=== PATIENT | female | born 1960 ===

== ENCOUNTER 2019-12-04 09:59 | Outpatient (REF) | payer OTHER, SELFPAY ==
--- NOTE | 2019-12-04 | PFT_ITS ---
Forced vital capacity and FEV1 are both moderately reduced. FEV1/FVC ratio is normal. [id number] and MVV also moderately reduced. Post bronchodilator therapy, there is no significant response. Total lung capacity is slightly increased and residual volume is markedly increased. Diffusion capacity moderately decreased. CONCLUSION: Obstructive airway disorder, moderately severe, no significant response to bronchodilator therapy. There is evidence of air trapping. Kimberly Anderson MD MSB/MODL / [id number]
== END 2019-12-04 10:00 | disposition home or self-care (01) ==
LOC: HO.RESP 09:59
PROVIDERS: PCP Physician Assistant; Visit Provider Physician Assistant
DX: J45.40 Moderate persistent asthma, uncomplicated (principal)
CPT/HCPCS: 94060; 94727; 94729

== ENCOUNTER 2019-12-15 09:14 | Day surgery (SDC) | payer OTHER, SELFPAY ==
[2019-12-12 11:14] VITALS: BMI 34.7
--- NOTE | 2019-12-14 11:48 | HO.ANESPROP2 ---
Documented by User: Emma Benton 12/14/19 11:52 HPI - Anesthesia Eval Consult details Narrative: 59yo F for Colonoscopy [facility] Past Medical History Medical History Arthritis Asthma Depression Diabetes Elevated cholesterol History of colon polyps HTN (hypertension) Migraine Obesity Rectal pain Sleep apnea Surgical History Surgical History History of incisional hernia repair History of tooth extraction History of tubal ligation Hx of appendectomy Hx of cataract extraction Hx of cholecystectomy Social History Social History Smoking Status: Never smoker Use of substances other than those prescribed or required for medical reasons: No Advance Directives: No Meds Allergies Allergy/AdvReac Type Severity Reaction Status Date / Time No Known Allergies Allergy Verified 12/15/19 09:28 [No Known Allergies*] Home Medications Medication Instructions Recorded Confirmed Type albuterol sulfate 0.63 mg INHALATION Q4-6H PRN 12/12/19 12/12/19 History albuterol sulfate 1 inh INHALATION QID PRN 12/12/19 12/12/19 History aspirin [Aspir-81] 81 mg PO DAILY 12/12/19 12/15/19 History smzplednmd-mzlrqvgsvedij-yoqu 1 cap PO Q6H PRN 12/12/19 12/12/19 History citalopram [Celexa] 20 mg PO DAILY 12/12/19 12/12/19 History cyanocobalamin (vitamin B-12) 1,000 mcg PO DAILY 12/12/19 12/12/19 History [Vitamin B-12] fluticasone propion-salmeterol 1 inh INHALATION BID 12/12/19 12/12/19 History [AirDuo RespiClick] hydroxyzine HCl 25 mg PO TID PRN 12/12/19 12/12/19 History ibuprofen 800 mg PO Q8H PRN 12/12/19 12/12/19 History lisinopril 10 mg PO DAILY 12/12/19 12/12/19 History melatonin 5 mg PO BEDTIME PRN 12/12/19 12/12/19 History metformin 500 mg PO BID 12/12/19 12/12/19 History rosuvastatin [Crestor] 40 mg PO DAILY 12/12/19 12/12/19 History Exam Exam Date and Time: December 14, 2019 1148 Height,Weight and Vital Signs: Height 5 ft 7 in Weight 100.698 kg Assessment and Plan Assessment Anesthesia Assessment: Chart Reviewed Documented by User: Samanta Vizcaino 12/15/19 09:53 [facility] Past Medical History Medical History Arthritis Asthma Depression Diabetes Elevated cholesterol History of colon polyps HTN (hypertension) Migraine Obesity Rectal pain Sleep apnea Surgical History Surgical History History of incisional hernia repair History of tooth extraction History of tubal ligation Hx of appendectomy Hx of cataract extraction Hx of cholecystectomy Social History Social History Smoking Status: Never smoker Use of substances other than those prescribed or required for medical reasons: No Advance Directives: No Meds Allergies Allergy/AdvReac Type Severity Reaction Status Date / Time No Known Allergies Allergy Verified 12/15/19 09:28 [No Known Allergies*] Home Medications Medication Instructions Recorded Confirmed Type albuterol sulfate 0.63 mg INHALATION Q4-6H PRN 12/12/19 12/12/19 History albuterol sulfate 1 inh INHALATION QID PRN 12/12/19 12/12/19 History aspirin [Aspir-81] 81 mg PO DAILY 12/12/19 12/15/19 History icdcifhyck-pgwmkjyxnsrgi-cwni 1 cap PO Q6H PRN 12/12/19 12/12/19 History citalopram [Celexa] 20 mg PO DAILY 12/12/19 12/12/19 History cyanocobalamin (vitamin B-12) 1,000 mcg PO DAILY 12/12/19 12/12/19 History [Vitamin B-12] fluticasone propion-salmeterol 1 inh INHALATION BID 12/12/19 12/12/19 History [AirDuo RespiClick] hydroxyzine HCl 25 mg PO TID PRN 12/12/19 12/12/19 History ibuprofen 800 mg PO Q8H PRN 12/12/19 12/12/19 History lisinopril 10 mg PO DAILY 12/12/19 12/12/19 History melatonin 5 mg PO BEDTIME PRN 12/12/19 12/12/19 History metformin 500 mg PO BID 12/12/19 12/12/19 History rosuvastatin [Crestor] 40 mg PO DAILY 12/12/19 12/12/19 History Exam Airway Mallampati Class: III TM Dist: >3cm Neck ROM: Full Loose/Missing/Broken Teeth: Upper Assessment and Plan Assessment Anesthesia Assessment: Anesthesia Plan Discussed and Chart Reviewed Final Anesthetic Review NPO: Yes ASA Class: III Final Preanesthetic Review: No Changes in Pt Med Stat, Meds/Allgs Chart Reviewed, Consent Obtained/Reviewed and Anes Risks/Benef Reviewed Patient Risk: Intermediate Procedure Risk: Low Assessment/Block/Sedation in SS: Assess/Block/Sedation-SS Anesthetic Plan Anesthetic Plan: MAC: Disposition: Standard PACU
[2019-12-15 09:39] VITALS: BP 167/81; PULSE 90; RESP 16; TEMP 36.6; O2SAT 98
[2019-12-15 09:41] VITALS: BMI 34.4
--- NOTE | 2019-12-15 09:45 | MHC.SHP ---
Pre-Procedural Eval Section A The patient is an INPATIENT: No Changes since office visit: No Cold of Flu in the past 2 weeks The History & Physical has been completed within 30 days and I have reviewed it.: No Section B Chief Complaint: Colon Polyps Details of Present Illness: Colon cancer screening, hx of multiple colon polyps, FH of colon cancer (Mom in her 80's) Relevant Family History (Specify if Yes): Yes Present Medications: see Short Stay Collaborative assessment Medical History: Significant History (OBESITY. ASTHMA . DEPRESSION. HX OF COLON POLYPS (2018) . LEONARDO. Pre diabetic.. ) History of Previous Operations: Relevant previous surgery/procedure and date(s) (GALLBLADDER REMOVED REMOVAL OF COLON POLYPS LEFT EYE CATARACT SURGERY TUBAL LIGATION APPENDIX REMOVAL lap incisional hernia repair- FM tooth extraction 05/2018 ) Allergies: Allergies Allergy/AdvReac Type Severity Reaction Status Date / Time No Known Allergies Allergy Verified 12/15/19 09:28 [No Known Allergies*] Review of Systems Sugical H&P ROS: Negative: Constitution, Cardiovascular, Respiratory and Psychiatric Exam Surgical H&P Exam: Normal: HEENT, Normal: Heart, Normal: Lungs and Normal: Extremities and Significant Findings: Abdomen (RUQ pain.) Plan Diagnosis/Plan: Unchanged Patient has been examined and remains a candidate for the planned procedure
--- NOTE | 2019-12-15 09:48 | PM.OP ---
Brief Operative Note Date of procedure: 12/15/19 Pre-op diagnosis: Colon cancer screening, history of colon polyps, FH of colon cancer Post-op diagnosis: other ( Colon polyps, diverticulosis, hemorrhoids) Procedure: COLONOSCOPY TILL TRANSVERSE COLON ANASTOMOSIS WITH BIOPSIES AND SNARE POLYPECTOMY Consent: Indications for the procedure and potential complications of bleeding, perforation, reaction to medications and missed diagnosis were discussed with the patient and informed consent was obtained. Instrument: Olympus PCF H 190 L variable stiffness pediatric colonoscope Monitoring: Vital signs and clinical assessment, intermittent blood pressure monitoring, continuous EKG monitoring, Pulse oximetry and Carbon Dioxide monitoring were done throughout the procedure. Colon withdrawl time was 18 minutes. Procedure: The patient was placed in the left lateral decubitis position and pre-procedure medications were administered. After a digital rectal examination of the ano-rectum, the video colonoscope was inserted into the rectum and advanced through the colon to end to side anastomosis ? in the TC at 80 cms. The colonoscope was slowly withdrawn in a retrograde panoramic fashion and the colon mucosa was carefully examined including a retroflexed view of the rectum. Findings and interventions are described below. Procedure Difficulty: Without difficulty Findings: Terminal Ileum: Distal 5 cms of fernando-terminal ileum was examined and appeared normal. Cecum: Surgically removed Ascending Colon: Surgically removed Transverse Colon: A 4-5 mm sessile polyp removed with the cold biopsy. A 7-8 mm sessile polyp removed with a cold snare- Residual polypoidal tissue removed with a cold bx. Descending Colon: Normal Sigmoid Colon: A 7-8 mm sessile polyp removed with a cold snare and moderate diverticulosis Rectum: Normal Ano-rectum: Small internal hemorrhoids. Colon preparation: Good after some irrigation. Impression and Post Procedure Diagnosis: Colonoscopy Findings: Three polyps removed. Pt is status post right krissy-colectomy. Moderate diverticulosis seen in the sigmoid colon Small hemorrhoids on retroflexed exam. Plan: Await pathology results Patient has an appointment on 01/15/20 in the GI Clinic with KRUPA Garcia. Repeat Colonoscopy interval based on path results - in 3-5 years if polyps are adenomatous and due to personal history of colon polyps.. Above findings were reviewed with the patient and colon polyps and diverticulosis handouts were given in the discharge area Surgeon: Jenny Sawyer MD Anesthesia: MAC (Malick Powers CRNA, ) Dehydrogenation Converter Operator: Nik Zhang Pathology: other (A. TC polyps x 2, B. SC polyp x 1) Condition: stable Disposition: PACU
[2019-12-15] MEDS: Lactated Ringers 1,000 ML 100 ML IVCONT (09:52)
[2019-12-15 09:54] LABS: Glucose, Whole Blood 105 mg/dL (60-115)
[2019-12-15 10:40] VITALS: BP 97/61; PULSE 97; RESP 20; TEMP 36.4; O2SAT 94
[2019-12-15 10:54] VITALS: BP 124/68; PULSE 90; RESP 18; TEMP 36.4; O2SAT 95
--- NOTE | 2019-12-15 11:28 | HO.POSTANES ---
Post Anesthesia Evaluation Post Anesthesia Evaluation Vital Signs: Vital Signs Temp Pulse Resp BP Pulse Ox 12/15/19 10:54 97.6 F 90 18 124/68 95 12/15/19 10:40 97.5 F 97 20 97/61 94 12/15/19 09:39 97.9 F 90 16 167/81 H 98 Anesthesia: Monitored Mental Status: Awake Pain Control: Satisfactory Nausea/Vomiting: None Hydration: Adequate Anesthesia-Related Issues: No Anes. Related Issues
== END 2019-12-15 11:53 | disposition home or self-care (01) ==
PROVIDERS: PCP Internal Medicine; Visit Provider Internal Medicine Gastroenterology
PROC: 0DJD8ZZ Inspection of Lower Intestinal Tract, Via Natural or Artificial Opening Endoscopic (ICD-10-PCS; CPT 45378; principal; 2019-12-15 10:00)
DX: Z12.11 Encounter for screening for malignant neoplasm of colon (principal); Z86.010 Personal history of colon polyps; Z80.0 Family history of malignant neoplasm of digestive organs; Z90.49 Acquired absence of other specified parts of digestive tract; Z98.0 Intestinal bypass and anastomosis status; D12.3 Benign neoplasm of transverse colon; D12.5 Benign neoplasm of sigmoid colon; K57.30 Diverticulosis of large intestine without perforation or abscess without bleeding; K64.8 Other hemorrhoids; J45.909 Unspecified asthma, uncomplicated; G47.33 Obstructive sleep apnea (adult) (pediatric); I10 Essential (primary) hypertension; E78.00 Pure hypercholesterolemia, unspecified; E11.9 Type 2 diabetes mellitus without complications; Z79.82 Long term (current) use of aspirin; Z79.84 Long term (current) use of oral hypoglycemic drugs; Z99.89 Dependence on other enabling machines and devices; Z79.899 Other long term (current) drug therapy
CPT/HCPCS: 45385; 45380; 82947; 88305

== ENCOUNTER 2019-12-25 11:26 | Outpatient (REF) | payer OTHER, SELFPAY | END 2019-12-25 11:27 | disposition home or self-care (01) | LOC: HO.LAB 11:26 | PROVIDERS: Visit Provider Internal Medicine | DX: Z20.828 Contact with and (suspected) exposure to other viral communicable diseases (principal) | CPT/HCPCS: 87635 ==

== ENCOUNTER → 2020-01-15 13:38 | Outpatient (BNVA) | payer OTHER, SELFPAY | PROVIDERS: Visit Provider Physician Assistant | DX: Z76.89 Persons encountering health services in other specified circumstances (principal) ==

== ENCOUNTER 2020-03-18 10:39 | Outpatient (REF) | payer OTHER, SELFPAY | END 2020-03-18 10:40 | disposition home or self-care (01) | LOC: HO.LAB 10:39 | PROVIDERS: PCP Physician Assistant; Visit Provider Obstetrics & Gynecology | DX: R87.616 Satisfactory cervical smear but lacking transformation zone (principal) | CPT/HCPCS: 36415; 87624; 88141; 88142; 99212 ==

== ENCOUNTER 2020-03-25 08:32 | Outpatient (REF) | payer OTHER, SELFPAY ==
--- NOTE | 2020-03-25 11:05 | XR_ITS ---
EXAMINATION: XR KNEE, BILATERAL AP STANDING XR KNEE, BILATERAL CLINICAL INFORMATION: Pain. COMPARISON: Bilateral knee 10/18/2019. TECHNIQUE: AP bilateral knee standing. 2 views each knee. FINDINGS: AP BILATERAL KNEE: There is mild reduction in bilateral knee joint space with minimal periarticular spurring. The lateral knee joint space is maintained normal. LEFT KNEE: There is mild reduction in the patellofemoral compartment joint space with periarticular spurring. There is mild suprapatellar joint effusion. No loose body seen. RIGHT KNEE: There is mild reduction of patellofemoral compartment joint space with superior patellar spurring and anterior superior patellar enthesophyte along the insertion of quadriceps tendon. Minimal suprapatellar joint effusion seen. There are no loose bodies. XR/XR knee standing BI IMPRESSION: Degenerative arthritic changes medial and patellofemoral compartment joint space of both knees. Bilateral suprapatellar joint effusion seen.
--- NOTE | 2020-03-25 11:05 | XR_ITS ---
EXAMINATION: XR KNEE, BILATERAL AP STANDING XR KNEE, BILATERAL CLINICAL INFORMATION: Pain. COMPARISON: Bilateral knee 10/18/2019. TECHNIQUE: AP bilateral knee standing. 2 views each knee. FINDINGS: AP BILATERAL KNEE: There is mild reduction in bilateral knee joint space with minimal periarticular spurring. The lateral knee joint space is maintained normal. LEFT KNEE: There is mild reduction in the patellofemoral compartment joint space with periarticular spurring. There is mild suprapatellar joint effusion. No loose body seen. RIGHT KNEE: There is mild reduction of patellofemoral compartment joint space with superior patellar spurring and anterior superior patellar enthesophyte along the insertion of quadriceps tendon. Minimal suprapatellar joint effusion seen. There are no loose bodies. XR/XR knee LT 2V IMPRESSION: Degenerative arthritic changes medial and patellofemoral compartment joint space of both knees. Bilateral suprapatellar joint effusion seen.
--- NOTE | 2020-03-25 11:05 | XR_ITS ---
EXAMINATION: XR KNEE, BILATERAL AP STANDING XR KNEE, BILATERAL CLINICAL INFORMATION: Pain. COMPARISON: Bilateral knee 10/18/2019. TECHNIQUE: AP bilateral knee standing. 2 views each knee. FINDINGS: AP BILATERAL KNEE: There is mild reduction in bilateral knee joint space with minimal periarticular spurring. The lateral knee joint space is maintained normal. LEFT KNEE: There is mild reduction in the patellofemoral compartment joint space with periarticular spurring. There is mild suprapatellar joint effusion. No loose body seen. RIGHT KNEE: There is mild reduction of patellofemoral compartment joint space with superior patellar spurring and anterior superior patellar enthesophyte along the insertion of quadriceps tendon. Minimal suprapatellar joint effusion seen. There are no loose bodies. XR/XR knee RT 2V IMPRESSION: Degenerative arthritic changes medial and patellofemoral compartment joint space of both knees. Bilateral suprapatellar joint effusion seen.
== END 2020-03-25 08:33 | disposition home or self-care (01) ==
LOC: HO.HOSX 08:32
PROVIDERS: Visit Provider Orthopaedic Surgery
DX: M25.562 Pain in left knee (principal); M25.561 Pain in right knee
CPT/HCPCS: 20610; 73560; 73565; 99212; J1100

== ENCOUNTER → 2020-05-27 10:06 | Outpatient (BNVA) | payer OTHER, SELFPAY | PROVIDERS: PCP Physician Assistant; Visit Provider Orthopaedic Surgery | DX: Z01.812 Encounter for preprocedural laboratory examination (principal); Z01.810 Encounter for preprocedural cardiovascular examination ==

== ENCOUNTER 2020-05-30 09:53 | Outpatient (REF) | payer OTHER, SELFPAY ==
--- NOTE | ~2020-05-30 | MM_ITS ---
EXAMINATION: MM SCREENING DIGITAL BREAST TOMOSYNTHESIS, BILATERAL CLINICAL INFORMATION: Screening. Asymptomatic. The lifetime risk of breast cancer based on the Tyrer-Cuzick Model is 5.1%. COMPARISON: Mammography: None TECHNIQUE: Digital breast tomosynthesis is performed in both the craniocaudal and mediolateral oblique views along with computer-aided detection (CAD). Synthesized 2D images are generated from the tomosynthesis. FINDINGS: The breasts are almost entirely fatty (ACR BI-RADS breast composition Category a). There are no significant masses, abnormal calcifications, or other abnormalities. MM/MM tomosynthesis screening BI IMPRESSION: There are no significant changes from prior study. ASSESSMENT: BI-RADS 1: Negative RECOMMENDATION: Routine annual mammography screening. This patient's information was entered into a reminder system with a target due date for their next mammogram.
== END 2020-05-30 09:54 | disposition home or self-care (01) ==
LOC: HO.MAMMO 09:53
PROVIDERS: PCP Physician Assistant; Visit Provider Obstetrics & Gynecology
DX: Z12.31 Encounter for screening mammogram for malignant neoplasm of breast (principal)
CPT/HCPCS: 77063; 77067

== ENCOUNTER 2020-06-11 11:47 | Outpatient (REF) | payer OTHER, SELFPAY ==
[2020-06-11 12:57] LABS: MANUAL DIFF FLAG NO
[2020-06-11 13:05] LABS: Basophils Percent Auto 0.5 % (0-2); Eosinophils Absolute Auto 0.2 X10*3/uL (0.0-0.4); Eosinophils Percent Auto 2.9 % (0-4); Glucose Urine UA NEG (NEG); Hematocrit 40.5 % (37-47); Imm Gran Abs Auto 0.03 X10*3/uL (0.00-0.03); Imm Gran Pct Auto 0.4 % (0.0-0.4); Leukocyte Esterase Urine NEG (NEG); Lymphocytes Absolute Auto 2.5 X10*3/uL (1.2-4.9); Lymphocytes Percent Auto 29.3 % (20-40); Mean Corpuscular HGB Conc 32.1 g/dl (31.0-35.0); Mean Corpuscular Hemoglobin 27.7 pg (27.0-33.0); Mean Corpuscular Volume 86.4 fL (80-98); Mean Platelet Volume 9.8 fL (9.4-12.3); Monocytes Absolute Auto 0.4 X10*3/uL (0.1-1.2); Monocytes Percent Auto 5.2 % (2-11); Neutrophils Absolute Auto 5.2 X10*3/uL (2.0-8.3); Neutrophils Percent Auto 61.7 % (45-73); Nitrite Urine NEG (NEG); Platelet Count 309 X10*3/uL (160-400); Red Blood Count 4.69 X10*6/uL (4.20-5.50); Red Cell Distribution Width 12.4 % (11.0-16.0); Specific Gravity - Urine 1.025 (1.005-1.025); Urine Blood NEG (NEG); Urine Ketones NEG (NEG); Urine Protein NEG (NEG-TRACE); White Blood Count 8.4 X10*3/uL (4.8-10.8)
[2020-06-11 13:06] LABS: Appearance Urine CLOUDY; Color Urine YELLOW
[2020-06-11 13:12] LABS: Estimated Average Glucose 148 mg/dL; Hemoglobin A1c % 6.8 %
[2020-06-11 13:16] LABS: Anion Gap 12 (12-20); Blood Urea Nitrogen 12 mg/dL (9-16); Calcium 9.6 mg/dL (8.4-10.2); Carbon Dioxide 29 mmol/L (22-29); Chloride 103 mmol/L (96-108); Estimated Glomerular Filt Rate > 60; Glucose Random 109 mg/dL (60-115); Potassium 4.2 mmol/L (3.3-5.1); Sodium 140 mmol/L (135-145)
[2020-06-11 13:21] LABS: Alanine Aminotransferase 18 U/L (0-31); Albumin Level 4.4 g/dL (3.5-5.0); Alkaline Phosphatase 76 U/L (39-117); Aspartate Amino Transferase 16 U/L (5-31); Bilirubin Direct 0.2 mg/dL (0.0-0.5); Bilirubin Total 0.4 mg/dL (0.0-1.0); Cholesterol 246 mg/dL; HDL Cholesterol 57 mg/dL; LDL Cholesterol Calculated 148 mg/dl; Total Protein 7.4 g/dL (6.5-8.0); Triglycerides 206 mg/dL
[2020-06-11 13:43] LABS: Thyroid Stimulating Hormone 0.95 uIU/mL (0.32-4.0)
== END 2020-06-11 11:48 | disposition home or self-care (01) ==
LOC: HO.LAB 11:47
PROVIDERS: Orthopaedic Surgery; PCP Physician Assistant; Visit Provider Internal Medicine
DX: Z01.812 Encounter for preprocedural laboratory examination (principal); M17.11 Unilateral primary osteoarthritis, right knee
CPT/HCPCS: 36415; 80048; 80061; 80076; 81003; 83036; 84443; 85025

== ENCOUNTER 2020-06-19 | Outpatient (REF) | payer OTHER, SELFPAY ==
[2020-06-18 12:19] VITALS: BMI 37.3
[2020-06-19 09:55] VITALS: BP 144/65; PULSE 88; RESP 20; O2SAT 96; BMI 37.3
--- NOTE | 2020-06-19 10:37 | P.CONAN_ITS ---
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 (Acute) Osteoarthritis of right knee (Acute) Preoperative clearance (Acute) Arthritis (Acute) Asthma (Acute) Obesity (BMI 30-39.9) (Acute) HTN (hypertension) (Acute) Hypercholesterolemia (Acute) Type 2 diabetes mellitus with hyperglycemia (Acute) Diverticulosis (Acute) Family history of colon cancer (Acute) Past Medical History Medical History Alcohol abuse Arthritis Asthma COVID-19 vaccine administered Depression Diverticulosis Family history of colon cancer HTN (hypertension) Hypercholesterolemia Migraine Obesity (BMI 30-39.9) Pulmonary nodule Rectal pain Sleep apnea Tubular adenoma Type 2 diabetes mellitus with hyperglycemia Family History Family History Father History of ETOH abuse Mother Benign tumor Brother Acute CVA (cerebrovascular accident) Brother CAD (coronary artery disease) Surgical History Surgical History H/O rectal polypectomy History of colonoscopy History of incisional hernia repair History of tooth extraction History of tubal ligation Hx of appendectomy Hx of cataract extraction Hx of cholecystectomy Social History Social History Alcohol intake: current Alcohol intake frequency: a few times a week Smoking Status: Never smoker Use of substances other than those prescribed or required for medical reasons: No Have you been hit, kicked, punched, or otherwise hurt by someone within the past year? If so, by whom?: No Recently lost weight without trying: No Meds Allergies Allergy/AdvReac Type Severity Reaction Status Date / Time No Known Allergies Allergy Verified 06/11/20 12:24 [No Known Allergies*] Home Medications Medication Instructions Recorded Confirmed Last Taken Type onacprrjas-vjydlysguocks-dkai 1 cap PO Q6H PRN 12/12/19 06/18/20 Unknown History cyanocobalamin (vitamin B-12) 1,000 mcg PO DAILY 12/12/19 06/18/20 Unknown History [Vitamin B-12] hydroxyzine HCl 25 mg PO TID PRN 12/12/19 06/18/20 Unknown History ibuprofen 800 mg PO Q8H PRN 12/12/19 06/18/20 Unknown History Exam Exam Date and Time: June 19, 2020 1037 Height,Weight and Vital Signs: Height 5 ft 7 in Weight 108.012 kg Last Vital Signs Pulse 88 06/19/20 09:55 Resp 20 06/19/20 09:55 BP 144/65 H 06/19/20 09:55 Pulse Ox 96 06/19/20 09:55 Airway Mallampati Class: II TM Dist: >3cm Neck ROM: Full Partial: Upper
--- NOTE | 2020-06-19 10:37 | P.CONAN_ITS ---
[facility] Active Problems Active Problems: All Active Problems (Updated 06/19/20 @ 10:14 by Latosha trujillo) Anxiety and depression (Acute) Annual physical exam (Acute) Transformation zone absent on cervical Pap smear (Acute) Osteoarthritis of right knee (Acute) Preoperative clearance (Acute) Arthritis (Acute) Asthma (Acute) Obesity (BMI 30-39.9) (Acute) HTN (hypertension) (Acute) Hypercholesterolemia (Acute) Type 2 diabetes mellitus with hyperglycemia (Acute) Diverticulosis (Acute) Family history of colon cancer (Acute) Past Medical History Medical History Alcohol abuse Arthritis Asthma COVID-19 vaccine administered Depression Diverticulosis Family history of colon cancer HTN (hypertension) Hypercholesterolemia Migraine Obesity (BMI 30-39.9) Pulmonary nodule Rectal pain Sleep apnea Tubular adenoma Type 2 diabetes mellitus with hyperglycemia Family History Family History Father History of ETOH abuse Mother Benign tumor Brother Acute CVA (cerebrovascular accident) Brother CAD (coronary artery disease) Surgical History Surgical History H/O rectal polypectomy History of colonoscopy History of incisional hernia repair History of tooth extraction History of tubal ligation Hx of appendectomy Hx of cataract extraction Hx of cholecystectomy Social History Social History Alcohol intake: current Alcohol intake frequency: a few times a week Smoking Status: Never smoker Use of substances other than those prescribed or required for medical reasons: No Have you been hit, kicked, punched, or otherwise hurt by someone within the past year? If so, by whom?: No Recently lost weight without trying: No Meds Allergies Allergy/AdvReac Type Severity Reaction Status Date / Time No Known Allergies Allergy Verified 06/11/20 12:24 [No Known Allergies*] Home Medications Medication Instructions Recorded Confirmed Last Taken Type lwclewejci-zwpafqmlbnqxu-dbny 1 cap PO Q6H PRN 12/12/19 06/18/20 Unknown History cyanocobalamin (vitamin B-12) 1,000 mcg PO DAILY 12/12/19 06/18/20 Unknown History [Vitamin B-12] hydroxyzine HCl 25 mg PO TID PRN 12/12/19 06/18/20 Unknown History ibuprofen 800 mg PO Q8H PRN 12/12/19 06/18/20 Unknown History Exam Exam Date and Time: June 19, 2020 1037 Height,Weight and Vital Signs: Height 5 ft 7 in Weight 108.012 kg Last Vital Signs Pulse 88 06/19/20 09:55 Resp 20 06/19/20 09:55 BP 144/65 H 06/19/20 09:55 Pulse Ox 96 06/19/20 09:55 Assessment and Plan Assessment Anesthesia Assessment: Anesthesia Plan Discussed and Chart Reviewed Final Anesthetic Review NPO: Yes ASA Class: III Final Preanesthetic Review: No Changes in Pt Med Stat, Meds/Allgs Chart Reviewed, Consent Obtained/Reviewed and Anes Risks/Benef Reviewed Patient Risk: Intermediate Procedure Risk: Intermediate Assessment/Block/Sedation in SS: Assess/Block/Sedation-SS Anesthetic Plan Anesthetic Plan: Spinal and Regional Block Disposition: Standard PACU
[2020-06-19 12:17] LABS: MRSA Nasal PCR NEGATIVE (Negative); SA Nasal PCR NEGATIVE (Negative)
== END 2020-06-19 00:01 | disposition home or self-care (01) ==
LOC: HO.PAT
PROVIDERS: Physician Assistant; PCP Physician Assistant; Visit Provider Orthopaedic Surgery
DX: Z01.818 Encounter for other preprocedural examination (principal); M17.11 Unilateral primary osteoarthritis, right knee
CPT/HCPCS: 86850; 86900; 86901; 87640; 87641

== ENCOUNTER 2020-08-27 13:00 | Outpatient (RCR) | payer OTHER, SELFPAY ==
--- NOTE | 2020-06-14 14:51 | MHC.PT.EP ---
[facility] [place] Office [place] Office [place] Office [address] Lis Patten [address] [phone] F: [phone] F: [phone] F: [phone] F: [phone] Physical Therapy Plan of Care Date of Evaluation: 06/14/20 Date of Surgery: 06/25/20 Diagnosis: OA R KNEE, R TKR SCHEDULED FOR 06/25/[address] MANLEY. TO HAVE PREHAB Assessment: Pt IS 59 YO F REFERRED TO PT FROM DR MANLEY FOR PREHAB FOR R TKR ON 06/25/20. PRESENTS WITH DECREASED KNEE FLEXION AND DECREASED LE STRENGTH (LIMITED BY PAIN). Pt WAS EDUCATED ON PT INTERVENTION WHILE IN HOSPITAL, GT/TRNF WITH WW, STAIR NEGOTIATION AND LE THEREX. WOULD BENEFIT FROM ONE MORE SESSION TO REVIEW THESE THINGS PRIOR TO SURGERY, THEN SHOULD BENEFIT FROM OUTPt PT FOR TKR POST -OP Frequency and Duration: The patient will be seen 1 MORE SESSION Short Term Goals: 1. INCREASED AWARENESS KNEE CARE POST TKR 2. GT/TRNSF WITH PROPER TECHNIQUE WITH WW 3. I LE THEREX PROG FOR PO TKR 4. STAIR NEGOTIATION (HAS 3 STAIRS AT HOME) WITH HANDRAIL WITH PROPER SEQUENCINS Dietary Aide Teacher Goals: Treatment Plan: Modalities to reduce pain, spasms and effusion. Manual therapy to restore motion and function. Therapeutic exercise to improve strength and flexibility. Neuromuscular re-education for posture and balance. Therapeutic activities to return to functional activities of daily living. Electronically signed by: PHOEBE HOYOS PT Please sign and return to therapist. Thank you for your referral.
--- NOTE | 2020-10-25 15:49 | MHC.PT.DC ---
[facility] [place] Office [place] Office [place] Office [address] Lis Patten [address] [phone] F: [phone] F: [phone] F: [phone] F: [phone] Physical Therapy Discharge Report Diagnosis: OA R KNEE, R TKR SCHEDULED FOR 06/25/[address] MANLEY. TO HAVE PREHAB Date of Surgery: 06/25/20 Date of Evaluation: 06/14/20 Date of Discharge: 08/27/20 Treatments to Date: 8 Cancellations to Date: 5 No Shows to Date: 1 Discharge Status: Independent with HEP Discharge Summary: PER LAST NOTE PER FABIAN GOLDMAN CIRCULAR SAW OPERATOR (08/27/20) D/C to HEP today. pt is Awaiting surgery to be scheduled. Electronically signed by: PHOEBE HOYOS PT Please sign and return to therapist. Thank you for your referral.
== END 2020-10-25 15:50 | disposition home or self-care (01) ==
LOC: HO.PT 13:00
PROVIDERS: PCP Physician Assistant; Visit Provider Orthopaedic Surgery
DX: M17.11 Unilateral primary osteoarthritis, right knee (principal)
CPT/HCPCS: 97110; 97112; 97116; 97161

== ENCOUNTER → 2020-09-13 08:54 | Outpatient (BNVA) | payer OTHER, SELFPAY | PROVIDERS: PCP Physician Assistant; Visit Provider Orthopaedic Surgery | DX: M17.11 Unilateral primary osteoarthritis, right knee (principal) | CPT/HCPCS: 99212 ==

== ENCOUNTER 2020-11-27 09:02 | Outpatient (REF) | payer OTHER, SELFPAY ==
--- NOTE | ~2020-11-27 | XR_ITS ---
EXAMINATION: XR CHEST CLINICAL INFORMATION: Asthma. Preop evaluation. COMPARISON: Chest 07/12/2018 TECHNIQUE: 2 views of the chest were obtained. FINDINGS: The lungs are somewhat expanded and clear of acute pneumonic process. Mild increased bilateral parahilar markings likely related to airway disease or asthma. There is no pleural effusion. The heart size and pulmonary vascularity is normal. No gross bony abnormality seen. XR/XR chest 2V IMPRESSION: No acute cardiopulmonary process. No major change from 07/12/2018
== END 2020-11-27 09:03 | disposition home or self-care (01) ==
LOC: HO.XRAY 09:02
PROVIDERS: PCP Physician Assistant; Visit Provider Physician Assistant
DX: J45.21 Mild intermittent asthma with (acute) exacerbation (principal)
CPT/HCPCS: 71046

== ENCOUNTER → 2020-11-28 12:46 | Outpatient (BNVA) | payer OTHER, SELFPAY | PROVIDERS: PCP Physician Assistant; Visit Provider Physician Assistant | DX: M17.11 Unilateral primary osteoarthritis, right knee (principal) | CPT/HCPCS: 99212 ==

== ENCOUNTER 2020-12-03 | Outpatient (REF) | payer OTHER, SELFPAY ==
--- NOTE | 2020-11-22 | ECG_ITS ---
Test Reason : preop Blood Pressure : / mmHG Vent. Rate : 088 BPM Atrial Rate : 088 BPM P-R Int : 166 ms QRS Dur : 078 ms QT Int : 352 ms P-R-T Axes : 054 013 065 degrees QTc Int : 425 ms Normal sinus rhythm Normal ECG When compared with ECG of 11-FEB-2018 09:13, No significant change was found Referred By: Jeovany Figueroa Electronically Signed By:ROGERIO CARY
[2020-11-22 09:16] VITALS: BP 141/80; PULSE 90; RESP 20; TEMP 36.9; O2SAT 96; BMI 39.9
--- NOTE | 2020-11-22 09:38 | HO.ANESPROP2 ---
HPI - Anesthesia Eval Consult details Narrative: 60yo F for Right Knee Replacement Total 12/03/20 PCP cleared Previously scheduled 05/2020, but cx'd d/t insurance [facility] Active Problems Active Problems: All Active Problems (Updated 11/22/20 @ 09:14 by Latosha Tompkins RN) Anxiety and depression (Acute) Annual physical exam (Acute) Transformation zone absent on cervical Pap smear (Acute) Osteoarthritis of right knee (Acute) Preoperative clearance (Acute) Localized osteoarthritis of right knee (Acute) Arthritis (Acute) Asthma (Acute) Obesity (BMI 30-39.9) (Acute) HTN (hypertension) (Acute) Hypercholesterolemia (Acute) Type 2 diabetes mellitus with hyperglycemia (Acute) Diverticulosis (Acute) Family history of colon cancer (Acute) Past Medical History Medical History Alcohol abuse Arthritis Asthma COVID-19 vaccine administered Depression Diverticulosis Family history of colon cancer HTN (hypertension) Hypercholesterolemia Migraine Obesity (BMI 30-39.9) Pulmonary nodule Rectal pain Sleep apnea Tubular adenoma Type 2 diabetes mellitus with hyperglycemia Family History Family History Father History of ETOH abuse Mother Benign tumor Brother Acute CVA (cerebrovascular accident) Brother CAD (coronary artery disease) Family history of problems with anesthesia: No Surgical History Surgical History H/O rectal polypectomy History of colonoscopy History of incisional hernia repair History of tooth extraction History of tubal ligation Hx of appendectomy Hx of cataract extraction Hx of cholecystectomy History of Problems with Anesthesia: No Social History Social History Household Members: Family Housing: Apartment Are you a primary residential child care counselor to a significant other at home: No Do you presently have visiting nurse or other home services: Yes (daughter is BULK CLERK) Alcohol intake: current Alcohol intake frequency: a few times a month Patient Tobacco Use Status: Never used Tobacco e-Cigarette/Vaping Use: Never Used Second Hand Smoke Exposure: No service: No Current occupational status: unemployed Current occupation: rt handed Narrative Narrative: Asthma exac at [facility], last 4 days. No fevers. Improving symptoms with Q4H nebulizer at home. No chest pain Meds Allergies Allergy/AdvReac Type Severity Reaction Status Date / Time No Known Allergies Allergy Verified 11/28/20 14:02 [No Known Allergies*] Home Medications Medication Instructions Recorded Confirmed Last Taken Type rosuvastatin 40 mg tablet (Crestor) 40 mg PO BEDTIME 11/22/20 12/04/20 12/03/20 History fluticasone 232 mcg-salmeterol 14 1 inh INHALATION BID PRN 12/04/20 12/04/20 Unknown History mcg/actuation breath activated powdr (AirDuo RespiClick) ibuprofen 800 mg tablet 800 mg PO Q8H PRN 12/04/20 12/04/20 Unknown History melatonin 5 mg tablet 5 mg PO BEDTIME 12/04/20 12/04/20 12/03/20 History Exam Exam Date and Time: November 22, 2020 0938 Height,Weight and Vital Signs: Height 5 ft 5 in Weight 108.862 kg Last Vital Signs Temp 98.4 F 11/22/20 09:16 Pulse 90 11/22/20 09:16 Resp 20 11/22/20 09:16 BP 141/80 H 11/22/20 09:16 Pulse Ox 96 11/22/20 09:16 Pertinent Lab Results Pertinent Lab Results: Lab Results 11/22/20 11/22/20 11/22/20 Range/Units 09:30 10:15 10:15 WBC 7.8 (4.8-10.8) X10*3/uL RBC 4.75 (4.20-5.50) X10*6/uL Hgb 13.6 (12.0-16.0) g/dl Hct 41.2 (37-47) % MCV 86.7 (80-98) fL MCH 28.6 (27.0-33.0) pg MCHC 33.0 (31.0-35.0) g/dl RDW 12.4 (11.0-16.0) % Plt Count 300 (160-400) X10*3/uL MPV 9.5 (9.4-12.3) fL Immature Gran % (Auto) 0.4 (0.0-0.4) % Neut % (Auto) 66.3 (45-73) % Lymph % (Auto) 24.8 (20-40) % [place] % (Auto) 4.7 (2-11) % Eos % (Auto) 3.3 (0-4) % Baso % (Auto) 0.5 (0-2) % Lymph # (Auto) 1.9 (1.2-4.9) X10*3/uL [place] # (Auto) 0.4 (0.1-1.2) X10*3/uL Eos # (Auto) 0.3 (0.0-0.4) X10*3/uL Baso # (Auto) 0.0 (0.0-0.2) X10*3/uL Abs Immat Gran (auto) 0.03 (0.00-0.03) X10*3/uL Absolute Neuts (auto) 5.2 (2.0-8.3) X10*3/uL Absolute Nucleated RBC 0.000 (0.0-0.012) X10*3/uL Nucleated RBC % (auto) 0.0 (0.0-0.2) /100WBC Sodium 140 (135-145) mmol/L Potassium 4.7 (3.3-5.1) mmol/L Chloride 101 (96-108) mmol/L Carbon Dioxide 32 H (22-29) mmol/L Anion Gap 12 (12-20) BUN 11 (9-16) mg/dL Creatinine 0.66 (0.5-1.4) mg/dL Estim Creat Clear Calc 112.6 Estimated GFR > 60 Nasal Screen MRSA (PCR) NEGATIVE (Negative) Nasal S. aureus Screen NEGATIVE (Negative) Nasal MRSA/S.aureus Interp SEE NOTE Blood Type Antibody Screen 11/22/20 Range/Units 10:15 WBC (4.8-10.8) X10*3/uL RBC (4.20-5.50) X10*6/uL Hgb (12.0-16.0) g/dl Hct (37-47) % MCV (80-98) fL MCH (27.0-33.0) pg MCHC (31.0-35.0) g/dl RDW (11.0-16.0) % Plt Count (160-400) X10*3/uL MPV (9.4-12.3) fL Immature Gran % (Auto) (0.0-0.4) % Neut % (Auto) (45-73) % Lymph % (Auto) (20-40) % Refug[place] % (Auto) (2-11) % Eos % (Auto) (0-4) % Baso % (Auto) (0-2) % Lymph # (Auto) (1.2-4.9) X10*3/uL [place] # (Auto) (0.1-1.2) X10*3/uL Eos # (Auto) (0.0-0.4) X10*3/uL Baso # (Auto) (0.0-0.2) X10*3/uL Abs Immat Gran (auto) (0.00-0.03) X10*3/uL Absolute Neuts (auto) (2.0-8.3) X10*3/uL Absolute Nucleated RBC (0.0-0.012) X10*3/uL Nucleated RBC % (auto) (0.0-0.2) /100WBC Sodium (135-145) mmol/L Potassium (3.3-5.1) mmol/L Chloride (96-108) mmol/L Carbon Dioxide (22-29) mmol/L Anion Gap (12-20) BUN (9-16) mg/dL Creatinine (0.5-1.4) mg/dL Estim Creat Clear Calc Estimated GFR Nasal Screen MRSA (PCR) (Negative) Nasal S. aureus Screen (Negative) Nasal MRSA/S.aureus Interp Blood Type O Positive Antibody Screen NEGATIVE Narrative Narrative: EKG 05/2020 NSR @ 87 XR chest 2V 10/2020 IMPRESSION: No acute cardiopulmonary process. No major change from 07/12/2018 Airway Mallampati Class: III TM Dist: <=3cm Neck ROM: Full Partial: Upper Heart: RRR Lungs: Faint exp wheeze upper lobes, clear lower lobes Assessment and Plan Assessment Anesthesia Assessment: Anesthesia Plan Discussed and PAT Visit Final Anesthetic Review Family History of Problems with Anesthesia: No History of Problems with Anesthesia: No
[2020-11-22 10:27] LABS: MANUAL DIFF FLAG NO
[2020-11-22 10:29] LABS: Basophils Percent Auto 0.5 % (0-2); Eosinophils Absolute Auto 0.3 X10*3/uL (0.0-0.4); Eosinophils Percent Auto 3.3 % (0-4); Hematocrit 41.2 % (37-47); Hemoglobin 13.6 g/dl (12.0-16.0); Imm Gran Abs Auto 0.03 X10*3/uL (0.00-0.03); Imm Gran Pct Auto 0.4 % (0.0-0.4); Lymphocytes Absolute Auto 1.9 X10*3/uL (1.2-4.9); Lymphocytes Percent Auto 24.8 % (20-40); Mean Corpuscular Hemoglobin 28.6 pg (27.0-33.0); Mean Corpuscular Volume 86.7 fL (80-98); Mean Platelet Volume 9.5 fL (9.4-12.3); Monocytes Absolute Auto 0.4 X10*3/uL (0.1-1.2); Monocytes Percent Auto 4.7 % (2-11); Neutrophils Absolute Auto 5.2 X10*3/uL (2.0-8.3); Neutrophils Percent Auto 66.3 % (45-73); Platelet Count 300 X10*3/uL (160-400); Red Blood Count 4.75 X10*6/uL (4.20-5.50); Red Cell Distribution Width 12.4 % (11.0-16.0); White Blood Count 7.8 X10*3/uL (4.8-10.8)
[2020-11-22 11:00] LABS: Anion Gap 12 (12-20); Blood Urea Nitrogen 11 mg/dL (9-16); Carbon Dioxide 32 mmol/L (22-29); Chloride 101 mmol/L (96-108); Creatinine Clr Calc Pharmacy 112.6; Estimated Glomerular Filt Rate > 60; Potassium 4.7 mmol/L (3.3-5.1); Sodium 140 mmol/L (135-145)
[2020-11-22 12:07] LABS: MRSA Nasal PCR NEGATIVE (Negative); SA Nasal PCR NEGATIVE (Negative)
== END 2020-12-03 08:11 | disposition home or self-care (01) ==
LOC: HO.LAB
PROVIDERS: Physician Assistant; PCP Physician Assistant; Visit Provider Orthopaedic Surgery
DX: Z01.810 Encounter for preprocedural cardiovascular examination (principal); M17.11 Unilateral primary osteoarthritis, right knee
CPT/HCPCS: 36415; 80051; 82565; 84520; 85025; 86850; 86900; 86901; 87640; 87641; 93005

== ENCOUNTER 2020-12-04 09:25 | Inpatient (IN) | payer OTHER, SELFPAY ==
[2020-12-04] VITALS (16 sets, daily range): BP systolic 87–174; BP diastolic 52–85; PULSE 69–93; RESP 16–18; TEMP 36–36.8; O2SAT 91–100; BMI 38.7
--- NOTE | ~2020-12-04 | XR_ITS ---
EXAMINATION: XR KNEE, RIGHT CLINICAL INFORMATION: Right total knee arthroplasty. COMPARISON: Most recent right knee radiographs dated 03/25/2020 TECHNIQUE: AP and lateral views of the right knee. FINDINGS: Prosthetic components of the right total knee arthroplasty are appropriately aligned. No periprosthetic fracture. Gas from recent surgery is present in the joint and surrounding soft tissues. A joint effusion is present. XR/XR knee RT 2V IMPRESSION: Appropriate alignment of the right total knee arthroplasty.
[2020-12-04] MEDS: Lactated Ringers 1,000 ML 100 ML IVCONT (08:28)
[2020-12-04 08:36] LABS: COVID-19 Test Negative (Negative)
[2020-12-04 09:20] LABS: Glucose, Whole Blood 144 mg/dL (60-115)
--- NOTE | 2020-12-04 09:29 | HO.ANESPROP2 ---
HPI - Anesthesia Eval Consult details Narrative: 60 yo female patient for Right TKR PMFSH Active Problems Active Problems: All Active Problems (Updated 11/28/20 @ 14:11 by Florence Medina PA-C) Osteoarthritis of right knee (Acute) Asthma exacerbation (Acute) Pre-op evaluation (Acute) Anxiety and depression (Acute) Annual physical exam (Acute) Transformation zone absent on cervical Pap smear (Acute) Osteoarthritis of right knee (Acute) Preoperative clearance (Acute) Localized osteoarthritis of right knee (Acute) Arthritis (Acute) Asthma (Acute) Obesity (BMI 30-39.9) (Acute) HTN (hypertension) (Acute) Hypercholesterolemia (Acute) Type 2 diabetes mellitus with hyperglycemia (Acute) Diverticulosis (Acute) Family history of colon cancer (Acute) Past Medical History Medical History Alcohol abuse Arthritis Asthma COVID-19 vaccine administered Depression Diverticulosis Family history of colon cancer HTN (hypertension) Hypercholesterolemia Migraine Obesity (BMI 30-39.9) Pulmonary nodule Rectal pain Sleep apnea Tubular adenoma Type 2 diabetes mellitus with hyperglycemia Family History Family History Father History of ETOH abuse Mother Benign tumor Brother Acute CVA (cerebrovascular accident) Brother CAD (coronary artery disease) Family history of problems with anesthesia: No Surgical History Surgical History H/O rectal polypectomy History of colonoscopy History of incisional hernia repair History of tooth extraction History of tubal ligation Hx of appendectomy Hx of cataract extraction Hx of cholecystectomy History of Problems with Anesthesia: No Social History Social History Household Members: Family Housing: Apartment Are you a primary home care consultant to a significant other at home: No Do you presently have visiting nurse or other home services: Yes (daughter is PLATE MILL MILL HAND) Alcohol intake: current Alcohol intake frequency: a few times a month Patient Tobacco Use Status: Never used Tobacco e-Cigarette/Vaping Use: Never Used Second Hand Smoke Exposure: No service: No Current occupational status: unemployed Current occupation: rt handed Meds Allergies Allergy/AdvReac Type Severity Reaction Status Date / Time No Known Allergies Allergy Verified 11/28/20 14:02 [No Known Allergies*] Active Medications: Current Medications Cefazolin Sodium/Dextrose (Ancef) 2 gm in 50 mls @ 100 mls/hr IV PREOP ONE Stop: 12/04/20 09:54 Home Medications Medication Instructions Recorded Confirmed Last Taken Type rosuvastatin 40 mg tablet (Crestor) 40 mg PO BEDTIME 11/22/20 12/04/20 12/03/20 History fluticasone 232 mcg-salmeterol 14 1 inh INHALATION BID PRN 12/04/20 12/04/20 Unknown History mcg/actuation breath activated powdr (AirDuo RespiClick) ibuprofen 800 mg tablet 800 mg PO Q8H PRN 12/04/20 12/04/20 Unknown History melatonin 5 mg tablet 5 mg PO BEDTIME 12/04/20 12/04/20 12/03/20 History Exam Exam Date and Time: December 04, 2020 0929 Height,Weight and Vital Signs: Height 5 ft 6 in Weight 108.862 kg Last Vital Signs Temp 97.3 F 12/04/20 08:01 Pulse 85 12/04/20 08:01 Resp 16 12/04/20 08:01 BP 160/85 H 12/04/20 08:01 Pulse Ox 95 12/04/20 08:01 Pertinent Lab Results Pertinent Lab Results: Laboratory Tests 11/22/20 12/04/20 12/04/20 10:15 08:00 08:29 POC Glucose 144 H COVID-19 ([facility]) Negative COVID-19 Clin Com See Note Blood Type O Positive Antibody Screen NEGATIVE Airway Mallampati Class: II TM Dist: >3cm Neck ROM: Full Heart: RRR Lungs: CTAB Assessment and Plan Assessment Anesthesia Assessment: Anesthesia Plan Discussed Final Anesthetic Review Family History of Problems with Anesthesia: No History of Problems with Anesthesia: No NPO: Yes ASA Class: III Final Preanesthetic Review: No Changes in Pt Med Stat, Meds/Allgs Chart Reviewed, Consent Obtained/Reviewed and Anes Risks/Benef Reviewed Patient Risk: Intermediate Procedure Risk: Intermediate Assessment/Block/Sedation in SS: Assess/Block/Sedation-SS Anesthetic Plan Anesthetic Plan: Spinal Disposition: Standard PACU and Inp. Admit - Standard Bed
--- NOTE | 2020-12-04 09:35 | MHC.SHP ---
Pre-Procedural Eval Section A Date of Service: 12/04/20 The patient is an INPATIENT: No Changes since office visit: Yes Patient answered all questions; No Cold of Flu in the past 2 weeks, No New Medical Problems and No Changes in Medication The History & Physical has been completed within 30 days and I have reviewed it.: Yes Section B Chief Complaint: rt tka Allergies: Allergies Allergy/AdvReac Type Severity Reaction Status Date / Time No Known Allergies Allergy Verified 11/28/20 14:02 [No Known Allergies*] Plan I have reviewed the history and physical and performed a pertinent physical examination on my patient. No changes have occurred unless specified.
--- NOTE | 2020-12-04 12:16 | P.BOP_ITS ---
Brief Operative Note Date of Service: 12/04/20 Pre-op diagnosis: right knee OA Post-op diagnosis: same Procedure: Right TKA Implants: [employer]ita tripuneetalocarl TS 05/02/16TS/32a Surgeon: Jeovany Figueroa MD Anesthesia: regional and spinal Was an Electric Mule Operator used for this Procedure?: No Estimated blood loss (mL): 200 IV fluids (mL): 1,100 Pathology: other Condition: stable Disposition: PACU
--- NOTE | 2020-12-04 13:49 | W.PM.OPN ---
Operative Note Operative Note Date of Service: 12/04/20 Narrative: Pre-op diagnosis: right knee OA Post-op diagnosis: same Procedure: Right TKA Implants: [place] triathalon TS //16TS/32a Surgeon: Jeovany Figueroa MD Anesthesia: regional and spinal Was an Commercial Energy Auditor used for this Procedure?: No Estimated blood loss (mL): 200 IV fluids (mL): 1,100 Pathology: other Condition: stable Disposition: PACU Patient was brought to the operating room and prepped and draped in standard sterile fashion. A time-out was called to identify proper site proper procedure proper surgeon IV antibiotics were administered. 1 g of IV tranexamic acid was also administered. I began by making a midline incision to the retinaculum and performed a medial parapatellar arthrotomy. The patella was translated laterally and the knee was flexed up. I performed a small medial peel and resected the infrapatellar fat pad. Clay's line was then used to drill my intramedullary femoral guide and my distal femur cut was made in 5 degrees of valgus. I then measured a # 3 femur and placed my cutting guide and made my anterior posterior and chamfer cuts protecting the soft tissues at all times. I then made a box cut and removed tyhe PCL. Once I was satisfied with my cut I turned my attention to the tibia. I removed the meniscus and , using an external cutting guide, in line with the tibial crest and the third ray, I made my distal tibial cut while protecting the posterior soft tissues at all times. An extension block was used to confirm appropriate amount of bony resection. I then sized a #__4_ tibia and once I was satisfied that there was good tibial coverage I placed my trial and with the trial femur in place took the knee through range of motion. I was satisfied with the extension and flexion. There was a tight lateral and loose medially with a 13 insert. The MCL was intact but a 16 insert was required for a balanced knee after pie crusting the LCL. I then turned my attention to the patella where I removed 1 cm from the undersurface of the patella and then trialed a 32 a patellar button. Again the knee was taken through range of motion I was satisfied with the tracking. I prepared the tibial metaphysis and then removed all instrumentation. I then prepared 2 bags of palacos bone cement on the back table and cemented in the femur and tibia ins standard fashion while applying axial compression. The patella was also cemented ion place in standard fashion. I then again trialed different inserts until I selected a #__16__ insert. The final insert was placed and a 3 minutes iodine soak with local TXA was performed. The knee was then closed with a running Quill suture, a 3 0 Vicryl and colton on the skin. Patient was then placed in sterile dressing and brought to recovery room in stable condition there were no known complications.
[2020-12-04 13:58] LABS: Glucose, Whole Blood 133 mg/dL (60-115)
[2020-12-04] MEDS: Acetaminophen 325 MG TABLET 650 MG PO (13:58)
[2020-12-04] MEDS: oxyCODONE HCl Immed Release 5 MG TABLET 10 MG PO (13:58)
--- NOTE | 2020-12-04 14:48 | PHA.MEDREC ---
Pharmacy Consult ? Medication Reconciliation Pharmacy has completed the medication reconciliation. Patient and daughter report she is taking prednisone and augmentin however based on fill history she should be compelete with the course. Reports taking AirDuo as need instead of scheduled as prescribed Fartun Soto, PharmD
--- NOTE | 2020-12-04 14:55 | PM.IMCN ---
History of Present Illness Data of Consult Service Date: 12/04/20 Primary Care Provider: Ross Marin PA-C HPI Reason for consult: Medical Mgmt This is a 60 yo F with a PMH of multiple medical issues as listed below who is admitted post from R TKA. Medical services consulted for management of her chronic medical issues. Patient is seen and examined in her room on Med/surg. Field Support Engineer services are used. Her family is bedside. Pt reports only knee pain. Denies cp or sob. Denies abd. pain, n/v/d. Her daughter tells me she uses a CPAP at nightime, unknown settings. Review of Systems Review of Systems: General - no fevers or chills Cardiovascular - no chest pain Respiratory - no shortness of breath or cough Abdominal- no abdominal pain, nausea, vomiting, diarrhea ext - + knee pain Yes all other systems are reviewed and are negative [facility] Medical History Alcohol abuse Arthritis Asthma COVID-19 vaccine administered Depression Diverticulosis Family history of colon cancer HTN (hypertension) Hypercholesterolemia Migraine Obesity (BMI 30-39.9) Pulmonary nodule Rectal pain Sleep apnea Tubular adenoma Type 2 diabetes mellitus with hyperglycemia Family History Father History of ETOH abuse Mother Benign tumor Brother Acute CVA (cerebrovascular accident) Brother CAD (coronary artery disease) Pertinent family history: . Surgical History H/O rectal polypectomy History of colonoscopy History of incisional hernia repair History of tooth extraction History of tubal ligation Hx of appendectomy Hx of cataract extraction Hx of cholecystectomy Social History Household Members: Family Housing: Apartment Are you a primary adult day care worker to a significant other at home: No Do you presently have visiting nurse or other home services: Yes (daughter is NEUROSURGICAL NURSE) Alcohol intake: current Alcohol intake frequency: a few times a month Patient Tobacco Use Status: Never used Tobacco e-Cigarette/Vaping Use: Never Used Second Hand Smoke Exposure: No Use of substances other than those prescribed or required for medical reasons: No Currently Displaying Signs/Symptoms of Drug Intoxication Withdrawal: No Are you DNR?: No Advance Directives: No Advance Directives Information Provided: No Do you have thoughts of harming others: None Do you have a plan to hurt others: No Plan Recently lost weight without trying: No Nutrition Risks: No Nutritional Risk Patient : No service: No Current occupational status: unemployed Current occupation: rt handed Meds Allergies Allergy/AdvReac Type Severity Reaction Status Date / Time No Known Allergies Allergy Verified 11/28/20 14:02 [No Known Allergies*] Active Medications: Current Medications Acetaminophen (Acetaminophen 325 Mg Tablet) 650 mg PO Q6H PRN PRN Reason: Pain, Mild (Pain Scale 1-3) Last Admin: 12/04/20 13:58 Dose: 650 mg Documented by: Celecoxib (Celecoxib 200 Mg Capsule) 200 mg PO BID [facility] Docusate Sodium (Docusate Sodium 100 Mg Capsule) 100 mg PO BID [facility] Hydromorphone HCl (Hydromorphone Hcl 0.5 Mg/0.5 Ml Syringe) 0.25 mg IVPUSH Q4H PRN; Protocol PRN Reason: Pain, Severe (Pain Scale 7-10) Cefazolin Sodium/Dextrose (Ancef) 2 gm in 50 mls @ 100 mls/hr IV POSTOP ONE Stop: 12/04/20 16:29 Ondansetron HCl (Ondansetron Hcl 4 Mg/2 Ml Vial) 4 mg IVPUSH Q8H PRN PRN Reason: Nausea and Vomiting Oxycodone HCl (Oxycodone Hcl Er 10 Mg Tab.Er.12h) 10 mg PO BID [facility] Oxycodone HCl (Oxycodone Hcl Immed Release 5 Mg Tablet) 10 mg PO Q4H PRN PRN Reason: Pain, Moderate (Pain Scale 4-6 Last Admin: 12/04/20 13:58 Dose: 10 mg Documented by: Pharmacy Consult (Consult Rx Perform Med Rec) 1 each MISCELLANE ONCE PRN PRN Reason: Consult order Sodium Chloride (0.9 % Sodium Chloride Flush 3 Ml Syringe) 3 ml IVFLUSH QSHIFT [facility] Home Medications Medication Instructions Recorded Confirmed Last Taken Type rosuvastatin 40 mg tablet (Crestor) 40 mg PO BEDTIME 11/22/20 12/04/20 12/03/20 History fluticasone 232 mcg-salmeterol 14 1 inh INHALATION BID PRN 12/04/20 12/04/20 Unknown History mcg/actuation breath activated powdr (AirDuo RespiClick) ibuprofen 800 mg tablet 800 mg PO Q8H PRN 12/04/20 12/04/20 Unknown History melatonin 5 mg tablet 5 mg PO BEDTIME 12/04/20 12/04/20 12/03/20 History Physical Exam Vital Signs and Narrative: Vital Signs: Last Vital Signs Temp 96.8 F 12/04/20 13:57 Pulse 69 12/04/20 14:39 Resp 18 12/04/20 13:57 BP 118/59 L 12/04/20 14:39 Pulse Ox 100 12/04/20 14:39 Body Mass Index 38.7 Constitutional - Awake and Alert, No apparent distress Eyes - PERRLA, EOMI Cardiovascular - S1S2, RRR, No edema Respiratory - Normal lung expansion, Normal respiratory effort, No respiratory distress, CTA bilaterally Gastrointestinal - NT / ND; +BS; No rebound or guarding - No CVA tenderness Extremities - no calf tenderness bilaterally, no swelling Musculoskeletal - Normal inspection, normal ROM Skin - Warm/Dry Neurological - Alert & oriented x3, No focal deficit Psychological - Appropriate affect Const: Other: General - appears to be in mild pain Cardiovascular - regular rate and rhythm, S1-S2 Lungs - normal respiratory effort, clear to auscultation bilaterally, no wheezing Abdomen - soft, nontender, no rebound or guarding Extremities - no edema bilaterally Neuro - awake and alert, no focal deficits Results Labs Labs: Laboratory Results - last 24 hr 11/22/20 12/04/20 12/04/20 10:15 08:00 08:29 POC Glucose 144 H COVID-19 ([facility]) Negative COVID-19 Clin Com See Note Blood Type O Positive Antibody Screen NEGATIVE 12/04/20 13:55 POC Glucose 133 H COVID-19 ([facility]) COVID-19 Clin Com Blood Type Antibody Screen Imaging Radiologist's Impressions: Impressions Knee X-Ray 12/04/20 12:40 IMPRESSION: Appropriate alignment of the right total knee arthroplasty. Assessment and Plan (1) Osteoarthritis of right knee: Status: Acute 60 yo F with multiple medical issues admitted post-op from a R TKA. Medical services consulted for mgmt of her chronic medical issues. 1. DM hold orals use sliding scale + diabetic diet + POC QIDAC 2. Asthma/COPD, not in exacerbation DuoNebs scheduled (Home inhalers are NF) 3. Mood continue baseline meds 4. HLD statin 5. HTN lisinorpil 6. LEONARDO cpap at night, pt does not know her settings encouraged to bring in from home On asa 82 at home, unclear why -- resume when okay from surgical perspective. Will follow
[2020-12-04] MEDS: HYDROmorphone HCl 0.5 MG/0.5 ML SYRINGE 0.25 MG IVPUSH (16:07)
[2020-12-04] MEDS: ceFAZolin Sodium/Dextrose,Iso 2 GM/50 ML PIGGYBACK IV (16:08)
[2020-12-04] MEDS: 0.9 % Sodium Chloride Flush 3 ML SYRINGE IVFLUSH (16:08)
[2020-12-04] MEDS: Albuterol/Iprat 2.5/0.5MG 3 ML AMPUL.NEB INHALE (20:00)
[2020-12-04] MEDS: Atorvastatin Calcium 80 MG TABLET PO (20:18)
[2020-12-04] MEDS: Melatonin 3 MG TABLET 4.5 MG PO (20:18)
[2020-12-04] MEDS: Docusate Sodium 100 MG CAPSULE PO (20:18)
[2020-12-04] MEDS: Insulin Lispro 100 UNIT/ML 3 ML VIAL SUBCUT (20:19)
[2020-12-04] MEDS: Celecoxib 200 MG CAPSULE PO (20:19)
[2020-12-04] MEDS: oxyCODONE HCl ER 10 MG TAB.ER.12H PO (20:19)
[2020-12-04 20:20] LABS: Glucose, Whole Blood 175 mg/dL (60-115)
[2020-12-05] VITALS (17 sets, daily range): BP systolic 112–164; BP diastolic 57–73; PULSE 61–84; RESP 16–20; TEMP 36–37.1; O2SAT 90–100
[2020-12-05] MEDS: HYDROmorphone HCl 0.5 MG/0.5 ML SYRINGE 0.25 MG IVPUSH ×3 (00:43→16:23)
[2020-12-05] MEDS: 0.9 % Sodium Chloride Flush 3 ML SYRINGE IVFLUSH ×4 (00:43→20:40)
[2020-12-05 05:16] LABS: MANUAL DIFF FLAG NO
[2020-12-05 05:22] LABS: Basophils Percent Auto 0.1 % (0-2); Hematocrit 38.5 % (37-47); Hemoglobin 12.3 g/dl (12.0-16.0); Imm Gran Abs Auto 0.06 X10*3/uL (0.00-0.03); Imm Gran Pct Auto 0.4 % (0.0-0.4); Lymphocytes Absolute Auto 1.5 X10*3/uL (1.2-4.9); Lymphocytes Percent Auto 9.9 % (20-40); Mean Corpuscular HGB Conc 31.9 g/dl (31.0-35.0); Mean Corpuscular Hemoglobin 27.9 pg (27.0-33.0); Mean Corpuscular Volume 87.3 fL (80-98); Mean Platelet Volume 9.9 fL (9.4-12.3); Monocytes Percent Auto 6.7 % (2-11); Neutrophils Absolute Auto 12.2 X10*3/uL (2.0-8.3); Neutrophils Percent Auto 82.9 % (45-73); Platelet Count 302 X10*3/uL (160-400); Red Blood Count 4.41 X10*6/uL (4.20-5.50); Red Cell Distribution Width 12.5 % (11.0-16.0); White Blood Count 14.7 X10*3/uL (4.8-10.8)
[2020-12-05 05:33] LABS: Anion Gap 10 (12-20); Blood Urea Nitrogen 15 mg/dL (9-16); Calcium 9.3 mg/dL (8.4-10.2); Carbon Dioxide 31 mmol/L (22-29); Chloride 102 mmol/L (96-108); Creatinine Clr Calc Pharmacy 111.3; Estimated Glomerular Filt Rate > 60; Glucose Fasting 173 mg/dL (60-99); Potassium 4.5 mmol/L (3.3-5.1); Sodium 138 mmol/L (135-145)
--- NOTE | 2020-12-05 07:29 | HO.POSTANES ---
Post Anesthesia Evaluation Post Anesthesia Evaluation Vital Signs: Vital Signs Temp Pulse Resp BP Pulse Ox 12/05/20 07:27 97.2 F 82 18 124/68 93 12/05/20 04:14 18 12/05/20 04:00 97.6 F 84 17 164/73 H 94 12/05/20 00:40 76 20 154/68 H 12/05/20 00:15 18 12/04/20 23:00 97.3 F 80 17 156/71 H 93 12/04/20 20:00 93 Anesthesia: Spinal Mental Status: Awake Pain Control: Satisfactory Nausea/Vomiting: None Hydration: Adequate Anesthesia-Related Issues: No Anes. Related Issues
[2020-12-05 07:45] LABS: Glucose, Whole Blood 155 mg/dL (60-115)
[2020-12-05] MEDS: lisinopriL 10 MG TABLET PO (08:01)
[2020-12-05] MEDS: oxyCODONE HCl ER 10 MG TAB.ER.12H PO ×2 (08:01→20:39)
[2020-12-05] MEDS: Cyanocobalamin (Vitamin B-12) 1,000 MCG TABLET 1000 MCG PO (08:01)
[2020-12-05] MEDS: Celecoxib 200 MG CAPSULE PO ×2 (08:01→20:40)
[2020-12-05] MEDS: Escitalopram Oxalate 10 MG TABLET PO (08:01)
[2020-12-05] MEDS: Docusate Sodium 100 MG CAPSULE PO ×2 (08:01→20:39)
[2020-12-05] MEDS: Insulin Lispro 100 UNIT/ML 3 ML VIAL SUBCUT ×2 (08:02→16:34)
--- NOTE | 2020-12-05 08:24 | PM.PNORT ---
Subjective Subjective Date of Service: 12/05/20 Interval history: POD1 s/p RTKA. Patient resting comfortably in bed. Pain is managed. No overnight events. No additional complaints. Physical Exam Vital Signs: Vital Signs: Last Vital Signs Temp 97.2 F 12/05/20 07:27 Pulse 82 12/05/20 08:01 Resp 18 12/05/20 07:27 BP 124/68 12/05/20 08:01 Pulse Ox 93 12/05/20 07:27 Body Mass Index 38.7 Const: General: cooperative, healthy appearing and no acute distress Resp: Effort & Inspection: normal respiratory effort and able to speak in complete sentences Cardio: Rate: regular rate Peripheral pulses: Peripheral pulses 2+ throughout GI: Palpation (GI): Soft to palpation Skin: Lesions: no lesions Rashes: no rashes Extrem: Other: Right knee aquacel is clean, dry, and intact. No ecchymosis, redness or drainage. NVI Procedures Date of Service Date of Service: 12/05/20 Progress Note: A&P Assessment and plan (1) Status post total right knee replacement: Status: Acute Assessment and Plan: Continue pain mgmnt Begin ASA for dvt ppx begin PT for RTKA Dispo planning-Pending PT eval, pain mgmnt Fall Risk Details Current Medications: Current Medications Acetaminophen (Acetaminophen 325 Mg Tablet) 650 mg PO Q6H PRN PRN Reason: Pain, Mild (Pain Scale 1-3) Last Admin: 12/04/20 13:58 Dose: 650 mg Documented by: Albuterol/Ipratropium (Albuterol/Iprat 2.5/0.5mg 3 Ml Ampul.Neb) 3 ml INHALE RQ4H WHILE AWAKE [facility] Last Admin: 12/04/20 20:00 Dose: 3 ml Documented by: Aspirin (Aspirin 325 Mg Tablet) 325 mg PO BID [facility] Atorvastatin Calcium (Atorvastatin Calcium 80 Mg Tablet) 80 mg PO BEDTIME [facility] Last Admin: 12/04/20 20:18 Dose: 80 mg Documented by: Celecoxib (Celecoxib 200 Mg Capsule) 200 mg PO BID [facility] Last Admin: 12/05/20 08:01 Dose: 200 mg Documented by: Cyanocobalamin (Cyanocobalamin (Vitamin B-12) 1,000 Mcg Tablet) 1,000 mcg PO DAILY [facility] Last Admin: 12/05/20 08:01 Dose: 1,000 mcg Documented by: Docusate Sodium (Docusate Sodium 100 Mg Capsule) 100 mg PO BID [facility] Last Admin: 12/05/20 08:01 Dose: 100 mg Documented by: Escitalopram Oxalate (Escitalopram Oxalate 10 Mg Tablet) 10 mg PO DAILY [facility] Last Admin: 12/05/20 08:01 Dose: 10 mg Documented by: Hydromorphone HCl (Hydromorphone Hcl 0.5 Mg/0.5 Ml Syringe) 0.25 mg IVPUSH Q4H PRN; Protocol PRN Reason: Pain, Severe (Pain Scale 7-10) Last Admin: 12/05/20 00:43 Dose: 0.25 mg Documented by: Insulin Human Lispro (Insulin Lispro 100 Unit/Ml 3 Ml Vial) 0 unit SUBCUT QIDACHS [facility]; Protocol Last Admin: 12/05/20 08:02 Dose: 2 unit Documented by: Lisinopril (Lisinopril 10 Mg Tablet) 10 mg PO DAILY [facility]; Protocol Last Admin: 12/05/20 08:01 Dose: 10 mg Documented by: Melatonin (Melatonin 3 Mg Tablet) 4.5 mg PO BEDTIME [facility] Last Admin: 12/04/20 20:18 Dose: 4.5 mg Documented by: Ondansetron HCl (Ondansetron Hcl 4 Mg/2 Ml Vial) 4 mg IVPUSH Q8H PRN PRN Reason: Nausea and Vomiting Oxycodone HCl (Oxycodone Hcl Er 10 Mg Tab.Er.12h) 10 mg PO BID [facility] Last Admin: 12/05/20 08:01 Dose: 10 mg Documented by: Oxycodone HCl (Oxycodone Hcl Immed Release 5 Mg Tablet) 10 mg PO Q4H PRN PRN Reason: Pain, Moderate (Pain Scale 4-6 Last Admin: 12/04/20 13:58 Dose: 10 mg Documented by: Pharmacy Consult (Consult Rx Perform Med Rec) 1 each MISCELLANE ONCE PRN PRN Reason: Consult order Sodium Chloride (0.9 % Sodium Chloride Flush 3 Ml Syringe) 3 ml IVFLUSH QSHIFT [facility] Last Admin: 12/05/20 08:05 Dose: 3 ml Documented by: Time Spent With Patient Time: Total time spent is greater than 50% in coordination of care (as documented) at patient's floor/unit and/or counseling patient: Time with patient: less than 15 minutes Quality Stroke Does the patient have a stroke diagnosis?: No VTE Prior VTE?: No VTE Risk Level:: Surgical - very high VTE Device Contraindication: N/A - Device Ordered VTE Drug Contraindication: N/A - Med Ordered
[2020-12-05] MEDS: Albuterol/Iprat 2.5/0.5MG 3 ML AMPUL.NEB INHALE ×4 (08:41→19:30)
--- NOTE | 2020-12-05 09:02 | MHC.CM.PN ---
CM briefly met with Patient and also spoke with Daughter/HCP/ELA TEACHER/Yennifer at [phone]. 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 PT is recommending home PT and CM is attempting to confirm the [facility] can indeed provide that. Home with services is the goal for dc and CM has initiated and will follow for dc planning. PCP is Dr. Ross Marin and Patient's correct address is [address] [place] [address] 2 [address] floor, in [place].
--- NOTE | 2020-12-05 09:21 | MHC.CM.PN ---
CM spoke with Ender Marshall from [facility]([phone]); [facility] is not able to provide home PT. A referral has been made to [facility] and CM will follow for dc planning.
--- NOTE | 2020-12-05 09:59 | MHC.CM.PN ---
[facility] is unable to accommodate Patient; multiple referrals to VNAs have been made. CM will follow.
[2020-12-05] MEDS: Aspirin 325 MG TABLET PO ×2 (10:41→20:39)
[2020-12-05 11:44] LABS: Glucose, Whole Blood 146 mg/dL (60-115)
[2020-12-05 16:36] LABS: Glucose, Whole Blood 151 mg/dL (60-115)
--- NOTE | 2020-12-05 17:14 | P.PNIM_ITS ---
Subjective Subjective Date of Service: 12/05/20 Interval History: Seen and examined this morning Follow-up for medical consult Patient reports pain in her right knee and thigh No overnight events. No other complaints at this time Review of Systems Review of Systems: Yes all other systems are reviewed and are negative Constitutional Constitutional: Denies chills and Denies fever(s) Cardiovascular Cardiovascular: Denies chest pain Respiratory Respiratory: Denies cough Gastrointestinal Gastrointestinal: Denies abdominal pain Physical Exam Vital Signs: Vital Signs: Last Vital Signs Temp 97.1 F 12/05/20 15:10 Pulse 66 12/05/20 15:36 Resp 16 12/05/20 15:10 BP 112/57 L 12/05/20 15:10 Pulse Ox 100 12/05/20 15:10 Body Mass Index 38.7 Const: Nutritional Appearance: well nourished Orientation/consciousness: patient oriented x3 HENMT: Head: Yes normocephalic and Yes atraumatic Eyes: Sclerae: sclerae normal Resp: Effort & Inspection: normal respiratory effort and no respiratory distress Cardio: Rate: regular rate Rhythm: regular rhythm GI: Palpation (GI): Soft to palpation and nontender Neuro: General: patient oriented x3 Cranial nerves: Yes CN's II-XII intact bilaterally and Yes Bilaterally intact EOM present Extrem: Other: right knee wrapped in faye bandage Objective Data Active Medications Acetaminophen (Acetaminophen 325 Mg Tablet) 650 mg PO Q6H PRN PRN Reason: Pain, Mild (Pain Scale 1-3) Last Admin: 12/04/20 13:58 Dose: 650 mg Documented by: DERIC Albuterol/Ipratropium (Albuterol/Iprat 2.5/0.5mg 3 Ml Ampul.Neb) 3 ml INHALE RQ4H WHILE AWAKE [facility] Last Admin: 12/05/20 15:36 Dose: 3 ml Documented by: CALE Aspirin (Aspirin 325 Mg Tablet) 325 mg PO BID [facility] Last Admin: 12/05/20 10:41 Dose: 325 mg Documented by: ANGELA Atorvastatin Calcium (Atorvastatin Calcium 80 Mg Tablet) 80 mg PO BEDTIME [facility] Last Admin: 12/04/20 20:18 Dose: 80 mg Documented by: JIGNESH Celecoxib (Celecoxib 200 Mg Capsule) 200 mg PO BID [facility] Last Admin: 12/05/20 08:01 Dose: 200 mg Documented by: ANGELA Cyanocobalamin (Cyanocobalamin (Vitamin B-12) 1,000 Mcg Tablet) 1,000 mcg PO DAILY [facility] Last Admin: 12/05/20 08:01 Dose: 1,000 mcg Documented by: ANGELA Docusate Sodium (Docusate Sodium 100 Mg Capsule) 100 mg PO BID [facility] Last Admin: 12/05/20 08:01 Dose: 100 mg Documented by: ANGELA Escitalopram Oxalate (Escitalopram Oxalate 10 Mg Tablet) 10 mg PO DAILY [facility] Last Admin: 12/05/20 08:01 Dose: 10 mg Documented by: ANGELA Hydromorphone HCl (Hydromorphone Hcl 0.5 Mg/0.5 Ml Syringe) 0.25 mg IVPUSH Q4H PRN; Protocol PRN Reason: Pain, Severe (Pain Scale 7-10) Last Admin: 12/05/20 16:23 Dose: 0.25 mg Documented by: ANGELA Insulin Human Lispro (Insulin Lispro 100 Unit/Ml 3 Ml Vial) 0 unit SUBCUT QIDACHS [facility]; Protocol Last Admin: 12/05/20 16:34 Dose: 2 unit Documented by: ANGELA Lisinopril (Lisinopril 10 Mg Tablet) 10 mg PO DAILY [facility]; Protocol Last Admin: 12/05/20 08:01 Dose: 10 mg Documented by: ANGELA Melatonin (Melatonin 3 Mg Tablet) 4.5 mg PO BEDTIME [facility] Last Admin: 12/04/20 20:18 Dose: 4.5 mg Documented by: JIGNESH Ondansetron HCl (Ondansetron Hcl 4 Mg/2 Ml Vial) 4 mg IVPUSH Q8H PRN PRN Reason: Nausea and Vomiting Oxycodone HCl (Oxycodone Hcl Er 10 Mg Tab.Er.12h) 10 mg PO BID [facility] Last Admin: 12/05/20 08:01 Dose: 10 mg Documented by: ANGELA Oxycodone HCl (Oxycodone Hcl Immed Release 5 Mg Tablet) 10 mg PO Q4H PRN PRN Reason: Pain, Moderate (Pain Scale 4-6 Last Admin: 12/04/20 13:58 Dose: 10 mg Documented by: DERIC Pharmacy Consult (Consult Rx Perform Med Rec) 1 each MISCELLANE ONCE PRN PRN Reason: Consult order Sodium Chloride (0.9 % Sodium Chloride Flush 3 Ml Syringe) 3 ml IVFLUSH QSHIFT [facility] Last Admin: 12/05/20 16:35 Dose: 3 ml Documented by: ANGELA Labs CBC & Chem 7: 12/05/20 04:40 12/05/20 04:40 Labs: Laboratory Results - last 24 hr 12/04/20 12/05/20 12/05/20 20:06 04:40 04:40 MCV 87.3 MCH 27.9 MCHC 31.9 RDW 12.5 Plt Count 302 MPV 9.9 Immature Gran % (Auto) 0.4 Neut % (Auto) 82.9 H Lymph % (Auto) 9.9 L [place] % (Auto) 6.7 Eos % (Auto) 0.0 Baso % (Auto) 0.1 Lymph # (Auto) 1.5 [place] # (Auto) 1.0 Eos # (Auto) 0.0 Baso # (Auto) 0.0 Abs Immat Gran (auto) 0.06 H Absolute Neuts (auto) 12.2 H Absolute Nucleated RBC 0.000 Nucleated RBC % (auto) 0.0 Anion Gap 10 L Estim Creat Clear Calc 111.3 Estimated GFR > 60 POC Glucose 175 H Fasting Glucose 173 H Calcium 9.3 12/05/20 12/05/20 12/05/20 07:25 11:19 16:21 MCV MCH MCHC RDW Plt Count MPV Immature Gran % (Auto) Neut % (Auto) Lymph % (Auto) [place] % (Auto) Eos % (Auto) Baso % (Auto) Lymph # (Auto) [place] # (Auto) Eos # (Auto) Baso # (Auto) Abs Immat Gran (auto) Absolute Neuts (auto) Absolute Nucleated RBC Nucleated RBC % (auto) Anion Gap Estim Creat Clear Calc Estimated GFR POC Glucose 155 H 146 H 151 H Fasting Glucose Calcium Assessment and Plan (1) Osteoarthritis of right knee: Status: Acute Assessment and Plan: 60 yo F with multiple medical issues admitted post-op from a R TKA. Medical services consulted for mgmt of her chronic medical issues. 1. DM hold orals use sliding scale + diabetic diet + POC QIDAC 2. Asthma/COPD, not in exacerbation DuoNebs scheduled (Home inhalers are NF) 3. Mood continue baseline meds 4. HLD statin 5. HTN lisinorpil 6. LEONARDO cpap at night, pt does not know her settings encouraged to bring in from home s/p right TKA management per primary team dvt ppx - per orthopedic service We will sign off at this time. Please feel free to call us if any medical issues arise. attending: dr Jessica bond Quality Stroke Does the patient have a stroke diagnosis?: No VTE Prior VTE?: No VTE Risk Level:: Surgical - very high VTE Device Contraindication: N/A - Device Ordered VTE Drug Contraindication: N/A - Med Ordered
[2020-12-05] MEDS: oxyCODONE HCl Immed Release 5 MG TABLET 10 MG PO (19:36)
[2020-12-05] MEDS: Melatonin 3 MG TABLET 4.5 MG PO (20:40)
[2020-12-05] MEDS: Atorvastatin Calcium 80 MG TABLET PO (20:40)
[2020-12-05 21:29] LABS: Glucose, Whole Blood 149 mg/dL (60-115)
[2020-12-06] VITALS (8 sets, daily range): BP systolic 107–134; BP diastolic 58–81; PULSE 71–88; RESP 18; TEMP 36.1–36.3; O2SAT 80–97
[2020-12-06] MEDS: HYDROmorphone HCl 0.5 MG/0.5 ML SYRINGE 0.25 MG IVPUSH (01:09)
[2020-12-06 05:26] LABS: MANUAL DIFF FLAG NO
[2020-12-06 05:30] LABS: Basophils Percent Auto 0.2 % (0-2); Eosinophils Absolute Auto 0.2 X10*3/uL (0.0-0.4); Eosinophils Percent Auto 1.5 % (0-4); Hematocrit 39.2 % (37-47); Imm Gran Abs Auto 0.07 X10*3/uL (0.00-0.03); Imm Gran Pct Auto 0.5 % (0.0-0.4); Lymphocytes Absolute Auto 2.3 X10*3/uL (1.2-4.9); Lymphocytes Percent Auto 16.1 % (20-40); Mean Corpuscular HGB Conc 30.6 g/dl (31.0-35.0); Mean Corpuscular Hemoglobin 27.8 pg (27.0-33.0); Mean Corpuscular Volume 90.7 fL (80-98); Mean Platelet Volume 10.2 fL (9.4-12.3); Monocytes Absolute Auto 1.2 X10*3/uL (0.1-1.2); Monocytes Percent Auto 8.1 % (2-11); Neutrophils Absolute Auto 10.5 X10*3/uL (2.0-8.3); Neutrophils Percent Auto 73.6 % (45-73); Platelet Count 268 X10*3/uL (160-400); Red Blood Count 4.32 X10*6/uL (4.20-5.50); Red Cell Distribution Width 13.1 % (11.0-16.0); White Blood Count 14.3 X10*3/uL (4.8-10.8)
[2020-12-06 05:46] LABS: Anion Gap 13 (12-20); Blood Urea Nitrogen 34 mg/dL (9-16); Calcium 9.6 mg/dL (8.4-10.2); Carbon Dioxide 30 mmol/L (22-29); Chloride 102 mmol/L (96-108); Creatinine Clr Calc Pharmacy 83.1; Estimated Glomerular Filt Rate > 60; Glucose Fasting 147 mg/dL (60-99); Potassium 5.3 mmol/L (3.3-5.1); Sodium 140 mmol/L (135-145)
--- NOTE | 2020-12-06 07:01 | P.DS_ITS ---
DS: Providers Provider Date of Service: 12/06/20 Date of admission: 12/04/20 09:25 Primary care physician: Ross Marin PA-C Consults: 12/04/20 13:37 Consult to Hospitalist Routine Consulting Provider: Hospitalist Reason For Exam: routine medical management DS: Diagnosis Discharge Diagnosis (1) Osteoarthritis of right knee: Status: Acute DS: Summary Hospital Course Hospital Course: The patient underwent a successful right total knee arthroplasty, they were transferred to PACU and then to the floor to recover. During their stay, their vitals were stable, afebrile at 96.9. Labs were unremarkable, H/H 12.0/39.2. POD 1 they were started on Aspirin 325mg po bid for DVT ppx, they also received Physical Therapy services twice a day. Prior to discharge, their dressing was changed, incision clean dry and intact, new Aquacel dressing applied and the plan was to be discharged home with VNA services. Time Spent with Patient Time attestation: Total time spent providing and/or coordinating discharge services: Discharge coordination time: Less than 30 minutes Quality: Stroke Does the patient have a stroke diagnosis?: No Physical Exam Vital Signs: Vital Signs: Last Vital Signs Temp 96.9 F 12/06/20 04:00 Pulse 79 12/06/20 04:00 Resp 18 12/06/20 06:04 BP 129/81 12/06/20 04:00 Pulse Ox 97 12/06/20 04:00 Body Mass Index 38.7 Const: General: cooperative, healthy appearing and no acute distress Resp: Effort & Inspection: normal respiratory effort and able to speak in complete sentences Cardio: Rate: regular rate Peripheral pulses: Peripheral pulses 2+ throughout GI: Palpation (GI): Soft to palpation Skin: Lesions: no lesions Rashes: no rashes Extrem: Other: The no ecchymosis, erythema or drainage. Lisa intact. New Aquacel dressing applied. NVI. DS: Data Data Completed and Pending Pending studies at discharge: Pending at discharge 12/04/20 11:36 Surgical [PTH] Routine Labs on day of discharge: Laboratory Results - last 24 hr 12/05/20 12/05/20 12/05/20 07:25 11:19 16:21 WBC RBC Hgb Hct MCV MCH MCHC RDW Plt Count MPV Immature Gran % (Auto) Neut % (Auto) Lymph % (Auto) Edmonson % (Auto) Eos % (Auto) Baso % (Auto) Lymph # (Auto) Edmonson # (Auto) Eos # (Auto) Baso # (Auto) Abs Immat Gran (auto) Absolute Neuts (auto) Absolute Nucleated RBC Nucleated RBC % (auto) Sodium Potassium Chloride Carbon Dioxide Anion Gap BUN Creatinine Estim Creat Clear Calc Estimated GFR POC Glucose 155 H 146 H 151 H Fasting Glucose Calcium 12/05/20 12/06/20 12/06/20 20:35 05:10 05:10 WBC 14.3 H RBC 4.32 Hgb 12.0 Hct 39.2 MCV 90.7 MCH 27.8 MCHC 30.6 L RDW 13.1 Plt Count 268 MPV 10.2 Immature Gran % (Auto) 0.5 H Neut % (Auto) 73.6 H Lymph % (Auto) 16.1 L Edmonson % (Auto) 8.1 Eos % (Auto) 1.5 Baso % (Auto) 0.2 Lymph # (Auto) 2.3 Edmonson # (Auto) 1.2 Eos # (Auto) 0.2 Baso # (Auto) 0.0 Abs Immat Gran (auto) 0.07 H Absolute Neuts (auto) 10.5 H Absolute Nucleated RBC 0.000 Nucleated RBC % (auto) 0.0 Sodium 140 Potassium 5.3 H Chloride 102 Carbon Dioxide 30 H Anion Gap 13 BUN 34 H D Creatinine 0.91 Estim Creat Clear Calc 83.1 Estimated GFR > 60 POC Glucose 149 H Fasting Glucose 147 H Calcium 9.6 Discharge Plan Discharge Patient Disposition: Home Health Service Discharge Diagnosis: RT TKA Referrals: Ross Marin PA-C [Primary Care Provider] - 1 Week Discharge Medications: New celecoxib 200 mg Capsule 200 mg PO BID 30 Days Qty: 60 RF: 0 acetaminophen 325 mg Tablet 650 mg PO Q6H PRN (Reason: Pain, Mild (Pain Scale 1-3)) 30 Days Qty: 240 RF: 0 aspirin 325 mg Tablet 325 mg PO BID 42 Days Qty: 84 RF: 0 docusate sodium 100 mg Capsule 100 mg PO BID 30 Days Qty: 60 RF: 0 oxycodone 5 mg Tablet 10 mg PO Q4H PRN (Reason: Pain, Moderate (Pain Scale 4-6) 7 Days Qty: 42 RF: 0 Continued citalopram [Celexa] 20 mg tablet 20 mg PO DAILY 90 Days Qty: 90 RF: 1 cyanocobalamin (vitamin B-12) [Vitamin B-12] 1,000 mcg tablet 1,000 mcg PO DAILY 90 Days Qty: 90 RF: 1 lisinopril 10 mg tablet 10 mg PO DAILY 90 Days Qty: 90 RF: 1 metformin 500 mg tablet 1,000 mg PO BID 90 Days Qty: 360 RF: 1 rosuvastatin [Crestor] 40 mg tablet 40 mg PO BEDTIME RF: 0 ibuprofen 800 mg tablet 800 mg PO Q8H PRN (Reason: Pain) RF: 0 melatonin 5 mg tablet 5 mg PO BEDTIME RF: 0 fluticasone propion-salmeterol [AirDuo RespiClick] 232-14 mcg/actuation aerosol powdr breath activated 1 inh INHALATION BID PRN (Reason: Wheezing) RF: 0 prednisone 10 mg tablet 10 mg PO DAILY 6 Days Qty: 12 RF: 0 albuterol sulfate 0.63 mg/3 mL solution for nebulization 0.63 mg INHALATION Q4-6H PRN (Reason: Wheezing) 30 Days Qty: 90 RF: 1 aspirin 81 mg tablet,delayed release (DR/EC) 81 mg PO DAILY 90 Days Qty: 90 RF: 1 amoxicillin-pot clavulanate [Augmentin] 875-125 mg tablet 1 tab PO BID 5 Days Qty: 10 RF: 0 Discharge Orders: Discharge Order (Routine); Ordered 12/06/20 Ordered By: Sadia Aguilar Diet: regular diet Activity on Discharge: Use cane or walker Stand Alone Forms: Patient Portal Discharge page Care Plan Goals: Restore function of joint Health Concerns: none Plan of Treatment: Physical Therapy Pain management DVT prophylaxis Assessment: * Physical Therapy for Total knee arthroplasty: gait training, ROM 0-12, quad strength * Limit stair climbing * No showering, no tub bath-keep dressing clean, dry and intact * No driving x6 weeks * Continue Aspirin twice a day x 6 weeks * Follow up with [facility] in 2 weeks
[2020-12-06 07:51] LABS: Glucose, Whole Blood 147 mg/dL (60-115)
[2020-12-06] MEDS: Celecoxib 200 MG CAPSULE PO (08:02)
[2020-12-06] MEDS: oxyCODONE HCl ER 10 MG TAB.ER.12H PO (08:02)
[2020-12-06] MEDS: Docusate Sodium 100 MG CAPSULE PO (08:02)
[2020-12-06] MEDS: Aspirin 325 MG TABLET PO (08:03)
[2020-12-06] MEDS: Escitalopram Oxalate 10 MG TABLET PO (08:04)
--- NOTE | 2020-12-06 08:04 | MHC.CM.PN ---
Patient has been medically cleared for dc to home today, with services. A referral was made to Mary Anne LERNER, who has been notified of today's dc and provided with the dc summary.
[2020-12-06] MEDS: lisinopriL 10 MG TABLET PO (08:05)
[2020-12-06] MEDS: Cyanocobalamin (Vitamin B-12) 1,000 MCG TABLET 1000 MCG PO (08:06)
[2020-12-06] MEDS: 0.9 % Sodium Chloride Flush 3 ML SYRINGE IVFLUSH (08:06)
[2020-12-06] MEDS: oxyCODONE HCl Immed Release 5 MG TABLET 10 MG PO (08:32)
[2020-12-06] MEDS: Acetaminophen 325 MG TABLET 650 MG PO (08:33)
[2020-12-06] MEDS: Albuterol/Iprat 2.5/0.5MG 3 ML AMPUL.NEB INHALE (09:03)
[2020-12-06] MEDS: ondansetron HCL 4 MG/2 ML VIAL IVPUSH (09:11)
[2020-12-06 11:22] LABS: Glucose, Whole Blood 174 mg/dL (60-115)
== END 2020-12-06 12:16 | disposition home health service (06) | DRG 302 ==
LOC: HO.SSSA 09:34 → HO.S3 12:18
PROVIDERS: Physician Assistant; Admitting Provider Orthopaedic Surgery; PCP Physician Assistant; Visit Provider Orthopaedic Surgery
PROC: 0SRC0J9 Replacement of Right Knee Joint with Synthetic Substitute, Cemented, Open Approach (ICD-10-PCS; CPT 27447; principal; 2020-12-04 09:40)
DX: M17.11 Unilateral primary osteoarthritis, right knee (principal); F39 Unspecified mood [affective] disorder; G47.33 Obstructive sleep apnea (adult) (pediatric); Z20.822 Contact with and (suspected) exposure to COVID-19; J44.9 Chronic obstructive pulmonary disease, unspecified; Z79.1 Long term (current) use of non-steroidal anti-inflammatories (NSAID); Z79.82 Long term (current) use of aspirin; Z79.51 Long term (current) use of inhaled steroids; Z79.899 Other long term (current) drug therapy
CPT/HCPCS: 36415; 73560; 80048; 82947; 85025; 86850; 86900; 86901; 87635; 88305; 88311; 94640; 94660; 97110; 97116; 97161; C1713; C1776; J0690; J1100; J1170; J2250; J2370; J2405

== ENCOUNTER 2020-12-13 08:13 | Outpatient (REF) | payer OTHER, SELFPAY ==
--- NOTE | ~2020-12-13 | US_ITS ---
EXAMINATION: US VENOUS ULTRASOUND WITH DOPPLER LOWER EXTREMITY, RIGHT CLINICAL INFORMATION: Right lower leg pain. Evaluate for a deep vein thrombosis. COMPARISON: None TECHNIQUE: Ultrasound of the deep veins was performed from the hip to the calf with compression sonography and color and pulse Doppler assessment. Spectral analysis with color-flow imaging was performed. FINDINGS: There is normal venous compression and respiratory variation and augmented flow. The visualized common femoral vein, superficial femoral vein, profunda femoral vein, popliteal vein, and the trifurcation region shows no evidence of deep venous thrombosis. There is no significant popliteal fossa cyst. The distal femoral vein and peroneal vein are only partially visualized. If the patient's symptoms persist, follow up ultrasound in 5 days 7 days might be of value to exclude proximal propagation from a non-visualized calf vein. US/US venous duplex LE RT IMPRESSION: No DVT demonstrated in the right lower extremity. Limited visualization of the distal femoral and peroneal veins.
== END 2020-12-13 08:14 | disposition home or self-care (01) ==
LOC: HO.US 08:13
PROVIDERS: PCP Physician Assistant; Visit Provider Nurse Practitioner Family
DX: M79.661 Pain in right lower leg (principal); M79.89 Other specified soft tissue disorders
CPT/HCPCS: 93971

== ENCOUNTER → 2020-12-19 12:29 | Outpatient (BNVA) | payer OTHER, SELFPAY | PROVIDERS: Visit Provider Physician Assistant | DX: M17.11 Unilateral primary osteoarthritis, right knee (principal); E66.9 Obesity, unspecified; E11.65 Type 2 diabetes mellitus with hyperglycemia; I10 Essential (primary) hypertension; E78.00 Pure hypercholesterolemia, unspecified; Z68.39 Body mass index [BMI] 39.0-39.9, adult; Z96.651 Presence of right artificial knee joint | CPT/HCPCS: 99212 ==

== ENCOUNTER 2021-01-16 08:50 | Outpatient (REF) | payer OTHER, SELFPAY ==
--- NOTE | ~2021-01-16 | XR_ITS ---
EXAMINATION: XR KNEE, RIGHT 2 VIEWS XR KNEE STANDING, BILATERAL CLINICAL INFORMATION: Right knee pain. COMPARISON: Right knee x-rays of 12/04/2020, bilateral knee x-rays of 03/25/2020. TECHNIQUE: Standing AP view of the bilateral knees as well as AP, lateral and patellar views of the right knee are acquired. FINDINGS: Right total knee arthroplasty hardware is in place. The hardware is unchanged in position and appearance. No periprosthetic lucency to suggest loosening. No evidence of acute osseous abnormality in the right knee. No evidence of right suprapatellar joint effusion. Vascular calcifications are noted. On standing AP view of the left knee note is made of moderate to severe narrowing of the medial knee joint space with subarticular sclerosis and mild medial subluxation of the femur over the tibia. Mild narrowing of the lateral knee joint space. The appearance of the left knee is similar to that seen on the previous x-rays. XR/XR knee standing BI IMPRESSION: Stable appearance of the right total knee arthroplasty hardware without evidence of hardware fracture or loosening. No evidence of acute osseous abnormality in the right knee. Stable osteoarthritic changes in the left knee.
--- NOTE | ~2021-01-16 | XR_ITS ---
EXAMINATION: XR KNEE, RIGHT 2 VIEWS XR KNEE STANDING, BILATERAL CLINICAL INFORMATION: Right knee pain. COMPARISON: Right knee x-rays of 12/04/2020, bilateral knee x-rays of 03/25/2020. TECHNIQUE: Standing AP view of the bilateral knees as well as AP, lateral and patellar views of the right knee are acquired. FINDINGS: Right total knee arthroplasty hardware is in place. The hardware is unchanged in position and appearance. No periprosthetic lucency to suggest loosening. No evidence of acute osseous abnormality in the right knee. No evidence of right suprapatellar joint effusion. Vascular calcifications are noted. On standing AP view of the left knee note is made of moderate to severe narrowing of the medial knee joint space with subarticular sclerosis and mild medial subluxation of the femur over the tibia. Mild narrowing of the lateral knee joint space. The appearance of the left knee is similar to that seen on the previous x-rays. XR/XR knee RT 2V IMPRESSION: Stable appearance of the right total knee arthroplasty hardware without evidence of hardware fracture or loosening. No evidence of acute osseous abnormality in the right knee. Stable osteoarthritic changes in the left knee.
== END 2021-01-16 08:51 | disposition home or self-care (01) ==
LOC: HO.HOSX 08:50
PROVIDERS: Visit Provider Orthopaedic Surgery
DX: Z47.1 Aftercare following joint replacement surgery (principal); Z96.651 Presence of right artificial knee joint
CPT/HCPCS: 73560; 73565; 99212

== ENCOUNTER → 2021-02-27 09:29 | Outpatient (BNVA) | payer OTHER, SELFPAY | PROVIDERS: PCP Physician Assistant; Visit Provider Orthopaedic Surgery | DX: Z47.1 Aftercare following joint replacement surgery (principal); Z96.651 Presence of right artificial knee joint | CPT/HCPCS: 99212 ==

== ENCOUNTER 2021-04-18 15:48 | Outpatient (REF) | payer OTHER, SELFPAY ==
--- NOTE | ~2021-04-18 | XR_ITS ---
EXAMINATION: XR KNEES, STANDING AP XR KNEE, RIGHT CLINICAL INFORMATION: Pain COMPARISON: Standing AP knees and right knee 01/16/2021. TECHNIQUE: Standing AP view of both knees is performed. Additional lateral and axial patella views of the right knee are also performed. FINDINGS: Right: There is prior knee arthroplasty with hinged prosthesis. Hardware is intact. There is no fracture, dislocation, destructive process. No osteolysis. Small suprapatellar effusion and edema are in region of Hoffa's fat pad are stable. There are some periarticular soft tissue mineralization similar to prior exam. Left: There is narrowing medial knee joint compartment with mild secondary genu varus and marginal osteophytes femoral condyles and tibial plateau. There are no erosive changes or subchondral sclerosis. Similar findings noted on prior exam. XR/XR knee standing BI IMPRESSION: Right: -Postsurgical changes. Hardware intact. No destructive process. -Small effusion and edema are in region of Hoffa's fat pad stable. Left: -Degenerative changes with medial compartment narrowing and mild secondary genu varus similar to prior study.
--- NOTE | ~2021-04-18 | XR_ITS ---
EXAMINATION: XR KNEES, STANDING AP XR KNEE, RIGHT CLINICAL INFORMATION: Pain COMPARISON: Standing AP knees and right knee 01/16/2021. TECHNIQUE: Standing AP view of both knees is performed. Additional lateral and axial patella views of the right knee are also performed. FINDINGS: Right: There is prior knee arthroplasty with hinged prosthesis. Hardware is intact. There is no fracture, dislocation, destructive process. No osteolysis. Small suprapatellar effusion and edema are in region of Hoffa's fat pad are stable. There are some periarticular soft tissue mineralization similar to prior exam. Left: There is narrowing medial knee joint compartment with mild secondary genu varus and marginal osteophytes femoral condyles and tibial plateau. There are no erosive changes or subchondral sclerosis. Similar findings noted on prior exam. XR/XR knee RT 2V IMPRESSION: Right: -Postsurgical changes. Hardware intact. No destructive process. -Small effusion and edema are in region of Hoffa's fat pad stable. Left: -Degenerative changes with medial compartment narrowing and mild secondary genu varus similar to prior study.
== END 2021-04-18 15:49 | disposition home or self-care (01) ==
LOC: HO.HOSX 15:48
PROVIDERS: PCP Physician Assistant; Visit Provider Physician Assistant
DX: M25.561 Pain in right knee (principal); Z96.651 Presence of right artificial knee joint
CPT/HCPCS: 73560; 73565; 99212

== ENCOUNTER → 2021-06-04 15:20 | Outpatient (BNVA) | payer OTHER, SELFPAY | PROVIDERS: PCP Physician Assistant; Visit Provider Obstetrics & Gynecology | DX: Z13.89 Encounter for screening for other disorder (principal) ==

== ENCOUNTER 2021-06-05 09:00 | Outpatient (RCR) | payer OTHER, SELFPAY ==
--- NOTE | 2021-05-06 11:16 | MHC.PT.EP ---
[facility] [place] Office [place] Office [place] Office [address] Lis Patten [address] [phone] F: [phone] F: [phone] F: [phone] F: [phone] Physical Therapy Plan of Care Date of Evaluation: Date of Surgery: 12/03/2020 Diagnosis: S/P Rt TKR Assessment: 60 YO FEMALE REF TO PT W H/O Rt TKR 12/03/20, HOME PT , AND THEN SHE SUSTAINED A FALL IN 03/2021 AND HAS HAD EXACERBATION OF HER Rt KNEE/ PATELLAR SXS- SHE HAD ORTHO F/U IN 04/22 AND XRAY R/O Rt KNEE PROSTHETIC DISRUPTION- Pt CURRENTLY NOT USING ANY AD, SHE DEMON INCR UEs COMPENSATION W TRANSITIONAL MVMTS, DECR PONCHO TO STANSING, STAIR MGMT, AND WALKING . OBJECTIVELY, Pt HAS RT KNEE TERMINAL EXTEN DEFICIT, WEAK LUMBOPELVIC/ PROX HIP REGION, (+) PELVIC ASYM, TIGHT PSOAS Rt > Lt, DECR ANKLE DF, AND PAIN IN Rt LATERAL PATELLAR AREA AND MEDIAL / PES ANSERINE REGION. . Pt WOULD BENEFIT FROM PT TO ADDRESS THE ABOVE FINDINGS, PAIN MGMT, DEV SELF SX MGMT STRATEGIES, AND ASSIST Pt W INCR FUNCT MOB INDEPENDENCE. Frequency and Duration: The patient will be seen 2 x WK x 5 WKS Short Term Goals: Pt'S Rt KNEE PAIN DECREASED TO 2-3/10 IN 2 WKS Pt DEMON WFL AROM HIP EXT AND ANKLE DF/PF AND Rt AROM KNEE 0* TO 120* IN 3 WKS Pt DEMO IMPROVED GAIT MECH W LEAST RESTRICTIVE AD ON LEVEL GROUND AND STAIRS IN 2 WKS Meteorologist In Charge Goals: Pt INDEP W HEP PROGRESSION AND SELF-SX MGMT STRATEGIES IN 5 WKS Pt RESUME REG ADLs EVIDENT W IMPROVED LEFI SCORE BY 8-10 POINTS (AT EVAL 13/80 ) IN 5 WKS Pt INCR Rt LE/ LUMBOPELVIC STRENGTH BY 1 GRADE IN 5 WKS Treatment Plan: Modalities to reduce pain, spasms and effusion. Manual therapy to restore motion and function. Therapeutic exercise to improve strength and flexibility. Neuromuscular re-education for posture and balance. Therapeutic activities to return to functional activities of daily living. Electronically signed by: Lupe Ballesteros PT Please sign and return to therapist. Thank you for your referral.
--- NOTE | 2021-08-12 07:34 | MHC.PT.DC ---
[facility] [place] Office [place] Office [place] Office [address] Lis Patten [address] [phone] F: [phone] F: [phone] F: [phone] F: [phone] Physical Therapy Discharge Report Diagnosis: S/P Rt TKR Date of Surgery: 12/03/2020 Date of Evaluation: 05/06/21 Date of Discharge: 08/12/21 Treatments to Date: 5 Cancellations to Date: No Shows to Date: Discharge Status: Achieved Goals Improved Function Independent with HEP Discharge Summary: Pt PROGRESSED NICELY IN PT POST Rt TKR. AT LAST APPT ON 06/05/21 SHE DEMON 0*-125* AROM IN Rt KNEE. Pt MET HER PT GOALS-> EFFICIENT GAIT ON LEVEL AND STAIRS, INDEP W HEP, AND RESOLVED PAIN. Electronically signed by: Lupe Ballesteros,PT Please sign and return to therapist. Thank you for your referral.
== END 2021-08-12 07:34 | disposition home or self-care (01) ==
LOC: HO.PT 09:00
PROVIDERS: PCP Physician Assistant; Visit Provider Physician Assistant
DX: T84.84XA Pain due to internal orthopedic prosthetic devices, implants and grafts, initial encounter (principal); Z96.651 Presence of right artificial knee joint
CPT/HCPCS: 97110; 97162

== ENCOUNTER 2021-06-17 09:55 | Outpatient (REF) | payer OTHER, SELFPAY ==
--- NOTE | ~2021-06-17 | MM_ITS ---
EXAMINATION: MM SCREENING DIGITAL BREAST TOMOSYNTHESIS, BILATERAL CLINICAL INFORMATION: Screening. Asymptomatic. The lifetime risk of breast cancer based on the Tyrer-Cuzick Model is 4%. COMPARISON: Mammography: 05/30/2020; outside mammography 01/26/2017 ([place], [place]). TECHNIQUE: Digital breast tomosynthesis is performed in both the craniocaudal and mediolateral oblique views along with computer-aided detection (CAD). Synthesized 2D images are generated from the tomosynthesis. Additional left CC view is provided. FINDINGS: The breasts are almost entirely fatty (ACR BI-RADS breast composition Category a). There are no significant masses, abnormal calcifications, or other abnormalities. Background stromal markings are stable. There is no developing density. Circumscribed nodule upper left breast on MLO view, likely intramammary node, is similar to prior exams. The axilla and skin contours are unremarkable. MM/MM tomosynthesis screening BI IMPRESSION: No mammographic evidence of malignancy. ASSESSMENT: BI-RADS 2: Benign RECOMMENDATION: Routine annual mammography screening. This patient's information was entered into a reminder system with a target due date for their next mammogram.
== END 2021-06-17 09:56 | disposition home or self-care (01) ==
LOC: HO.MAMMO 09:55
PROVIDERS: Visit Provider Obstetrics & Gynecology
DX: Z12.31 Encounter for screening mammogram for malignant neoplasm of breast (principal)
CPT/HCPCS: 77063; 77067

== ENCOUNTER 2021-06-18 09:06 | Outpatient (REF) | payer OTHER, SELFPAY | END 2021-06-18 09:07 | disposition home or self-care (01) | LOC: HO.LAB 09:06 | PROVIDERS: PCP Physician Assistant; Visit Provider Obstetrics & Gynecology | DX: N90.89 Other specified noninflammatory disorders of vulva and perineum (principal) | CPT/HCPCS: 56605; 56606; 88305; 88312 ==

== ENCOUNTER → 2021-09-03 10:06 | Outpatient (BNVA) | payer OTHER, SELFPAY | PROVIDERS: Visit Provider Obstetrics & Gynecology | DX: L90.0 Lichen sclerosus et atrophicus (principal); Z98.890 Other specified postprocedural states | CPT/HCPCS: 99212 ==

== ENCOUNTER 2021-10-06 11:10 | Outpatient (REF) | payer OTHER, SELFPAY ==
[2021-10-06 12:09] LABS: Hematocrit 41.7 % (37.0-47.0); Hemoglobin 13.8 g/dl (12.0-16.0); Mean Corpuscular HGB Conc 33.1 g/dl (31.0-35.0); Mean Corpuscular Hemoglobin 27.9 pg (27.0-33.0); Mean Corpuscular Volume 84.2 fL (80.0-98.0); Mean Platelet Volume 9.5 fL (9.4-12.3); Platelet Count 308 X10*3/uL (160-400); Red Blood Count 4.95 X10*6/uL (4.20-5.50); Red Cell Distribution Width 12.6 % (11.0-16.0); White Blood Count 7.5 X10*3/uL (4.8-10.8)
[2021-10-06 12:33] LABS: Alanine Aminotransferase 15 U/L (0-31); Albumin Level 4.3 g/dL (3.5-5.0); Alkaline Phosphatase 65 U/L (39-117); Anion Gap 15 (12-20); Aspartate Amino Transferase 14 U/L (5-31); Bilirubin Total 0.5 mg/dL (0.0-1.0); Blood Urea Nitrogen 16 mg/dL (9-16); Calcium 9.3 mg/dL (8.4-10.2); Carbon Dioxide 28 mmol/L (22-29); Chloride 104 mmol/L (96-108); Cholesterol 237 mg/dL; Estimated Glomerular Filt Rate > 60; Glucose Fasting 141 mg/dL (60-99); HDL Cholesterol 52 mg/dL; LDL Cholesterol Calculated 164 mg/dl; Potassium 4.5 mmol/L (3.3-5.1); Sodium 142 mmol/L (135-145); Total Protein 7.2 g/dL (6.5-8.0); Triglycerides 108 mg/dL
[2021-10-06 12:55] LABS: TSH reflex Free T4 1.15 uIU/mL (0.32-4.0)
[2021-10-06 14:59] LABS: Microalbum/Creatinine Ratio Ur 18.8 ug/mg cr
== END 2021-10-06 11:11 | disposition home or self-care (01) ==
LOC: HO.LAB 11:10
PROVIDERS: PCP Physician Assistant; Visit Provider Physician Assistant
DX: I10 Essential (primary) hypertension (principal); E11.65 Type 2 diabetes mellitus with hyperglycemia
CPT/HCPCS: 36415; 80053; 80061; 82043; 84443; 85027

== ENCOUNTER → 2021-10-22 12:46 | Outpatient (BNVA) | payer OTHER, SELFPAY | PROVIDERS: PCP Physician Assistant; Visit Provider Physician Assistant | DX: Z47.1 Aftercare following joint replacement surgery (principal); Z96.651 Presence of right artificial knee joint | CPT/HCPCS: 99212 ==

== ENCOUNTER 2022-01-14 | Outpatient (REF) | payer OTHER, SELFPAY ==
--- NOTE | ~2022-01-14 | XR_ITS ---
EXAMINATION: AP BILATERAL KNEE. LEFT KNEE. CLINICAL INFORMATION: Pain in left knee. COMPARISON: None TECHNIQUE: AP bilateral knee standing 1 view. Left knee 2 views. FINDINGS: AP bilateral knee: There is a total right knee prosthesis with prosthetic components in alignment. There is moderate medial and mild lateral compartment loss of joint space with periarticular spurring of both compartments. Left knee: There is loss of patellofemoral compartment joint space with superior patellar spurring and mild superior joint effusion. No loose bodies or bony erosive changes seen. XR/XR knee LT 2V IMPRESSION: 1. Degenerative arthritic changes tricompartment left knee with mild superior joint effusion. 2. Total right knee prosthesis in alignment. No visible acute fracture, dislocation or subluxation seen.
--- NOTE | ~2022-01-14 | XR_ITS ---
EXAMINATION: AP BILATERAL KNEE. LEFT KNEE. CLINICAL INFORMATION: Pain in left knee. COMPARISON: None TECHNIQUE: AP bilateral knee standing 1 view. Left knee 2 views. FINDINGS: AP bilateral knee: There is a total right knee prosthesis with prosthetic components in alignment. There is moderate medial and mild lateral compartment loss of joint space with periarticular spurring of both compartments. Left knee: There is loss of patellofemoral compartment joint space with superior patellar spurring and mild superior joint effusion. No loose bodies or bony erosive changes seen. XR/XR knee standing BI IMPRESSION: 1. Degenerative arthritic changes tricompartment left knee with mild superior joint effusion. 2. Total right knee prosthesis in alignment. No visible acute fracture, dislocation or subluxation seen.
== END 2022-01-14 00:01 | disposition home or self-care (01) ==
LOC: HO.HOSX
PROVIDERS: Visit Provider Physician Assistant
DX: M17.12 Unilateral primary osteoarthritis, left knee (principal); M25.561 Pain in right knee
CPT/HCPCS: 73560; 73565; 99212

== ENCOUNTER → 2022-03-09 10:33 | Outpatient (BNVA) | payer OTHER, SELFPAY | PROVIDERS: PCP Physician Assistant; Visit Provider Orthopaedic Surgery | DX: M17.12 Unilateral primary osteoarthritis, left knee (principal); M54.16 Radiculopathy, lumbar region; E11.65 Type 2 diabetes mellitus with hyperglycemia | CPT/HCPCS: 20610; 99212; J1100 ==

== ENCOUNTER → 2022-06-25 09:30 | Outpatient (BNVA) | payer OTHER, SELFPAY | PROVIDERS: PCP Physician Assistant; Visit Provider Orthopaedic Surgery | DX: M17.12 Unilateral primary osteoarthritis, left knee (principal); E11.65 Type 2 diabetes mellitus with hyperglycemia; E66.9 Obesity, unspecified; Z68.37 Body mass index [BMI] 37.0-37.9, adult | CPT/HCPCS: 99212 ==

== ENCOUNTER 2022-06-25 11:14 | Outpatient (REF) | payer OTHER, SELFPAY ==
[2022-06-25 14:15] LABS: Estimated Average Glucose 131 mg/dL; Hemoglobin A1c % 6.2 %
== END 2022-06-25 11:15 | disposition home or self-care (01) ==
LOC: HO.10HDL 11:14
PROVIDERS: Visit Provider Orthopaedic Surgery
DX: Z01.812 Encounter for preprocedural laboratory examination (principal); M17.12 Unilateral primary osteoarthritis, left knee; M54.16 Radiculopathy, lumbar region; E11.65 Type 2 diabetes mellitus with hyperglycemia; E66.9 Obesity, unspecified; Z68.37 Body mass index [BMI] 37.0-37.9, adult
CPT/HCPCS: 36415; 83036

== ENCOUNTER → 2022-07-01 10:49 | Outpatient (BNVA) | payer OTHER, SELFPAY | PROVIDERS: PCP Physician Assistant; Visit Provider Obstetrics & Gynecology ==

== ENCOUNTER → 2022-08-03 08:42 | Outpatient (REF) | payer OTHER, SELFPAY ==
--- NOTE | 2022-08-03 08:46 | ECG_ITS ---
Test Reason : PREOP Blood Pressure : / mmHG Vent. Rate : 081 BPM Atrial Rate : 081 BPM P-R Int : 168 ms QRS Dur : 078 ms QT Int : 378 ms P-R-T Axes : 045 023 061 degrees QTc Int : 439 ms Normal sinus rhythm Normal ECG When compared with ECG of 22-NOV-2020 10:24, No significant change was found Referred By: Ruby Richmond Electronically Signed By:Domingo Cowan
[2022-08-03 09:07] LABS: MANUAL DIFF FLAG NO
[2022-08-03 09:35] LABS: Basophils Percent Auto 0.5 % (0-2); Eosinophils Absolute Auto 0.2 X10*3/uL (0.0-0.4); Eosinophils Percent Auto 2.3 % (0-4); Hematocrit 39.4 % (37.0-47.0); Hemoglobin 13.1 g/dl (12.0-16.0); Imm Gran Abs Auto 0.03 X10*3/uL (0.00-0.03); Imm Gran Pct Auto 0.4 % (0.0-0.4); Lymphocytes Absolute Auto 1.7 X10*3/uL (1.2-4.9); Mean Corpuscular HGB Conc 33.2 g/dl (31.0-35.0); Mean Corpuscular Hemoglobin 28.3 pg (27.0-33.0); Mean Corpuscular Volume 85.1 fL (80.0-98.0); Mean Platelet Volume 9.7 fL (9.4-12.3); Monocytes Absolute Auto 0.4 X10*3/uL (0.1-1.2); Monocytes Percent Auto 4.7 % (2-11); Neutrophils Absolute Auto 5.9 x10*3/uL (2.0-8.3); Neutrophils Percent Auto 71.1 % (45-73); Platelet Count 285 X10*3/uL (160-400); Red Blood Count 4.63 X10*6/uL (4.20-5.50); Red Cell Distribution Width 12.9 % (11.0-16.0); White Blood Count 8.3 X10*3/uL (4.8-10.8)
[2022-08-03 09:59] LABS: INTERNATIONAL NORM RATIO 0.9 (0.9-1.1); Prothrombin Time 10.7 SEC (10.0-13.1)
[2022-08-03 10:30] LABS: Alanine Aminotransferase 16 U/L (0-31); Albumin Level 4.2 g/dL (3.5-5.0); Alkaline Phosphatase 77 U/L (39-117); Anion Gap 14 (12-20); Aspartate Amino Transferase 15 U/L (5-31); Bilirubin Total 0.8 mg/dL (0.0-1.0); Blood Urea Nitrogen 12 mg/dL (9-16); Calcium 9.5 mg/dL (8.4-10.2); Carbon Dioxide 26 mmol/L (22-29); Chloride 104 mmol/L (96-108); Estimated Glomerular Filt Rate > 60; Glucose Random 135 mg/dL (60-115); Potassium 4.1 mmol/L (3.3-5.1); Sodium 140 mmol/L (135-145)
[2022-08-03 10:36] LABS: TSH reflex Free T4 1.03 uIU/mL (0.32-4.0)
== END ==
LOC: HO.CARD 08:42
PROVIDERS: Absent Provider Nurse Practitioner Family; PCP Physician Assistant; Visit Provider Nurse Practitioner Family
DX: Z01.818 Encounter for other preprocedural examination (principal)
CPT/HCPCS: 36415; 80053; 84443; 85025; 85610; 93005

== ENCOUNTER → 2022-08-05 10:14 | Outpatient (BNVA) | payer OTHER, SELFPAY | PROVIDERS: PCP Physician Assistant; Visit Provider Physician Assistant | DX: Z01.818 Encounter for other preprocedural examination (principal); Z86.010 Personal history of colon polyps; Z80.0 Family history of malignant neoplasm of digestive organs | CPT/HCPCS: 99212 ==

== ENCOUNTER 2022-08-11 09:58 | Outpatient (REF) | payer OTHER, SELFPAY ==
--- NOTE | ~2022-08-11 | MM_ITS ---
EXAMINATION: MM SCREENING DIGITAL BREAST TOMOSYNTHESIS, BILATERAL CLINICAL INFORMATION: Screening. Asymptomatic. The lifetime risk of breast cancer based on the Tyrer-Cuzick Model is 4%. COMPARISON: Mammography: 06/17/2021, 05/30/2020; outside mammography 01/26/2017 ([place], [place]). TECHNIQUE: Digital breast tomosynthesis is performed in both the craniocaudal and mediolateral oblique views along with computer-aided detection (CAD). Synthesized 2D images are generated from the tomosynthesis. FINDINGS: The breasts are almost entirely fatty (ACR BI-RADS breast composition Category a). Background stromal markings are normal. No architectural abnormality or developing density. There are no significant masses, abnormal calcifications, or other abnormalities. The skin contours are smooth. MM/MM tomosynthesis screening BI IMPRESSION: No mammographic evidence of malignancy. ASSESSMENT: BI-RADS 1: Negative RECOMMENDATION: Routine annual mammography screening. This patient's information was entered into a reminder system with a target due date for their next mammogram.
== END 2022-08-11 09:59 | disposition home or self-care (01) ==
LOC: HO.MAMMO 09:58
PROVIDERS: PCP Physician Assistant; Visit Provider Obstetrics & Gynecology
DX: Z12.31 Encounter for screening mammogram for malignant neoplasm of breast (principal)
CPT/HCPCS: 77063; 77067

== ENCOUNTER → 2022-08-13 09:28 | Outpatient (BNVA) | payer OTHER, SELFPAY | PROVIDERS: PCP Physician Assistant; Visit Provider Physician Assistant | DX: M17.12 Unilateral primary osteoarthritis, left knee (principal) | CPT/HCPCS: 99212 ==

== ENCOUNTER 2022-08-18 06:58 | Inpatient (IN) | payer OTHER, SELFPAY ==
[2022-08-04 12:20] VITALS: BP 165/90; PULSE 74; RESP 16; O2SAT 99; BMI 36.6
--- NOTE | 2022-08-04 12:59 | HO.ANESPROP2 ---
Documented by User: Emma Benton NP 08/17/22 08:38 HPI - Anesthesia Eval Consult details Narrative: 61yo F for Left Knee Replacement Total PCP cleared s/p Right TKA 2020 with PMFSH Active Problems Active Problems: All Active Problems (Updated 08/04/22 @ 12:30 by Jenn Ballesteros, TASHA) Anxiety and depression (Acute) Annual physical exam (Acute) Transformation zone absent on cervical Pap smear (Acute) Preoperative clearance (Acute) Localized osteoarthritis of right knee (Acute) Pre-op evaluation (Acute) Asthma exacerbation (Acute) Status post total right knee replacement (Acute) Pain and swelling of right lower leg (Acute) History of total knee arthroplasty (Acute) Acute frontal sinusitis (Acute) Sinus headache (Acute) Cough with congestion of paranasal sinus (Acute) Well woman exam (Acute) Vulvar lesion (Acute) Obese (Acute) Lichen sclerosus (Acute) Annual physical exam (Acute) Lumbar spine pain (Acute) LEONARDO (obstructive sleep apnea) (Acute) Osteoarthritis of left knee (Acute) Lumbar radiculopathy (Acute) Otitis media (Acute) KARTHIKEYAN (generalized anxiety disorder) (Acute) MDD (major depressive disorder), recurrent episode, moderate (Acute) Tubular adenoma (Acute) Arthritis (Acute) Asthma (Acute) Obesity (BMI 30-39.9) (Acute) HTN (hypertension) (Acute) Hypercholesterolemia (Acute) Type 2 diabetes mellitus with hyperglycemia (Acute) Diverticulosis (Acute) Family history of colon cancer (Acute) Past Medical History Medical History (Updated 08/18/22 @ 13:[address] NP) Alcohol abuse Arthritis Asthma COVID-19 vaccine administered Depression Diverticulosis Glaucoma HTN (hypertension) Hypercholesterolemia Migraine Obesity (BMI 30-39.9) Osteoarthritis of right knee Pulmonary nodule Rectal pain Seasonal allergies Sleep apnea Tubular adenoma Type 2 diabetes mellitus with hyperglycemia Family History Family History Father History of ETOH abuse Substance use disorder Mother Benign tumor Brother Acute CVA (cerebrovascular accident) Brother CAD (coronary artery disease) Prostate cancer Family history of problems with anesthesia: No Surgical History Surgical History H/O rectal polypectomy History of colonoscopy History of incisional hernia repair History of tooth extraction History of total right knee replacement History of tubal ligation Hx of appendectomy Hx of cataract extraction Hx of cholecystectomy History of Problems with Anesthesia: No Social History Social History Household Members: Children Housing: Apartment Are you a primary child care education coordinator to a significant other at home: No Do you presently have visiting nurse or other home services: No Alcohol intake: current Alcohol intake frequency: holidays/special occasions only Patient Tobacco Use Status: Never used Tobacco Smoked in Last 30 Days: No e-Cigarette/Vaping Use: Never Used Patient Interested in Nicotine Replacement: No Patient Given Instructions on How to Stop Smoking: No Second Hand Smoke Exposure: No Use of substances other than those prescribed or required for medical reasons: No Currently Displaying Signs/Symptoms of Drug Intoxication Withdrawal: No Any prior treatment program specific to substance use: No Have you been hit, kicked, punched, or otherwise hurt by someone within the past year? If so, by whom?: No Do you feel safe in your current relationship?: Yes Is there a partner from a previous relationship who is making you feel unsafe now?: No Are you made to feel afraid or neglected: No Spiritual Healthcare Practices: no Zoroastrianism Healthcare Practices: no Cultural Healthcare Practices: no Are you DNR?: No Advance Directives: No Advance Directives Information Provided: Yes Advance Directives on File: No Do you have thoughts of harming others: None Do you have a plan to hurt others: No Plan Recently lost weight without trying: No Eating poorly because of decreased appetite: No Nutrition Risks: No Nutritional Risk Patient : No : No Poor oral hygiene: No service: No Current occupational status: unemployed Current occupation: rt handed Cognitive needs: No Hearing needs: No Vision needs: No Narrative Narrative: No recent illness. Describes allergic type symptoms, treating with albuterol with relief. No wheezing noted. Suggested trial of OTC allergy medicine preop. No CP/SOB within limits of knee pain Meds Allergies Allergy/AdvReac Type Severity Reaction Status Date / Time No Known Allergies Allergy Verified 08/13/22 09:31 [No Known Allergies*] Home Medications Medication Instructions Recorded Confirmed Last Taken Type brimonidine 0.2 % eye drops 1 drp ophthalmic (eye) TID 08/04/22 08/16/22 08/17/22 History ibuprofen 800 mg tablet 800 mg PO Q8H PRN Pain 08/18/22 08/18/22 08/15/22 History Exam Exam Date and Time: August 04, 2022 1259 Height,Weight and Vital Signs: Height 5 ft 5 in Weight 99.9 kg Last Vital Signs Pulse 74 08/04/22 12:20 Resp 16 08/04/22 12:20 BP 165/90 H 08/04/22 12:20 Pulse Ox 99 08/04/22 12:20 O2 Del Method Room Air 08/04/22 12:20 Pertinent Lab Results Pertinent Lab Results: Laboratory Tests 08/03/22 08/03/22 09:07 09:07 WBC 8.3 Hgb 13.1 Hct 39.4 Plt Count 285 Sodium 140 Potassium 4.1 Chloride 104 Carbon Dioxide 26 BUN 12 Creatinine 0.65 Narrative Narrative: EKG 07/2022 Vent. Rate : 081 BPM ? ? Atrial Rate : 081 BPM ?? P-R Int : 168 ms? QRS Dur : 078 ms ? ? QT Int : 378 ms ? ? ? P-R-T Axes : 045 023 061 degrees ?? QTc Int : 439 ms ? Normal sinus rhythm Normal ECG When compared with ECG of 22-NOV-2020 10:24, No significant change was found Airway Mallampati Class: III TM Dist: <=3cm Neck ROM: Full Partial: Upper Heart: RRR Lungs: Clear but dim Assessment and Plan Assessment Anesthesia Assessment: Anesthesia Plan Discussed and PAT Visit Final Anesthetic Review Family History of Problems with Anesthesia: No History of Problems with Anesthesia: No Documented by User: Dirk Robles MD 08/18/22 17:11 [facility] Past Medical History Medical History (Updated 08/18/22 @ 13:[address] NP) Alcohol abuse Arthritis Asthma COVID-19 vaccine administered Depression Diverticulosis Glaucoma HTN (hypertension) Hypercholesterolemia Migraine Obesity (BMI 30-39.9) Osteoarthritis of right knee Pulmonary nodule Rectal pain Seasonal allergies Sleep apnea Tubular adenoma Type 2 diabetes mellitus with hyperglycemia Family History Family History Father History of ETOH abuse Substance use disorder Mother Benign tumor Brother Acute CVA (cerebrovascular accident) Brother CAD (coronary artery disease) Prostate cancer Surgical History Surgical History H/O rectal polypectomy History of colonoscopy History of incisional hernia repair History of tooth extraction History of total right knee replacement History of tubal ligation Hx of appendectomy Hx of cataract extraction Hx of cholecystectomy Social History Social History Household Members: Children Housing: Apartment Are you a primary child care education coordinator to a significant other at home: No Do you presently have visiting nurse or other home services: No Alcohol intake: current Alcohol intake frequency: holidays/special occasions only Patient Tobacco Use Status: Never used Tobacco Smoked in Last 30 Days: No e-Cigarette/Vaping Use: Never Used Patient Interested in Nicotine Replacement: No Patient Given Instructions on How to Stop Smoking: No Second Hand Smoke Exposure: No Use of substances other than those prescribed or required for medical reasons: No Currently Displaying Signs/Symptoms of Drug Intoxication Withdrawal: No Any prior treatment program specific to substance use: No Have you been hit, kicked, punched, or otherwise hurt by someone within the past year? If so, by whom?: No Do you feel safe in your current relationship?: Yes Is there a partner from a previous relationship who is making you feel unsafe now?: No Are you made to feel afraid or neglected: No Spiritual Healthcare Practices: no Zoroastrianism Healthcare Practices: no Cultural Healthcare Practices: no Are you DNR?: No Advance Directives: No Advance Directives Information Provided: Yes Advance Directives on File: No Do you have thoughts of harming others: None Do you have a plan to hurt others: No Plan Recently lost weight without trying: No Eating poorly because of decreased appetite: No Nutrition Risks: No Nutritional Risk Patient : No : No Poor oral hygiene: No service: No Current occupational status: unemployed Current occupation: rt handed Cognitive needs: No Hearing needs: No Vision needs: No Meds Allergies Allergy/AdvReac Type Severity Reaction Status Date / Time No Known Allergies Allergy Verified 08/13/22 09:31 [No Known Allergies*] Home Medications Medication Instructions Recorded Confirmed Last Taken Type brimonidine 0.2 % eye drops 1 drp ophthalmic (eye) TID 08/04/22 08/16/22 08/17/22 History ibuprofen 800 mg tablet 800 mg PO Q8H PRN Pain 08/18/22 08/18/22 08/15/22 History Assessment and Plan Final Anesthetic Review NPO: Yes ASA Class: III Final Preanesthetic Review: No Changes in Pt Med Stat, Meds/Allgs Chart Reviewed, Consent Obtained/Reviewed and Anes Risks/Benef Reviewed Patient Risk: Intermediate Procedure Risk: Low Anesthetic Plan Anesthetic Plan: MAC:, Spinal and Regional Block Disposition: Standard PACU
[2022-08-04 15:23] LABS: MRSA Nasal PCR NEGATIVE (Negative); SA Nasal PCR NEGATIVE (Negative)
[2022-08-18] VITALS (14 sets, daily range): BP systolic 99–164; BP diastolic 47–78; PULSE 62–80; RESP 16–21; TEMP 35.9–36.6; O2SAT 94–97; BMI 39.7
--- NOTE | ~2022-08-18 | XR_ITS ---
EXAMINATION: XR KNEE, LEFT CLINICAL INFORMATION: Left total knee arthroplasty COMPARISON: Left knee 01/14/2022 TECHNIQUE: Portable AP and lateral views of the left knee. FINDINGS: The patient is status post left total knee arthroplasty with patellar button. There is no fracture or evidence of hardware complication. There is a small joint effusion. Gas in the suprapatellar space is consistent with postoperative status. Skin colton are seen anterior to the knee joint. Quadriceps enthesophyte is noted. XR/XR knee LT 2V IMPRESSION: Satisfactory appearance of left total hip arthroplasty.
[2022-08-18 07:05] LABS: Glucose, Whole Blood 137 mg/dL (60-115)
[2022-08-18 07:25] LABS: Hematocrit 40.9 % (37.0-47.0); Hemoglobin 13.4 g/dl (12.0-16.0)
[2022-08-18] MEDS: Lactated Ringers 1,000 ML 100 ML IVCONT ×3 (07:58→23:30)
[2022-08-18] MEDS: ceFAZolin Sodium/Dextrose,Iso 2 GM/50 ML PIGGYBACK IV ×2 (10:20→16:03)
--- NOTE | 2022-08-18 11:33 | PM.OP ---
Brief Operative Note Date of Service: 08/18/22 Pre-op diagnosis: Left knee OA Post-op diagnosis: same Procedure: Left TKA Implants: [employer] Triathlon posterior stabilized cemented 04/02/28 Surgeon: Jeovany Figueroa MD Anesthesia: regional and spinal Was an Brand Ambassador Promotional Model used for this Procedure?: Yes Brand Ambassador Promotional Model: Florence Medina Estimated blood loss (mL): 5 Tourniquet time (min): 55 IV fluids (mL): 1,000 Pathology: other Condition: stable Disposition: PACU
--- NOTE | 2022-08-18 11:44 | W.PM.OPN ---
Operative Note Operative Note Date of Service: 08/18/22 Narrative: Date of Service: 08/18/22 Pre-op diagnosis: Left knee OA Post-op diagnosis: same Procedure: Left TKA Implants: [place] Triathlon posterior stabilized cemented 04/02/28 Surgeon: Jeovany Figueroa MD Anesthesia: regional and spinal Was an Oracle Hrms Developer used for this Procedure?: Yes Oracle Hrms Developer: Florence Medina Estimated blood loss (mL): 5 Tourniquet time (min): 55 IV fluids (mL): 1,000 Pathology: other Condition: stable Disposition: PACU Procedure in detail: The patient was brought to the operating room and prepped and draped in standard sterile fashion. A time-out was called to identify proper site proper procedure proper surgeon and IV antibiotics were administered. 1 g of IV tranexamic acid was administered. The tourniquet was insufflated to 300mg hg. I began by making a midline incision to the retinaculum and performed a medial parapatellar arthrotomy. The patella was translated laterally and the knee was flexed up.The medial compartment was eburnated. I performed a small medial peel and resected the infrapatellar fat pad. [place]'s line was then used to drill my intramedullary femoral guide and my distal femur cut of 10 mm was made in 5 degrees of valgus while protecting the soft tissues. I then measured a #2 femur and placed my cutting guide and made my anterior posterior and chamfer cuts in 3deg of ER while protecting the soft tissues at all times. I then made my box removing the PCL. Once I was satisfied with my cuts I turned my attention to the tibia. I removed the meniscus medially and laterally and , using an external cutting guide, in line with the tibial crest and the third ray, I made my distal tibial cut in 0 deg slope of while protecting the posterior soft tissues at all times. An extension block was used to confirm appropriate amount of bony resection. I then sized a #2 tibia and once I was satisfied that there was complete tibial coverage I placed my trial and with the trial femur in place took the knee through range of motion. I was satisfied with the extension and flexion as well as the stability at 0, 30 and 90 degrees. I then turned my attention to the patella where I removed 1 cm from the undersurface of the patella and then trialed a 29a patellar button. Again the knee was taken through range of motion I was satisfied with the tracking. I then prepared the tibia. A femoral bone plug was placed and the knee was irrigated copiously. A Werewolf cautery wand was used over the capsule and meniscal beds, the gutters and peripatellar soft tissues. I mixed 2 bags of bone cement on the back table and I then cemented the patella, tibia and femur in standard fashion while applying axial compression. I trialed different inserts until I selected a #11 insert. The final insert was placed and a 3 minutes iodine soak with local TXA was performed. The knee was then closed with a running Quill suture and the tourniquet was let down. A 3 0 Vicryl and colton on the skin. Patient was then placed in sterile dressing and brought to recovery room in stable condition there were no known complications.
[2022-08-18] MEDS: Acetaminophen 1,000 MG/100 ML PIGGYBACK 400 MG IV (12:32)
[2022-08-18 13:23] LABS: Glucose, Whole Blood 96 mg/dL (60-115)
[2022-08-18] MEDS: Ketorolac Tromethamine 30 MG/ML VIAL IVPUSH (13:29)
--- NOTE | 2022-08-18 13:54 | HO.PM.IMCN ---
History of Present Illness Data of Consult Service Date: 08/18/22 Primary Care Provider: Ross Marin PA-C HPI 61 year old women admitted by orthopedic surgery and is s/p Left total knee arthroplasty. Surgery was unremarkable, vital signs are stable, she has been able to eat and drink without any nausea or vomiting. She has very minimal mild pain at this time. We resting in bed comfortably. Review of Systems Review of Systems: Denies any recent fever chills or decrease in appetite respiratory denies any shortness of breath coverage production cardiovascular denies chest pain gastrointestinal denies any dysphagia abdominal pain nausea vomiting or diarrhea genitourinary denies any dysuria frequency or hematuria musculoskeletal left knee pain neuropsych denies any weakness or seizures all other systems reviewed are negative [facility] Medical History (Updated 08/18/22 @ 13:[address] NP) Alcohol abuse Arthritis Asthma COVID-19 vaccine administered Depression Diverticulosis Glaucoma HTN (hypertension) Hypercholesterolemia Migraine Obesity (BMI 30-39.9) Osteoarthritis of right knee Pulmonary nodule Rectal pain Seasonal allergies Sleep apnea Tubular adenoma Type 2 diabetes mellitus with hyperglycemia Family History Father History of ETOH abuse Substance use disorder Mother Benign tumor Brother Acute CVA (cerebrovascular accident) Brother CAD (coronary artery disease) Prostate cancer Surgical History H/O rectal polypectomy History of colonoscopy History of incisional hernia repair History of tooth extraction History of total right knee replacement History of tubal ligation Hx of appendectomy Hx of cataract extraction Hx of cholecystectomy Social History Household Members: Children Housing: Apartment Are you a primary wound care specialist to a significant other at home: No Do you presently have visiting nurse or other home services: No Alcohol intake: current Alcohol intake frequency: holidays/special occasions only Patient Tobacco Use Status: Never used Tobacco Smoked in Last 30 Days: No e-Cigarette/Vaping Use: Never Used Patient Interested in Nicotine Replacement: No Patient Given Instructions on How to Stop Smoking: No Second Hand Smoke Exposure: No Use of substances other than those prescribed or required for medical reasons: No Currently Displaying Signs/Symptoms of Drug Intoxication Withdrawal: No Any prior treatment program specific to substance use: No Have you been hit, kicked, punched, or otherwise hurt by someone within the past year? If so, by whom?: No Do you feel safe in your current relationship?: Yes Is there a partner from a previous relationship who is making you feel unsafe now?: No Are you made to feel afraid or neglected: No Spiritual Healthcare Practices: no Latter-Day Healthcare Practices: no Cultural Healthcare Practices: no Are you DNR?: No Advance Directives: No Advance Directives Information Provided: Yes Advance Directives on File: No Do you have thoughts of harming others: None Do you have a plan to hurt others: No Plan Recently lost weight without trying: No Eating poorly because of decreased appetite: No Nutrition Risks: No Nutritional Risk Patient : No : No Poor oral hygiene: No service: No Current occupational status: unemployed Current occupation: rt handed Cognitive needs: No Hearing needs: No Vision needs: No Meds Allergies Allergy/AdvReac Type Severity Reaction Status Date / Time No Known Allergies Allergy Verified 08/13/22 09:31 [No Known Allergies*] Active Medications: Current Medications Acetaminophen (Acetaminophen 325 Mg Tablet) 650 mg PO Q6H PRN PRN Reason: Pain, Mild (Pain Scale 1-3) Aspirin (Aspirin 325 Mg Tablet) 325 mg PO BID [facility] Celecoxib (Celecoxib 200 Mg Capsule) 200 mg PO BID [facility] Docusate Sodium (Docusate Sodium 100 Mg Capsule) 100 mg PO BID [facility] Escitalopram Oxalate (Escitalopram Oxalate 10 Mg Tablet) 10 mg PO DAILY [facility] Hydromorphone HCl (Hydromorphone Hcl 0.5 Mg/0.5 Ml Syringe) 0.25 mg IVPUSH Q5M PRN; Protocol PRN Reason: Pain, Severe (Pain Scale 7-10) Hydromorphone HCl (Hydromorphone Hcl 0.5 Mg/0.5 Ml Syringe) 0.25 mg IVPUSH Q4H PRN; Protocol PRN Reason: Pain, Severe (Pain Scale 7-10) Lactated Ringer's (Lr) 1,000 mls @ 100 mls/hr IVCONT .Q10H JENS Stop: 08/19/22 11:46 Last Admin: 08/18/22 13:18 Dose: 100 mls/hr Cefazolin Sodium/Dextrose (Ancef) 2 gm in 50 mls @ 100 mls/hr IV POSTOP ONE Stop: 08/18/22 16:29 Ondansetron HCl (Ondansetron Hcl 4 Mg/2 Ml Vial) 4 mg IVPUSH ONCE PRN PRN Reason: Nausea and Vomiting Ondansetron HCl (Ondansetron Hcl 4 Mg/2 Ml Vial) 4 mg IVPUSH Q8H PRN PRN Reason: Nausea and Vomiting Oxycodone HCl (Oxycodone Hcl Immed Release 5 Mg Tablet) 5 mg PO Q4H PRN PRN Reason: Pain, Moderate(Pain Scale 4-6) Oxycodone HCl (Oxycodone Hcl Er 10 Mg Tab.Er.12h) 10 mg PO BID [facility] Sodium Chloride (0.9 % Sodium Chloride Flush 3 Ml Syringe) [address] [facility] Home Medications Medication Instructions Recorded Confirmed Last Taken Type brimonidine 0.2 % eye drops 1 drp ophthalmic (eye) TID 08/04/22 08/16/22 08/17/22 History ibuprofen 800 mg tablet 800 mg PO Q8H PRN Pain 08/18/22 08/18/22 08/15/22 History Physical Exam Vital Signs and Narrative: Vital Signs: Last Vital Signs Temp 97.0 F 08/18/22 13:15 Pulse 66 08/18/22 13:15 Resp 16 08/18/22 13:15 BP 135/66 08/18/22 13:15 Pulse Ox 97 08/18/22 13:15 O2 Del Method Room Air 08/18/22 13:15 BMI result Body Mass Index 39.7 Appearing in no acute distress head is normocephalic atraumatic eyes pupils are PERRLA sclera is anicteric mouth throat mucous membranes are intact and moist neck is supple no lymphadenopathy, no JVD noted lung sounds are clear to auscultation heart regular rate rhythm, clear S1, S2 positive bowel sounds, abdomen is soft, nontender neuro patient is alert x3, no focal deficits Left knee surgical dressing intact, surgical incision not visualized Results Labs 08/18/22 07:17 Labs: Laboratory Results - last 24 hr 08/18/22 08/18/22 07:02 13:20 POC Glucose 137 H 96 Imaging Radiologist's Impressions: Impressions Knee X-Ray 08/18/22 12:17 IMPRESSION: Satisfactory appearance of left total hip arthroplasty. Assessment and Plan (1) History of adenomatous polyp of colon: Status: Acute Plan 61 year old women admitted by orthopedic surgery and is s/p LTKA LTKA management as per surgical team pain management Hypertension continue lisinopril DM2 ss, ada diet mental health continue home medications asthma albuterol as needed DVT prophylaxis as per admitting team attending Dr. Guzman Time Spent With Patient Time: Total time managing care of this patient today ____ minutes.
[2022-08-18] MEDS: HYDROmorphone HCl 0.5 MG/0.5 ML SYRINGE 0.25 MG IVPUSH ×2 (15:42→20:17)
[2022-08-18] MEDS: oxyCODONE HCl Immed Release 5 MG TABLET PO (15:43)
[2022-08-18 16:07] LABS: Glucose, Whole Blood 149 mg/dL (60-115)
[2022-08-18 20:16] LABS: Glucose, Whole Blood 123 mg/dL (60-115)
[2022-08-18] MEDS: oxyCODONE HCl ER 10 MG TAB.ER.12H PO (20:16)
[2022-08-18] MEDS: Docusate Sodium 100 MG CAPSULE PO (20:17)
[2022-08-18] MEDS: Celecoxib 200 MG CAPSULE PO (20:17)
[2022-08-19] VITALS (9 sets, daily range): BP systolic 98–132; BP diastolic 52–77; PULSE 77–88; RESP 16–18; TEMP 35.9–36.4; O2SAT 93–96
[2022-08-19] MEDS: HYDROmorphone HCl 0.5 MG/0.5 ML SYRINGE 0.25 MG IVPUSH ×4 (01:03→13:15)
[2022-08-19] MEDS: oxyCODONE HCl Immed Release 5 MG TABLET PO ×4 (05:38→21:01)
[2022-08-19 05:46] LABS: MANUAL DIFF FLAG NO
[2022-08-19 05:50] LABS: Basophils Percent Auto 0.2 % (0-2); Eosinophils Absolute Auto 0.2 X10*3/uL (0.0-0.4); Eosinophils Percent Auto 2.5 % (0-4); Hematocrit 37.1 % (37.0-47.0); Hemoglobin 11.9 g/dl (12.0-16.0); Imm Gran Abs Auto 0.01 X10*3/uL (0.00-0.03); Imm Gran Pct Auto 0.1 % (0.0-0.4); Lymphocytes Absolute Auto 1.5 X10*3/uL (1.2-4.9); Lymphocytes Percent Auto 17.8 % (20-40); Mean Corpuscular HGB Conc 32.1 g/dl (31.0-35.0); Mean Corpuscular Hemoglobin 28.1 pg (27.0-33.0); Mean Corpuscular Volume 87.5 fL (80.0-98.0); Mean Platelet Volume 9.5 fL (9.4-12.3); Monocytes Absolute Auto 0.5 X10*3/uL (0.1-1.2); Monocytes Percent Auto 6.1 % (2-11); Neutrophils Absolute Auto 6.1 x10*3/uL (2.0-8.3); Neutrophils Percent Auto 73.3 % (45-73); Platelet Count 218 X10*3/uL (160-400); Red Blood Count 4.24 X10*6/uL (4.20-5.50); White Blood Count 8.4 X10*3/uL (4.8-10.8)
[2022-08-19 06:06] LABS: Anion Gap 13 (12-20); Blood Urea Nitrogen 17 mg/dL (9-16); Calcium 9.9 mg/dL (8.4-10.2); Carbon Dioxide 27 mmol/L (22-29); Chloride 103 mmol/L (96-108); Creatinine Clr Calc Pharmacy 112.5; Estimated Glomerular Filt Rate > 60; Glucose Fasting 126 mg/dL (60-99); Potassium 4.4 mmol/L (3.3-5.1); Sodium 139 mmol/L (135-145)
--- NOTE | 2022-08-19 07:23 | PHA.MEDREC ---
Pharmacy Consult ? Medication Reconciliation Pharmacy has reviewed the medication reconciliation done by RN.
--- NOTE | 2022-08-19 07:44 | PM.PNORT ---
Subjective Subjective Date of Service: 08/19/22 Interval history: POD1 s/p LTKA. No overnight events. Pain is well managed. Resting in bed. complains of a headache. No additional compalints. Physical Exam Vital Signs: Vital Signs: Last Vital Signs Temp 97.5 F 08/19/22 07:34 Pulse 79 08/19/22 07:34 Resp 18 08/19/22 07:34 BP 132/77 08/19/22 07:34 Pulse Ox 93 08/19/22 07:34 O2 Del Method Room Air 08/19/22 07:34 BMI result Body Mass Index 39.7 Const: General: cooperative, healthy appearing and no acute distress Resp: Effort & Inspection: normal respiratory effort and able to speak in complete sentences Cardio: Rate: regular rate Peripheral pulses: Peripheral pulses 2+ throughout GI: Palpation (GI): Soft to palpation Skin: Lesions: no lesions Rashes: no rashes Extrem: Other: Left knee Aquacel is c/d/i. Able to Dorsi/plantar flex. NVI Procedures Date of Service Date of Service: 08/19/22 Progress Note: A&P Assessment and plan (1) Status post total knee replacement, left: Status: Acute Plan Continue pain mgmnt Begin ASA for dvt ppx begin PT for LTKA Dispo planning-Pending PT eval, pain mgmnt Time Spent With Patient Time: Total time managing care of this patient today ____ minutes. Quality Stroke Does the patient have a stroke diagnosis?: No VTE Prior VTE?: No VTE Risk Level:: Medical - moderate - high VTE Device Contraindication: N/A - Device Ordered VTE Drug Contraindication: N/A - Med Ordered
[2022-08-19 07:52] LABS: Glucose, Whole Blood 132 mg/dL (60-115)
--- NOTE | 2022-08-19 08:46 | MHC.CLN ---
NUTRITION INCREASED CALORIES TO DIABETIC 1800 KCALS FOR ESTIMATED NEEDS.
[2022-08-19] MEDS: 0.9 % Sodium Chloride Flush 3 ML SYRINGE IVFLUSH ×2 (08:49→16:25)
[2022-08-19] MEDS: lisinopriL 20 MG TABLET PO (08:50)
[2022-08-19] MEDS: Escitalopram Oxalate 10 MG TABLET PO (08:50)
[2022-08-19] MEDS: oxyCODONE HCl ER 10 MG TAB.ER.12H PO ×2 (08:50→21:01)
[2022-08-19] MEDS: Docusate Sodium 100 MG CAPSULE PO ×2 (08:50→21:02)
[2022-08-19] MEDS: Celecoxib 200 MG CAPSULE PO ×2 (08:50→21:01)
[2022-08-19] MEDS: ondansetron HCL 4 MG/2 ML VIAL IVPUSH (09:31)
[2022-08-19] MEDS: Cyanocobalamin (Vitamin B-12) 1,000 MCG TABLET 1000 MCG PO (09:32)
[2022-08-19] MEDS: Sertraline HCL 100 MG TABLET PO (09:32)
[2022-08-19] MEDS: Lactated Ringers 1,000 ML 100 ML IVCONT (09:35)
--- NOTE | 2022-08-19 09:51 | MHC.CM.PN ---
PATIENT LIVES WIT DAUGHTER AND GRAND CHILDREN. SHE HAS A CANE AND WALKER IN THE HOME FROM PREVIOUS SURGERY. REFERRAL PLACED TO [facility] WHO IS WILLING TO OFFER HOME P.T. PATIENT REPORTS THAT PLAN IS HOME TOMORROW (08/20/22) FAMILY WILL TRANSPORT. PCP: DARRYL JAY
[2022-08-19] MEDS: Aspirin 325 MG TABLET PO ×2 (10:54→21:02)
[2022-08-19] MEDS: Brimonidine Tartrate 0.2% Oph 5 ML BOTTLE 1 DROP EYE-BOTH ×3 (10:54→21:03)
[2022-08-19 11:19] LABS: Glucose, Whole Blood 125 mg/dL (60-115)
[2022-08-19] MEDS: Acetaminophen 325 MG TABLET 650 MG PO ×2 (11:53→21:02)
--- NOTE | 2022-08-19 13:28 | P.PNIM_ITS ---
Subjective Subjective Date of Service: 08/19/22 Interval History: No acute issues overnight Review of Systems Denies chest pain Denies shortness of breath Denies nausea vomiting diarrhea Denies fever chills Physical Exam Vital Signs: Vital Signs: Last Vital Signs Temp 97.5 F 08/19/22 12:00 Pulse 88 08/19/22 13:10 Resp 18 08/19/22 12:00 BP 125/62 08/19/22 13:10 Pulse Ox 96 08/19/22 13:10 O2 Del Method Room Air 08/19/22 12:00 BMI result Body Mass Index 39.7 Const: Other: Awake alert no acute distress Resp: Other: Clear to auscultation bilaterally no rales rhonchi or wheezes Cardio: Other: No S4; positive S1-S2; no S3 murmurs rubs or gallops GI: Other: Soft nontender nondistended normoactive bowel sounds Extrem: Other: No edema bilaterally Objective Data Active Medications Acetaminophen (Acetaminophen 325 Mg Tablet) 650 mg PO Q6H PRN PRN Reason: Pain, Mild (Pain Scale 1-3) Last Admin: 08/19/22 11:53 Dose: 650 mg Documented By: GENI Albuterol Sulfate (Albuterol Sulfate (0.042%) 1.25 Mg/3 Ml Vial.Neb) 0.63 mg INHALE Q4H PRN PRN Reason: Wheezing Albuterol Sulfate (Albuterol Sulfate 90 Mcg 8 Gm Inhaler) 1 puff INHALE QID PRN PRN Reason: shortness of breath or wheezing Aspirin (Aspirin 325 Mg Tablet) 325 mg PO BID [facility] Last Admin: 08/19/22 10:54 Dose: 325 mg Documented By: GENI Brimonidine Tartrate (Brimonidine Tartrate 0.2% Oph 5 Ml Bottle) 1 drop EYE- BOTH TID [facility] Last Admin: 08/19/22 10:54 Dose: 1 drop Documented By: GENI Celecoxib (Celecoxib 200 Mg Capsule) 200 mg PO BID [facility] Last Admin: 08/19/22 08:50 Dose: 200 mg Documented By: KARIN Cyanocobalamin (Cyanocobalamin (Vitamin B-12) 1,000 Mcg Tablet) 1,000 mcg PO DAILY [facility] Last Admin: 08/19/22 09:32 Dose: 1,000 mcg Documented By: KARIN Dextrose (Dextrose 50 % 25 Gm/50 Ml Syringe) 25 gm IVPUSH Q15M PRN; Protocol PRN Reason: per Hypoglycemia Standing Ord. Docusate Sodium (Docusate Sodium 100 Mg Capsule) 100 mg PO BID [facility] Last Admin: 08/19/22 08:50 Dose: 100 mg Documented By: KARIN Escitalopram Oxalate (Escitalopram Oxalate 10 Mg Tablet) 10 mg PO DAILY [facility] Last Admin: 08/19/22 08:50 Dose: 10 mg Documented By: KARIN Glucose (Glucose Gel 15 Gm Gel..Gram.) 15 gm PO Q15M PRN; Protocol PRN Reason: per Hypoglycemia Standing Ord. Hydromorphone HCl (Hydromorphone Hcl 0.5 Mg/0.5 Ml Syringe) 0.25 mg IVPUSH Q5M PRN; Protocol PRN Reason: Pain, Severe (Pain Scale 7-10) Last Admin: 08/18/22 15:42 Dose: 0.25 mg Hydromorphone HCl (Hydromorphone Hcl 0.5 Mg/0.5 Ml Syringe) 0.25 mg IVPUSH Q4H PRN; Protocol PRN Reason: Pain, Severe (Pain Scale 7-10) Last Admin: 08/19/22 13:15 Dose: 0.25 mg Documented By: GENI Insulin Human Lispro (Insulin Lispro 100 Unit/Ml 3 Ml Vial) 0 unit SUBCUT QIDACHS [facility]; Protocol Last Admin: 08/19/22 11:24 Dose: Not Given Documented By: GENI Non-Admin Reason: No Insulin Coverage Lisinopril (Lisinopril 20 Mg Tablet) 20 mg PO DAILY [facility]; Protocol Last Admin: 08/19/22 08:50 Dose: 20 mg Documented By: KARIN Montelukast Sodium (Montelukast Sodium 10 Mg Tablet) 10 mg PO BEDTIME [facility] Ondansetron HCl (Ondansetron Hcl 4 Mg/2 Ml Vial) 4 mg IVPUSH ONCE PRN PRN Reason: Nausea and Vomiting Ondansetron HCl (Ondansetron Hcl 4 Mg/2 Ml Vial) 4 mg IVPUSH Q8H PRN PRN Reason: Nausea and Vomiting Last Admin: 08/19/22 09:31 Dose: 4 mg Documented By: KARIN Oxycodone HCl (Oxycodone Hcl Immed Release 5 Mg Tablet) 5 mg PO Q4H PRN PRN Reason: Pain, Moderate(Pain Scale 4-6) Last Admin: 08/19/22 10:54 Dose: 5 mg Documented By: GENI Oxycodone HCl (Oxycodone Hcl Er 10 Mg Tab.Er.12h) 10 mg PO BID [facility] Last Admin: 08/19/22 08:50 Dose: 10 mg Documented By: KARIN Sertraline HCl (Sertraline Hcl 100 Mg Tablet) 100 mg PO DAILY [facility] Last Admin: 08/19/22 09:32 Dose: 100 mg Documented By: KARIN Sodium Chloride (0.9 % Sodium Chloride Flush 3 Ml Syringe) 3 ml IVFLUSH QSHIFT [facility] Last Admin: 08/19/22 08:49 Dose: 3 ml Documented By: KARIN Labs 08/19/22 05:30 08/19/22 05:30 Labs: Laboratory Results - last 24 hr 08/18/22 08/18/22 08/19/22 15:51 20:12 05:30 MCV 87.5 MCH 28.1 MCHC 32.1 RDW 13.0 Plt Count 218 MPV 9.5 Immature Gran % (Auto) 0.1 Neut % (Auto) 73.3 H Lymph % (Auto) 17.8 L [place] % (Auto) 6.1 Eos % (Auto) 2.5 Baso % (Auto) 0.2 Lymph # (Auto) 1.5 [place] # (Auto) 0.5 Eos # (Auto) 0.2 Baso # (Auto) 0.0 Abs Immat Gran (auto) 0.01 Absolute Neuts (auto) 6.1 Absolute Nucleated RBC 0.000 Nucleated RBC % (auto) 0.0 Anion Gap Estim Creat Clear Calc Estimated GFR POC Glucose 149 H 123 H Fasting Glucose Calcium 08/19/22 08/19/22 08/19/22 05:30 07:32 11:07 MCV MCH MCHC RDW Plt Count MPV Immature Gran % (Auto) Neut % (Auto) Lymph % (Auto) [place] % (Auto) Eos % (Auto) Baso % (Auto) Lymph # (Auto) [place] # (Auto) Eos # (Auto) Baso # (Auto) Abs Immat Gran (auto) Absolute Neuts (auto) Absolute Nucleated RBC Nucleated RBC % (auto) Anion Gap 13 Estim Creat Clear Calc 112.5 Estimated GFR > 60 POC Glucose 132 H 125 H Fasting Glucose 126 H Calcium 9.9 Assessment and Plan (1) Status post total knee replacement, left: Status: Acute (2) HTN (hypertension): Status: Acute (3) Type 2 diabetes mellitus with hyperglycemia: Status: Acute Plan 61 year old women admitted by orthopedic surgery; s/p LTKA .Medical Management 1.LTKA (POD1) -as per Orthopedics 2.Hypertension -acceptable control on current therapies -adjust as indicated 3.DMII -acceptable control on current therapies -lispro correctional scale 4.Asthma -well controlled. -no issue at this time Time Spent With Patient Time: Total time managing care of this patient today ____ minutes. Quality Stroke Does the patient have a stroke diagnosis?: No VTE Prior VTE?: No VTE Risk Level:: Medical - moderate - high VTE Device Contraindication: N/A - Device Ordered VTE Drug Contraindication: N/A - Med Ordered
--- NOTE | 2022-08-19 15:20 | HO.POSTANES ---
Post Anesthesia Evaluation Post Anesthesia Evaluation Date of Service: 08/19/22 Vital Signs: Vital Signs Temp Pulse Resp BP Pulse Ox O2 Del Method 08/19/22 13:10 88 125/62 96 08/19/22 12:00 97.5 F 88 18 125/62 96 Room Air 08/19/22 11:23 93 Room Air 08/19/22 09:15 79 132/77 93 08/19/22 07:34 97.5 F 79 18 132/77 93 Room Air 08/19/22 03:42 96.9 F 79 18 126/58 L 93 Room Air Anesthesia: Spinal and Nerve Block Mental Status: Awake Pain Control: Satisfactory Nausea/Vomiting: None Hydration: Adequate Anesthesia-Related Issues: No Anes. Related Issues
[2022-08-19 16:23] LABS: Glucose, Whole Blood 131 mg/dL (60-115)
[2022-08-19 20:44] LABS: Glucose, Whole Blood 123 mg/dL (60-115)
[2022-08-19] MEDS: Montelukast Sodium 10 MG TABLET PO (21:01)
[2022-08-20] MEDS: 0.9 % Sodium Chloride Flush 3 ML SYRINGE IVFLUSH ×2 (00:41→08:27)
[2022-08-20] MEDS: oxyCODONE HCl Immed Release 5 MG TABLET PO ×3 (02:26→12:46)
[2022-08-20 04:00] VITALS: BP 102/51; PULSE 77; RESP 14; TEMP 36.1; O2SAT 92
[2022-08-20 06:11] LABS: MANUAL DIFF FLAG NO
[2022-08-20 06:18] LABS: Basophils Percent Auto 0.2 % (0-2); Eosinophils Absolute Auto 0.4 X10*3/uL (0.0-0.4); Eosinophils Percent Auto 3.8 % (0-4); Hematocrit 35.9 % (37.0-47.0); Hemoglobin 11.6 g/dl (12.0-16.0); Imm Gran Abs Auto 0.04 X10*3/uL (0.00-0.03); Imm Gran Pct Auto 0.4 % (0.0-0.4); Lymphocytes Absolute Auto 1.2 X10*3/uL (1.2-4.9); Lymphocytes Percent Auto 11.6 % (20-40); Mean Corpuscular HGB Conc 32.3 g/dl (31.0-35.0); Mean Corpuscular Hemoglobin 28.5 pg (27.0-33.0); Mean Corpuscular Volume 88.2 fL (80.0-98.0); Monocytes Absolute Auto 0.5 X10*3/uL (0.1-1.2); Monocytes Percent Auto 5.1 % (2-11); Neutrophils Percent Auto 78.9 % (45-73); Platelet Count 253 X10*3/uL (160-400); Red Blood Count 4.07 X10*6/uL (4.20-5.50); Red Cell Distribution Width 12.8 % (11.0-16.0); White Blood Count 10.2 X10*3/uL (4.8-10.8)
[2022-08-20 06:35] LABS: Anion Gap 14 (12-20); Blood Urea Nitrogen 17 mg/dL (9-16); Calcium 9.9 mg/dL (8.4-10.2); Carbon Dioxide 25 mmol/L (22-29); Chloride 102 mmol/L (96-108); Creatinine Clr Calc Pharmacy 93.8; Estimated Glomerular Filt Rate > 60; Glucose Fasting 125 mg/dL (60-99); Potassium 4.3 mmol/L (3.3-5.1); Sodium 137 mmol/L (135-145)
[2022-08-20 07:17] LABS: Glucose, Whole Blood 112 mg/dL (60-115)
[2022-08-20 08:00] VITALS: BP 127/60; PULSE 84; RESP 20; TEMP 36.3; O2SAT 93
[2022-08-20] MEDS: Acetaminophen 325 MG TABLET 650 MG PO (08:26)
[2022-08-20] MEDS: Sertraline HCL 100 MG TABLET PO (08:26)
[2022-08-20] MEDS: Cyanocobalamin (Vitamin B-12) 1,000 MCG TABLET 1000 MCG PO (08:26)
[2022-08-20] MEDS: lisinopriL 20 MG TABLET PO (08:26)
[2022-08-20] MEDS: Aspirin 325 MG TABLET PO (08:26)
[2022-08-20] MEDS: Docusate Sodium 100 MG CAPSULE PO (08:27)
[2022-08-20] MEDS: Celecoxib 200 MG CAPSULE PO (08:27)
[2022-08-20] MEDS: oxyCODONE HCl ER 10 MG TAB.ER.12H PO (08:27)
[2022-08-20] MEDS: Escitalopram Oxalate 10 MG TABLET PO (08:28)
[2022-08-20] MEDS: Brimonidine Tartrate 0.2% Oph 5 ML BOTTLE 1 DROP EYE-BOTH (08:29)
--- NOTE | 2022-08-20 08:45 | P.DS_ITS ---
DS: Providers Provider Date of Service: 08/20/22 Date of admission: 08/18/22 06:58 Primary care physician: Ross Marin PA-C Consults: 08/18/22 13:04 Consult to Hospitalist Routine Comment: Consulting Provider: Hospitalist Reason For Exam: diabetes DS: Diagnosis Discharge Diagnosis (1) Status post total knee replacement, left: Status: Acute DS: Summary Hospital Course Hospital Course: The patient underwent a successful left total knee arthroplasty on 08/18/22, was transferred to PACU and then to the floor to recover. During their stay, their vitals were stable, afebrile at 97.4 . Labs were unremarkable, H/H 11.6/35.9. POD 1 she was started on ASA 325mg tabs po bid for DVT ppx, they also received Physical Therapy services twice a day. Physical therapy should include gait training, ROM to tolerance and quad strength. He is WBAT. Prior to discharge, his dressing was changed, incision clean dry and intact, new Aquacel dressing applied. The Aquacel dressing should remain intact and dry at all times. Any concerns with the dressing, please contact orthopedic office. No showering. The plan is to be discharged home with VNA services Time Spent with Patient Time attestation: Total time managing care of this patient today ____ minutes. Discharge coordination time: Less than 30 minutes Quality: Safe Use of Opioids Does Pt have an Active Cancer Diagnosis on the Problem List?: No Quality: Stroke Does the patient have a stroke diagnosis?: No Physical Exam Vital Signs: Vital Signs: Last Vital Signs Temp 97.4 F 08/20/22 08:00 Pulse 84 08/20/22 08:00 Resp 20 08/20/22 08:00 BP 127/60 08/20/22 08:00 Pulse Ox 93 08/20/22 08:00 O2 Del Method Room Air 08/20/22 08:00 BMI result Body Mass Index 39.7 Const: General: cooperative, healthy appearing and no acute distress Resp: Effort & Inspection: normal respiratory effort and able to speak in complete sentences Cardio: Rate: regular rate Peripheral pulses: Peripheral pulses 2+ throughout GI: Palpation (GI): Soft to palpation Skin: Lesions: no lesions Rashes: no rashes Extrem: Other: Left knee Aquacel is c/d/i. Able to Dorsi/plantar flex. NVI DS: Data Data Completed and Pending Completed studies during hospitalization [Text1]: Procedures Replacement of Right Knee Joint with Synthetic Substitute, Cemented, Open Approach (12/04/20) Pending studies at discharge: Pending at discharge 08/18/22 11:18 Surgical [PTH] Routine Labs on day of discharge: Laboratory Results - last 24 hr 08/19/22 08/19/22 08/19/22 11:07 16:09 20:25 WBC RBC Hgb Hct MCV MCH MCHC RDW Plt Count MPV Immature Gran % (Auto) Neut % (Auto) Lymph % (Auto) [place] % (Auto) Eos % (Auto) Baso % (Auto) Lymph # (Auto) [place] # (Auto) Eos # (Auto) Baso # (Auto) Abs Immat Gran (auto) Absolute Neuts (auto) Absolute Nucleated RBC Nucleated RBC % (auto) Sodium Potassium Chloride Carbon Dioxide Anion Gap BUN Creatinine Estim Creat Clear Calc Estimated GFR POC Glucose 125 H 131 H 123 H Fasting Glucose Calcium 08/20/22 08/20/22 08/20/22 05:53 05:53 07:13 WBC 10.2 RBC 4.07 L Hgb 11.6 L Hct 35.9 L MCV 88.2 MCH 28.5 MCHC 32.3 RDW 12.8 Plt Count 253 MPV 10.0 Immature Gran % (Auto) 0.4 Neut % (Auto) 78.9 H Lymph % (Auto) 11.6 L [place] % (Auto) 5.1 Eos % (Auto) 3.8 Baso % (Auto) 0.2 Lymph # (Auto) 1.2 [place] # (Auto) 0.5 Eos # (Auto) 0.4 Baso # (Auto) 0.0 Abs Immat Gran (auto) 0.04 H Absolute Neuts (auto) 8.0 Absolute Nucleated RBC 0.000 Nucleated RBC % (auto) 0.0 Sodium 137 Potassium 4.3 Chloride 102 Carbon Dioxide 25 Anion Gap 14 BUN 17 H Creatinine 0.78 Estim Creat Clear Calc 93.8 Estimated GFR > 60 POC Glucose 112 Fasting Glucose 125 H Calcium 9.9 Discharge Plan Discharge Anticipated Discharge Date/Time: 08/20/22 10:00 Patient Disposition: Home Health Service Discharge Diagnosis: LT TKA Referrals: Florence Medina PA-C [Physician Sewing Room Supervisor] - 2 Weeks (09/03/22 1:00 LONA Henriquez) Discharge Medications: New celecoxib 200 mg Capsule 200 mg PO BID 30 Days Qty: 60 0RF acetaminophen 325 mg Tablet 650 mg PO Q6H PRN (Reason: Pain, Mild (Pain Scale 1-3)) 30 Days Qty: 240 0RF aspirin 325 mg Tablet 325 mg PO BID 42 Days Qty: 84 0RF docusate sodium 100 mg Capsule 100 mg PO BID 14 Days Qty: 28 0RF oxycodone 5 mg Tablet 5 mg PO Q4H PRN (Reason: Pain, Moderate(Pain Scale 4-6)) 7 Days Qty: 42 0RF Rx Instructions: Partial Fill upon patient request. Continued (DME) CPAP Machine/Device Device See Rx Instructions .Route Qty: 1 0RF Rx Instructions: As directed brimonidine 0.2 % drops 1 drp ophthalmic (eye) TID sertraline 100 mg tablet 100 mg PO DAILY docusate sodium 100 mg capsule 100 mg PO BID 30 Days Qty: 60 3RF albuterol sulfate 0.63 mg/3 mL solution for nebulization 0.63 mg INHALATION Q4-6H PRN (Reason: Wheezing) 30 Days Qty: 90 3RF albuterol sulfate 90 mcg/actuation HFA aerosol inhaler 1 inh inhalation QID PRN (Reason: shortness of breath or wheezing) 30 Days Qty: 8.5 3RF atorvastatin 80 mg tablet 80 mg PO DAILY 90 Days Qty: 90 1RF (DME) FreeStyle Lite Strips Strip See Rx Instructions .Route Qty: 100 0RF Rx Instructions: Test Daily (DME) blood-glucose meter [FreeStyle Lite Meter] Kit See Rx Instructions .Route Qty: 1 0RF Rx Instructions: test daily clobetasol 0.05 % cream 1 appl topical BID 180 Days Qty: 45 1RF Rx Instructions: Then maintenance therapy for 2-3 times per week cyanocobalamin (vitamin B-12) [Vitamin B-12] 1,000 mcg tablet 1,000 mcg PO DAILY 90 Days Qty: 90 1RF fluticasone propion-salmeterol [AirDuo RespiClick] 232-14 mcg/actuation aerosol powdr breath activated 1 inh INHALATION BID 30 Days Qty: 1 3RF diclofenac sodium 1 % gel 4 g topical QID 30 Days Qty: 240 6RF Rx Instructions: apply 4grams to affected area four times a day as needed lisinopril 20 mg tablet 20 mg PO DAILY 90 Days Qty: 90 1RF melatonin 5 mg tablet 5 mg PO BEDTIME 90 Days Qty: 90 2RF metformin 500 mg tablet 1,000 mg PO BID 90 Days Qty: 360 2RF montelukast [Singulair] 10 mg tablet 10 mg PO BEDTIME Qty: 90 1RF tizanidine 2 mg tablet 2 mg PO Q8H PRN (Reason: muscle spasticity) 7 Days Qty: 21 0RF Discontinued ibuprofen 800 mg tablet 800 mg PO Q8H PRN (Reason: Pain) aspirin 81 mg tablet,delayed release (DR/EC) 81 mg PO DAILY 90 Days Qty: 90 1RF Hold Instructions: Doctor's Order Discharge Orders: Discharge Order (Routine); Ordered 08/20/22 Ordered By: Florence Medina Diet: Regular diet Activity on Discharge: Use cane or walker Stand Alone Forms: Patient Portal Discharge page Care Plan Goals: Restore function of joint Health Concerns: none Plan of Treatment: Physical Therapy Pain management DVT prophylaxis Assessment: Physical Therapy for Total knee arthroplasty: WBAT, gait training, ROM 0-12, quad strength * Limit stair climbing * No showering, no tub bath-keep dressing clean, dry and intact * No driving x6 weeks * Continue Aspirin twice a day x 6 weeks * [facility] up [facility] [place] [facility] [place]: * --you will also have your first out patient PT rcih on the day of your post op appt-so please plan on being in the office that day for an extended period of time.
--- NOTE | 2022-08-20 08:47 | W.MHC.F2F ---
Service Date Service Date: 08/20/22 Encounter Date of encounter: 08/20/22 Reasons for Services Signs and symptoms assessed: left knee pain, weakness, poor balance, unsteady gait Homebound: Leaving the home is medically contraindicated at this time without the asist of a device and/or another person due th the listed conditions above and below. Reason homebound: unsteady gait / fall risk, pain with ambulation, pain with transfers, poor balance / fall risk and unable to drive Certification: Based on the above findings, I certify that this patient is confined to the home and needs intermittent residential care, physical therapy and/or speech therapy, or continues to need occupational therapy. The patient is under my care, and I have initiated the establishment of the plan of care. The patient will be followed by a physician who will periodically review the plan of care. Time Spent With Patient Time: Total time managing care of this patient today ____ minutes.
[2022-08-20 09:22] VITALS: BP 127/60; PULSE 84; O2SAT 93
--- NOTE | 2022-08-20 09:31 | MHC.CM.PN ---
PATIENT IS DC HOME - NEW [facility] RN AWARE FAMILY TO TRANSPORT.
[2022-08-20 11:00] VITALS: O2SAT 97
[2022-08-20 11:06] VITALS: BP 92/58; PULSE 81; RESP 20; TEMP 36.1; O2SAT 97
[2022-08-20 11:19] LABS: Glucose, Whole Blood 124 mg/dL (60-115)
== END 2022-08-20 13:20 | disposition home health service (06) | DRG 326 ==
LOC: HO.SSSA 07:00 → HO.S3 12:11
PROVIDERS: Orthopaedic Surgery; Admitting Provider Physician Assistant; PCP Physician Assistant; Responsible Provider Hospitalist; Visit Provider Physician Assistant
PROC: 0SRD0J9 Replacement of Left Knee Joint with Synthetic Substitute, Cemented, Open Approach (ICD-10-PCS; CPT 27447; principal; 2022-08-18 09:40)
DX: M17.12 Unilateral primary osteoarthritis, left knee (principal); E11.65 Type 2 diabetes mellitus with hyperglycemia; E78.00 Pure hypercholesterolemia, unspecified; G89.18 Other acute postprocedural pain; J45.909 Unspecified asthma, uncomplicated; I10 Essential (primary) hypertension; Z86.010 Personal history of colon polyps; Z79.84 Long term (current) use of oral hypoglycemic drugs; Z79.899 Other long term (current) drug therapy
CPT/HCPCS: 36415; 73560; 80048; 82947; 85014; 85018; 85025; 86850; 86900; 86901; 87640; 87641; 88305; 88311; 97110; 97116; 97162; C1713; C1776; J0131; J0690; J1170; J1885; J2250; J2370; J2405; J2795

== ENCOUNTER → 2022-09-03 12:55 | Outpatient (BNVA) | payer OTHER, SELFPAY | PROVIDERS: Visit Provider Physician Assistant ==

== ENCOUNTER 2022-09-17 12:19 | Outpatient (AMB) | payer OTHER, SELFPAY ==
--- NOTE | 2022-09-17 12:21 | A.OFFVIS_ITS ---
Intake Intake Visit Reasons: S/P PO-LT TKA 08/18/22 NE, Intake Note: Laquita 61 yr old female presents today for her P/O visit for her left TKA from 08/18/22. States she is having a lot of pain and had to cancel P.T due to pain. Allergies No Known Allergies [No Known Allergies*] Allergy (Verified 09/17/22 12:24) HPI S/P PO-LT TKA 08/18/22 NE, HPI Details 61-year-old female who returns to the office today for post-op left TKA, 08/18/[address] Figueroa. She states she is having pain and she had to cancel her physical therapy session due to the pain. She states the pain is along the quad which radiates down the leg. She finds no relief with oxycodone. She has no other concerns. [facility] Medical History Alcohol abuse Arthritis Asthma COVID-19 vaccine administered Depression Diverticulosis Glaucoma History of adenomatous polyp of colon HTN (hypertension) Hypercholesterolemia Migraine Obesity (BMI 30-39.9) Osteoarthritis of right knee Pulmonary nodule Rectal pain Seasonal allergies Sleep apnea Tubular adenoma Type 2 diabetes mellitus with hyperglycemia Surgical History H/O rectal polypectomy History of colonoscopy History of incisional hernia repair History of tooth extraction History of total right knee replacement History of tubal ligation Hx of appendectomy Hx of cataract extraction Hx of cholecystectomy Family History Father History of ETOH abuse Substance use disorder Mother Benign tumor Brother Acute CVA (cerebrovascular accident) Brother CAD (coronary artery disease) Prostate cancer Social History Household Members: Children Housing: Apartment Are you a primary cardiac care nurse to a significant other at home: No Do you presently have visiting nurse or other home services: No Alcohol intake: current Alcohol intake frequency: holidays/special occasions only Patient Tobacco Use Status: Never used Tobacco e-Cigarette/Vaping Use: Never Used Second Hand Smoke Exposure: No service: No Current occupational status: unemployed Current occupation: rt handed Cognitive needs: No Hearing needs: No Vision needs: No Female Reproductive History Menstrual Age of Menarche: 12 Review of Systems Const All systems reviewed & are unremarkable except as noted in HPI and below Physical Exam Extrem Other: Left knee: Incision clean, dry and intact. She does have an area along the most proximal part of her incision that appears to have a retained suture. No surrounding erythema, no joint effusion. Her ROM is 0-95 degrees. Calf supple, n ontender. NVI. Assessment & Plan Assessment & Plan (1) Status post total knee replacement, left: Code(s): Z96.652 - Presence of left artificial knee joint Plan I did recommend that she apply warm compresses to the suture area 20 minutes, 4 times a day. I strongly encouraged her to continue working with physical therapy to maintain her motion and improve her strength. I reassured her that this is normal process of healing and as she progresses with therapy, she should continue to improve. She will take the Celebrex that was prescribed to her yesterday and I also put in a request for performix topical cream as well. She will return for her routine follow-up appointment in [address] Figueroa, sooner if needed. Medications: Discontinued ibuprofen 800 mg PO Q8H 30 days 90 tabs 2RF pain R51.9 - Headache, unspecified Patient Instructions: Scribed for Florence Medina PA-C, by [facility] medical practitioners, on 09/17/2022 at 12:30 PM EST. IFlorence PA-C, have personally reviewed and agree with the information entered by the scribe. Coding Level of Care Code Global (87419) Diagnoses Status post total knee replacement, left Z96.652
== END 2022-09-17 13:05 | disposition home or self-care (01) ==
PROVIDERS: PCP Physician Assistant; Visit Provider Physician Assistant
DX: Z96.652 Presence of left artificial knee joint (principal)
CPT/HCPCS: 99024

== ENCOUNTER → 2022-09-17 12:19 | Outpatient (BNVA) | payer OTHER, SELFPAY | PROVIDERS: PCP Physician Assistant; Visit Provider Physician Assistant ==

== ENCOUNTER 2022-09-23 09:45 | Outpatient (AMB) | payer OTHER, SELFPAY ==
--- NOTE | 2022-09-23 09:47 | MHC.PC.OV ---
Vital Signs 09/23/22 09:49 Height 5 ft 5 in Weight 97.182 kg BMI 35.6 BP 124/70 Blood Pressure Location Lt brachial Position Sitting Pulse 78 Pulse Source Pulse Oximeter Pulse Oximetry (%) 97 Oxygen Delivery Method Room Air Intake Visit Reasons: [facility] 08/18 s/p left TKA Intake Note: pt is here for ed f/u s/p left TKA Thermal Spray Operator Required: Yes Accompanied by: Self / Same As Patient Allergies No Known Allergies [No Known Allergies*] Allergy (Verified 09/23/22 09:47) Medication List - Last Reconciled 09/23/22 by KRUPA Lopez albuterol sulfate 0.63 mg (3 mL) inhalation Q4-6H PRN 30 days albuterol sulfate 90 mcg/actuation 1 inh inhalation QID PRN 30 days aspirin 325 mg PO BID 42 days atorvastatin 80 mg PO DAILY 90 days blood sugar diagnostic (FreeStyle Lite Strips) Test Daily blood-glucose meter (FreeStyle Lite Meter kit) test daily brimonidine 0.2% 1 drp ophthalmic (eye) TID celecoxib 200 mg PO BID clobetasol 0.05% 1 appl topical BID 6 months CPAP (CPAP Machine/Device) As directed cyanocobalamin (vitamin B-12) (Vitamin B-12) 1,000 mcg PO DAILY 90 days diclofenac sodium 1% 4 grams topical QID 30 days docusate sodium 100 mg PO BID 14 days fluticasone propion-salmeterol 232-14 mcg/actuation (AirDuo RespiClick) 1 inh inhalation BID 30 days lisinopril 20 mg PO DAILY 90 days melatonin 5 mg PO BEDTIME 90 days metformin 1,000 mg (2 x 500 mg) PO BID 90 days montelukast (Singulair) 10 mg PO BEDTIME omeprazole 20 mg PO DAILY oxycodone 5 mg PO Q6H PRN 7 days sertraline 100 mg PO DAILY tizanidine 2 mg PO Q8H PRN 7 days Tobacco use date assessed: 04/14/22 Dental Screening Dental Screen Date: 09/23/22 Did you have a dental visit in the last 12 months?: Yes Did you have a dental problem in the last 6 months where you did not have access to dental care?: No Was dental information given to patient?: Patient has dentist HPI HPI Comments History of Present Illness Details 61-year-old female with history of type 2 diabetes, hypertension, and severe obesity with BMI greater than 35 presents to the office today for post hospital evaluation. Discharge medications have been reviewed and reconciled by me. The patient was admitted to [facility] from 08/18- to the orthopedic surgery team and underwent left TKA on 08/18. Hospital stay was unremarkable. She remained afebrile with stable H/H and received physical therapy twice daily. She was started on aspirin 325 mg b.i.d. for DVT prophylaxis and was advised to continue this for 42 days. Hospitalist team was consulted for management of diabetes and hypertension and glucose levels are managed effectively with Humalog on sliding scale. She was discharged home with physical therapy through [facility]. Unforuntely has now been seen twice by ortho team since discharge due to uncontrolled pain levels and reports she has been canceling PT 2/2 to pain. Per ortho team, her pain is expected and she has been advised to continue with PT to maintain ROM of improve strength. She was started on celebrex and performix topical cream. She is reporting ongoing 6/10 pain medically and laterally in left knee but has been participating in PT at [facility] and at home. She is ambulating with a cane and reports difficulty getting to her apt on the 4th floor as there is no elevator. She is also reporting some epigastric pain but no n/v, melena, hematochezia. [facility] Medical History Alcohol abuse Arthritis Asthma COVID-19 vaccine administered Depression Diverticulosis Glaucoma History of adenomatous polyp of colon HTN (hypertension) Hypercholesterolemia Migraine Obesity (BMI 30-39.9) Osteoarthritis of right knee Pulmonary nodule Rectal pain Seasonal allergies Sleep apnea Tubular adenoma Type 2 diabetes mellitus with hyperglycemia Surgical History H/O rectal polypectomy History of colonoscopy History of incisional hernia repair History of tooth extraction History of total right knee replacement History of tubal ligation Hx of appendectomy Hx of cataract extraction Hx of cholecystectomy Family History Father History of ETOH abuse Substance use disorder Mother Benign tumor Brother Acute CVA (cerebrovascular accident) Brother CAD (coronary artery disease) Prostate cancer Social History Household Members: Children Housing: Apartment Are you a primary director of patient care to a significant other at home: No Do you presently have visiting nurse or other home services: No Alcohol intake: current Alcohol intake frequency: holidays/special occasions only Patient Tobacco Use Status: Never used Tobacco e-Cigarette/Vaping Use: Never Used Second Hand Smoke Exposure: No service: No Current occupational status: unemployed Current occupation: rt handed Cognitive needs: No Hearing needs: No Vision needs: No Female Reproductive History Menstrual Age of Menarche: 12 Questionnaire Thrive Questionnaire Date Thrive assessed: 08/19/22 KARTHIKEYAN-7 AMB Questionnaire KARTHIKEYAN-7 Date KARTHIKEYAN - 7 assessed: 04/14/22 Source: Developed by Drs. Denny Kiran, Sujatha Bernardo, Johny Hill and colleagues, with an educational yonathan from [employer]. Review of Systems Const All systems reviewed & are unremarkable except as noted in HPI and below Physical exam (Primary Care) Tobacco/Smoking Status: Tobacco use Status Tobacco use date assessed 04/14/22 09/23/22 09:48 Patient Tobacco Use Status Never used Tobacco 09/23/22 09:48 e-Cigarette/Vaping Use Never Used 09/23/22 09:48 Thrive Assessment: Date of Thrive Assessment Date Thrive assessed 08/19/22 09/23/22 09:48 Const Other: Constitutional - Awake and Alert, No apparent distress Eyes - PERRLA, EOMI Cardiovascular - S1S2, RRR, No edema Respiratory - Normal lung expansion, Normal respiratory effort, No respiratory distress, CTA bilaterally Gastrointestinal - NT / ND; +BS; No rebound or guarding Extremities - left sided calf tenderness with palpable cords and tortuous without significant swelling or erythema Musculoskeletal - Left knee- well healing, in tact, vertical post-operative scar without any significant surrounding erythema or warmth Skin - Warm/Dry Neurological - Alert & oriented x3, 5/5 strength BLE , antalgic gait Results Reviewed Results Reviewed: XR knee, bmp, cbc Assessment and Plan Assessment & Plan (1) Status post total knee replacement, left: Code(s): Z96.652 - Presence of left artificial knee joint Plan: Without complication. Routine wound healing, no evidence of infection at time of exam. Continue with physical therapy as scheduled. Follow up with orthopedics as scheduled. Pain management per orthopedic team. Continue asa 325mg BID for DVT prophylaxis (2) Tenderness of left calf: Code(s): M79.662 - Pain in left lower leg Plan: Venous duplex of the left lower extremity ordered to rule out DVT given recent left TKA. This may just be component of routine healing. She should continue ASA 325 mg b.i.d. for DVT prophylaxis. (3) Gastritis due to nonsteroidal anti-inflammatory drug (NSAID): Code(s): K29.60 - Other gastritis without bleeding; T39.395A - Adverse effect of other nonsteroidal anti-inflammatory drugs [NSAID], initial encounter Plan: No bleeding reported. paIn uncontrolled and pt unable to participate in PT with celebrex and requires asa for DVT prophylaxis. Recommend taking omeprazole daily until course of treatment completed. Advised to call the office or go to the ED for any worsening pain or evidence of bleeding. Orders: Orders US venous duplex LE LT Today M79.662 - Pain in left lower leg, Z96.652 - Presence of left artificial knee joint Medications: New omeprazole 20 mg PO DAILY 21 caps 0RF Discontinued ibuprofen 800 mg PO Q8H 30 days 90 tabs 2RF pain R51.9 - Headache, unspecified Coding Level of Care Code Est Pt Level 5 (76003) Diagnoses Status post total knee replacement, left Z96.652 Tenderness of left calf M79.662 Gastritis due to nonsteroidal anti-inflammatory drug (NSAID) K29.60; T39.395A Time Spent (min) 45 Comment results review. Time also spent w/ pt, pt doc, and reviewing op note, d/s, ortho office nt
[2022-09-23 09:49] VITALS: BP 124/70; PULSE 78; O2SAT 97; BMI 35.6
== END 2022-09-23 10:21 | disposition home or self-care (01) ==
PROVIDERS: PCP Physician Assistant; Visit Provider Physician Assistant
DX: Z96.652 Presence of left artificial knee joint (principal); M79.662 Pain in left lower leg; K29.60 Other gastritis without bleeding; T39.395A Adverse effect of other nonsteroidal anti-inflammatory drugs [NSAID], initial encounter
CPT/HCPCS: 99215

== ENCOUNTER 2022-09-24 09:54 | Outpatient (REF) | payer OTHER, SELFPAY ==
--- NOTE | ~2022-09-24 | US_ITS ---
EXAMINATION: US VENOUS ULTRASOUND WITH DOPPLER LOWER EXTREMITY, LEFT CLINICAL INFORMATION: Left knee replacement, rule out deep venous thrombosis. COMPARISON: None available. TECHNIQUE: Ultrasound of the deep veins is performed from the hip to the calf with compression sonography and color and pulse Doppler assessment. Spectral analysis with color-flow imaging is performed. FINDINGS: There is normal venous compression and respiratory variation and augmented flow. The visualized common femoral vein, superficial femoral vein, profunda femoral vein, popliteal vein, and the trifurcation region shows no evidence of deep venous thrombosis. No left popliteal cyst. The subcutaneous soft tissues are unremarkable. US/US venous duplex LE LT IMPRESSION: No evidence for deep venous thrombosis in the visualized veins of the left lower extremity.
== END 2022-09-24 09:55 | disposition home or self-care (01) ==
LOC: HO.US 09:54
PROVIDERS: PCP Physician Assistant; Visit Provider Physician Assistant
DX: M79.662 Pain in left lower leg (principal); Z96.652 Presence of left artificial knee joint
CPT/HCPCS: 93971

== ENCOUNTER 2022-10-01 13:26 | Outpatient (AMB) | payer OTHER, SELFPAY ==
--- NOTE | 2022-10-01 13:27 | A.OFFVIS_ITS ---
Intake Vital Signs 10/01/22 13:33 Height 5 ft 5 in Weight 214 lb BMI 35.6 Intake Visit Reasons: PO-LT TKA 08/18/22 NE Intake Note: Laquita is a 61 year old female who presents today for a post operative appointment s/p Left TKA 08/18/22. Patient reports that she is having continued pain, at all times worse with ambulation. She had discontinued physical therapy due to her pain. Allergies No Known Allergies [No Known Allergies*] Allergy (Verified 10/01/22 13:35) HPI PO-LT TKA 08/18/22 NE HPI Details Laquita is a 61 year old Diabetic woman who presents ~6 weeks S/P left TKA. She says she continues to have alot of pain with activity. She has been taking Celebrex & Oxycodone, as well as using a topical cream, all without relief. She says her pain was severe enough that she had to cancel her PT as she was unable to tolerate it. She says she lives on the 4th floor of her building and this is very difficult for her to manage. She would like a note to bring to her landlord to move apartments if possible. [facility] Medical History Alcohol abuse Arthritis Asthma COVID-19 vaccine administered Depression Diverticulosis Glaucoma History of adenomatous polyp of colon HTN (hypertension) Hypercholesterolemia Migraine Obesity (BMI 30-39.9) Osteoarthritis of right knee Pulmonary nodule Rectal pain Seasonal allergies Sleep apnea Tubular adenoma Type 2 diabetes mellitus with hyperglycemia Surgical History H/O rectal polypectomy History of colonoscopy History of incisional hernia repair History of tooth extraction History of total right knee replacement History of tubal ligation Hx of appendectomy Hx of cataract extraction Hx of cholecystectomy Family History Father History of ETOH abuse Substance use disorder Mother Benign tumor Brother Acute CVA (cerebrovascular accident) Brother CAD (coronary artery disease) Prostate cancer Social History Household Members: Children Housing: Apartment Are you a primary rn acute care to a significant other at home: No Do you presently have visiting nurse or other home services: No Alcohol intake: current Alcohol intake frequency: holidays/special occasions only Patient Tobacco Use Status: Never used Tobacco e-Cigarette/Vaping Use: Never Used Second Hand Smoke Exposure: No service: No Current occupational status: unemployed Current occupation: rt handed Cognitive needs: No Hearing needs: No Vision needs: No Female Reproductive History Menstrual Age of Menarche: 12 Review of Systems Const All systems reviewed & are unremarkable except as noted in HPI and below Physical Exam Vital Signs: BMI result Body Mass Index 35.6 Const General: no acute distress and alert Orientation/consciousness: patient oriented x3 Neuro General: patient oriented x3 Extrem Other: Left Knee: Incision C/D/I 0-120 degrees ROM Psych Appearance: grossly normal Affect: normal affect Attitude: cooperative Results Reviewed Results Reviewed: I personally reviewed relevant radiographs. Left total knee arthroplasty in expected post operative position with no hardware complications or evidence of loosening Assessment & Plan Assessment & Plan (1) Status post total knee replacement, left: Code(s): Z96.652 - Presence of left artificial knee joint Plan: This is a 61 year old woman S/P left TKA, DOS: 08/18/22. She complains of pain with activity. She has not been attending PT due to her complaints of pain.. I recommend activity as tolerated and continue ROM and strengthening exercises. She will follow up in 6 weeks. Plan Scribed for Jeovany Figueroa MD by Nabeel Singh, clinical medical assistant, on 10/01/22 at 1:50 PM, EST. Medications: Discontinued ibuprofen 800 mg PO Q8H 30 days 90 tabs 2RF pain R51.9 - Headache, unspecified Coding Level of Care Code Global (64908) Diagnoses Status post total knee replacement, left Z96.652
[2022-10-01 13:33] VITALS: BMI 35.6
== END 2022-10-01 13:51 | disposition home or self-care (01) ==
PROVIDERS: PCP Physician Assistant; Visit Provider Orthopaedic Surgery
DX: Z96.652 Presence of left artificial knee joint (principal)
CPT/HCPCS: 99024

== ENCOUNTER → 2022-10-01 13:26 | Outpatient (BNVA) | payer OTHER, SELFPAY | PROVIDERS: PCP Physician Assistant; Visit Provider Orthopaedic Surgery ==

== ENCOUNTER 2022-10-12 11:03 | Outpatient (AMB) | payer OTHER, SELFPAY ==
[2022-10-12 11:24] VITALS: BP 132/80; PULSE 85; O2SAT 96; BMI 36.7
--- NOTE | 2022-10-12 11:24 | A.OFFPC_ITS ---
Vital Signs 10/12/22 11:24 Height 5 ft 5 in Weight 220 lb 6 oz BMI 36.7 BP 132/80 Blood Pressure Location Lt brachial Position Sitting Pulse 85 Pulse Source Pulse Oximeter Pulse Oximetry (%) 96 Oxygen Delivery Method Room Air Intake Visit Reasons: PE Allergies No Known Allergies [No Known Allergies*] Allergy (Verified 10/12/22 12:03) Medication List - Last Reconciled 10/12/22 by Ross Marin PA-C albuterol sulfate 0.63 mg (3 mL) inhalation Q4-6H PRN 30 days albuterol sulfate 90 mcg/actuation 1 inh inhalation QID PRN 30 days aspirin 325 mg PO BID 42 days atorvastatin 80 mg PO DAILY 90 days blood sugar diagnostic (FreeStyle Lite Strips) Test Daily blood-glucose meter (FreeStyle Lite Meter kit) test daily brimonidine 0.2% 1 drp ophthalmic (eye) TID celecoxib 200 mg PO BID clobetasol 0.05% 1 appl topical BID 6 months CPAP (CPAP Machine/Device) As directed cyanocobalamin (vitamin B-12) (Vitamin B-12) 1,000 mcg PO DAILY 90 days diclofenac sodium 1% 4 grams topical QID 30 days docusate sodium 100 mg PO BID 14 days fluticasone propion-salmeterol 232-14 mcg/actuation (AirDuo RespiClick) 1 inh inhalation BID 30 days lisinopril 20 mg PO DAILY 90 days melatonin 5 mg PO BEDTIME 90 days metformin 1,000 mg (2 x 500 mg) PO BID 90 days montelukast (Singulair) 10 mg PO BEDTIME omeprazole 20 mg PO DAILY oxycodone 5 mg PO Q6H PRN 7 days sertraline 100 mg PO DAILY tizanidine 2 mg PO Q8H PRN 7 days Tobacco use date assessed: 10/12/22 HPI PE HPI Details Patient is a 61-year-old female here today for routine annual physical..? 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 . Knee osteoarthritis:? Recently had left knee total arthroplasty. Continues to have postoperative pain and swelling. Will be following up with her orthopedic in near future. Has been using anti-inflammatories and Tylenol though reports not being effective reducing her pain. .. Moderate persistent asthma:? Patient reports her asthma has been well controlled on current rescue inhaler and maintenance inhaler dose.? Denies any nighttime awakenings with asthma symptoms or recent exacerbating shins. .. Hypertension:? Patient reports blood pressures at home have been stable 120-130 systolic.? Denies any headaches, chest discomforts or vision issues.? .? She does not have home blood pressure machine.? Continues on current lisinopril 10 mg. .. Diabetes:? Continues on metformin 1000 b.i.d. Most recent A1c is 6.2 .. HLD: Cholesterol elevated , have not repeat Yefri all done. Continues on high- dose statin therapy. . Obesity; noted weight loss since last office visit.? Family reports she has been watching her portions Colon cancer screening: done in 2019- Had polyp( tubular adenoma ) - needs repeat Vaccine: UTD with Tdap. UTD With COVID vaccine. Up-to-date with pneumonia vaccine. Laboratory Tests 10/06/21 08/20/22 08/20/22 12:45 05:53 11:14 RBC 4.07 L POC Glucose 124 H Urine Microalbumin 29.0 PFSH Medical History (Updated 10/14/22 @ 07:55 by Ross Marin PA-C) Alcohol abuse Arthritis Asthma COVID-19 vaccine administered Depression Diverticulosis Glaucoma History of adenomatous polyp of colon HTN (hypertension) Hypercholesterolemia Lichen sclerosus Migraine Obesity (BMI 30-39.9) Osteoarthritis of right knee Pulmonary nodule Rectal pain Seasonal allergies Sleep apnea Tubular adenoma Type 2 diabetes mellitus with hyperglycemia Surgical History H/O rectal polypectomy History of colonoscopy History of incisional hernia repair History of tooth extraction History of total right knee replacement History of tubal ligation Hx of appendectomy Hx of cataract extraction Hx of cholecystectomy Family History Father History of ETOH abuse Substance use disorder Mother Benign tumor Brother Acute CVA (cerebrovascular accident) Brother CAD (coronary artery disease) Prostate cancer Social History (Updated 10/12/22 @ 12:09 by Ross Marin PA-C) Household Members: Children Housing: Apartment Are you a primary vision care associate to a significant other at home: No Do you presently have visiting nurse or other home services: No Alcohol intake: current Alcohol intake frequency: holidays/special occasions only Patient Tobacco Use Status: Never used Tobacco e-Cigarette/Vaping Use: Never Used Second Hand Smoke Exposure: No service: No Current occupational status: unemployed Current occupation: rt handed Cognitive needs: No Hearing needs: No Vision needs: No Female Reproductive History Menstrual Age of Menarche: 12 Questionnaire PHQ-9 Over the last 2 weeks, how often have you been bothered by any of the following problems? 1. Little interest or pleasure in doing things: not at all 2. Feeling down, depressed, or hopeless: more than half the days 3. Trouble falling or staying asleep, or sleeping too much: several days 4. Feeling tired or having little energy: several days 5. Poor appetite or overeating: not at all 6. Feeling bad about yourself - or that you are a failure or have let yourself or your family down: not at all 7. Trouble concentrating on things, such as reading the newspaper or watching television: not at all 8. Moving or speaking so slowly that other people could have noticed. Or the opposite - being so fidgety or restless that you have been moving around a lot more than usual: several days 9. Thoughts that you would be better off or of hurting yourself in some way: not at all Total score: 5 Depression Screening Interpretation: Positive 70884 - PHQ-9 Billing: Yes Source: Developed by Drs. Denny Kiran, Sujatha Bernardo, Johny Hill and colleagues, with an educational yonathan from [employer]. Thrive Questionnaire Date Thrive assessed: 08/19/22 I am a: Patient What is your living situation today?: I have a steady place to live Within the past 12 months, did the food you bought not last and you didn't have the money to get more?: Never true Within the past 12 months, did you worry whether your food would run out before you got money to buy more?: Never true Currently or been in a relationship where the following occur: no concerns reported AUDIT C Alcohol Use Questionnaire (AUDIT-C) 1. How often do you have a drink containing alcohol?: 2-4 times a month 2. How many drinks containing alcohol do you have on a typical day when you are drinking?: 5 or 6 3. How often do you have six or more drinks on one occasion?: Never Total Score: 4 KARTHIKEYAN-7 AMB Questionnaire KARTHIKEYAN-7 Date KARTHIKEYAN - 7 assessed: 04/14/22 Feeling nervous, anxious, or on edge: 1 = Several days Not being able to stop or control worryin = Several days Worrying too much about different things: 1 = Several days Trouble relaxin = Several days Being so restless that it is hard to sit still: 1 = Several days Becoming easily annoyed or irritable: 0 = Not at all Feeling afraid as if something awful might happen: 1 = Several days Total KARTHIKEYAN-7 score (0-4 normal; 5-9 mild; 10-14 moderate; 15-21 severe): 6 Source: Developed by Drs. Denny Kiran, Sujatha Bernardo, Johny Hill and colleagues, with an educational yonathan from [employer]. KARTHIKEYAN-7 Assessment Billing KARTHIKEYAN-7 Assessment Tool: KARTHIKEYAN-7 Assessment 06178 Review of Systems Const Denies body aches, Denies chills, Denies excessive sweating, Denies fatigue, Denies fever(s) and Denies headache(s) Eyes Denies blurry vision ENT Denies dysphagia, Denies vertigo, Denies dizziness, Denies headache(s), Denies hearing loss and Denies tinnitus Card Denies chest pain, Denies chest pain with activity, Denies syncope, Denies irregular heart rhythm and Denies dyspnea Resp Denies chest congestion, Denies cough, Denies hemoptysis, Denies dyspnea and Denies wheezing GI Denies abdominal pain, Denies melena, Denies hematochezia, Denies coffee ground emesis, Denies dysphagia, Denies diarrhea, Denies nausea and Denies vomiting Denies urinary frequency, Denies dysuria, Denies urinary hesitancy and Denies urinary urgency Musc Denies arthralgias, Denies limited range of motion, Denies muscle cramps and Denies muscle weakness Skin/Breast Denies rash and Denies skin ulcer Neuro Denies Abnormal speech present, Denies confusion, Denies vertigo, Denies dizziness, Denies syncope, Denies headache(s), Denies memory loss and Denies seizure-like activity Psych Denies anxiety, Denies confusion, Denies depression, Denies memory loss, Denies panic attacks and Denies paranoia Endo Denies excessive sweating, Denies fatigue, Denies flushing, Denies polydipsia and Denies polyuria Aller/Immun Denies wheezing Physical exam (Primary Care) Vital Signs: Last Vital Signs Pulse 85 10/12/22 11:24 BP 132/80 10/12/22 11:24 Pulse Ox 96 10/12/22 11:24 Oxygen Delivery Method Room Air 10/12/22 11:24 BMI result Body Mass Index 36.7 BMI Assessment/Plan discussion: High Tobacco/Smoking Status: Tobacco use Status Tobacco use date assessed 10/12/22 10/12/22 11:30 Patient Tobacco Use Status Never used Tobacco 10/12/22 12:09 e-Cigarette/Vaping Use Never Used 10/12/22 12:09 PHQ-9: PHQ-9 Score PHQ-9: Total score 5 10/13/22 08:44 Depression Screening Interpretation: Positive Thrive Assessment: Date of Thrive Assessment Date Thrive assessed 08/19/22 10/12/22 11:24 Currently or been in a relationship where the following occur: no concerns reported Const Other: Obese General: cooperative, comfortable, no acute distress, alert and awake; No confusion Orientation/consciousness: oriented to person, oriented to place, patient oriented x3 and No confusion HENMT Head: Yes normocephalic Ears: external ears normal and TM's normal bilaterally Face and sinus: No sinus tenderness Mouth: Normal oral and palatal mucosa present and tongue normal Teeth and gingiva: dentition normal and gingiva normal Throat: Yes posterior oropharynx normal, Yes tonsils normal and Yes uvula midline Eyes Conjunctivae: conjunctivae normal Sclerae: sclerae normal Pupils: Equal, round and reactive pupils present EOM: EOMs intact bilaterally Direct Ophthalmoscopy: No no photophobia Neck Neck: Yes no lymphadenopathy, No tender and Yes no JVD Thyroid: Thyroid normal Carotids: no bruits Chest Chest palpation & inspection: no tenderness Resp Effort & Inspection: normal respiratory effort, no audible wheezes, not labored and no stridor Auscultation: no crackles, no rales, no rhonchi and no wheezes Cardio Jugular venous distension: no JVD Rate: regular rate, not bradycardic and not tachycardic Rhythm: regular rhythm Bruits: no carotid bruits Peripheral pulses: Peripheral pulses 2+ throughout GI Inspection: Yes normal to inspection, No abdominal wall ecchymosis and No visible herniation Palpation (GI): Soft to palpation, nontender, no guarding, not rigid and No hepatosplenomegaly present Auscultation: normoactive bowel sounds General: Yes no CVA tenderness Back/Spine/Pelvis Back: no CVA tenderness and No back tenderness Cervical Spine: cervical ROM normal Thoracic/Lumbar Spine: thoracic and lumbar spine normal to inspection, straight leg raise negative bilaterally, No thoraco-lumbar ROM limited and No lumbar spinal tenderness Skin Lesions: no lesions Rashes: no rashes Wounds: no wounds Neuro General: oriented to person, oriented to place, patient oriented x3, CN's II-XI intact bilaterally and No confusion Cranial nerves: Yes Equal, round and reactive pupils present and Yes Normal accommodation reflex present Cognition (Neuro): normal cognition Speech: No Abnormal speech present Gait exam (Neuro): Normal gait present Motor exam (neuro): 5/5 motor strength present throughout Extrem Other: LEFT THE SLIGHTLY MORE SWOLLEN THAN RIGHT. HAS GOOD RANGE OF MOTION OF THE LEFT KNEE. NO SURROUNDING ERYTHEMA Right upper extremity: full ROM; no cyanosis Left upper extremity: full ROM; no cyanosis Right lower extremity: no edema Left lower extremity: no edema Psych Appearance: grossly normal Mental Status: mental status grossly normal Affect: normal affect Attitude: cooperative Thought process: Normal thought process present Assessment and Plan Assessment & Plan (1) Annual physical exam: Code(s): Z00.00 - Encounter for general adult medical examination without abnormal findings (2) DMII (diabetes mellitus, type 2): Code(s): E11.9 - Type 2 diabetes mellitus without complications Qualifiers: Diabetes mellitus complication status: with hyperglycemia Diabetes mellitus [facility] insulin use: without [facility] use Qualified Code(s): E11.65 - Type 2 diabetes mellitus with hyperglycemia Plan: Patient's type 2 diabetes with shoulder with current dose of metformin. Goal A1c is to remain below 7.0 (3) Hypercholesterolemia: Code(s): E78.00 - Pure hypercholesterolemia, unspecified Plan: Patient continues on high-dose statin therapy, advised to repeat fasting lipid panel to assure total cholesterol and LDL are within normal range. (4) Asthma: Comment: controlled w/daily inhaler Code(s): J45.909 - Unspecified asthma, uncomplicated Qualifiers: Asthma complication type: uncomplicated Asthma persistence: persistent Asthma severity: moderate Qualified Code(s): J45.40 - Moderate persistent asthma, uncomplicated Plan: Patient reports her asthma has been well controlled with maintenance inhaler and p.r.n. use of her albuterol nebulizer and rescue inhaler. Denies any recent exacerbations of her asthma. (5) Tubular adenoma: Comment: 59-year-old female personal history of colon polyps family history of colon cancer followed up after recent colonoscopy. Colonoscopy and pathology reviewed- small internal hemorrhoids pathology reveals 1 sigmoid adenoma as well 2, transverse colon adenomas and 1 hyperplastic Code(s): D36.9 - Benign neoplasm, unspecified site Plan: Needs repeat colonoscopy due to tubular adenoma polyp found on colonoscopy 3 years ago. (6) Status post total knee replacement, left: Code(s): Z96.652 - Presence of left artificial knee joint Plan: Patient is status post left knee arthroplasty, still has moderate to severe pain at times. Does use NSAID and Tylenol without much relief. She does have some mild swelling and warmth noted over the joint. No erythema. Concern infection though will supply patient with tramadol to use on a very limited p.r.n. basis for pain scales of 8-10. (7) Obese: Code(s): E66.9 - Obesity, unspecified Qualifiers: Obesity type: due to excess calories Obesity classification: adult class 2 (BMI 35 - 39.9) Serious obesity comorbidity presence: with serious comorbidity Body mass index: BMI 39.0-39.9 Qualified Code(s): E66.01 - Morbid (severe) obesity due to excess calories; Z68.39 - Body mass index [BMI] 39.0- 39.9, adult Plan: Patient does understand her BMI is over 30 will work on trying to be more physically active and adapting to better eating habits to reduce her weight (8) KARTHIKEYAN (generalized anxiety disorder): Code(s): F41.1 - Generalized anxiety disorder Plan: Patient's KARTHIKEYAN-7 positive for mild anxiety which has been existing condition for her. She is currently on sertraline 100 mg which has been effective for her. Not speaking with a mental health therapist at this time. (9) MDD (major depressive disorder), recurrent episode, moderate: Code(s): F33.1 - Major depressive disorder, recurrent, moderate Plan: Patient's PHQ-9 score positive for mild to moderate depression which has been existing condition for her. Will continue on SSRI therapy. Orders: Orders Comprehensive [place]. Panel Fast 10/12/22 E11.65 - Type 2 diabetes mellitus with hyperglycemia Lipid Panel 10/12/22 E78.00 - Pure hypercholesterolemia, unspecified Complete Blood Count no Diff 10/12/22 E11.65 - Type 2 diabetes mellitus with hyperglycemia Referrals Gastroenterology Referral D36.9 - Benign neoplasm, unspecified site Medications: New tramadol 50 mg PO BID 7 days PRN 14 tabs 0RF pain M17.12 - Unilateral primary osteoarthritis, left knee acetaminophen 500 mg PO Q6H 15 days PRN 60 tabs 2RF fever M17.12 - Unilateral primary osteoarthritis, left knee Refilled albuterol sulfate 0.63 mg (3 mL) inhalation Q4-6H 30 days PRN 90 mL 3RF Wheezing J45.40 - Moderate persistent asthma, uncomplicated Discontinued ibuprofen 800 mg PO Q8H 30 days 90 tabs 2RF pain R51.9 - Headache, unspecified oxycodone Partial Fill upon patient request. Discontinued Reason: Doctor's Order 5 mg PO Q6H 7 days PRN 28 tabs 0RF Pain, Moderate(Pain Scale 4-6) aspirin Discontinued Reason: Doctor's Order 325 mg PO BID 42 days 84 tabs 0RF Coding Level of Care Code Est Pt Prev Care 40-64y(98744) Diagnoses Annual physical exam Z00.00 DMII (diabetes mellitus, type 2) E11.65 Diabetes mellitus complication status: with hyperglycemia Diabetes mellitus [facility] insulin use: without [facility] use Hypercholesterolemia E78.00 Asthma J45.40 Asthma complication type: uncomplicated Asthma persistence: persistent Asthma severity: moderate Tubular adenoma D36.9 Status post total knee replacement, left Z96.652 Obese E66.01; Z68.39 Obesity type: due to excess calories Obesity classification: adult class 2 (BMI 35 - 39.9) Serious obesity comorbidity presence: with serious comorbidity Body mass index: BMI 39.0-39.9 KARTHIKEYAN (generalized anxiety disorder) F41.1 MDD (major depressive disorder), recurrent episode, moderate F33.1 Additional Codes KARTHIKEYAN-7 Assessment Billing - KARTHIKEYAN-7 Assessment Tool: KARTHIKEYAN-7 Assessment [id number] ([id number])
== END 2022-10-12 12:24 | disposition home or self-care (01) ==
PROVIDERS: PCP Physician Assistant; Visit Provider Physician Assistant
DX: Z00.00 Encounter for general adult medical examination without abnormal findings (principal); J45.40 Moderate persistent asthma, uncomplicated; E66.01 Morbid (severe) obesity due to excess calories; Z68.39 Body mass index [BMI] 39.0-39.9, adult; E11.65 Type 2 diabetes mellitus with hyperglycemia; F33.1 Major depressive disorder, recurrent, moderate; E78.00 Pure hypercholesterolemia, unspecified; D36.9 Benign neoplasm, unspecified site; Z96.652 Presence of left artificial knee joint; F41.1 Generalized anxiety disorder
CPT/HCPCS: 99396

== ENCOUNTER 2022-10-22 10:00 | Outpatient (RCR) | payer OTHER, SELFPAY ==
--- NOTE | 2022-09-03 13:34 | MHC.PT.EP ---
[facility] [place] Office [place] Office [place] Office [address] Lis Patten [address] [phone] F: [phone] F: [phone] F: [phone] F: [phone] Physical Therapy Plan of Care Date of Evaluation: Date of Surgery: 08/18/22 Diagnosis: S/P LEFT TKA Assessment: 61 YO FEMALE REF TO PT S/P Lt TKA 08/18/22. SHE HAS A H/O Rt TKA IN 2020 AND RESIDES W HER DTR IN A 4TH FLOOR APARTMENT AND IS CURRENTLY AMB W A CANE. OBJECTIVE FINDINGS: LIMITED AROM Lt KNEE, TIGHT PSOAS MM KETURAH AND DECR ANKLE DF KET[place]; DECR STRENGTH IN PROX / LUMBOPELVIC AND Lt LE, POST-OP PAIN IN LEFT KNEE ,AND HEALING ANT Lt KNEE INCISION. FUNCTIONALLY, Pt IS AMB W A CANE- SHE HAS COMPENSATORY GAIT, MODIFIED STAIR MGMT, DECR STANDING, SLEEPING, AND DECR PONCHO TO ADLs REQ Lt KNEE FLEX. Pt IS A VERY GOOD PT CANDIDATE TO GUIDE HER IN HER POST-OP TKR COURSE, ADDRESSING THE ABOVE FINDINGS, PAIN MGMT, AND MAXIMIZING FUNCTIONAL INDEPENDENCE. Frequency and Duration: The patient will be seen 2 x WK x 8 WKS Short Term Goals: *Pt'S LEFT KNEE PAIN DECR TO 2-3/10 *Pt INCREASE Lt KNEE ROM -> 0* EXTEN AND PROGRESSIVELY TO 120* FLEX *INCR FLEXIB IN PSOAS/ CALF MM TO IMPROVE EFFICIENCY OF GAIT ON LEVEL AND STAIRS *REDUCE Rt LE EDEMA AND MONITOR/ ADDRESS SCAR MOB NEEDED Rn Anesthesiology Goals: Pt INDEP W HEP PROGRESSION AND SELF-SX MGMT STRATEGIES Pt RESUME REG ADLs EVIDENT W IMPROVED LEFI SCORE BY 8-10 POINTS (AT EVAL ) Pt INCR LE STRENGTH BY 1 GRADE Treatment Plan: Modalities to reduce pain, spasms and effusion. Manual therapy to restore motion and function. Therapeutic exercise to improve strength and flexibility. Neuromuscular re-education for posture and balance. Therapeutic activities to return to functional activities of daily living. Electronically signed by: STU MACDONALD,PT Please sign and return to therapist. Thank you for your referral.
--- NOTE | 2022-12-30 07:45 | MHC.PT.DC ---
[facility] [place] Office [place] Office [place] Office [address] Lis Patten [address] [facility] [phone] F: [phone] F: [phone] F: [phone] F: [phone] Physical Therapy Discharge Report Diagnosis: S/P LEFT TKA Date of Surgery: 08/18/22 Date of Evaluation: 09/03/22 Date of Discharge: 12/30/22 Treatments to Date: 6 Cancellations to Date: 6 No Shows to Date: 1 Discharge Status: Improved Function Independent with HEP Visit Non-compliance Discharge Summary: THE Pt MADE GAINS IN PT EVISDENT WITH FULL LEFT KNEE AROM- AT LAST ATTENDED PT APPT, THE Pt HAD RESIDUAL ECCENTRIC WEAKNESS, MOST EVIDENT W DESCENDING STAIRS- SHE HAS A THOROUGH HEP- SHE IS D/C AT THIS TIME DUE TO POOR ATTENDANCE, NOTED ABOVE. Electronically signed by: STU MACDONALD,PT Please sign and return to therapist. Thank you for your referral.
== END 2022-12-30 07:45 | disposition home or self-care (01) ==
LOC: HO.PT 10:00
PROVIDERS: PCP Physician Assistant; Visit Provider Physician Assistant
DX: Z96.652 Presence of left artificial knee joint (principal)
CPT/HCPCS: 97110; 97140; 97162; 97530

== ENCOUNTER 2022-12-10 10:51 | Outpatient (AMB) | payer OTHER, SELFPAY ==
--- NOTE | 2022-12-10 11:11 | A.OFFVIS_ITS ---
Intake Intake Visit Reasons: PO-LT TKA 08/18/22, pain Intake Note: Laquita is a 62 year old female who presents today for a follow up of her left knee. Hx of Left Total Knee Arthroplasty 08/18/22. Patient reports that she is having continued pain of the knee, she explains that she feels a bump on the lateral aspect of the knee. Also reports that the knee is feeling very weak. Allergies No Known Allergies [No Known Allergies*] Allergy (Verified 10/12/22 12:03) HPI PO-LT TKA 08/18/22, pain HPI Details Laquita is a 62 year old woman who presents ~4 months S/P left TKA. [place] patient. She continues to complain of pain and weakness in her knee, worse with activity. She D/C PT at her last appointment due to complaints of pain, and has been working on strengthening and ROM exercises at home. [facility] Medical History (Updated 12/10/22 @ 15:48 by Jeovany Figueroa MD) Effusion, left knee History of adenomatous polyp of colon Seasonal allergies Glaucoma Lichen sclerosus Osteoarthritis of right knee COVID-19 vaccine administered Obesity (BMI 30-39.9) Alcohol abuse Pulmonary nodule Hypercholesterolemia Type 2 diabetes mellitus with hyperglycemia Tubular adenoma Diverticulosis Rectal pain Migraine Arthritis Depression Sleep apnea Asthma HTN (hypertension) Surgical History History of total right knee replacement History of colonoscopy H/O rectal polypectomy History of tubal ligation History of tooth extraction History of incisional hernia repair Hx of appendectomy Hx of cataract extraction Hx of cholecystectomy Family History Father History of ETOH abuse Substance use disorder Mother Benign tumor Brother Acute CVA (cerebrovascular accident) Brother CAD (coronary artery disease) Prostate cancer Social History (Updated 10/12/22 @ 12:09 by Ross Marin PA-C) Household Members: Children Housing: Apartment Are you a primary medicare sales executive to a significant other at home: No Do you presently have visiting nurse or other home services: No Alcohol intake: current Alcohol intake frequency: holidays/special occasions only Patient Tobacco Use Status: Never used Tobacco e-Cigarette/Vaping Use: Never Used Second Hand Smoke Exposure: No service: No Current occupational status: unemployed Current occupation: rt handed Cognitive needs: No Hearing needs: No Vision needs: No Female Reproductive History Menstrual Age of Menarche: 12 Review of Systems Const All systems reviewed & are unremarkable except as noted in HPI and below Physical Exam Const General: no acute distress, alert and awake Orientation/consciousness: patient oriented x3 HEENT Head: Yes normocephalic and Yes atraumatic Eyes EOM: EOMs intact bilaterally Resp Effort & Inspection: normal respiratory effort and able to speak in complete sentences Cardio Jugular venous distension: no JVD Skin General skin exam: turgor normal Rashes: no rashes Neuro General: patient oriented x3 Extrem Other: Left Knee: Incision C/D/I 0-120 degrees ROM Psych Appearance: grossly normal Affect: normal affect Attitude: cooperative Assessment & Plan Assessment & Plan (1) Status post total knee replacement, left: Code(s): Z96.652 - Presence of left artificial knee joint Plan: This is a 61 year old woman S/P left TKA, DOS: 08/18/22. She continues to complain of pain with activity, along with weakness. She has not been attending PT since her last appointment due to her complaints of pain. I discussed the importance of PT for recovery and ordered a new course of PT for strengthening. I recommend NSAIDs, and she remain active as tolerated. She will follow up in 8 weeks. (2) Effusion, left knee: Code(s): M25.462 - Effusion, left knee Plan Scribed for Jeovany Figueroa MD by Nabeel Singh, medical office representative, on 12/10/22 at 11:30 AM, EST. Orders: Orders PT Evaluation and Treatment 12/10/22 M25.462 - Effusion, left knee, Z96.652 - Presence of left artificial knee joint Coding Level of Care Code Est Pt Level 3 (00279) Diagnoses Status post total knee replacement, left Z96.652 Effusion, left knee M25.462
== END 2022-12-10 11:56 | disposition home or self-care (01) ==
PROVIDERS: PCP Physician Assistant; Visit Provider Orthopaedic Surgery
DX: Z47.1 Aftercare following joint replacement surgery (principal); Z96.652 Presence of left artificial knee joint; M25.462 Effusion, left knee
CPT/HCPCS: 99213

== ENCOUNTER → 2022-12-10 10:51 | Outpatient (BNVA) | payer OTHER, SELFPAY | PROVIDERS: PCP Physician Assistant; Visit Provider Orthopaedic Surgery | DX: Z47.1 Aftercare following joint replacement surgery (principal); M25.462 Effusion, left knee; Z96.652 Presence of left artificial knee joint | CPT/HCPCS: 99212 ==

== ENCOUNTER 2023-03-04 10:28 | Outpatient (REF) | payer OTHER, SELFPAY ==
--- NOTE | ~2023-03-04 | XR_ITS ---
EXAMINATION: XR KNEE, LEFT. STANDING BILATERAL KNEES CLINICAL INFORMATION: Left total knee arthroplasty. Pain in unspecified knee. COMPARISON: 08/18/2022, 01/14/2022. TECHNIQUE: AP standing view of bilateral knees. 3 views of the left knee. FINDINGS: Status post left knee total arthroplasty. Hardware appears intact. Left joint effusion. Single AP view of the right knee redemonstrates a right total knee arthroplasty. XR/XR knee standing BI IMPRESSION: Status post left knee total arthroplasty. Hardware appears intact. Left joint effusion.
--- NOTE | ~2023-03-04 | XR_ITS ---
EXAMINATION: XR KNEE, LEFT. STANDING BILATERAL KNEES CLINICAL INFORMATION: Left total knee arthroplasty. Pain in unspecified knee. COMPARISON: 08/18/2022, 01/14/2022. TECHNIQUE: AP standing view of bilateral knees. 3 views of the left knee. FINDINGS: Status post left knee total arthroplasty. Hardware appears intact. Left joint effusion. Single AP view of the right knee redemonstrates a right total knee arthroplasty. XR/XR knee LT 2V IMPRESSION: Status post left knee total arthroplasty. Hardware appears intact. Left joint effusion.
== END 2023-03-04 10:29 | disposition home or self-care (01) ==
LOC: HO.HOSX 10:28
PROVIDERS: PCP Physician Assistant; Visit Provider Orthopaedic Surgery
DX: M25.569 Pain in unspecified knee (principal); Z96.652 Presence of left artificial knee joint
CPT/HCPCS: 73560; 73565

== ENCOUNTER 2023-04-06 15:42 | Outpatient (AMB) | payer OTHER, SELFPAY ==
--- NOTE | 2023-04-06 15:45 | A.OFFPC_ITS ---
Vital Signs 04/06/23 15:46 Height 5 ft 5 in Weight 240 lb BMI 39.9 BP 152/74 H Blood Pressure Location Lt brachial Position Sitting Pulse 97 Pulse Source Pulse Oximeter Pulse Oximetry (%) 96 Oxygen Delivery Method Room Air Intake Visit Reasons: 4 month f/u ( meds ) Chief Construction Inspector Required: Yes Chief Construction Inspector Language: Estonian Accompanied by: Self / Same As Patient Allergies No Known Allergies [No Known Allergies*] Allergy (Verified 04/06/23 15:59) Medication List - Last Reconciled 04/06/23 by Ross Marin PA-C acetaminophen 500 mg PO Q6H PRN 15 days albuterol sulfate 90 mcg/actuation 1 inh inhalation QID PRN 30 days albuterol sulfate 0.63 mg (3 mL) inhalation Q4-6H PRN 30 days atorvastatin 80 mg PO DAILY 90 days bisacodyl (Dulcolax (bisacodyl)) 20 mg (4 x 5 mg) PO ONCE 1 day blood sugar diagnostic (FreeStyle Lite Strips) Test Daily blood-glucose meter (FreeStyle Lite Meter kit) test daily brimonidine 0.2% 1 drp ophthalmic (eye) TID celecoxib 200 mg PO BID clobetasol 0.05% 1 appl topical BID 6 months CPAP (CPAP Machine/Device) As directed cyanocobalamin (vitamin B-12) (Vitamin B-12) 1,000 mcg PO DAILY 90 days diclofenac sodium 1% 4 grams topical QID 30 days docusate sodium 100 mg PO BID 14 days fluticasone propion-salmeterol 232-14 mcg/actuation (AirDuo RespiClick) 1 inh inhalation BID 30 days lisinopril 20 mg PO DAILY 90 days melatonin 5 mg PO BEDTIME 90 days metformin 1,000 mg (2 x 500 mg) PO BID 90 days montelukast (Singulair) 10 mg PO BEDTIME omeprazole 20 mg PO DAILY polyethylene glycol 3350 (Miralax) 238 grams PO ONCE 1 day sertraline 100 mg PO DAILY tizanidine 2 mg PO Q8H PRN 7 days tramadol 50 mg PO BID PRN 7 days Tobacco use date assessed: 04/06/23 Dental Screening Dental Screen Date: 04/06/23 Did you have a dental visit in the last 12 months?: Yes Did you have a dental problem in the last 6 months where you did not have access to dental care?: No Was dental information given to patient?: Patient has dentist HPI 4 month f/u ( meds ) HPI Details Patient is a 62year-old female here today for follow up visit..? Patient is Estonian-speaking only thus used a remote paraprofessional interpreter ?Patient has a past medical history significant for moderate persistent asthma migraines, hyperlipidemia, LEONARDO, hypertension, type 2 diabetes. . Knee osteoarthritis:? Arthroplasty done 2022 . Continues to left knee pain. Continues to have postoperative pain and swelling. Will be following up with her orthopedic in near future. Has been using anti-inflammatories and Tylenol though reports not being effective reducing her pain. .. Moderate persistent asthma:? Patient reports her asthma has been well controlled on current rescue inhaler and maintenance inhaler dose.? Denies any nighttime awakenings with asthma symptoms or recent exacerbating shins. .. Hypertension:? Patient reports blood pressures at home have been stable 120-130 systolic.? Denies any headaches, chest discomforts or vision issues.? .? She does not have home blood pressure machine.? Continues on current lisinopril 10 mg. .. Diabetes:? Continues on metformin 1000 b.i.d. today's A1c is 6.8 from 6.2. Has gained weight since last office visit does report having dietary indiscretion. She is interested in speaking with a dietitian .. HLD: Cholesterol elevated , have not repeat Yefri all done. Continues on high- dose statin therapy. . Obesity; have noticed significant weight gain since last office visit. She does report her anxiety causes her to eat more. [facility] Medical History Effusion, left knee History of adenomatous polyp of colon Seasonal allergies Glaucoma Lichen sclerosus Osteoarthritis of right knee COVID-19 vaccine administered Obesity (BMI 30-39.9) Alcohol abuse Pulmonary nodule Hypercholesterolemia Type 2 diabetes mellitus with hyperglycemia Tubular adenoma Diverticulosis Rectal pain Migraine Arthritis Depression Sleep apnea Asthma HTN (hypertension) Surgical History History of total right knee replacement History of colonoscopy H/O rectal polypectomy History of tubal ligation History of tooth extraction History of incisional hernia repair Hx of appendectomy Hx of cataract extraction Hx of cholecystectomy Family History Father History of ETOH abuse Substance use disorder Mother Benign tumor Brother Acute CVA (cerebrovascular accident) Brother CAD (coronary artery disease) Prostate cancer Social History Household Members: Children Housing: Apartment Are you a primary college and career counselor to a significant other at home: No Do you presently have visiting nurse or other home services: No Alcohol intake: current Alcohol intake frequency: holidays/special occasions only Patient Tobacco Use Status: Never used Tobacco e-Cigarette/Vaping Use: Never Used Second Hand Smoke Exposure: No service: No Current occupational status: unemployed Current occupation: rt handed Cognitive needs: No Hearing needs: No Vision needs: No Female Reproductive History Menstrual Age of Menarche: 12 Questionnaire PHQ-9 Over the last 2 weeks, how often have you been bothered by any of the following problems? 1. Little interest or pleasure in doing things: not at all 2. Feeling down, depressed, or hopeless: more than half the days 3. Trouble falling or staying asleep, or sleeping too much: several days 4. Feeling tired or having little energy: several days 5. Poor appetite or overeating: not at all 6. Feeling bad about yourself - or that you are a failure or have let yourself or your family down: not at all 7. Trouble concentrating on things, such as reading the newspaper or watching television: not at all 8. Moving or speaking so slowly that other people could have noticed. Or the opposite - being so fidgety or restless that you have been moving around a lot more than usual: several days 9. Thoughts that you would be better off or of hurting yourself in some way: not at all Total score: 5 Depression Screening Interpretation: Negative Depression Screening Done: Yes 04953 - PHQ-9 Billing: Yes Source: Developed by Drs. Denny Kiran, Sujatha Bernardo, Johny Hill and colleagues, with an educational yonathan from [employer] Thrive Questionnaire Date Thrive assessed: 04/06/23 I am a: Patient What is your living situation today?: I have a steady place to live Within the past 12 months, did the food you bought not last and you didn't have the money to get more?: Never true Within the past 12 months, did you worry whether your food would run out before you got money to buy more?: Never true Do you have trouble paying for medicines?: No Do you have trouble getting transportation to medical appointments?: No Do you have trouble paying your heating and electricity bill?: No Do you have trouble taking care of your child, family member or friend?: No Do you have trouble with day-to-day activities such as bathing, preparing meals, shopping, managing finances, etc.?: No Are you currently unemployed and looking for a job?: No Are you interested in more education?: No Please select the resources that you would like help with: None Currently or been in a relationship where the following occur: no concerns reported THRIVE Score: 0 AUDIT C Alcohol Use Questionnaire (AUDIT-C) 1. How often do you have a drink containing alcohol?: 2-4 times a month 2. How many drinks containing alcohol do you have on a typical day when you are drinking?: 5 or 6 3. How often do you have six or more drinks on one occasion?: Never Total Score: 4 KARTHIKEYAN-7 AMB Questionnaire KARTHIKEYAN-7 Date KARTHIKEYAN - 7 assessed: 04/06/23 Feeling nervous, anxious, or on edge: 1 = Several days Not being able to stop or control worryin = Several days Worrying too much about different things: 1 = Several days Trouble relaxin = Several days Being so restless that it is hard to sit still: 1 = Several days Becoming easily annoyed or irritable: 0 = Not at all Feeling afraid as if something awful might happen: 1 = Several days Total KARTHIKEYAN-7 score (0-4 normal; 5-9 mild; 10-14 moderate; 15-21 severe): 6 Source: Developed by Drs. Denny Kiran, Sujatha Bernardo, Johny Hill and colleagues, with an educational yonathan from [employer] KARTHIKEYAN-7 Assessment Billing KARTHIKEYAN-7 Assessment Tool: KARTHIKEYAN-7 Assessment 24413 Review of Systems Const Denies headache(s) Eyes Denies loss of vision ENT Denies vertigo, Denies dizziness, Denies headache(s) and Denies sore throat Card Denies chest pain, Denies leg edema and Denies lightheadedness Resp Denies cough, Denies hemoptysis and Denies wheezing GI Denies abdominal pain, Denies melena, Denies constipation, Denies diarrhea and Denies vomiting Denies urinary frequency, Denies dysuria and Denies urinary urgency Musc Denies arthralgias, Denies joint swelling, Denies numbness and Denies tingling Neuro Denies Abnormal speech present, Denies behavioral changes, Denies vertigo, Denies dizziness, Denies headache(s), Denies loss of vision, Denies memory loss, Denies numbness and Denies tingling Psych Denies anxiety, Denies behavioral changes, Denies depression, Denies memory loss and Denies panic attacks Rodrigo/Lymph Denies easy bleeding and Denies easy bruising Aller/Immun Denies wheezing Physical exam (Primary Care) Vital Signs: Last Vital Signs Pulse 97 04/06/23 15:46 BP 152/74 H 04/06/23 15:46 Pulse Ox 96 04/06/23 15:46 Oxygen Delivery Method Room Air 04/06/23 15:46 BMI result Body Mass Index 39.9 BMI Assessment/Plan discussion: High Tobacco/Smoking Status: Tobacco use Status Tobacco use date assessed 04/06/23 04/06/23 15:52 Patient Tobacco Use Status Never used Tobacco 04/06/23 15:45 e-Cigarette/Vaping Use Never Used 04/06/23 15:45 PHQ-9: PHQ-9 Score PHQ-9: Total score 5 04/06/23 15:52 Depression Screening Interpretation: Negative Thrive Assessment: Date of Thrive Assessment Date Thrive assessed 04/06/23 04/06/23 15:52 Currently or been in a relationship where the following occur: no concerns reported Const Other: Morbidly obese General: healthy appearing, no acute distress, alert and awake Nutritional Appearance: well nourished Orientation/consciousness: oriented to person, oriented to place and oriented to time HENMT Ears: TM's normal bilaterally General nose exam: Normal nasal mucous membranes and turbinates present Eyes Conjunctivae: conjunctivae normal Sclerae: sclerae normal Pupils: Equal, round and reactive pupils present Neck Neck: Yes no lymphadenopathy and Yes no JVD Thyroid: Thyroid normal Carotids: no bruits Resp Effort & Inspection: normal respiratory effort and not tachypneic Auscultation: no crackles, no rales, no rhonchi and no wheezes Cardio Rate: regular rate Rhythm: regular rhythm Heart sounds: no murmurs and normal S1 and S2 GI Palpation (GI): Soft to palpation, nontender, no hepatomegaly and no splenomegaly Auscultation: normal bowel sounds Skin General skin exam: no rashes or lesions noted and dry skin Neuro General: oriented to person, oriented to place and oriented to time Cranial nerves: Yes Equal, round and reactive pupils present Speech: No Abnormal speech present Gait exam (Neuro): Normal gait present Motor exam (neuro): no tremor noted Extrem Right upper extremity: full ROM Left upper extremity: full ROM Right lower extremity: full ROM; no edema Left lower extremity: full ROM; no edema Psych Mental Status: mental status grossly normal Speech and movement: Normal speech and movement present Affect: normal affect Attitude: cooperative Thought process: Normal thought process present Assessment and Plan Assessment & Plan (1) DMII (diabetes mellitus, type 2): Code(s): E11.9 - Type 2 diabetes mellitus without complications Qualifiers: Diabetes mellitus termite control service representative insulin use: without detention use Diabetes mellitus complication status: with hyperglycemia Qualified Code(s): E11.65 - Type 2 diabetes mellitus with hyperglycemia Plan: Patient's type 2 diabetes is controlled on current anti-hyperglycemic medication. Goal A1c is to remain below 7.0 (2) Hypercholesterolemia: Code(s): E78.00 - Pure hypercholesterolemia, unspecified Plan: Patient continues on high-dose statin therapy, advised to repeat fasting lipid panel to assure total cholesterol and LDL are within normal range. (3) Asthma: Comment: controlled w/daily inhaler Code(s): J45.909 - Unspecified asthma, uncomplicated Qualifiers: Asthma severity: moderate Asthma persistence: persistent Asthma complication type: uncomplicated Qualified Code(s): J45.40 - Moderate persistent asthma, uncomplicated Plan: Patient reports her asthma has been well controlled with maintenance inhaler and p.r.n. use of her albuterol nebulizer and rescue inhaler. Denies any recent exacerbations of her asthma. (4) Status post total knee replacement, left: Code(s): Z96.652 - Presence of left artificial knee joint Plan: Patient is status post left knee arthroplasty, still has moderate to severe pain at times. Does use NSAID and Tylenol without much relief. She does have some mild swelling and warmth noted over the joint. No erythema. Concern infection though will supply patient with tramadol to use on a very limited p.r.n. basis for pain scales of 8-10. (5) Obese: Code(s): E66.9 - Obesity, unspecified Qualifiers: Obesity type: due to excess calories Obesity classification: adult class 2 (BMI 35 - 39.9) Serious obesity comorbidity presence: with serious comorbidity Body mass index: BMI 39.0-39.9 Qualified Code(s): E66.01 - Morbid (severe) obesity due to excess calories; Z68.39 - Body mass index [BMI] 39.0- 39.9, adult Plan: Patient does understand her BMI is over 30 will work on trying to be more physically active and adapting to better eating habits to reduce her weight (6) KARTHIKEYAN (generalized anxiety disorder): Code(s): F41.1 - Generalized anxiety disorder Plan: Patient's KARTHIKEYAN-7 positive for mild anxiety which has been existing condition for her. It seems she has not been on sertraline 100 mg for quite some time now. Will restart sertraline at 50 mg and try to set patient up with mental health therapy. (7) MDD (major depressive disorder), recurrent episode, moderate: Code(s): F33.1 - Major depressive disorder, recurrent, moderate Plan: Patient's PHQ-9 score positive for mild to moderate depression which has been existing condition for her. Will continue on SSRI therapy. Orders: Orders AMB Hemoglobin A1c Today E11.9 - Type 2 diabetes mellitus without complications Comprehensive [place]. Panel Fast Today E78.00 - Pure hypercholesterolemia, unspecified Lipid Panel Today E78.00 - Pure hypercholesterolemia, unspecified Microalbumin, Random (w Creat) Today E11.65 - Type 2 diabetes mellitus with hyperglycemia Complete Blood Count no Diff Today E11.65 - Type 2 diabetes mellitus with hyperglycemia Referrals Counseling Referral F32.9 - Major depressive disorder, single episode, unspecified, F41.9 - Anxiety disorder, unspecified Nutrition/Dietitian Referral E11.9 - Type 2 diabetes mellitus without complications, E66.9 - Obesity, unspecified Medications: New sertraline 50 mg PO DAILY 90 days 90 tabs 1RF F41.1 - Generalized anxiety disorder Refilled atorvastatin 80 mg PO DAILY 90 days 90 tabs 1RF E78.00 - Pure hypercholesterolemia, unspecified cyanocobalamin (vitamin B-12) (Vitamin B-12) 1,000 mcg PO DAILY 90 days 90 tabs 1RF melatonin 5 mg PO BEDTIME 90 days 90 tabs 2RF metformin 1,000 mg (2 x 500 mg) PO BID 90 days 360 tabs 2RF E11.65 - Type 2 diabetes mellitus with hyperglycemia montelukast (Singulair) 10 mg PO BEDTIME 90 tabs 2RF J45.40 - Moderate persistent asthma, uncomplicated lisinopril 20 mg PO DAILY 90 days 90 tabs 1RF I10 - Essential (primary) hypertension Discontinued docusate sodium Discontinued Reason: Doctor's Order 100 mg PO BID 14 days 28 caps 0RF Coding Level of Care Code Est Pt Level 4 (77525) Diagnoses Type 2 diabetes mellitus with hyperglycemia, without long-term current use of insulin E11.65 Diabetes mellitus termite control service representative insulin use: without detention use Diabetes mellitus complication status: with hyperglycemia Hypercholesterolemia E78.00 Moderate persistent asthma without complication J45.40 Asthma severity: moderate Asthma persistence: persistent Asthma complication type: uncomplicated Status post total knee replacement, left Z96.652 Class 2 severe obesity due to excess calories with serious comorbidity and body mass index (BMI) of 39.0 to 39.9 in adult E66.01; Z68.39 Obesity type: due to excess calories Obesity classification: adult class 2 (BMI 35 - 39.9) Serious obesity comorbidity presence: with serious comorbidity Body mass index: BMI 39.0-39.9 KARTHIKEYAN (generalized anxiety disorder) F41.1 MDD (major depressive disorder), recurrent episode, moderate F33.1 Additional Codes KARTHIKEYAN-7 Assessment Billing - KARTHIKEYAN-7 Assessment Tool: KARTHIKEYAN-7 Assessment 71017 ([id number])
[2023-04-06 15:46] VITALS: BP 152/74; PULSE 97; O2SAT 96; BMI 39.9
== END 2023-04-06 16:17 | disposition home or self-care (01) ==
PROVIDERS: PCP Physician Assistant; Visit Provider Physician Assistant
DX: E11.65 Type 2 diabetes mellitus with hyperglycemia (principal); E66.01 Morbid (severe) obesity due to excess calories; F33.1 Major depressive disorder, recurrent, moderate; Z68.39 Body mass index [BMI] 39.0-39.9, adult; I10 Essential (primary) hypertension; E78.00 Pure hypercholesterolemia, unspecified; J45.40 Moderate persistent asthma, uncomplicated; Z96.652 Presence of left artificial knee joint; F41.1 Generalized anxiety disorder
CPT/HCPCS: 83036; 99214

== ENCOUNTER 2023-04-08 09:54 | Outpatient (REF) | payer OTHER, SELFPAY ==
[2023-04-08 10:47] LABS: Hematocrit 41.4 % (37.0-47.0); Hemoglobin 13.7 g/dl (12.0-16.0); Mean Corpuscular HGB Conc 33.1 g/dl (31.0-35.0); Mean Corpuscular Hemoglobin 27.5 pg (27.0-33.0); Mean Corpuscular Volume 83.1 fL (80.0-98.0); Mean Platelet Volume 9.4 fL (9.4-12.3); Platelet Count 266 X10*3/uL (160-400); Red Blood Count 4.98 X10*6/uL (4.20-5.50); White Blood Count 5.9 X10*3/uL (4.8-10.8)
[2023-04-08 11:20] LABS: Alanine Aminotransferase 15 U/L (0-31); Albumin Level 4.2 g/dL (3.5-5.0); Alkaline Phosphatase 88 U/L (39-117); Anion Gap 12 (12-20); Aspartate Amino Transferase 14 U/L (5-31); Bilirubin Total 0.4 mg/dL (0.0-1.0); Blood Urea Nitrogen 13 mg/dL (9-16); Calcium 9.5 mg/dL (8.4-10.2); Carbon Dioxide 28 mmol/L (22-29); Chloride 102 mmol/L (96-108); Cholesterol 219 mg/dL (<200); Estimated Glomerular Filt Rate > 60; Glucose Fasting 170 mg/dL (60-99); HDL Cholesterol 53 mg/dL (>40); LDL Cholesterol Calculated 136 mg/dL (<100); Potassium 4.2 mmol/L (3.3-5.1); Sodium 138 mmol/L (135-145); Total Protein 7.3 g/dL (6.5-8.0); Triglycerides 153 mg/dL (<150)
[2023-04-08 12:10] LABS: Creatinine Urine 140.34 mg/dL; Microalbum/Creatinine Ratio Ur 21.3 ug/mg cr (<30)
== END 2023-04-08 09:55 | disposition home or self-care (01) ==
LOC: HO.LAB 09:54
PROVIDERS: PCP Physician Assistant; Visit Provider Physician Assistant
DX: E11.65 Type 2 diabetes mellitus with hyperglycemia (principal); E78.00 Pure hypercholesterolemia, unspecified
CPT/HCPCS: 36415; 80053; 80061; 82043; 82570; 85027

== ENCOUNTER 2023-06-03 10:48 | Outpatient (AMB) | payer MEDICARE, OTHER, MEDICAID, SELFPAY ==
--- NOTE | 2023-06-03 10:49 | MHC.OFFVIS ---
Intake Vital Signs 06/03/23 10:50 Height 5 ft 5 in Weight 240 lb BMI 39.9 Intake Visit Reasons: ov-LT TKA 08/18/22, pain Intake Note: Laquita is a 62 year old female who presents today for a follow up of her left knee. Hx of Left Total Knee Arthroplasty 08/18/22. At her last visit in November she was not attending PT due to pain, the importance of PT was discussed and she was instructed to continue PT. Allergies No Known Allergies [No Known Allergies*] Allergy (Verified 04/06/23 15:59) HPI ov-LT TKA 08/18/22, pain HPI Details Laquita is a 62 year old female who presents today for a follow up of her left knee. Hx of Left Total Knee Arthroplasty 08/18/22. At her last visit in November she was not attending PT due to pain, the importance of PT was discussed and she was instructed to continue PT. she states her her left knee is better than it was last visit. She mostly has pain when she stands from a seated position or when she goes upstairs. She goes up 4 flights of stairs every day. She states it is tolerable. [facility] Medical History Effusion, left knee History of adenomatous polyp of colon Seasonal allergies Glaucoma Lichen sclerosus Osteoarthritis of right knee COVID-19 vaccine administered Obesity (BMI 30-39.9) Alcohol abuse Pulmonary nodule Hypercholesterolemia Type 2 diabetes mellitus with hyperglycemia Tubular adenoma Diverticulosis Rectal pain Migraine Arthritis Depression Sleep apnea Asthma HTN (hypertension) Surgical History History of total right knee replacement History of colonoscopy H/O rectal polypectomy History of tubal ligation History of tooth extraction History of incisional hernia repair Hx of appendectomy Hx of cataract extraction Hx of cholecystectomy Family History Father History of ETOH abuse Substance use disorder Mother Benign tumor Brother Acute CVA (cerebrovascular accident) Brother CAD (coronary artery disease) Prostate cancer Social History Household Members: Children Housing: Apartment Are you a primary critical care registered nurse to a significant other at home: No Do you presently have visiting nurse or other home services: No Alcohol intake: current Alcohol intake frequency: holidays/special occasions only Patient Tobacco Use Status: Never used Tobacco e-Cigarette/Vaping Use: Never Used Second Hand Smoke Exposure: No service: No Current occupational status: unemployed Current occupation: rt handed Cognitive needs: No Hearing needs: No Vision needs: No Female Reproductive History Menstrual Age of Menarche: 12 Physical Exam Vital Signs: BMI result Body Mass Index 39.9 Extrem Other: Normal gait Trace left knee effusion Excellent range of motion Assessment & Plan Assessment & Plan (1) Status post bilateral knee replacements: Code(s): Z96.653 - Presence of artificial knee joint, bilateral Plan: Overall Laquita is doing very well status post knee replacement. There were no complications and her pain complaints mostly related to stairs and they are tolerable. I recommend weight loss and continued strengthening of her legs. Coding Level of Care Code Est Pt Level 3 (87563) Diagnoses Status post bilateral knee replacements Z96.653
[2023-06-03 10:50] VITALS: BMI 39.9
== END 2023-06-03 11:29 | disposition home or self-care (01) ==
PROVIDERS: PCP Physician Assistant; Visit Provider Orthopaedic Surgery
DX: Z47.89 Encounter for other orthopedic aftercare (principal); Z96.653 Presence of artificial knee joint, bilateral
CPT/HCPCS: 99213

== ENCOUNTER → 2023-06-03 10:48 | Outpatient (BNVA) | payer OTHER, SELFPAY | PROVIDERS: PCP Physician Assistant; Visit Provider Orthopaedic Surgery | DX: Z96.653 Presence of artificial knee joint, bilateral (principal) | CPT/HCPCS: 99212 ==

== ENCOUNTER 2023-07-14 10:03 | Outpatient (AMB) | payer MEDICARE, MEDICAID, SELFPAY ==
--- NOTE | 2023-07-14 10:03 | A.OFFVIS_ITS ---
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 No complaints. Requesting refill for clobetasol for her lichen sclerosus Last Pap/HPV was negative in 03/21 Last Mammogram was BI-RADS 1 in 08/21 Last Colonoscopy was done in 12/18, the recommendation was to repeat in 3-5 years, the patient is scheduled for colonoscopy on 08/27/2023 [facility] Medical History (Updated 07/14/23 @ 10:21 by Avni Biswas MD) Lichen sclerosus Effusion, left knee History of adenomatous polyp of colon Seasonal allergies Glaucoma Osteoarthritis of right knee COVID-19 vaccine administered Obesity (BMI 30-39.9) Alcohol abuse Pulmonary nodule Hypercholesterolemia Type 2 diabetes mellitus with hyperglycemia Tubular adenoma Diverticulosis Rectal pain Migraine Arthritis Depression Sleep apnea Asthma HTN (hypertension) Surgical History History of total right knee replacement History of colonoscopy H/O rectal polypectomy History of tubal ligation History of tooth extraction History of incisional hernia repair Hx of appendectomy Hx of cataract extraction Hx of cholecystectomy Family History Father History of ETOH abuse Substance use disorder Mother Benign tumor Brother Acute CVA (cerebrovascular accident) Brother CAD (coronary artery disease) Prostate cancer Social History Household Members: Children Housing: Apartment Are you a primary home care liaison to a significant other at home: No Do you presently have visiting nurse or other home services: No Alcohol intake: current Alcohol intake frequency: holidays/special occasions only Patient Tobacco Use Status: Never used Tobacco e-Cigarette/Vaping Use: Never Used Second Hand Smoke Exposure: No service: No Current occupational status: unemployed Current occupation: rt handed Cognitive needs: No Hearing needs: No Vision needs: No Female Reproductive History Menstrual Age of Menarche: 12 Menopause type: natural Total pregnancies: 4 Full term: 3 Number of Living Children: 3 Date of last pap smear: 03/19/20 Date of Mammogram: 08/11/22 Review of Systems Const All systems reviewed & are unremarkable except as noted in HPI and below Card Reports as per HPI Resp Reports as per HPI GI Reports as per HPI and Reports no additional complaints Reports as per HPI Physical Exam Vital Signs: Last Vital Signs BP 132/86 07/14/23 10:04 BMI result Body Mass Index 39.6 Const General: cooperative, healthy appearing and comfortable Chest Chest palpation & inspection: normal inspection of the chest and normal palpation of entire chest wall Breast/axilla inspection: normal inspection of the breasts and normal inspection of the axillae Breast/axilla palpation: normal palpation of the breasts, normal palpation of the axillae and no axillary lymphadenopathy Resp Effort & Inspection: normal respiratory effort Auscultation: clear to auscultation bilaterally Percussion: percussion normal Cardio Palpation: normal PMI Rate: regular rate Rhythm: regular rhythm Heart sounds: no murmurs and no rubs Peripheral pulses: Peripheral pulses 2+ throughout GI Inspection: Yes normal to inspection Palpation (GI): Soft to palpation, nontender, no guarding, not rigid and No hepatosplenomegaly present Percussion: Yes normal to percussion Auscultation: normal bowel sounds Rectal Exam - Female: deferred General: Yes bladder normal to palpation External Female Exam: lesion (Bilateral leukoplakias) Speculum Exam - Vagina: normal appearance of the vagina, normal palpation, normal vaginal discharge and not erythematous Speculum Exam - Cervix: normal appearance of the cervix and normal palpation Bimanual exam- vagina & uterus: normal bimanual exam, normal palpation, uterine size normal, bladder normal to palpation, consistency normal and normal palpation Bimanual Exam- Adnexa, other: normal adnexae, no masses and no tenderness Assessment & Plan Assessment & Plan (1) Well woman exam: Code(s): Z01.419 - Encounter for gynecological examination (general) (routine) without abnormal findings Category: Medical Plan: Co testing not indicated this year. Counseled the patient about the recommended dietary allowance of 1200 mg of Calcium & 600 IU of vitamin D. Mammogram ordered. The patient was referred by her PCP to GI for screening colonoscopy, is scheduled for colonoscopy on 08/27/2023 . The patient was instructed to perform monthly self-breast exams and schedule annual exam in a year. All questions answered and the patient verbalized understanding. (2) Lichen sclerosus: Code(s): L90.0 - Lichen sclerosus et atrophicus Category: Medical Plan: Explained to the patient that Lichen sclerosus refers to a benign, chronic, progressive dermatologic condition characterized by marked inflammation, epithelial thinning accompanied by pruritus and pain. In addition, discussed with the patient that there is a small increased risk of squamous cell cancer of the vulva in patients with lichen sclerosus. Adequate treatment of the disease seems to be associated with a reduced risk of development of neoplasia. Instructed the patient to schedule an appointment in a year to examine the affected area, with possible biopsy of suspicious lesions, in addition explained to the patient that she should look at the skin of the affected area and touch with fingertips monthly to search for thickened lumps or sores that do not heal & to report such findings for inspection & possible biopsy to rule out vulvar cancer Refill for Clobetasol propionate 0.05% ointment to be applied maintenance therapy two to three times per week . Orders: Orders MM tomosynthesis screening BI Today Z12.31 - Encounter for screening mammogram for malignant neoplasm of breast Referrals Gastroenterology Referral Z12.11 - Encounter for screening for malignant neoplasm of colon Medications: Changed From clobetasol 0.05% Then maintenance therapy for 2-3 times per week 1 appl topical BID 6 months 45 grams 1RF To clobetasol 0.05% maintenance therapy for 2-3 times per week 1 appl topical .x2/week 6 months 45 grams 1RF Coding Level of Care Code Est Pt Prev Care 40-64y(85247) Diagnoses Well woman exam Z01.419 Lichen sclerosus L90.0
[2023-07-14 10:04] VITALS: BP 132/86; BMI 39.6
== END 2023-07-14 10:23 | disposition home or self-care (01) ==
PROVIDERS: Visit Provider Obstetrics & Gynecology
DX: L90.0 Lichen sclerosus et atrophicus (principal); Z01.419 Encounter for gynecological examination (general) (routine) without abnormal findings
CPT/HCPCS: 99214; G0101

== ENCOUNTER → 2023-07-14 10:03 | Outpatient (BNVA) | payer MEDICARE, MEDICAID, SELFPAY | PROVIDERS: Visit Provider Obstetrics & Gynecology | DX: Z01.419 Encounter for gynecological examination (general) (routine) without abnormal findings (principal); L90.0 Lichen sclerosus et atrophicus | CPT/HCPCS: 99212; G0101 ==

== ENCOUNTER 2023-08-17 09:40 | Outpatient (REF) | payer MEDICARE, MEDICAID, SELFPAY ==
--- NOTE | ~2023-08-17 | MM_ITS ---
EXAMINATION: MM SCREENING DIGITAL BREAST TOMOSYNTHESIS, BILATERAL CLINICAL INFORMATION: Screening. Asymptomatic. COMPARISON: Mammography: This study is compared with prior exams dating back to 2020. TECHNIQUE: Digital breast tomosynthesis is performed in both the craniocaudal and mediolateral oblique views along with computer-aided detection (CAD). Synthesized 2D images are generated from the tomosynthesis. FINDINGS: The breasts are almost entirely fatty (ACR BI-RADS breast composition Category a). There are no significant masses, abnormal calcifications, or other abnormalities. MM/MM tomosynthesis screening BI IMPRESSION: No mammographic evidence of malignancy. ASSESSMENT: BI-RADS BI-RADS 1 - Negative RECOMMENDATION: Routine annual mammography screening. 1 year F/U This examination should not preclude the clinical evaluation of a suspicious palpable abnormality. This patient's information was entered into a reminder system with a target due date for their next mammogram.
== END 2023-08-17 09:41 | disposition home or self-care (01) ==
LOC: HO.MAMMO 09:40
PROVIDERS: PCP Physician Assistant; Visit Provider Physician Assistant
DX: Z12.31 Encounter for screening mammogram for malignant neoplasm of breast (principal)
CPT/HCPCS: 77063; 77067

== ENCOUNTER → 2023-08-17 10:15 | Outpatient (BNV) | payer MEDICARE, MEDICAID, SELFPAY | PROVIDERS: PCP Physician Assistant; Visit Provider Radiology Diagnostic Radiology | DX: Z12.31 Encounter for screening mammogram for malignant neoplasm of breast (principal) | CPT/HCPCS: 77063; 77067 ==

== ENCOUNTER 2023-08-27 06:59 | Day surgery (SDC) | payer MEDICARE, MEDICAID, SELFPAY ==
[2023-08-16 10:46] VITALS: BMI 39.9
--- NOTE | 2023-08-26 10:49 | HO.ANESPROP2 ---
Documented by User: Emma Benton NP 08/26/23 10:50 HPI - Anesthesia Eval Consult details Narrative: 62yo F for Colonoscopy PMFSH Active Problems Active Problems: All Active Problems Status post bilateral knee replacements (Acute) DMII (diabetes mellitus, type 2) (Acute) Gastritis due to nonsteroidal anti-inflammatory drug (NSAID) (Acute) Tenderness of left calf (Acute) Status post total knee replacement, left (Acute) MDD (major depressive disorder), recurrent episode, moderate (Acute) KARTHIKEYAN (generalized anxiety disorder) (Acute) Otitis media (Acute) Lumbar radiculopathy (Acute) LEONARDO (obstructive sleep apnea) (Acute) Lumbar spine pain (Acute) Annual physical exam (Acute) Obese (Acute) Vulvar lesion (Acute) Well woman exam (Acute) Cough with congestion of paranasal sinus (Acute) Sinus headache (Acute) Acute frontal sinusitis (Acute) History of total knee arthroplasty (Acute) Pain and swelling of right lower leg (Acute) Status post total right knee replacement (Acute) Asthma exacerbation (Acute) Pre-op evaluation (Acute) Localized osteoarthritis of right knee (Acute) Preoperative clearance (Acute) Transformation zone absent on cervical Pap smear (Acute) Annual physical exam (Acute) Anxiety and depression (Acute) Family history of colon cancer (Acute) Lichen sclerosus (Acute) Effusion, left knee (Acute) Tubular adenoma (Acute) Arthritis (Acute) Asthma (Acute) Obesity (BMI 30-39.9) (Acute) Hypercholesterolemia (Acute) Diverticulosis (Acute) Past Medical History Medical History Effusion, left knee History of adenomatous polyp of colon Seasonal allergies Glaucoma Lichen sclerosus Osteoarthritis of right knee COVID-19 vaccine administered Obesity (BMI 30-39.9) Alcohol abuse Pulmonary nodule Hypercholesterolemia Type 2 diabetes mellitus with hyperglycemia Tubular adenoma Diverticulosis Rectal pain Migraine Arthritis Depression Sleep apnea Asthma HTN (hypertension) Family History Family History Father History of ETOH abuse Substance use disorder Mother Benign tumor Brother Acute CVA (cerebrovascular accident) Brother CAD (coronary artery disease) Prostate cancer Family history of problems with anesthesia: No Surgical History Surgical History History of total left knee replacement (TKR) (~07/2022) History of total right knee replacement History of colonoscopy H/O rectal polypectomy History of tubal ligation History of tooth extraction History of incisional hernia repair Hx of appendectomy Hx of cataract extraction Hx of cholecystectomy History of Problems with Anesthesia: No Social History Social History Household Members: Children Housing: Apartment Are you a primary child day care center worker to a significant other at home: No Do you presently have visiting nurse or other home services: Yes ([employer] daughter Fidel) Alcohol intake: current Alcohol intake frequency: holidays/special occasions only Patient Tobacco Use Status: Never used Tobacco e-Cigarette/Vaping Use: Never Used Second Hand Smoke Exposure: No Use of substances other than those prescribed or required for medical reasons: No Are you DNR?: No Advance Directives: No Advance Directives Information Provided: Yes Advance Directives on File: No Recently lost weight without trying: No service: No Current occupational status: unemployed Current occupation: rt handed Cognitive needs: No Hearing needs: No Vision needs: No Meds Allergies Allergy/AdvReac Type Severity Reaction Status Date / Time No Known Allergies Allergy Verified 08/16/23 10:37 [No Known Allergies*] Home Medications ?Medication ?Instructions ?Recorded ?Confirmed ?Last Taken ?Type brimonidine 0.2 % eye drops 1 drp ophthalmic (eye) TID 08/04/22 08/16/23 08/17/22 History celecoxib 200 mg capsule 200 mg PO BID PRN Pain 08/16/23 08/16/23 Unknown History tizanidine 2 mg tablet 2 mg PO Q8H PRN Muscle Pain 08/16/23 08/16/23 Unknown History Exam Height,Weight and Vital Signs: Height 5 ft 5 in Weight 108.862 kg Pertinent Lab Results Pertinent Lab Results: Laboratory Tests 04/08/23 10:19 WBC 5.9 Hgb 13.7 Hct 41.4 Plt Count 266 Sodium 138 Potassium 4.2 Chloride 102 Carbon Dioxide 28 BUN 13 Creatinine 0.61 Narrative Narrative: EKG 2022 Vent. Rate : 081 BPM Atrial Rate : 081 BPM P-R Int : 168 ms QRS Dur : 078 ms QT Int : 378 ms P-R-T Axes : 045 023 061 degrees QTc Int : 439 ms Normal sinus rhythm Normal ECG When compared with ECG of 22-NOV-2020 10:24, No significant change was found Assessment and Plan Assessment Anesthesia Assessment: Chart Reviewed Final Anesthetic Review Family History of Problems with Anesthesia: No History of Problems with Anesthesia: No Documented by User: Marian Ospina MD 08/27/23 07:59 PMFSH Past Medical History Medical History Effusion, left knee History of adenomatous polyp of colon Seasonal allergies Glaucoma Lichen sclerosus Osteoarthritis of right knee COVID-19 vaccine administered Obesity (BMI 30-39.9) Alcohol abuse Pulmonary nodule Hypercholesterolemia Type 2 diabetes mellitus with hyperglycemia Tubular adenoma Diverticulosis Rectal pain Migraine Arthritis Depression Sleep apnea Asthma HTN (hypertension) Family History Family History Father History of ETOH abuse Substance use disorder Mother Benign tumor Brother Acute CVA (cerebrovascular accident) Brother CAD (coronary artery disease) Prostate cancer Surgical History Surgical History History of total left knee replacement (TKR) (~07/2022) History of total right knee replacement History of colonoscopy H/O rectal polypectomy History of tubal ligation History of tooth extraction History of incisional hernia repair Hx of appendectomy Hx of cataract extraction Hx of cholecystectomy Social History Social History Household Members: Children Housing: Apartment Are you a primary child day care center worker to a significant other at home: No Do you presently have visiting nurse or other home services: Yes ([employer] daughter Fidel) Alcohol intake: current Alcohol intake frequency: holidays/special occasions only Patient Tobacco Use Status: Never used Tobacco e-Cigarette/Vaping Use: Never Used Second Hand Smoke Exposure: No Use of substances other than those prescribed or required for medical reasons: No Are you DNR?: No Advance Directives: No Advance Directives Information Provided: Yes Advance Directives on File: No Recently lost weight without trying: No service: No Current occupational status: unemployed Current occupation: rt handed Cognitive needs: No Hearing needs: No Vision needs: No Meds Allergies Allergy/AdvReac Type Severity Reaction Status Date / Time No Known Allergies Allergy Verified 08/16/23 10:37 [No Known Allergies*] Home Medications ?Medication ?Instructions ?Recorded ?Confirmed ?Last Taken ?Type brimonidine 0.2 % eye drops 1 drp ophthalmic (eye) TID 08/04/22 08/16/23 08/17/22 History celecoxib 200 mg capsule 200 mg PO BID PRN Pain 08/16/23 08/16/23 Unknown History tizanidine 2 mg tablet 2 mg PO Q8H PRN Muscle Pain 08/16/23 08/16/23 Unknown History Exam Airway Mallampati Class: III TM Dist: <=3cm Neck ROM: Limited Heart: rrr Lungs: cta Assessment and Plan Assessment Anesthesia Assessment: Anesthesia Plan Discussed Final Anesthetic Review NPO: Yes ASA Class: III Final Preanesthetic Review: No Changes in Pt Med Stat, Meds/Allgs Chart Reviewed, Consent Obtained/Reviewed and Anes Risks/Benef Reviewed Patient Risk: Intermediate Procedure Risk: Intermediate Anesthetic Plan Anesthetic Plan: GA Disposition: Standard PACU
[2023-08-27 07:09] VITALS: BP 157/70; PULSE 87; RESP 16; TEMP 36.2; O2SAT 96
[2023-08-27 07:15] VITALS: BMI 38.6
[2023-08-27] MEDS: Lactated Ringers 1,000 ML 100 ML IVCONT (07:27)
[2023-08-27 07:32] LABS: Glucose, Whole Blood 130 mg/dL (60-115)
--- NOTE | 2023-08-27 08:38 | MHC.SHP ---
Pre-Procedural Eval Section A - 24 Hr Update-Section A only Date of Service: 08/27/23 The patient is an INPATIENT: No The patient has been examined within 24 hours of the surgical procedure. The History & Physical has been completed within 30 days and I have reviewed it.: No Section B - Complete if H&P > 30 days Chief Complaint: Family history of malignant neoplasm of digestive Relevant Family History (Specify if Yes): Yes Relevant Social History: None Present Medications: see Short Stay Collaborative assessment Medical History: Significant History (Depression Diverticulosis Family history of colon cancer Glaucoma HTN (hypertension) Hypercholesterolemia Migraine Obesity (BMI 30-39.9) Osteoarthritis of right knee Osteoarthritis of right knee Pulmonary nodule Rectal pain Seasonal allergies Sleep apnea Tubular adenoma Type 2 diabetes mellitus with) History of Previous Operations: Relevant previous surgery/procedure and date(s) (H/O rectal polypectomy History of colonoscopy History of incisional hernia repair History of tooth extraction History of total right knee replacement History of tubal ligation Hx of appendectomy Hx of cataract extraction Hx of cholecystectomy) Allergies: Allergies Allergy/AdvReac Type Severity Reaction Status Date / Time No Known Allergies Allergy Verified 08/16/23 10:37 [No Known Allergies*] Review of Systems Sugical H&P ROS: Negative: Constitution, Cardiovascular, Respiratory and Gastrointestinal Exam Surgical H&P Exam: Normal: Heart, Normal: Lungs, Normal: Extremities and Normal: Abdomen Plan Diagnosis/Plan: Unchanged I have reviewed the history and physical and performed a pertinent physical examination on my patient. No changes have occurred unless specified. Time Spent With Patient Time: Total time managing care of this patient today ____ minutes.
[2023-08-27 09:23] VITALS: BP 101/51; PULSE 78; RESP 16; TEMP 36.1; O2SAT 97
--- NOTE | 2023-08-27 09:27 | P.OPN-COLO_ITS ---
Colonoscopy Operative Note Operative Note Date of Service: 08/27/23 Narrative: COLONOSCOPY TILL CECUM WITH BIOPSIES AND SNARE POLYPECTOMY Pre-op diagnosis: Surveillance for colon polyps, family history of colon cancer. Post-op diagnosis:? Colon polyps, Diverticulosis, hemorrhoids Endoscopist:? Jenny Sawyer MD Anesthesia:?MAC Consent: Indications for the procedure and potential complications of bleeding, perforation, reaction to medications and missed diagnosis were discussed with the patient and informed consent was obtained. Instrument: Olympus PCF H 190 L variable stiffness pediatric colonoscope Monitoring: Vital signs and clinical assessment, intermittent blood pressure monitoring, continuous EKG monitoring, Pulse oximetry and Carbon Dioxide monitoring were done throughout the procedure. Please see anesthesia flowsheet. Colon withdrawl time was 20 minutes. Procedure: The patient was placed in the left lateral decubitis position and pre-procedure medications were administered. After a digital rectal examination of the ano-rectum, the video colonoscope was inserted into the rectum and advanced through the colon to the cecum. The colonoscope was slowly withdrawn in a retrograde panoramic fashion and the colon mucosa was carefully examined including a retroflexed view of the rectum. Findings and interventions are described below. Procedure Difficulty: without difficulty Findings: Terminal Ileum: Not evaluated Cecum: Partially evaluated due to sub-optimal prep Ascending Colon: Normal Transverse Colon: A 3-4 mm sessile polyp -removed with a cold biopsy Descending Colon: Normal Sigmoid Colon: Moderate diverticulosis Rectum: A 10-12 mm sessile polyp in the distal rectum, just inside the anal verge, removed with a hot snare Ano-rectum: Moderate internal hemorrhoids Colon preparation: Fair and Poor in the cecum and rectum despite copious irrigation. There was undigested vegetable matter throughout the colon which could not be suctioned [place] Bowel Preparation Scale Right colon; 1 Transverse colon: 1 Left colon; 1 (0 = Unprepared colon segment with mucosa not seen due to solid stool that cannot be cleared. 1 = Portion of mucosa of the colon segment seen, but other areas of the colon segment not well seen due to staining, residual stool and/or opaque liquid. 2 = Minor amount of residual staining, small fragments of stool and/or opaque liquid, but mucosa of colon segment seen well. 3 = Entire mucosa of colon segment seen well with no residual staining, small fragments of stool or opaque liquid) Impression and Post Procedure Diagnosis: Colonoscopy Findings: One small and one medium sized polyps were removed Moderate diverticulosis seen in the left colon Moderate hemorrhoids on retroflexed exam. Plan: Pt has a FU appointment on 10/14/23 with KRUPA Akhtar. Repeat Colonoscopy in 1 year due to sub-optimal prep (pt admitted to eating rice at 4 pm yesterday). Above findings were reviewed with the patient and relevant handouts were given and the discharge area.
[2023-08-27 09:38] VITALS: BP 127/75; PULSE 80; RESP 15; TEMP 36.1; O2SAT 98
== END 2023-08-27 09:51 | disposition home or self-care (01) ==
PROVIDERS: PCP Physician Assistant; Visit Provider Internal Medicine Gastroenterology
PROC: 0DJD8ZZ Inspection of Lower Intestinal Tract, Via Natural or Artificial Opening Endoscopic (ICD-10-PCS; CPT 45378; principal; 2023-08-27 08:30)
DX: Z12.11 Encounter for screening for malignant neoplasm of colon (principal); Z86.010 Personal history of colon polyps; Z80.0 Family history of malignant neoplasm of digestive organs; D12.3 Benign neoplasm of transverse colon; D12.8 Benign neoplasm of rectum; K57.30 Diverticulosis of large intestine without perforation or abscess without bleeding; K64.8 Other hemorrhoids; I10 Essential (primary) hypertension; E78.00 Pure hypercholesterolemia, unspecified; J45.909 Unspecified asthma, uncomplicated; E11.65 Type 2 diabetes mellitus with hyperglycemia; F10.10 Alcohol abuse, uncomplicated; Z79.1 Long term (current) use of non-steroidal anti-inflammatories (NSAID); Z79.51 Long term (current) use of inhaled steroids; Z79.82 Long term (current) use of aspirin; Z79.84 Long term (current) use of oral hypoglycemic drugs; Z79.899 Other long term (current) drug therapy; Z99.89 Dependence on other enabling machines and devices; Z98.890 Other specified postprocedural states; Z56.0 Unemployment, unspecified
CPT/HCPCS: 45385; 45380; 82947; 88305; J2704

== ENCOUNTER → 2023-08-27 06:59 | Outpatient (BNV) | payer MEDICARE, MEDICAID, SELFPAY | PROVIDERS: PCP Physician Assistant; Visit Provider Internal Medicine Gastroenterology | DX: Z12.11 Encounter for screening for malignant neoplasm of colon (principal); Z86.010 Personal history of colon polyps; Z80.0 Family history of malignant neoplasm of digestive organs; D12.3 Benign neoplasm of transverse colon; D12.8 Benign neoplasm of rectum; K64.8 Other hemorrhoids; Z91.199 Patient's noncompliance with other medical treatment and regimen due to unspecified reason | CPT/HCPCS: 45380; 45385 ==

== ENCOUNTER 2023-10-18 09:06 | Outpatient (REF) | payer MEDICARE, MEDICAID, SELFPAY ==
[2023-10-18 10:06] LABS: Hematocrit 41.8 % (37.0-47.0); Hemoglobin 13.7 g/dl (12.0-16.0); Mean Corpuscular HGB Conc 32.8 g/dl (31.0-35.0); Mean Corpuscular Hemoglobin 28.3 pg (27.0-33.0); Mean Corpuscular Volume 86.4 fL (80.0-98.0); Mean Platelet Volume 9.7 fL (9.4-12.3); Platelet Count 251 X10*3/uL (160-400); Red Blood Count 4.84 X10*6/uL (4.20-5.50); Red Cell Distribution Width 12.7 % (11.0-16.0)
[2023-10-18 10:13] LABS: Estimated Average Glucose 146 mg/dL; Hemoglobin A1c % 6.7 % (<6.0)
[2023-10-18 10:47] LABS: Alanine Aminotransferase 16 U/L (0-31); Albumin Level 4.1 g/dL (3.5-5.0); Alkaline Phosphatase 68 U/L (39-117); Anion Gap 10 (12-20); Aspartate Amino Transferase 14 U/L (5-31); Bilirubin Total 0.5 mg/dL (0.0-1.0); Blood Urea Nitrogen 14 mg/dL (9-16); Calcium 9.4 mg/dL (8.4-10.2); Carbon Dioxide 31 mmol/L (22-29); Chloride 103 mmol/L (96-108); Cholesterol 230 mg/dL (<200); Estimated Glomerular Filt Rate > 60; Glucose Fasting 161 mg/dL (60-99); HDL Cholesterol 53 mg/dL (>40); LDL Cholesterol Calculated 149 mg/dL (<100); Sodium 140 mmol/L (135-145); Total Protein 7.3 g/dL (6.5-8.0); Triglycerides 141 mg/dL (<150)
== END 2023-10-18 09:07 | disposition home or self-care (01) ==
LOC: HO.LAB 09:06
PROVIDERS: PCP Physician Assistant; Visit Provider Physician Assistant
DX: E11.65 Type 2 diabetes mellitus with hyperglycemia (principal); E78.00 Pure hypercholesterolemia, unspecified
CPT/HCPCS: 36415; 80053; 80061; 83036; 85027

== ENCOUNTER 2023-10-19 10:31 | Outpatient (AMB) | payer MEDICARE, MEDICAID, SELFPAY ==
[2023-10-19 10:39] VITALS: BP 136/70; PULSE 82; O2SAT 95; BMI 38.3
--- NOTE | 2023-10-19 10:39 | MHC.PC.OV ---
Vital Signs 10/19/23 10:39 Height 5 ft 6 in Weight 237 lb 4 oz BMI 38.3 BP 136/70 Blood Pressure Location Lt brachial Position Sitting Pulse 82 Pulse Source Pulse Oximeter Pulse Oximetry (%) 95 Oxygen Delivery Method Room Air Intake Visit Reasons: PE-needs A1C Customer Relations Specialist Required: No Accompanied by: Daughter Allergies No Known Allergies [No Known Allergies*] Allergy (Verified 10/19/23 10:49) Medication List - Last Reconciled 10/19/23 by Ross Marin PA-C acetaminophen 500 mg PO Q6H PRN 15 days albuterol sulfate 90 mcg/actuation 1 inh inhalation QID PRN 30 days albuterol sulfate 0.63 mg (3 mL) inhalation Q4-6H PRN 30 days atorvastatin 80 mg PO DAILY 90 days blood sugar diagnostic (FreeStyle Lite Strips) Test Daily blood-glucose meter (FreeStyle Lite Meter kit) test daily brimonidine 0.2% 1 drp ophthalmic (eye) TID celecoxib 200 mg PO BID PRN clobetasol 0.05% 1 appl topical .x2/week 6 months CPAP (CPAP Machine/Device) As directed cyanocobalamin (vitamin B-12) (Vitamin B-12) 1,000 mcg PO DAILY 90 days diclofenac sodium 1% 4 grams topical QID 30 days ezetimibe (Zetia) 10 mg PO DAILY 90 days fluticasone propion-salmeterol 232-14 mcg/actuation (AirDuo RespiClick) 1 inh inhalation BID 30 days lisinopril 20 mg PO DAILY 90 days melatonin 5 mg PO BEDTIME 90 days metformin 1,000 mg (2 x 500 mg) PO BID 90 days montelukast (Singulair) 10 mg PO BEDTIME omeprazole 20 mg PO DAILY 90 days sertraline 50 mg PO DAILY 90 days tizanidine 2 mg PO Q8H PRN Tobacco use date assessed: 04/06/23 Dental Screening Dental Screen Date: 04/06/23 HPI PE-needs A1C HPI Details Patient is a 63 year-old female here today for annual physical? 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 . .. Moderate persistent asthma:? Patient reports her asthma has been well controlled on current rescue inhaler and maintenance inhaler dose.? Denies any nighttime awakenings with asthma symptoms or recent exacerbating shins. .. Hypertension:? Patient reports blood pressures at home have been stable 120-130 systolic.? Denies any headaches, chest discomforts or vision issues.? .? She does not have home blood pressure machine.? Continues on current lisinopril 10 mg. .. Diabetes:? Continues on metformin 1000 b.i.d. most recent A1c is 6.7. She is interested in starting GLP 1 for weight loss and added benefit of glycemic control .. HLD: Cholesterol elevated , has not been too compliant with Zetia. Will refill.. Continues on high-dose statin therapy. PLAN: Be more consistent with Zetia, LDL goal to be below 100 . Obesity; has been having difficulty losing weight. Has lost a few lb since last office visit. She is interested in starting a GLP 1 as she does have comorbidities of type 2 diabetes, hyperlipidemia and obstructive sleep apnea. Colon cancer screening: Colonoscopy done in July of 2023, poor prep needed repeat 1 year. Mammogram: Mammogram done in 08/19/2023 BI-RADS 1. Vaccine: UTD with Tdap. UTD With COVID vaccine. Up-to-date with pneumonia vaccine. Unknown if had Varicella [facility] Medical History Effusion, left knee History of adenomatous polyp of colon Seasonal allergies Glaucoma Lichen sclerosus Osteoarthritis of right knee COVID-19 vaccine administered Obesity (BMI 30-39.9) Alcohol abuse Pulmonary nodule Hypercholesterolemia Type 2 diabetes mellitus with hyperglycemia Tubular adenoma Diverticulosis Rectal pain Migraine Arthritis Depression Sleep apnea Asthma HTN (hypertension) Surgical History History of total left knee replacement (TKR) (~07/2022) History of total right knee replacement History of colonoscopy H/O rectal polypectomy History of tubal ligation History of tooth extraction History of incisional hernia repair Hx of appendectomy Hx of cataract extraction Hx of cholecystectomy Family History Father History of ETOH abuse Substance use disorder Mother Benign tumor Brother Acute CVA (cerebrovascular accident) Brother CAD (coronary artery disease) Prostate cancer Social History (Updated 10/19/23 @ 10:55 by Ross Marin PA-C) Household Members: Children Housing: Apartment Are you a primary director of career services to a significant other at home: No Do you presently have visiting nurse or other home services: Yes ([employer]ALL [employer] daughter Fidel) Alcohol intake: current Alcohol intake frequency: holidays/special occasions only Patient Tobacco Use Status: Never used Tobacco e-Cigarette/Vaping Use: Never Used Second Hand Smoke Exposure: No service: No Current occupational status: unemployed Current occupation: rt handed Cognitive needs: No Hearing needs: No Vision needs: No Female Reproductive History Menstrual Age of Menarche: 12 Questionnaire Thrive Questionnaire Date Thrive assessed: 04/06/23 KARTHIKEYAN-7 AMB Questionnaire KARTHIKEYAN-7 Date KARTHIKEYAN - 7 assessed: 04/06/23 Source: Developed by Drs. Denny Kiran, Sujatha Bernardo, Johny Hill and colleagues, with an educational yonathan from [employer]. ACT Questionnaire In the past 4 weeks, how much of the time did your asthma keep you from getting as much done at work, school or at home?: None of the time During the past 4 weeks, how often have you had shortness of breath?: Not at all During the past 4 weeks, how often did your asthma symptoms wake you up at night or earlier than usual in the morning?: Not at all During the past 4 weeks, how often have you had to use your rescue inhaler or nebulizer medication?: Not at all How would you rate your asthma control during the past 4 weeks?: Completely controlled ACT Interpretation: Negative Score: 25 Review of Systems Const Denies body aches, Denies chills, Denies excessive sweating, Denies fatigue, Denies fever(s) and Denies headache(s) Eyes Denies blurry vision ENT Denies dysphagia, Denies vertigo, Denies dizziness, Denies headache(s), Denies hearing loss and Denies tinnitus Card Denies chest pain, Denies chest pain with activity, Denies syncope, Denies irregular heart rhythm and Denies dyspnea Resp Denies chest congestion, Denies cough, Denies hemoptysis, Denies dyspnea and Denies wheezing GI Denies abdominal pain, Denies melena, Denies hematochezia, Denies coffee ground emesis, Denies dysphagia, Denies diarrhea, Denies nausea and Denies vomiting Denies urinary frequency, Denies dysuria, Denies urinary hesitancy and Denies urinary urgency Musc Denies arthralgias, Denies limited range of motion, Denies muscle cramps and Denies muscle weakness Skin/Breast Denies rash and Denies skin ulcer Neuro Denies Abnormal speech present, Denies confusion, Denies vertigo, Denies dizziness, Denies syncope, Denies headache(s), Denies memory loss and Denies seizure-like activity Psych Denies anxiety, Denies confusion, Denies depression, Denies memory loss, Denies panic attacks and Denies paranoia Endo Denies excessive sweating, Denies fatigue, Denies flushing, Denies polydipsia and Denies polyuria Aller/Immun Denies wheezing Physical exam (Primary Care) Vital Signs: Last Vital Signs Pulse 82 10/19/23 10:39 BP 136/70 10/19/23 10:39 Pulse Ox 95 10/19/23 10:39 Oxygen Delivery Method Room Air 10/19/23 10:39 BMI result Body Mass Index 38.3 BMI Assessment/Plan discussion: High BMI High, discussed plan: lifestyle, weight reduction, dietary and physical activity Tobacco/Smoking Status: Tobacco use Status Tobacco use date assessed 04/06/23 10/19/23 10:41 Patient Tobacco Use Status Never used Tobacco 10/19/23 10:41 e-Cigarette/Vaping Use Never Used 10/19/23 10:41 Thrive Assessment: Date of Thrive Assessment Date Thrive assessed 04/06/23 10/19/23 10:41 Const General: cooperative, comfortable, no acute distress, alert and awake; No confusion Orientation/consciousness: oriented to person, oriented to place, patient oriented x3 and No confusion HENMT Head: Yes normocephalic Ears: external ears normal and TM's normal bilaterally Face and sinus: No sinus tenderness Mouth: Normal oral and palatal mucosa present and tongue normal Teeth and gingiva: dentition normal and gingiva normal Throat: Yes posterior oropharynx normal, Yes tonsils normal and Yes uvula midline Eyes Conjunctivae: conjunctivae normal Sclerae: sclerae normal Pupils: Equal, round and reactive pupils present EOM: EOMs intact bilaterally Direct Ophthalmoscopy: No no photophobia Neck Neck: Yes no lymphadenopathy, No tender and Yes no JVD Thyroid: Thyroid normal Carotids: no bruits Chest Chest palpation & inspection: no tenderness Resp Effort & Inspection: normal respiratory effort, no audible wheezes, not labored and no stridor Auscultation: no crackles, no rales, no rhonchi and no wheezes Cardio Jugular venous distension: no JVD Rate: regular rate, not bradycardic and not tachycardic Rhythm: regular rhythm Bruits: no carotid bruits Peripheral pulses: Peripheral pulses 2+ throughout GI Inspection: Yes normal to inspection, No abdominal wall ecchymosis and No visible herniation Palpation (GI): Soft to palpation, nontender, no guarding, not rigid and No hepatosplenomegaly present Auscultation: normoactive bowel sounds General: Yes no CVA tenderness Back/Spine/Pelvis Back: no CVA tenderness and No back tenderness Cervical Spine: cervical ROM normal Thoracic/Lumbar Spine: thoracic and lumbar spine normal to inspection, straight leg raise negative bilaterally, No thoraco-lumbar ROM limited and No lumbar spinal tenderness Skin Lesions: no lesions Rashes: no rashes Wounds: no wounds Neuro General: oriented to person, oriented to place, patient oriented x3, CN's II-XI intact bilaterally and No confusion Cranial nerves: Yes Equal, round and reactive pupils present and Yes Normal accommodation reflex present Cognition (Neuro): normal cognition Speech: No Abnormal speech present Gait exam (Neuro): Normal gait present Motor exam (neuro): 5/5 motor strength present throughout Extrem Right upper extremity: full ROM; no cyanosis Left upper extremity: full ROM; no cyanosis Right lower extremity: no edema Left lower extremity: no edema Psych Appearance: grossly normal Mental Status: mental status grossly normal Affect: normal affect Attitude: cooperative Thought process: Normal thought process present Assessment and Plan Assessment & Plan (1) Annual physical exam: Code(s): Z00.00 - Encounter for general adult medical examination without abnormal findings (2) DMII (diabetes mellitus, type 2): Code(s): E11.9 - Type 2 diabetes mellitus without complications Qualifiers: Diabetes mellitus fdc insulin use: without fdc use Diabetes mellitus complication status: with hyperglycemia Qualified Code(s): E11.65 - Type 2 diabetes mellitus with hyperglycemia Plan: Patient's type 2 diabetes is controlled on current anti-hyperglycemic medication. She is willing to try GLP 1 for glycemic control and added benefit of weight loss. Goal A1c is to remain below 7.0 (3) Hypercholesterolemia: Code(s): E78.00 - Pure hypercholesterolemia, unspecified Plan: Patient continues on high-dose statin therapy, added Zetia though apparently not using this medication. Will refill Zetia to better control her LDL. Goal LDL to be below 100. (4) Asthma: Comment: controlled w/daily inhaler Code(s): J45.909 - Unspecified asthma, uncomplicated Qualifiers: Asthma severity: moderate Asthma persistence: persistent Asthma complication type: uncomplicated Qualified Code(s): J45.40 - Moderate persistent asthma, uncomplicated Plan: Patient reports her asthma has been well controlled with maintenance inhaler and p.r.n. use of her albuterol nebulizer and rescue inhaler. Denies any recent exacerbations of her asthma. (5) Obese: Code(s): E66.9 - Obesity, unspecified Qualifiers: Obesity type: due to excess calories Obesity classification: adult class 2 (BMI 35 - 39.9) Serious obesity comorbidity presence: with serious comorbidity Body mass index: BMI 39.0-39.9 Qualified Code(s): E66.01 - Morbid (severe) obesity due to excess calories; Z68.39 - Body mass index [BMI] 39.0-39.9, adult Plan: Patient does understand her BMI is over 30 will work on trying to be more physically active and adapting to better eating habits to reduce her weight Medications: New semaglutide (Ozempic) for 4 weeks 0.25 mg (0.368 mL) subcut QWEEK 4 weeks 3 mL 0RF E11.65 - Type 2 diabetes mellitus with hyperglycemia Changed From omeprazole 20 mg PO DAILY 21 caps 0RF To omeprazole 20 mg PO DAILY 90 days 90 caps 1RF Refilled lisinopril 20 mg PO DAILY 90 days 90 tabs 1RF I10 - Essential (primary) hypertension metformin 1,000 mg (2 x 500 mg) PO BID 90 days 360 tabs 2RF E11.65 - Type 2 diabetes mellitus with hyperglycemia ezetimibe (Zetia) 10 mg PO DAILY 90 days 90 tabs 1RF E78.00 - Pure hypercholesterolemia, unspecified atorvastatin 80 mg PO DAILY 90 days 90 tabs 1RF E78.00 - Pure hypercholesterolemia, unspecified Patient Instructions: Goal: Blood pressure to be below 140/90, A1c to remain below 7.0. LDL to be below 100 Barriers: Adherence to physical activity and healthy eating habits Coding Level of Care Code Est Pt Prev Care 40-64y([id number]) Diagnoses Annual physical exam Z00.00 Type 2 diabetes mellitus with hyperglycemia, without long-term current use of insulin E11.65 Diabetes mellitus manager intermediate insulin use: without fdc use Diabetes mellitus complication status: with hyperglycemia Hypercholesterolemia E78.00 Moderate persistent asthma without complication J45.40 Asthma severity: moderate Asthma persistence: persistent Asthma complication type: uncomplicated Class 2 severe obesity due to excess calories with serious comorbidity and body mass index (BMI) of 39.0 to 39.9 in adult E66.01; Z68.39 Obesity type: due to excess calories Obesity classification: adult class 2 (BMI 35 - 39.9) Serious obesity comorbidity presence: with serious comorbidity Body mass index: BMI 39.0-39.9
== END 2023-10-19 11:05 | disposition home or self-care (01) ==
PROVIDERS: PCP Physician Assistant; Visit Provider Physician Assistant
DX: Z00.00 Encounter for general adult medical examination without abnormal findings (principal); E11.65 Type 2 diabetes mellitus with hyperglycemia; E66.01 Morbid (severe) obesity due to excess calories; Z68.39 Body mass index [BMI] 39.0-39.9, adult; E78.00 Pure hypercholesterolemia, unspecified; J45.40 Moderate persistent asthma, uncomplicated
CPT/HCPCS: 99396

== ENCOUNTER 2024-02-15 11:20 | Outpatient (AMB) | payer MEDICARE, MEDICAID, SELFPAY ==
[2024-02-15 11:22] VITALS: BP 150/76; PULSE 84; O2SAT 96; BMI 37.0
--- NOTE | 2024-02-15 11:22 | MHC.PC.OV ---
Vital Signs 02/15/24 11:22 Height 5 ft 6 in Weight 229 lb 6 oz BMI 37.0 BP 150/76 H Blood Pressure Location Lt brachial Position Sitting Pulse 84 Pulse Source Pulse Oximeter Pulse Oximetry (%) 96 Oxygen Delivery Method Room Air Intake Visit Reasons: follow up Intake Note: Pt is here for routine F/U on DMII, HTN. 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 Required: No Accompanied by: Daughter Allergies No Known Allergies [No Known Allergies*] Allergy (Verified 02/15/24 11:36) Medication List - Last Reconciled 02/15/24 by Ross Marin PA-C acetaminophen 500 mg PO Q6H PRN 15 days albuterol sulfate 90 mcg/actuation 1 inh inhalation QID PRN 30 days albuterol sulfate 0.63 mg (3 mL) inhalation Q4-6H PRN 30 days atorvastatin 80 mg PO DAILY 90 days blood sugar diagnostic (FreeStyle Lite Strips) Test Daily blood-glucose meter (FreeStyle Lite Meter kit) test daily brimonidine 0.2% 1 drp ophthalmic (eye) TID celecoxib 200 mg PO BID PRN clobetasol 0.05% 1 appl topical .x2/week 6 months CPAP (CPAP Machine/Device) As directed cyanocobalamin (vitamin B-12) (Vitamin B-12) 1,000 mcg PO DAILY 90 days diclofenac sodium 1% 4 grams topical QID 30 days ezetimibe (Zetia) 10 mg PO DAILY 90 days fluticasone propion-salmeterol 232-14 mcg/actuation (AirDuo RespiClick) 1 inh inhalation BID 30 days lisinopril 20 mg PO DAILY 90 days melatonin 5 mg PO BEDTIME 90 days metformin 1,000 mg (2 x 500 mg) PO BID 90 days montelukast (Singulair) 10 mg PO BEDTIME omeprazole 20 mg PO DAILY 90 days [Rollator walker with seat As directed] semaglutide (weight loss) (Wegovy) 0.25 mg (0.5 mL) subcut QWEEK 4 weeks sertraline 50 mg PO DAILY 90 days tizanidine 2 mg PO Q8H PRN walker (Ultra-Light Rollator misc) As directed Tobacco use date assessed: 04/06/23 Dental Screening Dental Screen Date: 04/06/23 HPI follow up HPI Details Patient is a 63 year-old female here today for follow-up visit. ?Patient has a past medical history significant for moderate persistent asthma migraines, hyperlipidemia, LEONARDO, hypertension, type 2 diabetes. . .. Moderate persistent asthma:? Patient reports her asthma has been well controlled on current rescue inhaler and maintenance inhaler dose.? Denies any nighttime awakenings with asthma symptoms or recent exacerbating shins. .. Obstructive sleep apnea: Has not using a CPAP machine as she has lost her CPAP machine due to moving to a new apartment. She would like a new CPAP script .. Hypertension:? Patient reports blood pressures slightly elevated today in office. ? Denies any headaches, chest discomforts or vision issues.? .? She does not have home blood pressure machine.? Continues on current lisinopril 10 mg. .. Diabetes:? Continues on metformin 1000 b.i.d. most recent A1c is 6.4. She has lost a few lb since last office visit.. Unfortunately Wegovy was not covered by insurance. She is interested in alternative GLP 1 to help her lose weight. .. HLD: Cholesterol elevated , has not been too compliant with Zetia. Continues on high-dose statin therapy. PLAN: Be more consistent with Zetia, LDL goal to be below 100 . Obesity; has been having difficulty losing weight. Has lost a few lb since last office visit. Again will try alternative GLP 1 to help with weight loss as well. [facility] Medical History (Updated 02/15/24 @ 12:56 by Ross Marin PA-C) Effusion, left knee History of adenomatous polyp of colon Seasonal allergies Glaucoma Lichen sclerosus Osteoarthritis of right knee COVID-19 vaccine administered Obesity (BMI 30-39.9) Alcohol abuse Pulmonary nodule Hypercholesterolemia Type 2 diabetes mellitus with hyperglycemia Tubular adenoma Diverticulosis Rectal pain Migraine Arthritis Depression Sleep apnea Asthma HTN (hypertension) Surgical History (Updated 02/15/24 @ 12:56 by Ross Marin PA-C) Status post bilateral knee replacements History of total left knee replacement (TKR) (~07/2022) History of total right knee replacement History of colonoscopy H/O rectal polypectomy History of tubal ligation History of tooth extraction History of incisional hernia repair Hx of appendectomy Hx of cataract extraction Hx of cholecystectomy Family History Father History of ETOH abuse Substance use disorder Mother Benign tumor Brother Acute CVA (cerebrovascular accident) Brother CAD (coronary artery disease) Prostate cancer Social History Household Members: Children Housing: Apartment Are you a primary daycare assistant to a significant other at home: No Do you presently have visiting nurse or other home services: Yes (S[employer] daughter Fidel) Alcohol intake: current Alcohol intake frequency: holidays/special occasions only Patient Tobacco Use Status: Never used Tobacco e-Cigarette/Vaping Use: Never Used Second Hand Smoke Exposure: No service: No Current occupational status: unemployed Current occupation: rt handed Cognitive needs: No Hearing needs: No Vision needs: No Female Reproductive History Menstrual Age of Menarche: 12 Questionnaire Thrive Questionnaire Date Thrive assessed: 04/06/23 KARTHIKEYAN-7 AMB Questionnaire KARTHIKEYAN-7 Date KARTHIKEYAN - 7 assessed: 04/06/23 Source: Developed by Drs. Denny Kiran, Sujatha Bernardo, Johny Hill and colleagues, with an educational yonathan from [employer]. Review of Systems Const Denies headache(s) Eyes Denies loss of vision ENT Denies vertigo, Denies dizziness, Denies headache(s) and Denies sore throat Card Denies chest pain, Denies leg edema and Denies lightheadedness Resp Denies cough, Denies hemoptysis and Denies wheezing GI Denies abdominal pain, Denies melena, Denies constipation, Denies diarrhea and Denies vomiting Denies urinary frequency, Denies dysuria and Denies urinary urgency Musc Denies arthralgias, Denies joint swelling, Denies numbness and Denies tingling Neuro Denies Abnormal speech present, Denies behavioral changes, Denies vertigo, Denies dizziness, Denies headache(s), Denies loss of vision, Denies memory loss, Denies numbness and Denies tingling Psych Denies anxiety, Denies behavioral changes, Denies depression, Denies memory loss and Denies panic attacks Rodrigo/Lymph Denies easy bleeding and Denies easy bruising Aller/Immun Denies wheezing Physical exam (Primary Care) Vital Signs: Last Vital Signs Pulse 84 02/15/24 11:22 BP 150/76 H 02/15/24 11:22 Pulse Ox 96 02/15/24 11:22 Oxygen Delivery Method Room Air 02/15/24 11:22 BMI result Body Mass Index 37.0 BMI Assessment/Plan discussion: High BMI High, discussed plan: lifestyle, weight reduction, dietary and physical activity Tobacco/Smoking Status: Tobacco use Status Tobacco use date assessed 04/06/23 02/15/24 11:23 Patient Tobacco Use Status Never used Tobacco 02/15/24 11:23 e-Cigarette/Vaping Use Never Used 02/15/24 11:23 Thrive Assessment: Date of Thrive Assessment Date Thrive assessed 04/06/23 02/15/24 11:23 Const General: healthy appearing, no acute distress, alert and awake Nutritional Appearance: well nourished Orientation/consciousness: oriented to person, oriented to place and oriented to time HENMT Ears: TM's normal bilaterally General nose exam: Normal nasal mucous membranes and turbinates present Eyes Conjunctivae: conjunctivae normal Sclerae: sclerae normal Pupils: Equal, round and reactive pupils present Neck Neck: Yes no lymphadenopathy and Yes no JVD Thyroid: Thyroid normal Carotids: no bruits Resp Effort & Inspection: normal respiratory effort and not tachypneic Auscultation: no crackles, no rales, no rhonchi and no wheezes Cardio Rate: regular rate Rhythm: regular rhythm Heart sounds: no murmurs and normal S1 and S2 GI Palpation (GI): Soft to palpation, nontender, no hepatomegaly and no splenomegaly Auscultation: normal bowel sounds Skin General skin exam: no rashes or lesions noted and dry skin Neuro General: oriented to person, oriented to place and oriented to time Cranial nerves: Yes Equal, round and reactive pupils present Speech: No Abnormal speech present Gait exam (Neuro): Normal gait present Motor exam (neuro): no tremor noted Extrem Right upper extremity: full ROM Left upper extremity: full ROM Right lower extremity: full ROM; no edema Left lower extremity: full ROM; no edema Psych Mental Status: mental status grossly normal Speech and movement: Normal speech and movement present Affect: normal affect Attitude: cooperative Thought process: Normal thought process present Office Procedures Flu Questionnaire Does the patient have a severe egg allergy?: No Results AMB Hemoglobin A1c AMB Hemoglobin A1c 6.4 % Last Edit by ALLA Brasher on 02/15/24 11:37 Immunizations Fluarix Triv [id number] (PF) 45 mcg (15 mcg x 3)/0.5 mL IM syringe Performing Provider: Ross Marin PA-C Performing [place] [facility] Documented (not given) by: ALLA Brasher on 02/15/24 11:36 Reason Not Given: Patient Refused Results Reviewed Results Reviewed: Laboratory Last Values Hgb A1c (Clinic) 6.4 % (4.0-6.0) H 02/15/24 11:36 Coding Level of Care Code Est Pt Level 4 (45030) Diagnoses Type 2 diabetes mellitus with hyperglycemia, without long-term current use of insulin E11.65 Diabetes mellitus complication status: with hyperglycemia Diabetes mellitus continuous churn buttermaker insulin use: without continuous churn buttermaker use Moderate persistent asthma without complication J45.40 Asthma complication type: uncomplicated Asthma persistence: persistent Asthma severity: moderate Glaucoma of both eyes, unspecified glaucoma type H40.9 Glaucoma type: unspecified Laterality: bilateral LEONARDO (obstructive sleep apnea) G47.33 Class 2 obesity E66.812 Assessment & Plan Assessment & Plan (1) DMII (diabetes mellitus, type 2): Code(s): E11.9 - Type 2 diabetes mellitus without complications Category: Medical Qualifiers: Diabetes mellitus complication status: with hyperglycemia Diabetes mellitus half-way insulin use: without continuous churn buttermaker use Qualified Code(s): E11.65 - Type 2 diabetes mellitus with hyperglycemia Plan: Patient's type 2 diabetes well controlled with current regime. She would like to start a alternative GLP 1 to help him with weight loss and glycemic control as well. Goal A1c is to be below 7.0 (2) Asthma: Comment: controlled w/daily inhaler Code(s): J45.909 - Unspecified asthma, uncomplicated Category: Medical Qualifiers: Asthma complication type: uncomplicated Asthma persistence: persistent Asthma severity: moderate Qualified Code(s): J45.40 - Moderate persistent asthma, uncomplicated Plan: Patient reports her asthma is fairly well controlled with current asthma med regime. (3) Glaucoma: Code(s): H40.9 - Unspecified glaucoma Category: Medical Qualifiers: Glaucoma type: unspecified Laterality: bilateral Qualified Code(s): H40.9 - Unspecified glaucoma Plan: Has lost follow-up with her centrifugal separator and needs refills on her eyedrops. She promises to make an appointment with her centrifugal separator for continued monitoring of her glaucoma (4) LEONARDO (obstructive sleep apnea): Code(s): G47.33 - Obstructive sleep apnea (adult) (pediatric) Category: Medical Plan: Has a history of obstructive sleep apnea. Unfortunately lost her CPAP machine and needs a new CPAP machine from DME supplier. Will supply with a script (5) Class 2 obesity: Code(s): E66.812 - Obesity, class 2 Category: Medical Plan: Patient does understand her BMI is over 35 and will work on trying to be more physically active and adapt to better eating habits to reduce her weight. She is interested in trying an alternative GLP 1 to help her lose weight as well. Orders: Orders Comprehensive [place]. Panel Fast Today E11.65 - Type 2 diabetes mellitus with hyperglycemia Complete Blood Count no Diff Today E11.65 - Type 2 diabetes mellitus with hyperglycemia Lipid Panel Today E78.00 - Pure hypercholesterolemia, unspecified Microalbumin, Random (w Creat) Today E11.65 - Type 2 diabetes mellitus with hyperglycemia Influenza [id number] Immunization Today Z23 - Encounter for immunization AMB Hemoglobin A1c Today E11.65 - Type 2 diabetes mellitus with hyperglycemia Referrals Podiatry Referral B35.1 - Tinea unguium, E11.65 - Type 2 diabetes mellitus with hyperglycemia Counseling Referral F33.1 - Major depressive disorder, recurrent, moderate Medications: New tirzepatide (Mounjaro) for 4 weeks 2.5 mg (0.5 mL) subcut QWEEK 4 weeks 2 mL 0RF E11.65 - Type 2 diabetes mellitus with hyperglycemia ibuprofen 800 mg PO Q8H 15 days PRN 45 tabs 3RF pain M54.16 - Radiculopathy, lumbar region Changed From brimonidine 0.2% 1 drp ophthalmic (eye) TID H40.9 - Unspecified glaucoma To brimonidine 0.2% 1 drp ophthalmic (eye) TID 30 days 10 mL 3RF H40.9 - Unspecified glaucoma Refilled albuterol sulfate 90 mcg/actuation 1 inh inhalation QID 30 days PRN 8.5 grams 3RF shortness of breath or wheezing J45.40 - Moderate persistent asthma, uncomplicated albuterol sulfate 0.63 mg (3 mL) inhalation Q4-6H 30 days PRN 90 mL 3RF Wheezing J45.40 - Moderate persistent asthma, uncomplicated CPAP (CPAP Machine/Device) As directed 1 ea 0RF G47.33 - Obstructive sleep apnea (adult) (pediatric) Discontinued semaglutide (weight loss) (Angie) administer weeks 1 through 4 of therapy Discontinued Reason: Doctor's Order 0.25 mg (0.5 mL) subcut QWEEK 4 weeks 2 mL 0RF E66.01 - Morbid (severe) obesity due to excess calories, E78.00 - Pure hypercholesterolemia, unspecified, Z68.39 - Body mass index [BMI] 39.0-39.9, adult
--- OUTSIDE RECORDS SUMMARY | 2024-02-15 11:42 | XMS_ITS | Continuity of Care Document ---
Author Organization Replaced By [facility] vices Address [address] [place] [address] Phone Care Team Providers Care Sap Bw Architect Name Role Phone Unavailable Unavailable Unavailable Procedures Procedure Date FOCUSED OUT/PT FOCUSED OUT/PT EXPANDED OUT/PT EXPANDED OUT/PT [facility] - [facility] Advance Directives Directive Yes / No Effective Date File Name No Information Encounters Encounter Description Practice Location Reason(s) For Visit Diagnoses Date Provider Providers Copied on Encounter FOCUSED OUT/PT Formerly [facility], [facility], [address] [place] [address], [facility] [place], tel:[phone] [facility] Adult Medicine No Information 8 8 No Information [facility], [address] [place] [address], [facility] [place], tel:[phone] Conversion EDUCATIONAL CIRCUMSTANCES 8 8 No Information [facility], [address] [place] [address], [facility] [place], tel:[phone] Conversion DIETARY COUNSELINGHYP ERLIPIDEMIA, MIXEDFATIGUE/ MALAISEPAIN IN JOINT INVOLVING MULTIPLE SITES 0 6 8 No Information FOCUSED OUT/PT Formerly [facility], [facility], [address] [place] [address], [facility] [place], [place] tel:[phone] [facility] Adult Medicine No Information 0 6 8 No Information EXPANDED OUT/PT Formerly [facility], [facility], [address] [place] [address], [facility] [place], [place] tel:[phone] [facility] Adult Medicine No Information Oct-2 5200 8 No Information EXPANDED OUT/PT Formerly [facility], [facility], [address] [place] [address], [facility] [place], [place] tel:[phone] [facility] No Information Oct- 8 No Information Formerly [facility], [facility], [address] [place], [address], tel:[phone] Conversion UNSPECIFIED SYMPTOM ASSOCIATED WITH FEMALE GENITAL ORGANS Sep-2 8 No Information [facility] Level 4 - Comprehensive [facility], [address] [place], [address], [place] tel:[phone] [facility] Adult Medicine No Information Oct- 8 No Information [facility], [address] [place], [address], [place] tel:[phone] Conversion ASTHMA UNSPECIFIEDRA SH - NONSPECIFIC Oct- 8 No Information Family History Family Member Type Diagnosis Age At Onset No Information Payers Payer name Insurance type Covered green party ID Authoriza tion(s) No Information Social [...]
== END 2024-02-15 11:53 | disposition home or self-care (01) ==
PROVIDERS: PCP Physician Assistant; Visit Provider Physician Assistant
DX: E11.65 Type 2 diabetes mellitus with hyperglycemia (principal); J45.40 Moderate persistent asthma, uncomplicated; E66.812 Obesity, class 2; Z68.37 Body mass index [BMI] 37.0-37.9, adult; H40.9 Unspecified glaucoma; G47.33 Obstructive sleep apnea (adult) (pediatric)

== ENCOUNTER → 2024-02-15 11:20 | Outpatient (BNVA) | payer MEDICARE, MEDICAID, SELFPAY | PROVIDERS: PCP Physician Assistant; Visit Provider Physician Assistant | DX: E11.65 Type 2 diabetes mellitus with hyperglycemia (principal); J45.40 Moderate persistent asthma, uncomplicated; G47.33 Obstructive sleep apnea (adult) (pediatric); E66.812 Obesity, class 2 | CPT/HCPCS: 83036; 99212 ==

== ENCOUNTER 2024-02-21 14:39 | Outpatient (AMB) | payer MEDICARE, MEDICAID, SELFPAY ==
--- NOTE | 2024-02-21 14:42 | A.OFFVIS_ITS ---
Vital Signs 02/21/24 14:44 Height 5 ft 6 in Weight 229 lb BMI 37.0 Intake Visit Reasons: OV Knee Pain s/p knee replacement Intake Note: Laquita is a 62 year old female who presents today for a follow up of her left knee. Hx of Left Total Knee Arthroplasty 08/18/22.Patient rpeorts that she has ongoing left knee pain since surgery Allergies No Known Allergies [No Known Allergies*] Allergy (Verified 02/15/24 11:36) HPI HPI OV Knee Pain s/p knee replacement: Details: Laquita is a 62 year old female who presents today for a follow up of her left knee. Hx of Left Total Knee Arthroplasty 08/18/22.Patient rpeorts that she has ongoing left knee pain since surgery. She continues to have pain with stairs. She lives on a 4th floor walkup. [facility] Medical History (Updated 02/15/24 @ 12:56 by Ross Marin PA-C) Effusion, left knee History of adenomatous polyp of colon Seasonal allergies Glaucoma Lichen sclerosus Osteoarthritis of right knee COVID-19 vaccine administered Obesity (BMI 30-39.9) Alcohol abuse Pulmonary nodule Hypercholesterolemia Type 2 diabetes mellitus with hyperglycemia Tubular adenoma Diverticulosis Rectal pain Migraine Arthritis Depression Sleep apnea Asthma HTN (hypertension) Surgical History (Updated 02/15/24 @ 12:56 by Ross Marin PA-C) Status post bilateral knee replacements History of total left knee replacement (TKR) (~07/2022) History of total right knee replacement History of colonoscopy H/O rectal polypectomy History of tubal ligation History of tooth extraction History of incisional hernia repair Hx of appendectomy Hx of cataract extraction Hx of cholecystectomy Family History Father History of ETOH abuse Substance use disorder Mother Benign tumor Brother Acute CVA (cerebrovascular accident) Brother CAD (coronary artery disease) Prostate cancer Social History Household Members: Children Housing: Apartment Are you a primary respite care provider to a significant other at home: No Do you presently have visiting nurse or other home services: Yes (HR ADMINISTRATOR daughter Fidel) Alcohol intake: current Alcohol intake frequency: holidays/special occasions only Patient Tobacco Use Status: Never used Tobacco e-Cigarette/Vaping Use: Never Used Second Hand Smoke Exposure: No service: No Current occupational status: unemployed Current occupation: rt handed Cognitive needs: No Hearing needs: No Vision needs: No Female Reproductive History Menstrual Age of Menarche: 12 Physical Exam Vital Signs: BMI result Body Mass Index 37.0 Extrem Other: Left knee retropatellar ttp with trace effusion. Results Reviewed Results Reviewed: I personally reviewed relevant radiographs. Radiographs were reviewed and there is bilateral total knee arthroplasty in expected post operative position with no hardware complications or evidence of loosening Assessment & Plan Assessment & Plan (1) Status post total knee replacement, left: Code(s): Z96.652 - Presence of left artificial knee joint Category: Surgical Plan: Anterior knee pain s/p l TKA with 4 flights of stairs climbed daily. I recommend moving to a first floor apt but, in the absence of this, I recommend referral to pain managment. Coding Level of Care Code Est Pt Level 3 (22285) Diagnoses Status post total knee replacement, left Z96.652
[2024-02-21 14:44] VITALS: BMI 37.0
== END 2024-02-21 15:37 | disposition home or self-care (01) ==
LOC: HO.HOS 14:39
PROVIDERS: PCP Physician Assistant; Visit Provider Orthopaedic Surgery
DX: Z47.89 Encounter for other orthopedic aftercare (principal); Z96.652 Presence of left artificial knee joint
CPT/HCPCS: 99213

== ENCOUNTER → 2024-02-21 14:39 | Outpatient (BNVA) | payer MEDICARE, MEDICAID, SELFPAY | PROVIDERS: PCP Physician Assistant; Visit Provider Orthopaedic Surgery | DX: Z96.652 Presence of left artificial knee joint (principal) | CPT/HCPCS: 99212 ==

== ENCOUNTER 2024-03-09 11:05 | Outpatient (AMB) | payer MEDICARE, MEDICAID, SELFPAY ==
--- NOTE | 2024-03-09 11:08 | A.OFFVIS_ITS ---
Vital Signs 03/09/24 11:09 Height 5 ft 6 in Weight 230 lb BMI 37.1 BP 170/77 H Blood Pressure Location Lt brachial Position Sitting Respiration 16 Pulse 83 Pulse Source Pulse Oximeter Pulse Oximetry (%) 95 Oxygen Delivery Method Room Air Intake Visit Reasons: Presence of left artificial knee joint Senior Systems Programmer Required: Yes Senior Systems Programmer Services: Senior Systems Programmer Present Senior Systems Programmer Name: Caity # [id number] Allergies No Known Allergies [No Known Allergies*] Allergy (Verified 03/09/24 11:11) Medication List - Last Reconciled 03/09/24 by Sarai Zapata LPN acetaminophen 500 mg PO Q6H PRN 15 days albuterol sulfate 90 mcg/actuation 1 inh inhalation QID PRN 30 days albuterol sulfate 0.63 mg (3 mL) inhalation Q4-6H PRN 30 days atorvastatin 80 mg PO DAILY 90 days blood sugar diagnostic (FreeStyle Lite Strips) Test Daily blood-glucose meter (FreeStyle Lite Meter kit) test daily brimonidine 0.2% 1 drp ophthalmic (eye) TID 30 days clobetasol 0.05% 1 appl topical .x2/week 6 months CPAP (CPAP Machine/Device) As directed cyanocobalamin (vitamin B-12) (Vitamin B-12) 1,000 mcg PO DAILY 90 days diclofenac sodium 1% 4 grams topical QID 30 days ezetimibe (Zetia) 10 mg PO DAILY 90 days fluticasone propion-salmeterol 232-14 mcg/actuation (AirDuo RespiClick) 1 inh inhalation BID 30 days ibuprofen 800 mg PO Q8H PRN 15 days lisinopril 20 mg PO DAILY 90 days melatonin 5 mg PO BEDTIME 90 days metformin 1,000 mg (2 x 500 mg) PO BID 90 days montelukast (Singulair) 10 mg PO BEDTIME omeprazole 20 mg PO DAILY 90 days [Rollator walker with seat As directed] sertraline 50 mg PO DAILY 90 days tirzepatide (Mounjaro) 2.5 mg (0.5 mL) subcut QWEEK 4 weeks tizanidine 2 mg PO Q8H PRN walker (Ultra-Light Rollator misc) As directed HPI Comments Details: Laquita is very pleasant 63 years old female who presents in my office with complains on pain in the left knee. Also states that right knee is slightly disturbing for her however is not as strong as the left knee. She reports that her pain is most severe and constant. She reports pain most significant on the lateral side of the left knee with radiation of the pain to the lateral hip and lateral thigh. She reports that her pain is constant and severity of the pain is 9/10. She reports that pain is preventing her from climbing stairs and prolonged standing also aggravate her pain. She tried ibuprofen and topical medications including Tao-Box cream and diclofenac cream without success to treat her pain. She completed full course of physical therapy and home exercise programs after the total knee replacement surgery. She reported that physical therapy did not help her pain. Her past medical history significant for asthma, type 2 diabetes, hypertension, sleep apnea not on CPAP machine currently and glaucoma. Her past surgical history significant for colon resection 9 years ago bladder surgery 16 years appendicitis procedure as a child and eye surgery 5 years ago. Social history she is disabled individual, she denies smoking cigarettes, consumes 8-9 drinks a month and she denies recreational drugs. [facility] Medical History (Updated 03/09/24 @ 11:37 by Titus Duncan MD) Effusion, left knee History of adenomatous polyp of colon Seasonal allergies Glaucoma Lichen sclerosus Osteoarthritis of right knee COVID-19 vaccine administered Obesity (BMI 30-39.9) Alcohol abuse Pulmonary nodule Hypercholesterolemia Type 2 diabetes mellitus with hyperglycemia Tubular adenoma Diverticulosis Rectal pain Migraine Arthritis Depression Sleep apnea Asthma HTN (hypertension) Surgical History (Updated 02/15/24 @ 12:56 by Ross Marin PA-C) Status post bilateral knee replacements History of total left knee replacement (TKR) (~07/2022) History of total right knee replacement History of colonoscopy H/O rectal polypectomy History of tubal ligation History of tooth extraction History of incisional hernia repair Hx of appendectomy Hx of cataract extraction Hx of cholecystectomy Family History Father History of ETOH abuse Substance use disorder Mother Benign tumor Brother Acute CVA (cerebrovascular accident) Brother CAD (coronary artery disease) Prostate cancer Social History Household Members: Children Housing: Apartment Are you a primary manager home healthcare to a significant other at home: No Do you presently have visiting nurse or other home services: Yes ([employer] daughter Fidel) Alcohol intake: current Alcohol intake frequency: holidays/special occasions only Patient Tobacco Use Status: Never used Tobacco e-Cigarette/Vaping Use: Never Used Second Hand Smoke Exposure: No service: No Current occupational status: unemployed Current occupation: rt handed Cognitive needs: No Hearing needs: No Vision needs: No Female Reproductive History Menstrual Age of Menarche: 12 Review of Systems Const All systems reviewed & are unremarkable except as noted in HPI and below ENT Reports Normal hearing present Neuro Reports Normal hearing present, Denies Abnormal speech present, Denies confusion and Denies Sensory deficit (Neuro) Psych Denies confusion Physical Exam Vital Signs: Last Vital Signs Pulse 83 03/09/24 11:09 Resp 16 03/09/24 11:09 BP 170/77 H 03/09/24 11:09 Pulse Ox 95 03/09/24 11:09 Oxygen Delivery Method Room Air 03/09/24 11:09 BMI result Body Mass Index 37.1 Const General: no acute distress; No confusion Nutritional Appearance: obese centrally obese Orientation/consciousness: patient oriented x3 and No confusion Eyes General: appearance normal, both eyes and all related structures Pupils: Equal, round and reactive pupils present EOM: EOMs intact bilaterally Neck Neck: Yes full ROM Chest Chest palpation & inspection: normal inspection of the chest Resp Effort & Inspection: normal respiratory effort, able to speak in complete sentences, normal respiratory pattern, no audible wheezes and no cough Cardio Jugular venous distension: no JVD GI Inspection: Yes normal to inspection Neuro General: patient oriented x3, gait normal and No confusion Cranial nerves: Yes CN's II-XII intact bilaterally, Yes Equal, round and reactive pupils present, Yes Normal hearing present and Yes Ability to bilaterally elevate shoulders present Speech: No Abnormal speech present Gait exam (Neuro): Normal gait present Motor exam (neuro): 5/5 motor strength present throughout Sensory Exam: No Sensory deficit (Neuro) Extrem Other: Range of motion of the left knee is preserved, however she reports pain with range of motion exercises. Tenderness on palpation on the lateral surface of the left knee. On inspection there is of very well-healed scar with no signs of swelling, redness, or pathological discharge. General: No pedal edema Psych Speech and movement: Normal speech and movement present Affect: normal affect Attitude: cooperative Thought process: Normal thought process present Thought content: Normal thought content present Insight: Good insight present (Psych) Judgement: Good judgement present (Psych) Assessment & Plan Assessment & Plan (1) Status post total knee replacement, left: Code(s): Z96.652 - Presence of left artificial knee joint Category: Surgical (2) Left knee pain: Code(s): M25.562 - Pain in left knee Category: Medical (3) Chronic pain syndrome: Code(s): G89.4 - Chronic pain syndrome Category: Medical Plan I have offered this patient genicular nerve block to diagnose and start treating her chronic pain after total knee replacement. Patient agreed to go for the procedure. We will evaluate the results of the injection after the procedure. Patient Instructions: diplomatic interpreter/translator from [place] #[id number] was helping us to maintain this conversation in Green[place]ic. Coding Level of Care Code New Pt Level 3 (45649) Diagnoses Status post total knee replacement, left Z96.652 Left knee pain M25.562 Chronic pain syndrome G89.4
[2024-03-09 11:09] VITALS: BP 170/77; PULSE 83; RESP 16; O2SAT 95; BMI 37.1
--- OUTSIDE RECORDS SUMMARY | 2024-03-09 11:48 | XMS_ITS | Continuity of Care Document ---
Author Organization [facility] Address [address] [place] [address] Phone Care Team Providers Care Soft Water Mechanic Name Role Phone Unavailable Unavailable Unavailable Procedures Procedure Date FOCUSED OUT/PT FOCUSED OUT/PT EXPANDED OUT/PT EXPANDED OUT/PT [facility] 4 - [facility] Advance Directives Directive Yes / No Effective Date File Name No Information Encounters Encounter Description Practice Location Reason(s) For Visit Diagnoses Date Provider Providers Copied on Encounter FOCUSED OUT/PT [facility], [address] [place] [address], [facility], tel:[phone] [facility] Adult Medicine No Information 8 8 No Information [facility], [address] [place] [address], [facility], tel:[phone] Conversion EDUCATIONAL CIRCUMSTANCES 8 8 No Information [facility], [address] [place] [address], [facility], tel:[phone] Conversion DIETARY COUNSELINGHYP ERLIPIDEMIA, MIXEDFATIGUE/ MALAISEPAIN IN JOINT INVOLVING MULTIPLE SITES 0 6 8 No Information FOCUSED OUT/PT [facility], [address] [place] [address], [facility], [place] tel:[phone] [facility] Adult Medicine No Information 0 6 8 No Information EXPANDED OUT/PT [facility], [address] [place] [address], [facility], [place] tel:[phone] [facility] Adult Medicine No Information Oct-2 5200 8 No Information EXPANDED OUT/PT [facility], [address] [place] [address], [facility], [place] tel:[phone] [facility] No Information Oct- 8 No Information [facility], [address] [place], [address], tel:[phone] Conversion UNSPECIFIED SYMPTOM ASSOCIATED WITH FEMALE GENITAL ORGANS Sep-2 8 No Information [facility] Level 4 - Comprehensive [facility], [address] [place], [address], [place] tel:[phone] [facility] Adult Medicine No Information Oct- 8 No Information [facility], [address] [place], [address], [place] tel:[phone] Conversion ASTHMA UNSPECIFIEDRA SH - NONSPECIFIC Oct- [...]
== END 2024-03-09 11:34 | disposition home or self-care (01) ==
PROVIDERS: PCP Physician Assistant; Referring Provider Orthopaedic Surgery; Visit Provider Anesthesiology
DX: Z96.652 Presence of left artificial knee joint (principal); M25.562 Pain in left knee; G89.4 Chronic pain syndrome
CPT/HCPCS: 99203

== ENCOUNTER → 2024-03-09 11:05 | Outpatient (BNVA) | payer MEDICARE, MEDICAID, SELFPAY | PROVIDERS: PCP Physician Assistant; Referring Provider Orthopaedic Surgery; Visit Provider Anesthesiology | DX: M25.562 Pain in left knee (principal); G89.4 Chronic pain syndrome; Z96.652 Presence of left artificial knee joint | CPT/HCPCS: 99202 ==

== ENCOUNTER 2024-05-09 10:49 | Outpatient (AMB) | payer MEDICARE, MEDICAID, SELFPAY ==
--- NOTE | 2024-05-09 10:59 | MHC.PC.OV ---
Vital Signs 05/09/24 11:03 Height 5 ft 6 in Weight 215 lb BMI 34.7 BP 128/70 Blood Pressure Location Lt brachial Position Sitting Intake Visit Reasons: 3 month f/u Intake Note: Patient here for a 3 month follow up Osteology Teacher Required: Yes Osteology Teacher Language: Community Program Assistant Name: Daughter will interpret Information Interpreted: non-clinical & clinical (patient declined staff interpreter services and prefers daughter to interpret) Accompanied by: Daughter Allergies No Known Allergies [No Known Allergies*] Allergy (Verified 05/09/24 11:15) Medication List - Last Reconciled 05/09/24 by Ross Marin PA-C acetaminophen 500 mg PO Q6H PRN 15 days albuterol sulfate 90 mcg/actuation 1 inh inhalation QID PRN 30 days albuterol sulfate 0.63 mg (3 mL) inhalation Q4-6H PRN 30 days atorvastatin 80 mg PO DAILY 90 days blood sugar diagnostic (FreeStyle Lite Strips) Test Daily blood-glucose meter (FreeStyle Lite Meter kit) test daily brimonidine 0.2% 1 drp ophthalmic (eye) TID 30 days clobetasol 0.05% 1 appl topical .x2/week 6 months CPAP (CPAP Machine/Device) As directed cyanocobalamin (vitamin B-12) (Vitamin B-12) 1,000 mcg PO DAILY 90 days diclofenac sodium 1% 4 grams topical QID 30 days ezetimibe (Zetia) 10 mg PO DAILY 90 days fluticasone propion-salmeterol 232-14 mcg/actuation (AirDuo RespiClick) 1 inh inhalation BID 30 days ibuprofen 800 mg PO Q8H PRN 15 days lisinopril 20 mg PO DAILY 90 days melatonin 5 mg PO BEDTIME 90 days metformin 1,000 mg (2 x 500 mg) PO BID 90 days montelukast (Singulair) 10 mg PO BEDTIME omeprazole 20 mg PO DAILY 90 days [Rollator walker with seat As directed] sertraline 50 mg PO DAILY 90 days tirzepatide (Mounjaro) 2.5 mg (0.5 mL) subcut QWEEK 4 weeks tirzepatide (Mounjaro) 5 mg (0.5 mL) subcut QWEEK 4 weeks tizanidine 2 mg PO Q8H PRN walker (Ultra-Light Rollator misc) As directed Tobacco use date assessed: 05/09/24 Dental Screening Dental Screen Date: 05/09/24 Did you have a dental visit in the last 12 months?: Yes Did you have a dental problem in the last 6 months where you did not have access to dental care?: No Was dental information given to patient?: Patient has dentist HPI 3 month f/u HPI Details Patient is a 63 year-old female here today for follow-up visit. ?Patient has a past medical history significant for moderate persistent asthma migraines, hyperlipidemia, LEONARDO, hypertension, type 2 diabetes. .. Moderate persistent asthma:? Patient reports her asthma has been well controlled on current rescue inhaler and maintenance inhaler dose.? Denies any nighttime awakenings with asthma symptoms or recent exacerbating shins. .. Obstructive sleep apnea: Has not using a CPAP machine as she has lost her CPAP machine due to moving to a new apartment. She would like a new CPAP script .. Hypertension:? Patient reports blood pressures slightly elevated today in office. ? Denies any headaches, chest discomforts or vision issues.? .? She does not have home blood pressure machine.? Continues on current lisinopril 10 mg. .. Diabetes:? Has started GLP 1 in his lost significant amount of weight since last visit. Continues on metformin 1000 b.i.d. today's A1c is 6.3.. She has lost a few lb since last office visit.. .. HLD: Will recheck lipid panel to ensure normal total cholesterol and LDL. She continues on both statin and Zetia PLAN: Be more consistent with Zetia, LDL goal to be below 100 . Obesity; has been able to lose weight since starting Mounjaro. COUNT INCLUDES THE [facility] Medical History (Updated 05/09/24 @ 11:23 by Ross Marin PA-C) Effusion, left knee History of adenomatous polyp of colon Seasonal allergies Glaucoma Lichen sclerosus Osteoarthritis of right knee COVID-19 vaccine administered Obesity (BMI 30-39.9) Alcohol abuse Pulmonary nodule Hypercholesterolemia Type 2 diabetes mellitus with hyperglycemia Tubular adenoma Diverticulosis Rectal pain Migraine Arthritis Depression Sleep apnea Asthma HTN (hypertension) Surgical History Status post bilateral knee replacements History of total left knee replacement (TKR) (~07/2022) History of total right knee replacement History of colonoscopy H/O rectal polypectomy History of tubal ligation History of tooth extraction History of incisional hernia repair Hx of appendectomy Hx of cataract extraction Hx of cholecystectomy Family History Father History of ETOH abuse Substance use disorder Mother Benign tumor Brother Acute CVA (cerebrovascular accident) Brother CAD (coronary artery disease) Prostate cancer Social History Household Members: Children Housing: Apartment Are you a primary rehab care assistant to a significant other at home: No Do you presently have visiting nurse or other home services: Yes (HOME THEATER EXPERIENCE [employer] daughter Fidel) Alcohol intake: current Alcohol intake frequency: holidays/special occasions only Patient Tobacco Use Status: Never used Tobacco e-Cigarette/Vaping Use: Never Used Second Hand Smoke Exposure: No service: No Current occupational status: unemployed Current occupation: rt handed Cognitive needs: No Hearing needs: No Vision needs: No Female Reproductive History Menstrual Age of Menarche: 12 Questionnaire PHQ-9 Over the last 2 weeks, how often have you been bothered by any of the following problems? 1. Little interest or pleasure in doing things: not at all 2. Feeling down, depressed, or hopeless: not at all 3. Trouble falling or staying asleep, or sleeping too much: not at all 4. Feeling tired or having little energy: not at all 5. Poor appetite or overeating: not at all 6. Feeling bad about yourself - or that you are a failure or have let yourself or your family down: not at all 7. Trouble concentrating on things, such as reading the newspaper or watching television: not at all 8. Moving or speaking so slowly that other people could have noticed. Or the opposite - being so fidgety or restless that you have been moving around a lot more than usual: not at all 9. Thoughts that you would be better off or of hurting yourself in some way: not at all Total score: 0 Depression Screening Interpretation: Negative Depression Screening Done: Yes 41278 - PHQ-9 Billing: Yes Source: Developed by Drs. Denny Kiran, Sujatha Bernardo, Johny Hill and colleagues, with an educational yonathan from [employer]. Thrive Questionnaire Date Thrive assessed: 05/09/24 I am a: Patient What is your living situation today?: I have a steady place to live Within the past 12 months, did the food you bought not last and you didn't have the money to get more?: Never true Within the past 12 months, did you worry whether your food would run out before you got money to buy more?: Never true Do you have trouble paying for medicines?: No Do you have trouble getting transportation to medical appointments?: No Do you have trouble paying your heating and electricity bill?: No Do you have trouble taking care of your child, family member or friend?: No Do you have trouble with day-to-day activities such as bathing, preparing meals, shopping, managing finances, etc.?: No Are you currently unemployed and looking for a job?: No Are you interested in more education?: No Please select the resources that you would like help with: None Currently or been in a relationship where the following occur: No concerns reported THRIVE Score: 0 AUDIT C Alcohol Use Questionnaire (AUDIT-C) 1. How often do you have a drink containing alcohol?: 2-4 times a month 2. How many drinks containing alcohol do you have on a typical day when you are drinking?: 3 or 4 3. How often do you have six or more drinks on one occasion?: Monthly Total Score: 5 KARTHIKEYAN-7 AMB Questionnaire KARTHIKEYAN-7 Date KARTHIKEYAN - 7 assessed: 05/09/24 Feeling nervous, anxious, or on edge: 1 = Several days Not being able to stop or control worryin = Not at all Worrying too much about different things: 1 = Several days Trouble relaxin = Several days Being so restless that it is hard to sit still: 0 = Not at all Becoming easily annoyed or irritable: 0 = Not at all Feeling afraid as if something awful might happen: 0 = Not at all Total KARTHIKEYAN-7 score (0-4 normal; 5-9 mild; 10-14 moderate; 15-21 severe): 3 Source: Developed by Drs. Denny Kiran, Sujatha Bernardo, Johny Hill and colleagues, with an educational yonathan from [employer]. KARTHIKEYAN-7 Assessment Billing KARTHIKEYAN-7 Assessment Tool: KARTHIKEYAN-7 Assessment 65624 Review of Systems Const Denies headache(s) Eyes Denies loss of vision ENT Denies vertigo, Denies dizziness, Denies headache(s) and Denies sore throat Card Denies chest pain, Denies leg edema and Denies lightheadedness Resp Denies cough, Denies hemoptysis and Denies wheezing GI Denies abdominal pain, Denies melena, Denies constipation, Denies diarrhea and Denies vomiting Denies urinary frequency, Denies dysuria and Denies urinary urgency Musc Denies arthralgias, Denies joint swelling, Denies numbness and Denies tingling Neuro Denies Abnormal speech present, Denies behavioral changes, Denies vertigo, Denies dizziness, Denies headache(s), Denies loss of vision, Denies memory loss, Denies numbness and Denies tingling Psych Denies anxiety, Denies behavioral changes, Denies depression, Denies memory loss and Denies panic attacks Rodrigo/Lymph Denies easy bleeding and Denies easy bruising Aller/Immun Denies wheezing Physical exam (Primary Care) Vital Signs: Last Vital Signs BP 128/70 05/09/24 11:03 BMI result Body Mass Index 34.7 BMI Assessment/Plan discussion: High BMI High, discussed plan: lifestyle, weight reduction, dietary and physical activity Tobacco/Smoking Status: Tobacco use Status Tobacco use date assessed 05/09/24 05/09/24 11:10 Patient Tobacco Use Status Never used Tobacco 05/09/24 11:02 e-Cigarette/Vaping Use Never Used 05/09/24 11:02 PHQ-9: PHQ-9 Score PHQ-9: Total score 0 05/09/24 11:10 Depression Screening Interpretation: Negative Thrive Assessment: Date of Thrive Assessment Date Thrive assessed 05/09/24 05/09/24 11:10 Currently or been in a relationship where the following occur: No concerns reported Const General: healthy appearing, no acute distress, alert and awake Nutritional Appearance: well nourished Orientation/consciousness: oriented to person, oriented to place and oriented to time HENMT Ears: TM's normal bilaterally General nose exam: Normal nasal mucous membranes and turbinates present Eyes Conjunctivae: conjunctivae normal Sclerae: sclerae normal Pupils: Equal, round and reactive pupils present Neck Neck: Yes no lymphadenopathy and Yes no JVD Thyroid: Thyroid normal Carotids: no bruits Resp Effort & Inspection: normal respiratory effort and not tachypneic Auscultation: no crackles, no rales, no rhonchi and no wheezes Cardio Rate: regular rate Rhythm: regular rhythm Heart sounds: no murmurs and normal S1 and S2 GI Palpation (GI): Soft to palpation, nontender, no hepatomegaly and no splenomegaly Auscultation: normal bowel sounds Skin General skin exam: no rashes or lesions noted and dry skin Neuro General: oriented to person, oriented to place and oriented to time Cranial nerves: Yes Equal, round and reactive pupils present Speech: No Abnormal speech present Gait exam (Neuro): Normal gait present Motor exam (neuro): no tremor noted Extrem Right upper extremity: full ROM Left upper extremity: full ROM Right lower extremity: full ROM; no edema Left lower extremity: full ROM; no edema Psych Mental Status: mental status grossly normal Speech and movement: Normal speech and movement present Affect: normal affect Attitude: cooperative Thought process: Normal thought process present Results AMB Hemoglobin A1c AMB Hemoglobin A1c 6.3 % Last Edit by ISAIAH Glez on 05/09/24 11:11 Results Reviewed Results Reviewed: Laboratory Last Values Hgb A1c (Clinic) 6.3 % (4.0-6.0) H 05/09/24 10:59 Coding Level of Care Code Est Pt Level 4 (35046) Diagnoses Type 2 diabetes mellitus with hyperglycemia, without long-term current use of insulin E11.65 Diabetes mellitus terminal makeup operator insulin use: without snf use Diabetes mellitus complication status: with hyperglycemia Moderate persistent asthma without complication J45.40 Asthma severity: moderate Asthma persistence: persistent Asthma complication type: uncomplicated LEONARDO (obstructive sleep apnea) G47.33 Class 1 obesity E66.811 Chronic pain of left knee M25.562; G89.29 Chronicity: chronic MDD (major depressive disorder), recurrent episode, moderate F33.1 Additional Codes PHQ-9 - 55434 - PHQ-9 Billing: Yes ([id number]) KARTHIKEYAN-7 Assessment Billing - KARTHIKEYAN-7 Assessment Tool: KARTHIKEYAN-7 Assessment 53865 ([id number]) Assessment & Plan Assessment & Plan (1) DMII (diabetes mellitus, type 2): Code(s): E11.9 - Type 2 diabetes mellitus without complications Category: Medical Qualifiers: Diabetes mellitus terminal makeup operator insulin use: without terminal makeup operator use Diabetes mellitus complication status: with hyperglycemia Qualified Code(s): E11.65 - Type 2 diabetes mellitus with hyperglycemia Plan: Patient's type 2 diabetes well controlled with current regime. She has started GLP 1 has been able lose 15 lb. A1c is 6.3. Goal A1c is to be below 7.0 (2) Asthma: Comment: controlled w/daily inhaler Code(s): J45.909 - Unspecified asthma, uncomplicated Category: Medical Qualifiers: Asthma severity: moderate Asthma persistence: persistent Asthma complication type: uncomplicated Qualified Code(s): J45.40 - Moderate persistent asthma, uncomplicated Plan: Patient reports her asthma is fairly well controlled with current asthma med regime. (3) LEONARDO (obstructive sleep apnea): Code(s): G47.33 - Obstructive sleep apnea (adult) (pediatric) Category: Medical Plan: Has a history of obstructive sleep apnea. She continues to use CPAP machine a nightly basis with good effect. (4) Class 1 obesity: Code(s): E66.811 - Obesity, class 1 Category: Medical Plan: Patient does understand her BMI is over 30 and will continue working on being more physically active and adapting to better eating habits to reduce her weight. She has been able to lose significant amount of weight on GLP 1 (5) Left knee pain: Code(s): M25.562 - Pain in left knee Category: Medical Qualifiers: Chronicity: chronic Qualified Code(s): M25.562 - Pain in left knee; G89.29 - Other chronic pain Plan: Patient is status post left knee arthroplasty. She continues to have left knee pain she. She followed up with [place] pain management in his discussing pain reduction modalities. (6) MDD (major depressive disorder), recurrent episode, moderate: Code(s): F33.1 - Major depressive disorder, recurrent, moderate Category: Medical Plan: Patient's PHQ-9 score 0 . She continues on sertraline 50 mg. She feels her depression is well controlled. Not interested in seeing mental health therapist at this time. Orders: Orders AMB Hemoglobin A1c Today E11.65 - Type 2 diabetes mellitus with hyperglycemia Patient Instructions: Goal: A1c to remain below 7.0, LDL to be below 100 Barriers: Adherence to physical activity and healthy eating habits
[2024-05-09 11:03] VITALS: BP 128/70; BMI 34.7
--- OUTSIDE RECORDS SUMMARY | 2024-05-09 13:06 | XMS_ITS | Clinical Summary ---
Author Organization [address] [facility] Address [address] [place] [address] Phone Care Team Providers Care Proration Clerk Name Role Phone Ross Marin Primary Care Provider Medications acetaminophen (TYLENOL) 500 mg tablet Take 1 tablet (500 mg total) by mouth every 6 (six) hours if needed for mild pain. Active albuterol HFA (PROAIR HFA ; PROVENTIL HFA ; VENTOLIN HFA) 90 mcg/actuation inhaler Inhale 2 puffs by mouth every 6 (six) hours if needed for wheezing. Active albuterol 0.63 mg/3 mL nebulizer solution Take 3 mL (0.63 mg total) by nebulization every 6 (six) hours if needed for wheezing. Active atorvastatin (LIPITOR) 80 mg tablet Take 1 tablet (80 mg total) by mouth 1 (one) time each day. for 90 days 5 Active omeprazole (PriLOSEC) [address] capsule Take 1 capsule (20 mg total) by mouth 1 (one) time each day. 5 Active metFORMIN (GLUCOPHAGE) 500 mg tablet Take 2 tablets (1,000 mg total) by mouth 2 (two) times a day with meals. 5 Active melatonin 5 mg tablet Take 1 tablet (5 mg total) by mouth at bedtime. 4 Active lisinopriL (PRINIVIL,ZESTR IL) 20 mg tablet Take 1 tablet (20 mg total) by mouth 1 (one) time each day. for 90 days 5 Active ibuprofen (ADVIL,MOTRIN) 800 mg tablet Take 200 mg by mouth every 6 (six) hours if needed. 5 Active ezetimibe (ZETIA) 10 mg tablet Take 1 tablet (10 mg total) by mouth 1 (one) time each day. 5 Active doxepin (SINEquan) 50 mg capsule Take 1 capsule (50 mg total) by mouth at bedtime. 4 Active brimonidine (ALPHAGAN) 0.2 % ophthalmic solution Administer 1 drop into both eyes 3 (three) times a day. 4 Active Active Problems Problem Noted Date Diagnosed Date Effusion of bursa of left knee 05/04/2024 Glaucoma 05/04/2024 Lichen sclerosus 05/04/2024 Osteoarthritis of right knee 05/04/2024 Obesity 05/04/2024 Pulmonary nodule 05/04/2024 Type II or unspecified type diabetes mellitus with renal manifestations, uncontrolled(250.42) 05/04/2024 Tubular adenoma 05/04/2024 Diverticulitis 05/04/2024 Rectal pain 05/04/2024 Migraine 05/04/2024 Social History Tobacco Use Types Packs/Day Years Used Date Smoking Tobacco: Never Assessed Comments Unknown Sex and Gender Information Value Date Recorded Sex Assigned at Not on file Legal Sex Female 1:10 PM EST Gender Identity Not on file Sexual Orientation Not on file Plan of Treatment Upcoming Encounters Date Type Department Care Team ([facility] st Contact Info) Description 06/13/2024 10:00 AM EDT Consult Orthopedic Surgery - [place] [address] [address] Denny Ashley, MARIAMA [address] [address] Health Maintenance Due Date Last Done Comments Breast Cancer Screening 1960 Diabetes: Annual GFR (Glomer ular Filtration Rate) 1960 Diabetes: Annual Foot Exam 10/17/1971 Diabetes: Annual Retina Eye Exam 10/17/1971 DTaP,Tdap,and Td Vaccines (1 - Tdap) 1980 Pneumococcal Vaccine: 50+ Ye ars (1 of 2 - PCV) 1980 Pneumococcal Vaccine: Pediat rics (0 to 5 Years) and At-Risk Patients (6 to 64 Years) (1 of 2 - PCV) 1980 Cervical Cancer Screening: P ap Smear 1982 Zoster Vaccines (1 of 2) 10/17/2011 COVID-19 Vaccine ( - 2023-2 5 season) 2023 Influenza Vaccine (#1) 2023 Cholesterol Screening (Lipid Panel) 02/18/2024 Colorectal Cancer Screening: Colonoscopy 02/18/2024 Depression Screening 02/18/2024 Diabetes: Annual Urine Albumin-Creatinine Ratio (uACR) 02/18/2024 Diabetes: Blood Sugar Contro l Test (HGBA1C) 02/18/2024 HIV Screening 02/18/2024 Hepatitis C Screening 02/18/2024 Medicare Annual Wellness Visit 02/18/2024 Social Influencers of Health Screening 02/18/2024 RSV Immunization Patients 60 + Years Old (1 - 1-dose 75+ series) 2036 HIB Vaccines Aged Out No longer eligi ble based on patient's age to complete this topic HPV Vaccines Aged Out No longer eligi ble based on patient's age to complete this topic Hepatitis A Vaccines Aged Out No long er eligible based on patient's age to complete this topic Hepatitis B Vaccines Aged Out No long er eligible based on patient's age to complete this topic IPV Vaccines Aged Out No longer eligi ble based on patient's age to complete this topic MMR Vaccines Aged Out No longer eligi ble based on patient's age to complete this topic Meningococcal ACWY Vaccine Aged Out N o longer eligible based on patient's age to complete this topic Meningococcal B Vacine Aged Out No lo nger eligible based on patient's age to complete this topic RSV Immunization Patients Un david 20 months Aged Out No longer eligible b ased on patient's age to complete this topic Varicella Vaccines Aged Out No longer eligible based on patient's age to complete this topic Insurance * Guarantor: Laquita Mackay Account Type Relation to Patient Date of Phone Billing Address Personal/Family Self 1960 [address] [facility] [address] [place] [address] MEDICARE MEDICAID - [place] Care Teams Proration Clerk Relationship Specialty Start Date End Date Ross Marin PA PCP - General Physician Bible Worker 02/18/24
--- OUTSIDE RECORDS SUMMARY | 2024-05-09 13:07 | XMS_ITS | Encounter Summary ---
Author Organization [facility] Address [address] [place] [address] 7 [place] [address] Care Team Providers Care Strategic Partnership Representative Name Role Phone Unavailable Primary Care Provider Unavailabl e Reason for Visit * Reason Comments Dental Exam Patient presents tod ay for comp exam Encounter Details Date Type Department Care Team (Late st Contact Info) Description 04/12/2024 10:00 AM EST Office Visit [facility] ADULT [facility] [address] [place] [address] Mariana Turner DDS [address] [place] [address] Encounter for dental examination (Primary Dx); Hyperactive gag reflex; Fracture of dental mosque; Dental calculus; Bone loss; Gingival and periodontal disease; Teeth missing Social History Tobacco Use Types Packs/Day Years Used Date Smoking Tobacco: Never Passive Smoke Exposure: Never Smokeless Tobacco: Never Tobacco Cessation:Counseling Given: Not Answered Alcohol Use Standard Drinks/Week Comments Never 0 (1 standard drink = 0.6 oz pur e alcohol) Comments Unknown Sex and Gender Information Value Date Recorded Sex Assigned at Female 03/15/2024 12:59 PM EST Legal Sex Female 12:55 PM EDT Gender Identity Female 03/15/2024 12:59 PM EST Sexual Orientation Straight 03/15/2024 12 :59 PM EST documented as of this encounter Last Filed Vital Signs Vital Sign Reading Time Taken Comments Blood Pressure 137/89 04/12/2024 10:11 AM EST Pulse - - Temperature - - Respiratory Rate - - Oxygen Saturation - - Inhaled Oxygen Concentration - - Weight - - Height - - Body Mass Index - - documented in this encounter Progress Notes * Mariana Turner DDS - 04/12/2024 10:00 AM EST Dental procedures in this visit D0150 - COMPREHENSIVE ORAL EVALUATION - NEW OR ESTABLISHED PATIENT (Completed) Service provider: Mariana Turner DDS Billing provider: Mariana Turner DDS D0330 - PANORAMIC RADIOGRAPHIC IMAGE (Completed) Service provider: Mariana Turner DDS Billing provider: Mariana Turner DDS D9450 - ADJUNCTIVE GENERAL SERVICES - PROFESSIONAL VISITS - CASE PRESENTATION, SUBSEQUENT TO DETAILED AND EXTENSIVE TREATMENT PLANNING (Completed) Service provider: Mariana Turner DDS Billing provider: Mariana Turner DDS Patient ID: Laquita Mackay is a 63 y.o. female. Time Out: No data recorded Location: [facility] Tooth: Maxilla and Mandible Procedure: Exam and X-rays Verified the above with patient, first assistant manager, and provider. Confirmed via patient's chart, intraorally and by radiographs. Medical Manager: not applicable Chief Complaint Patient presents with Dental Exam Patient presents today for comp exam Medical Hx: Vitals: Blood pressure 137/89. Past Medical History: Diagnosis Date Anxiety Asthma Medications: Outpatient Encounter Medications as of 04/12/2024 Medication Sig Dispense Refill Melatonin 1 MG capsule Take by mouth. No facility-administered encounter medications on file as of 04/12/2024. Objective HPI Soft Tissue Exam No findings documented this visit Head and Neck Exam: Lymph Nodes, Lips, Palate, Buccal Mucosa, Floor of Mouth, Tongue, Tonsils, Alveolar Ridges, Oropharynx, Salivary Ducts, and Vestibules no significant findings observed OCS: negative Dental Exam Radiographic Interpretation: Associated radiographs for today's visit were reviewed and finding(s) were discussed with the patient. Findings include: dental plaque, dental calculus, missing teeth, hyperactive gaga reflux, Periodontal disease, bone loss Hard Tissue Exam: Fractured restorations/teeth Reference tooth chart for additional findings. Oral Cancer Risk: Low Risk Oral Hygiene Instructions: Gordo two times daily, modified huang technique, Floss daily, Soft bristle toothbrush, Gordo Tongue Caries Risk Assessment: Medium- one risk factor Assessment/Plan : Ext Pad and perio eval Michelle RPDs Patient tolerated procedure well, all questions answered and expressed understanding. Dismissed in good condition. NV: michelle Data Collection Interviewer: Meg Rodríguez Dentist: Mariana Turner DDS documented in this encounter Plan of Treatment Scheduled Orders Name Type Priority Associated Diagnoses Orde r Schedule 20 DO 20 DO RESTORATIVE - RESIN-BASED COMPOSITE RESTORATIONS - DIRECT - RESIN-BASED COMPOSITE - TWO SURFACES, POSTERIOR Dental Routine 1 Occur rences starting 04/12/2024 32 32 EXTRACTION, ERUPTED TOOTH OR EXPOSED ROOT (ELEVATION AND/OR FORCEPS REMOVAL) Dental Routine [address] arting 04/12/2024 2,3,6,7,8,9,10,14 2,3,6,7,8,9,10,14 MAXILLARY PARTIAL DENTURE - RESIN BASE (INCLUDING, RETENTIVE/CLASPING MATERIALS, RESTS, AND TEETH) Dental Routine [address] arting 04/12/2024 18,19,30,31 18,19,30,31 MANDIBULAR PARTIAL DENTURE - RESIN BASE (INCLUDING, RETENTIVE/CLASPING MATERIALS, RESTS, AND TEETH) Dental Routine [address] arting 04/12/2024 31 31 EXTRACTION, ERUPTED TOOTH OR EXPOSED ROOT (ELEVATION AND/OR FORCEPS REMOVAL) Dental Routine [address] arting 04/12/2024 PROPHYLAXIS - ADULT Dental Routine 1 Occ urrences starting 04/12/2024 DENTURE IMPRESSION Dental Routine 1 Occu rrences starting 04/12/2024 BITE REGISTRATION Dental Routine 1 Occur rences starting 04/12/2024 WAX TRY IN Dental Routine 1 Occurrences starting 04/12/2024 documented as of this encounter Procedures Procedure Name Priority Date/Time Associated Diagnosis Comments PANORAMIC RADIOGRAPHIC IMAGE Routine 04/12/2024 10:00 AM EST Encounter for dental examination Hyperactive gag reflex Fracture of dental mosque Dental calculus Bone loss Gingival and periodontal disease Teeth missing COMPREHENSIVE ORAL EVALUATION - NEW OR ESTABLISHED PATIENT Routine 04/12/2024 10:00 AM EST Encounter for dental examination Hyperactive gag reflex Fracture of dental mosque Dental calculus Bone loss Gingival and periodontal disease Teeth missing CASE PRESENTATION, DETAILED AND EXTENSIVE TREATMENT PLANNING Routine 04/12/2024 10:00 AM EST Encounter for dental examination Hyperactive gag reflex Fracture of dental mosque Dental calculus Bone loss Gingival and periodontal disease Teeth missing documented in this encounter Visit Diagnoses Diagnosis Encounter for dental examination- Primary Hyperactive gag reflex Fracture of dental mosque Dental calculus Accretions on teeth Bone loss Other disorders of bone and cartilage Gingival and periodontal disease Unspecified gingival and periodontal disease Teeth missing Acquired absence of teeth, unspecified documented in this encounter
--- OUTSIDE RECORDS SUMMARY | 2024-05-09 13:07 | XMS_ITS | Clinical Summary ---
Author Organization [employer] Address [address] [facility] [address]t [place] [address] Care Team Providers Care Oracle Technical Developer Name Role Phone Unavailable Primary Care Provider Unavailabl e Allergies No known active allergies Medications Melatonin 1 MG capsule Take by mouth. Activ e albuterol 108 (90 Base) MCG/ACT inhaler INHALE 1 PUFF 4 TIMES A DAY NEEDED FOR SHORTNESS OF BREATH OR WHEEZING FOR 30 DAYS 4 Active atorvastatin (Lipitor) 80 MG tablet Take 1 tablet by mouth Once per day. 4 Active brimonidine (AlphaGAN) 0.2 % ophthalmic solution INSTILL 1 DRP INTO THE EYE(S) 3 TIMES A DAY FOR 30 DAYS 4 Active metFORMIN (Glucophage) 500 MG tablet TAKE 2 TABLET BY MOUTH 2 TIMES A DAY FOR 90 DAYS 4 Active lisinopril 20 MG tablet Take 1 tablet by mouth Once per day. 4 Active Mounjaro 2.5 MG/0.5ML solution auto-injector INJECT 2.5 MG (0.5 ML) SUBCUTANEOUSLY WEEKLY FOR 4 WEEKS 5 Active Active Problems No known active problems Encounters Date Type Department Care Team Description 04/12/2024 10:00 AM EST Office Visit [facility] ADULT DENTAL [address] [place] [address] Mariana Turner DDS Encounter for dental examination (Primary Dx); Hyperactive gag reflex; Fracture of dental anabaptism; Dental calculus; Bone loss; Gingival and periodontal disease; Teeth missing from Last 3 Months Social History Tobacco Use Types Packs/Day Years [...] Orientation Straight 03/15/2024 12 :59 PM EST Last Filed Vital Signs Vital Sign Reading Time Taken Comments Blood Pressure 137/89 04/12/2024 10:11 AM EST Pulse - - Temperature - - Respiratory Rate - - Oxygen Saturation - - Inhaled Oxygen Concentration - - Weight - - Height - - Body Mass Index - - Plan of Treatment Health Maintenance Due Date Last Done Comments CT Colonography 1961 Colonoscopy 1961 Colorectal Cancer Screening 1961 Dental Prophylaxis 1961 Dental X-Ray: Bitewings 1961 Depression Screening 1961 FIT DNA/Cologuard 1961 FIT 1961 FOBT 1961 HIV Screening 1961 SDOH Screening 1961 Sigmoidoscopy 1961 Alcohol/Substance Use Screening 1973 Hepatitis C Screening 10/17/1979 Pap Smear 1982 Cervical Cancer Screening 10/17/1991 HPV/Cotest 10/17/1991 Mammogram 2001 Zoster Vaccines (1 of 2) 10/17/2011 Pneumococcal Vaccine: 50+ Years (2 of 2 - PCV) 11/30/2018 11/30/2017 COVID-19 Vaccine ( - 2023-2 5 season) 2023 Influenza Vaccine (#1) 2023 0, 11/30/2017 Dental Oral Exam 10/11/2024 04/12/2024 Tobacco Screening 04/12/2025 04/12/2024 Dental X-Ray: Full Mouth 04/13/2027 04/12/2024 DTaP/Tdap/Td Vaccines (2 - T d or Tdap) 10/09/2031 10/08/2021 RSV Patients and Patients Aged 60 years or older (1 - 1-dose 75+ series) 2036 HIB [...] patient's age to complete this topic Meningococcal Vaccine Aged Out No carolina nikki eligible based on patient's age to complete this topic RSV under 20 months Aged Out No longe r eligible based on patient's age to complete this topic Rotavirus Vaccines Aged Out No longer eligible based on patient's age to complete this topic Procedures Procedure Name Priority Date/Time Associated Diagnosis Comments CASE PRESENTATION, DETAILED AND EXTENSIVE TREATMENT PLANNING Routine 04/12/2024 10:00 AM EST Encounter for dental examination Hyperactive gag reflex Fracture of dental anabaptism Dental calculus Bone loss Gingival and periodontal disease Teeth missing PANORAMIC RADIOGRAPHIC IMAGE Routine 04/12/2024 10:00 AM EST Encounter for dental examination Hyperactive gag reflex Fracture of dental anabaptism Dental calculus Bone loss Gingival and periodontal disease Teeth missing COMPREHENSIVE ORAL EVALUATION - NEW OR ESTABLISHED PATIENT Routine 04/12/2024 10:00 AM EST Encounter for dental examination Hyperactive gag reflex Fracture of dental anabaptism Dental calculus Bone loss Gingival and periodontal disease Teeth missing from Last 3 Months Insurance [facility] STAND ADULT
--- OUTSIDE RECORDS SUMMARY | 2024-05-09 13:07 | XMS_ITS | Continuity of Care Document ---
Author Organization [facility] vices Address [address] [place] [address] Phone Care Team Providers Care Account Services Coordinator Name Role Phone Unavailable Unavailable Unavailable Procedures Procedure Date FOCUSED OUT/PT FOCUSED OUT/PT EXPANDED OUT/PT EXPANDED OUT/PT [facility] [address] - [facility] Advance Directives Directive Yes / No Effective Date File Name No Information Encounters Encounter Description Practice Location Reason(s) For Visit Diagnoses Date Provider Providers Copied on Encounter FOCUSED OUT/PT [facility], [address] [place] [address], [facility], tel:[phone] [facility] Adult Medicine No Information 8 8 No Information [facility], [address] [place] [address], [facility], tel:[phone] Conversion EDUCATIONAL CIRCUMSTANCES 8 8 No Information [facility], [address] [place] [address], [facility], tel:[phone] Conversion DIETARY COUNSELINGHYP ERLIPIDEMIA, MIXEDFATIGUE/ MALAISEPAIN IN JOINT INVOLVING MULTIPLE SITES 0 6 8 No Information FOCUSED OUT/PT [facility], [address] [place] [address], [facility], [place] tel:[phone] [facility] Adult Medicine No Information 0 6 8 No Information EXPANDED OUT/PT [facility], [address] [place] [address], [facility], [place] tel:[phone] [facility] Adult Medicine No Information Oct-2 5200 8 No Information EXPANDED OUT/PT [facility], [address] [place] [address], [facility], [place] tel:[phone] [facility] No Information Oct- 8 No Information [facility], [address] [place], [address], tel:[phone] Conversion UNSPECIFIED SYMPTOM ASSOCIATED WITH FEMALE GENITAL ORGANS Sep-2 8 No Information [facility] Level 4 - Comprehensive [facility], [address] [place], [address], [place] tel:[phone] [facility] Adult Medicine No Information Oct- 8 No Information [facility], [address] [place], [address], [place] tel:[phone] Conversion ASTHMA UNSPECIFIEDRA SH - NONSPECIFIC Oct- 8 No Information Family History Family Member Type Diagnosis Age At Onset No Information Payers Payer name Insurance type Covered democrat ID Authoriza tion(s) No Information Social History [...]
== END 2024-05-09 11:23 | disposition home or self-care (01) ==
LOC: HO.HMCH 10:49
PROVIDERS: PCP Physician Assistant; Visit Provider Physician Assistant
DX: E11.65 Type 2 diabetes mellitus with hyperglycemia (principal); F33.1 Major depressive disorder, recurrent, moderate; E66.811 Obesity, class 1; Z68.34 Body mass index [BMI] 34.0-34.9, adult; J45.40 Moderate persistent asthma, uncomplicated; G47.33 Obstructive sleep apnea (adult) (pediatric); M25.562 Pain in left knee; G89.29 Other chronic pain

== ENCOUNTER → 2024-05-09 10:49 | Outpatient (BNVA) | payer MEDICARE, MEDICAID, SELFPAY | PROVIDERS: PCP Physician Assistant; Visit Provider Physician Assistant | DX: E11.65 Type 2 diabetes mellitus with hyperglycemia (principal); J45.40 Moderate persistent asthma, uncomplicated; G47.33 Obstructive sleep apnea (adult) (pediatric); E66.811 Obesity, class 1; Z68.34 Body mass index [BMI] 34.0-34.9, adult; M25.562 Pain in left knee; G89.29 Other chronic pain; F33.1 Major depressive disorder, recurrent, moderate; Z71.3 Dietary counseling and surveillance | CPT/HCPCS: 83036; 96127; 99212 ==

== ENCOUNTER 2024-05-15 10:35 | Outpatient (AMB) | payer MEDICARE, MEDICAID, SELFPAY ==
[2024-05-15 10:51] VITALS: BP 150/80; PULSE 90; TEMP 37.8; O2SAT 97; BMI 34.7
--- NOTE | 2024-05-15 10:51 | AM.OFFWIN_ITS ---
Intake Vital Signs 05/15/24 10:51 Height 5 ft 6 in Weight 215 lb BMI 34.7 BP 150/80 H Blood Pressure Location Lt brachial Position Sitting Pulse 90 Pulse Source Pulse Oximeter Temp 100.1 F Temp Source Oral Pulse Oximetry (%) 97 Intake Visit Reasons: EP Headache, throat, chest discomfort, cough Intake Note: pt is here for headache, cough, body pain, chest congestion which is affecting her asthma, fever Patient Tobacco Use Status: Never used Tobacco Accompanied by: Self / Same As Patient Allergies No Known Allergies [No Known Allergies*] Allergy (Verified 05/15/24 10:52) Do you need a note to return to daycare/school/sports/work: No HPI HPI Comments History of Present Illness Details 63 y/o female patient who presents to [facility] with c/o URI symptoms for 3-4 days now. Reports coughing, chest tightness, wheezing, SOB, generalized Body aches and fevers at home. [facility] Medical History (Updated 05/15/24 @ 11:49 by Bibiana Alba NP) Cough Acute respiratory disease Effusion, left knee History of adenomatous polyp of colon Seasonal allergies Glaucoma Lichen sclerosus Osteoarthritis of right knee COVID-19 vaccine administered Obesity (BMI 30-39.9) Alcohol abuse Pulmonary nodule Hypercholesterolemia Type 2 diabetes mellitus with hyperglycemia Tubular adenoma Diverticulosis Rectal pain Migraine Arthritis Depression Sleep apnea Asthma HTN (hypertension) Surgical History Status post bilateral knee replacements History of total left knee replacement (TKR) (~07/2022) History of total right knee replacement History of colonoscopy H/O rectal polypectomy History of tubal ligation History of tooth extraction History of incisional hernia repair Hx of appendectomy Hx of cataract extraction Hx of cholecystectomy Family History Father History of ETOH abuse Substance use disorder Mother Benign tumor Brother Acute CVA (cerebrovascular accident) Brother CAD (coronary artery disease) Prostate cancer Social History Household Members: Children Housing: Apartment Are you a primary child caregiver to a significant other at home: No Do you presently have visiting nurse or other home services: Yes (2[employer] 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 TEACHER daughter Fidel) Alcohol intake: current Alcohol intake frequency: holidays/special occasions only Patient Tobacco Use Status: Never used Tobacco e-Cigarette/Vaping Use: Never Used Second Hand Smoke Exposure: No service: No Current occupational status: unemployed Current occupation: rt handed Cognitive needs: No Hearing needs: No Vision needs: No Female Reproductive History Menstrual Age of Menarche: 12 Review of Systems Const All systems reviewed & are unremarkable except as noted in HPI and below Physical Exam Vital Signs: Last Vital Signs Temp 100.1 F 05/15/24 10:51 Pulse 90 05/15/24 10:51 BP 150/80 H 05/15/24 10:51 Pulse Ox 97 05/15/24 10:51 BMI result Body Mass Index 34.7 Const General: cooperative and no acute distress; No comfortable Nutritional Appearance: obese Orientation/consciousness: patient oriented x3 HEENT Head: Yes normocephalic Ears: external ears normal and TM abnormal with fluid behind the TM bilateral General nose exam: Nasal discharge present Face and sinus: Yes sinus tenderness Mouth: moist mucous membranes Throat: Yes uvula midline Resp Effort & Inspection: normal respiratory effort and able to speak in complete sentences Auscultation: clear to auscultation bilaterally, no crackles, no rales, no rhonchi and no wheezes Cardio Heart sounds: S1 normal heart sound present and S2 normal heart sound present Neuro General: patient oriented x3 Assessment & Plan Assessment & Plan (1) Acute respiratory disease: Code(s): J06.9 - Acute upper respiratory infection, unspecified Plan: Ordered SARs (2) Cough: Code(s): R05.9 - Cough, unspecified Qualifiers: Cough type: acute Qualified Code(s): R05.1 - Acute cough Plan: Ordered Cough medicine OTC cold/cough remedies Rest and hydrate well. Orders: Orders SARS-CoV2/FLU/RSV Today J06.9 - Acute upper respiratory infection, unspecified Medications: New benzonatate 200 mg (2 x 100 mg) PO BID 60 caps 0RF cough R05.9 - Cough, unspecified dextromethorphan polistirex ER (Delsym 12 hour) 10 mL PO Q12H 89 mL 0RF cough J06.9 - Acute upper respiratory infection, unspecified Coding Level of Care Code Est Pt Level 4 (52305) Diagnoses Acute respiratory disease J06.9 Acute cough R05.1 Cough type: acute Time Spent (min) 20
--- OUTSIDE RECORDS SUMMARY | 2024-05-15 11:59 | XMS_ITS | Continuity of Care Document ---
Author Organization [facility] vices Address [address] [place] [address] Phone Care Team Providers Care Press Feeder Broomcorn Name Role Phone Unavailable Unavailable Unavailable Procedures Procedure Date FOCUSED OUT/PT FOCUSED OUT/PT EXPANDED OUT/PT EXPANDED OUT/PT [facility] 4 - [facility] Advance Directives Directive Yes / No Effective Date File Name No Information Encounters Encounter Description Practice Location Reason(s) For Visit Diagnoses Date Provider Providers Copied on Encounter FOCUSED OUT/PT [facility], [address] [place] [address], [facility], tel:[phone] [facility] Adult Medicine No Information 8 8 No Information [facility], [address] [place] [address], [facility], tel:[phone] Conversion EDUCATIONAL CIRCUMSTANCES 8 8 No Information [facility], [address] [place] [address], [facility], tel:[phone] Conversion DIETARY COUNSELINGHYP ERLIPIDEMIA, MIXEDFATIGUE/ MALAISEPAIN IN JOINT INVOLVING MULTIPLE SITES 0 6 8 No Information FOCUSED OUT/PT [facility], [address] [place] [address], [facility], [place] tel:[phone] [facility] Adult Medicine No Information 0 6 8 No Information EXPANDED OUT/PT [facility], [address] [place] [address], [facility], [place] tel:[phone] [facility] Adult Medicine No Information Oct-2 5200 8 No Information EXPANDED OUT/PT [facility], [address] [place] [address], [facility], [place] tel:[phone] [facility] No Information Oct- 8 No Information [facility], [address] [place], [address], tel:[phone] Conversion UNSPECIFIED SYMPTOM ASSOCIATED WITH FEMALE GENITAL ORGANS Sep-2 8 No Information [facility] Level 4 - Comprehensive [facility], [address] [place], [address], [place] tel:[phone] [facility] Adult Medicine No Information Oct- 8 No Information [facility], [address] [place], [address], [place] tel:[phone] Conversion ASTHMA UNSPECIFIEDRA SH - NONSPECIFIC Oct- [...]
--- OUTSIDE RECORDS SUMMARY | 2024-05-15 11:59 | XMS_ITS | Clinical Summary ---
Author Organization [facility] Address [address] [place] [address] Phone Care Team Providers Care Water Truck Driver Name Role Phone Ross Marin Primary Care [...] Upcoming Encounters Date Type Department Care Team ([facility] st Contact Info) Description 06/13/2024 10:00 AM EDT Consult Orthopedic Surgery - [place] [address] [address] Denny Ashley, MARIAMA [address] [address] Health Maintenance Due Date Last Done Comments [...] Phone Billing Address Personal/Family Self 1960 [address] [facility] [address] [place] [address] MEDICARE MEDICAID - [place] Care Teams Water Truck Driver Relationship Specialty Start Date End Date Ross Marin PA PCP - General Physician Bevel Gear Generator Operator 02/18/24
--- OUTSIDE RECORDS SUMMARY | 2024-05-15 11:59 | XMS_ITS | Clinical Summary ---
Author Organization [employer] Address [address] [facility] [address] [place] [address] Care Team Providers Care Pricing/Signage Team Member Name Role Phone Unavailable Primary Care Provider [...] Description 04/12/2024 10:00 AM EST Office Visit [facility] ADULT D[facility] [address] [place] [address] Mariana Turner DDS Encounter for dental examination (Primary Dx); Hyperactive gag reflex; Fracture of dental mormon; Dental calculus; Bone loss; Gingival and periodontal [...] Mass Index - - Plan of Treatment Upcoming Encounters Date Type Department Care Team (Late st Contact Info) Description 06/22/2024 10:30 AM EDT [facility] Visit [facility] [address] [place], [place] [phone] Levar Taylor, DDS [address] [place], [place] [phone] Health Maintenance Due Date Last Done Comments CT Colonography 1961 Colonoscopy 1961 Colorectal Cancer Screening 1961 Dental Prophylaxis 1961 Dental X-Ray: Bitewings 1961 Depression Screening 1961 FIT DNA/Cologuard 1961 FIT 1961 FOBT 1961 HIV Screening 1961 Lipid Panel 1961 SDOH Screening 1961 Sigmoidoscopy 1961 Alcohol/Substance Use Screening 1973 Hepatitis C Screening 10/17/1979 Pap Smear 1982 Cervical Cancer Screening 10/17/1991 HPV/Cotest 10/17/1991 Mammogram 2001 Zoster Vaccines (1 of 2) 10/17/2011 Pneumococcal Vaccine: 50+ Years (2 of 2 - PCV) 11/30/2018 11/30/2017 COVID-19 Vaccine (1 - 2023-2 5 season) 2023 Influenza Vaccine (#1) 2023 , 11/30/2017 Dental Oral Exam 10/11/2024 04/12/2024 Tobacco [...] examination Hyperactive gag reflex Fracture of dental mormon Dental calculus Bone loss Gingival and periodontal disease Teeth missing PANORAMIC RADIOGRAPHIC IMAGE Routine 04/12/2024 10:00 AM EST Encounter for dental examination Hyperactive gag reflex Fracture of dental mormon Dental calculus Bone loss Gingival and periodontal disease Teeth missing COMPREHENSIVE ORAL EVALUATION - NEW OR ESTABLISHED PATIENT Routine 04/12/2024 10:00 AM EST Encounter for dental examination Hyperactive gag reflex Fracture of dental mormon Dental calculus Bone loss Gingival and periodontal disease Teeth missing from Last 3 Months Insurance [facility] MEDICAID STAND ADULT
== END 2024-05-15 11:47 | disposition home or self-care (01) ==
PROVIDERS: PCP Physician Assistant; Visit Provider Nurse Practitioner Family
DX: J06.9 Acute upper respiratory infection, unspecified (principal); R05.1 Acute cough

== ENCOUNTER 2024-05-15 10:35 | Outpatient (REF) | payer MEDICARE, MEDICAID, SELFPAY ==
--- OUTSIDE RECORDS SUMMARY | 2024-05-15 14:00 | XMS_ITS | Clinical Summary ---
Author Organization [facility] Address [address] [place] [address] Phone Care Team Providers Care Golf Starter And Ranger Name Role Phone Ross Marin Primary Care [...] Upcoming Encounters Date Type Department Care Team ([facility] st Contact Info) Description 06/13/2024 10:00 AM EDT Consult Orthopedic Surgery - [place] [address] [address] Denny Ashley, MARIAMA [address] [address] Health Maintenance Due Date Last Done Comments [...] Phone Billing Address Personal/Family Self 1960 [address] [facility] [address] [place] [address] MEDICARE MEDICAID - [place] Care Teams Golf Starter And Ranger Relationship Specialty Start Date End Date Ross Marin PA PCP - General Physician Healthcare Receptionist 02/18/24
--- OUTSIDE RECORDS SUMMARY | 2024-05-15 14:00 | XMS_ITS | Continuity of Care Document ---
Author Organization [facility] Address [address] [place] [address] Phone Care Team Providers Care Security Threat Analyst Name Role Phone Unavailable Unavailable Unavailable Procedures Procedure Date FOCUSED OUT/PT FOCUSED OUT/PT EXPANDED OUT/PT EXPANDED OUT/PT [facility] Advance Directives Directive Yes / No Effective Date File Name No Information Encounters Encounter Description Practice Location Reason(s) For Visit Diagnoses Date Provider Providers Copied on Encounter FOCUSED OUT/PT [facility], [address] [place] [address], [facility], tel:[phone] [facility] Adult Medicine No Information 8 8 No Information [facility], [address] [place] [address], [facility], tel:[phone] Conversion EDUCATIONAL CIRCUMSTANCES 8 8 No Information [facility], [address] [place] [address], [facility], tel:[phone] Conversion DIETARY COUNSELINGHYP ERLIPIDEMIA, MIXEDFATIGUE/ MALAISEPAIN IN JOINT INVOLVING MULTIPLE SITES 0 6 8 No Information FOCUSED OUT/PT [facility], [address] [place] [address], [facility], [place] tel:[phone] [facility] Adult Medicine No Information 0 6 8 No Information EXPANDED OUT/PT [facility], [address] [place] [address], [facility], [place] tel:[phone] [facility] Adult Medicine No Information Oct-2 5200 8 No Information EXPANDED OUT/PT [facility], [address] [place] [address], [facility], [place] tel:[phone] [facility] No Information Oct- 8 No Information [facility], [address] [place], [address], tel:[phone] Conversion UNSPECIFIED SYMPTOM ASSOCIATED WITH FEMALE GENITAL ORGANS Sep-2 8 No Information [facility] Level 4 - Comprehensive [facility], [address] [place], [address], [place] tel:[phone] [facility] Adult Medicine No Information Oct- 8 No Information [facility], [address] [place], [address], [place] tel:[phone] Conversion ASTHMA UNSPECIFIEDRA SH - NONSPECIFIC Oct- [...]
--- OUTSIDE RECORDS SUMMARY | 2024-05-15 14:00 | XMS_ITS | Clinical Summary ---
Author Organization [employer] Address [address] [facility] [address] [place] [address] Care Team Providers Care Nonprofit Fundraiser Name Role Phone Unavailable Primary Care Provider [...] Description 04/12/2024 10:00 AM EST Office Visit [facility] [address] [place] [address] Mariana Turner DDS Encounter for dental examination (Primary Dx); Hyperactive gag reflex; Fracture of dental moravian; Dental calculus; Bone loss; Gingival and periodontal [...] EDT Office Visit [facility] [address] [place], [place] [phone] Levar Taylor, DDS [address] [place], [place] [phone] Health Maintenance Due Date Last Done Comments [...] examination Hyperactive gag reflex Fracture of dental moravian Dental calculus Bone loss Gingival and periodontal disease Teeth missing PANORAMIC RADIOGRAPHIC IMAGE Routine 04/12/2024 10:00 AM EST Encounter for dental examination Hyperactive gag reflex Fracture of dental moravian Dental calculus Bone loss Gingival and periodontal disease Teeth missing COMPREHENSIVE ORAL EVALUATION - NEW OR ESTABLISHED PATIENT Routine 04/12/2024 10:00 AM EST Encounter for dental examination Hyperactive gag reflex Fracture of dental moravian Dental calculus Bone loss Gingival and periodontal disease Teeth missing from Last 3 Months Insurance D[facility]AL-[facility] MEDICAID STAND ADULT
[2024-05-15 14:28] LABS: Influenza A PCR NEGATIVE (Negative); Influenza B PCR NEGATIVE (Negative); Resp Syncy Virus RNA Qual PCR POSITIVE (Negative); SARS COV2 PCR INHOUSE NEGATIVE (Negative)
== END 2024-05-15 10:36 | disposition home or self-care (01) ==
LOC: HO.LAB 10:35
PROVIDERS: Nurse Practitioner Family; PCP Physician Assistant
DX: J06.9 Acute upper respiratory infection, unspecified (principal); R05.1 Acute cough
CPT/HCPCS: 0241U; 99212

== ENCOUNTER 2024-05-26 15:08 | Emergency (ER) | payer MEDICARE, MEDICAID, SELFPAY ==
--- NOTE | ~2024-05-26 | XR_ITS ---
CLINICAL HISTORY: pain, cough Two views of the chest. COMPARISON: None FINDINGS: Normal heart and mediastinal contours. No consolidation. No pleural effusion or pneumothorax. Mild spondylosis. No fracture identified. IMPRESSION: 1. No consolidation. This document has been electronically signed by: Martin Cope MD on 05/26/2024 18:14:56
--- NOTE | ~2024-05-26 | CT_ITS ---
CLINICAL HISTORY: epigast LUQ pain, TTP, vomiting CT abdomen and pelvis with IV contrast. COMPARISON: None FINDINGS: Partially visualized lung bases are unremarkable. No focal hepatic lesion. Cholecystectomy. Normal spleen. Normal pancreas. Normal adrenal glands. Symmetric renal enhancement. Right renal cystic lesion measuring 1.8 cm. No hydronephrosis. Appendix is not seen. Mild distal colonic diverticulosis without evidence of diverticulitis. No mesenteric or retroperitoneal lymphadenopathy. Normal abdominal aorta. Urinary bladder is unremarkable given degree of distention. Lobulated uterine contour suggestive of a fibroid uterus. No adnexal mass. Small fat containing supraumbilical ventral abdominal wall hernia with fascial defect measuring 1.3 x 1.4 cm. [id number] lower lumbar spondylosis. No acute fracture identified. IMPRESSION: 1. No cause for patient's symptoms identified. No evidence of renal obstruction. No bowel obstruction. 2. Small fat containing supraumbilical hernia with fascial defect measuring 1.3 x 1.4 cm. 3. Mild distal colonic diverticulosis without evidence of diverticulitis. This document has been electronically signed by: Martin Cope MD on 05/26/2024 19:32:42
--- NOTE | 2024-05-26 15:09 | ED_ITS ---
HPI - General Adult General Chief complaint: General Medical Stated complaint: chest and abd pain Time Seen by Provider: 05/26/24 17:16 Source: patient Mode of arrival: ambulatory Limitations: no limitations History of Present Illness ED Provider: norman orellana np HPI narrative: Patient is a 63-year-old female with past medical history of type 2 diabetes, hypertension, asthma, LEONARDO, migraines, hypercholesterolemia, pulmonary nodules, osteoarthritis, obesity, glaucoma, depression, chronic pain syndrome who presents emergency department for evaluation. Reports at approximately 10:00 this morning she developed epigastric/left upper quadrant mid left lateral abdominal pain. She had 2 episodes of vomiting described as being very dark or black in color. She does report that about an hour previous she had crackers and a dark lupe beverage to drink she is not certain if this is what caused the color of her emesis. she denies associated genitourinary symptoms, constipation, diarrhea, hematochezia, melena, [id number] Pepto-Bismol usage. She also admits that she is experiencing diffuse pain throughout her chest that exacerbates with cough and deep inspiration this has been ongoing since she tested positive for RSV and states it is not changed more worsened today. She tested positive for RSV on 05/15/2024. Related Data Home Medications ?Medication ?Instructions ?Recorded ?Confirmed tizanidine 2 mg tablet 2 mg PO Q8H PRN Muscle Pain 08/16/23 05/09/24 Previous Rx's ?Medication ?Instructions ?Recorded [facility] 07/20/22 Lite Meter kit) diclofenac sodium 1 % topical gel 4 g topical QID 30 days #240 grams 07/20/22 fluticasone 232 mcg-salmeterol 14 1 inh inhalation BID Wheezing 30 07/20/22 mcg/actuation breath activated days #1 ea powdr (AirDuo RespiClick) acetaminophen 500 mg tablet 500 mg PO Q6H PRN fever 15 days 04/01/23 #60 tabs cyanocobalamin (vitamin B-12) 1,000 mcg PO DAILY 90 days #90 tabs 04/06/23 1,000 mcg tablet (Vitamin B-12) montelukast 10 mg tablet 10 mg PO BEDTIME #90 tabs 04/06/23 (Singulair) sertraline 50 mg tablet 50 mg PO DAILY 90 days #90 tabs 04/06/23 clobetasol 0.05 % topical cream 1 appl topical .x2/week 6 months 07/14/23 #45 grams atorvastatin 80 mg tablet 80 mg PO DAILY 90 days #90 tabs 10/19/23 lisinopril 20 mg tablet 20 mg PO DAILY 90 days #90 tabs 10/19/23 metformin 500 mg tablet 1,000 mg (2 x 500 mg) PO BID 90 10/19/23 days #360 tabs Rollator walker with seat #1 ea 12/10/23 walker (Ultra-Light Rollator misc) #1 ea 01/31/24 CPAP (CPAP Machine/Device) #1 ea 02/15/24 albuterol sulfate 90 mcg/actuation 1 inh inhalation QID PRN shortness 02/15/24 aerosol inhaler of breath or wheezing 30 days #8.5 grams brimonidine 0.2 % eye drops 1 drp ophthalmic (eye) TID 30 days 02/15/24 #10 mL ezetimibe 10 mg tablet (Zetia) 10 mg PO DAILY 90 days #90 tabs 04/27/24 omeprazole 20 mg capsule,delayed 20 mg PO DAILY 90 days #90 caps 04/27/24 release blood sugar diagnostic (FreeStyle #100 ea 04/28/24 Lite Strips) tirzepatide 5 mg/0.5 mL 5 mg (0.5 mL) subcut QWEEK 4 weeks 05/01/24 subcutaneous pen injector #2 mL (Grayson) benzonatate 100 mg capsule 200 mg (2 x 100 mg) PO BID cough 05/15/24 #60 caps dextromethorphan polistirex 30 10 ml PO Q12H cough #89 mL 05/15/24 mg/5 mL oral susp ext.release 12hr (Delsym 12 hour) prednisone 10 mg tablet 10 mg PO DIRECTED 9 days #18 05/23/24 tabs famotidine 40 mg tablet (Pepcid) 40 mg PO DAILY 14 days #14 tabs 05/26/24 CPap mask #1 ea 05/27/24 albuterol sulfate 0.63 mg/3 mL 0.63 mg (3 mL) inhalation Q4-6H 05/27/24 solution for nebulization PRN Wheezing 30 days #90 mL ibuprofen 800 mg tablet 800 mg PO Q8H PRN pain 15 days #45 05/27/24 tabs melatonin 5 mg tablet 5 mg PO BEDTIME 90 days #90 tabs 05/27/24 Allergies Allergy/AdvReac Type Severity Reaction Status Date / Time No Known Allergies Allergy Verified 05/26/24 15:29 [No Known Allergies*] Review of Systems 2 Review of Systems: Yes all other systems are reviewed and are negative [facility] Past Medical History Attestation statement: The following information was validated with the patient. Source: old records reviewed Medical History (Updated 05/27/24 @ 00:01 by Elena Flood) Cough Acute respiratory disease Effusion, left knee History of adenomatous polyp of colon Seasonal allergies Glaucoma Lichen sclerosus Osteoarthritis of right knee COVID-19 vaccine administered Obesity (BMI 30-39.9) Alcohol abuse Pulmonary nodule Hypercholesterolemia Type 2 diabetes mellitus with hyperglycemia Tubular adenoma Diverticulosis Rectal pain Migraine Arthritis Depression Sleep apnea Asthma HTN (hypertension) Surgical History Status post bilateral knee replacements History of total left knee replacement (TKR) (~07/2022) History of total right knee replacement History of colonoscopy H/O rectal polypectomy History of tubal ligation History of tooth extraction History of incisional hernia repair Hx of appendectomy Hx of cataract extraction Hx of cholecystectomy Family History Family History Father History of ETOH abuse Substance use disorder Mother Benign tumor Brother Acute CVA (cerebrovascular accident) Brother CAD (coronary artery disease) Prostate cancer Social History Social History Household Members: Children Housing: Apartment Are you a primary career coach to a significant other at home: No Do you presently have visiting nurse or other home services: Yes (WATER RESOURCES TECHNICAL OFFICER daughter Fidel) Alcohol intake: former Patient Tobacco Use Status: Never used Tobacco Smoked in Last 30 Days: No e-Cigarette/Vaping Use: Never Used Second Hand Smoke Exposure: No Use of substances other than those prescribed or required for medical reasons: No Advance Directives: No Advance Directives Information Provided: No service: No Current occupational status: unemployed Current occupation: rt handed Cognitive needs: No Hearing needs: No Vision needs: No Physical Exam ED Vital Signs: Vital Signs - 24 hr 05/26/24 15:24 05/26/24 20:13 Temperature 98.5 F 98.5 F Pulse Rate 88 73 Respiratory Rate 18 16 Blood Pressure 166/52 H 171/83 H Pulse Oximetry 99 97 Oxygen Delivery Method Room Air Room Air BMI result Body Mass Index 35.0 Appearance: Alert.?Oriented to person, place and time. No acute distress.?Normal affect. Eyes: Pupils equal, round and reactive to light.? ENT: Pharynx normal.?? Neck: Normal inspection.? Neck supple.??No JVD. CVS: Heart sounds normal. Normal heart rate and rhythm.? Pulses normal.?? Respiratory: No respiratory distress.? Lung sounds clear to auscultation bilaterally?? Abdomen: Soft With epigastric, left upper quadrant/ left mid abdominal tenderness upon palpation. Normoactive bowel sounds. No pulsatile mass.?? Skin: Skin warm and dry.? Normal skin color.? ?? Extremities: No lower extremity edema.? Neuro: Moves all extremities spontaneously. Sensation intact bilaterally. CN II- XII intact. No focal neuro deficits. Ambulates with normal steady gait. Course Course Course Narrative: RME, this is a rapid medical exam performed by Torres Samson please refer to primary provider for complete H&P- this 63-year-old female with past medical history significant for bronchitis, obesity, chronic pain syndrome, gastritis, depression, anxiety presents for evaluation of chest pain that radiates to her abdomen. The pain started at 10:00 a.m. this morning. Plan for labs, EKG was performed on arrival. It shows a normal sinus rhythm. No obvious ischemic changes. Reevaluation(s) Reevaluation #1: CBC reveals a mild leukocytosis 13,100 with left shift no anemia or thrombocytopenia. No electrolyte derangement. No EDVIN. LFTs unremarkable. High sensitive troponin below detectable limits x2 and EKG is without acute ischemic findings. Given onset of pain this morning will obtain delta troponin. BNP is normal not consistent with CHF and clinically without signs of volume overload. LFTs and lipase are within normal range. Viral serologies are negative. chest x-ray on my review is without consolidation or infiltrate. urinalysis shows trace microscopic hematuria otherwise without signs of infection. Time: 18:32 Reevaluation #2: Patient signed out to N. Jose P.A. pending CT of the abdomen and pelvis and re-evaluation/ disposition Time: 19:00 Reevaluation #3: Patient's abdominal CT scan came back negative for any acute etiologies. Patient not having any rectal bleeding or vomiting blood. Patient will be discharged with Pepcid. Patient not in any distress. Time: 20:59 Medications Administered Discontinued Medications Generic Name Dose Route Start Last Admin Trade Name Branq PRN Reason Stop Dose Admin Al Hydroxide/Mg Hydroxide 30 ml 05/26/24 18:12 05/26/24 18:32 Magnesium Hydrox/Alum Hydrox 30 Ml Oral.Susp PO 05/26/24 18:13 30 ml ONCE ONE Administration Sodium Chloride 1,000 mls @ 999 mls/hr 05/26/24 18:00 05/26/24 19:20 Ns IV 05/26/24 19:00 Infused .Q1H1M JENS Infusion Iohexol 100 ml 05/26/24 18:55 05/26/24 18:56 Iohexol 350 Mg/Ml 100 Ml Infus..Btl IV 05/26/24 18:56 100 ml ONCE ONE Administration Lidocaine HCl 15 ml 05/26/24 18:12 05/26/24 18:32 Lidocaine Hcl Viscous 2 % 15 Ml Solution MUCOUS MEM 05/26/24 18:13 15 ml ONCE ONE Administration Morphine Sulfate 2 mg 05/26/24 17:56 05/26/24 18:17 Morphine Sulfate 2 Mg/Ml Cartridge IVPUSH 05/26/24 17:57 2 mg ONCE ONE Administration Protocol Ondansetron HCl 4 mg 05/26/24 17:56 05/26/24 18:17 Ondansetron Hcl 4 Mg/2 Ml Vial IVPUSH 05/26/24 17:57 4 mg ONCE ONE Administration Sucralfate 1 gm 05/26/24 21:05 05/26/24 21:10 Sucralfate Oral Suspension 1 Gm/10 Ml Oral.Susp PO 05/26/24 21:06 1 gm ONCE ONE Administration Medical Decision Making Medical Decision Making MDM Narrative: Patient is a 63-year-old female with past medical history of type 2 diabetes, hypertension, asthma, LEONARDO, migraines, hypercholesterolemia, pulmonary nodules, osteoarthritis, obesity, glaucoma, depression, chronic pain syndrome who presents to the emergency department for evaluation with complaint of chest pain. No evidence of volume overload or shock on exam. EKG without signs of acute ischemia. EKG without evidence of STEMI Reveals a normal sinus rhythm with ventricular rate of 83, QTC of 439. Low suspicion for acute PE (Wells low risk), pneumothorax, thoracic aortic dissection, cardiac effusion / tamponade. No recent trauma or injury, no tracheal deviation, unlikely tension pneumothorax. Given her recent RSV infection URI symptoms, may potentially be persistent viral infection, bronchitis, pneumonia, costochondritis, obtaining CXR. no right upper quadrant tenderness upon palpation lower suspicion for acute cholecystitis choledocholithiasis. Localized pain over the epigastrium and left upper quadrant reviewed possibility for gastritis, she endorses a dark-colored emesis which may be secondary to the beverage that she drank versus hematemesis, given history of gastritis, reviewed possibility for PUD. She is additionally a diabetic, denies any excessive alcohol consumption, however symptoms may be secondary to acute pancreatitis. obtaining CT AP. Did discuss with the patient potential for muscular etiology given her recent excess of cough. Will obtain CBC to evaluate for leukocytosis/ anemia, CMP and lipase to evaluate for abnormal electrolytes /abnormal renal function/ abnormal hepatic/biliary function, EKG and troponin to evaluate for ischemia/ACS. Chest x-ray to evaluate for consolidation/ infiltrate/ mass/ pulmonary congestion, ASA, pain control and reassessment Differential Diagnosis Differential Diagnoses: The differential diagnosis associated with the presentation includes (See narrative above) Admission/Observation Consideration of admission/observation: Escalation of care including admission/observation considered (See narrative above and course narrative for further detail) Lab Data MDM Lab Attestation statement: I reviewed the patient's lab results. ( See course narrative) 05/26/24 15:22 05/26/24 15:22 Labs: Lab Results 05/26/24 05/26/24 05/26/24 Range/Units 15:21 15:22 18:01 WBC 13.1 H (4.8-10.8) X10*3/uL RBC 5.30 (4.20-5.50) X10*6/uL Hgb 14.9 (12.0-16.0) g/dl Hct 43.9 (37.0-47.0) % MCV 82.8 (80.0-98.0) fL MCH 28.1 (27.0-33.0) pg MCHC 33.9 (31.0-35.0) g/dl RDW 12.4 (11.0-16.0) % Plt Count 393 D (160-400) X10*3/uL MPV 9.2 L (9.4-12.3) fL Immature Gran % (Auto) 0.2 (0.0-0.4) % Neut % (Auto) 81.5 H (45-73) % Lymph % (Auto) 13.2 L (20-40) % [place] % (Auto) 3.7 (2-11) % Eos % (Auto) 1.1 (0-4) % Baso % (Auto) 0.3 (0-2) % Lymph # (Auto) 1.7 (1.2-4.9) X10*3/uL [place] # (Auto) 0.5 (0.1-1.2) X10*3/uL Eos # (Auto) 0.2 (0.0-0.4) X10*3/uL Baso # (Auto) 0.0 (0.0-0.2) X10*3/uL Abs Immat Gran (auto) 0.03 (0.00-0.03) X10*3/uL Absolute Neuts (auto) 10.7 H (2.0-8.3) x10*3/uL Absolute Nucleated RBC 0.000 (0.0-0.012) X10*3/uL Nucleated RBC % (auto) 0.0 (0.0-0.2) /100WBC Sodium 142 (135-145) mmol/L Potassium 4.4 (3.3-5.1) mmol/L Chloride 103 (96-108) mmol/L Carbon Dioxide 30 H (22-29) mmol/L Anion Gap 13 (12-20) BUN 16 (9-16) mg/dL Creatinine 0.64 (0.5-1.4) mg/dL Estim Creat Clear Calc 104.0 Estimated GFR > 60 Random Glucose 110 (60-115) mg/dL Calcium 9.9 (8.4-10.2) mg/dL Total Bilirubin 0.5 (0.0-1.0) mg/dL AST 22 (5-31) U/L ALT 10 (0-31) U/L Alkaline Phosphatase 69 (39-117) U/L Troponin I High Sens < 2.7 < 2.7 (<3.5-17.0) ng/L B-Natriuretic Peptide 21 (<100) pg/mL Total Protein 8.0 (6.5-8.0) g/dL Albumin 4.3 (3.5-5.0) g/dL Lipase 19 (8-78) U/L Urine Color Yellow Urine Appearance Clear Urine pH 6.5 (5.0-9.0) Ur Specific [place] 1.025 (1.005-1.025) Urine Protein Trace (Neg-Trace) mg/dL Urine Glucose (UA) Negative (Negative) mg/dL Urine Ketones 40 (Negative) mg/dL Urine Blood Trace H (Negative) Urine Nitrite Negative (Negative) Ur Leukocyte Esterase Negative (Negative) Urine RBC 0-2 (0-2) /HPF Urine WBC 0-5 (0-5) /HPF Ur Squamous Epith Cells 0-2 (0-2) /HPF Urine Bacteria None Seen (None Seen) Hyaline Casts 0-2 (0-2) /LPF Influenza Type A (PCR) NEGATIVE (Negative) Influenza Type B (PCR) NEGATIVE (Negative) RSV RNA Qual (PCR) NEGATIVE (Negative) SARS-CoV-2 RNA (RT-PCR) NEGATIVE (Negative) Independent Interpretation I performed an independent interpretation of an: EKG ( see narrative above) and Plain X-Ray ( see course narrative) Radiology Impression Discussion of test interpretation with radiology: I have reviewed the radiologist's reading. Radiologist Impression: Two views of the chest. COMPARISON: None FINDINGS: Normal heart and mediastinal contours. No consolidation. No pleural effusion or pneumothorax. Mild spondylosis. No fracture identified. IMPRESSION: 1. No consolidation. Discharge Plan Discharge Clinical Impression: Abdominal pain Patient Disposition: Home, Self-Care Instructions: Gastritis (ED), Abdominal Pain (ED) Additional Instructions: Return to the ED immediately for any worsening abdominal pain, nausea, vomiting, flank pain, fever, chills, chest pain, shortness of breath, blood in stool, or any other concerning symptoms. Recommend follow up with primary care provider and customer loyalty representative. CT abdomen and pelvis with IV contrast. COMPARISON: None FINDINGS: Partially visualized lung bases are unremarkable. No focal hepatic lesion. Cholecystectomy. Normal spleen. Normal pancreas. Normal adrenal glands. Symmetric renal enhancement. Right renal cystic lesion measuring 1.8 cm. No hydronephrosis. Appendix is not seen. Mild distal colonic diverticulosis without evidence of diverticulitis. No mesenteric or retroperitoneal lymphadenopathy. Normal abdominal aorta. Urinary bladder is unremarkable given degree of distention. Lobulated uterine contour suggestive of a fibroid uterus. No adnexal mass. Small fat containing supraumbilical ventral abdominal wall hernia with fascial defect measuring 1.3 x 1.4 cm. [id number]-[id number] lower lumbar spondylosis. No acute fracture identified. IMPRESSION: 1. No cause for patient's symptoms identified. No evidence of renal obstruction. No bowel obstruction. 2. Small fat containing supraumbilical hernia with fascial defect measuring 1.3 x 1.4 cm. 3. Mild distal colonic diverticulosis without evidence of diverticulitis. This document has been electronically signed by: Martin Cope MD on 05/26/2024 19:32:42 Dictated By: Martin Cope MD Signed By: <Electronically signed by Martin Cope MD in OV> 05/26/241932 Prescriptions: New famotidine [Pepcid] 40 mg tablet 40 mg PO DAILY 14 Days Qty: 14 0RF No Action acetaminophen 500 mg tablet 500 mg PO Q6H PRN (Reason: fever) 15 Days Qty: 60 2RF (DME) Rollator walker with seat See Rx Instructions .Route .MEDSUPPLY Qty: 1 0RF Rx Instructions: As directed (DME) Ultra-Light Rollator Misc See Rx Instructions .Route Qty: 1 0RF Rx Instructions: As directed ezetimibe [Zetia] 10 mg tablet 10 mg PO DAILY 90 Days Qty: 90 1RF omeprazole 20 mg capsule,delayed release(DR/EC) 20 mg PO DAILY 90 Days Qty: 90 1RF (DME) FreeStyle Lite Strips Strip See Rx Instructions .Route Qty: 100 0RF Rx Instructions: Test Daily Mounjaro 5 mg/0.5 mL pen injector 5 mg subcut QWEEK 28 Days Qty: 2 1RF prednisone 10 mg tablet 10 mg PO DIRECTED 9 Days Qty: 18 0RF Rx Instructions: Take 3 tablets x3 days, 2 tablets x3 days, 1 tablet x3 days albuterol sulfate 0.63 mg/3 mL solution for nebulization 0.63 mg INHALATION Q4-6H PRN (Reason: Wheezing) 30 Days Qty: 90 3RF ibuprofen 800 mg tablet 800 mg PO Q8H PRN (Reason: pain) 15 Days Qty: 45 3RF melatonin 5 mg tablet 5 mg PO BEDTIME 90 Days Qty: 90 2RF (DME) CPap mask See Rx Instructions .Route .MEDSUPPLY Qty: 1 0RF Rx Instructions: As directed tizanidine 2 mg tablet 2 mg PO Q8H PRN (Reason: Muscle Pain) (DME) blood-glucose meter [FreeStyle Lite Meter] Kit See Rx Instructions .Route Qty: 1 0RF Rx Instructions: test daily fluticasone propion-salmeterol [AirDuo RespiClick] 232-14 mcg/actuation aerosol powdr breath activated 1 inh INHALATION BID 30 Days Qty: 1 3RF diclofenac sodium 1 % gel 4 g topical QID 30 Days Qty: 240 6RF Rx Instructions: apply 4grams to affected area four times a day as needed cyanocobalamin (vitamin B-12) [Vitamin B-12] 1,000 mcg tablet 1,000 mcg PO DAILY 90 Days Qty: 90 1RF montelukast [Singulair] 10 mg tablet 10 mg PO BEDTIME Qty: 90 2RF sertraline 50 mg tablet 50 mg PO DAILY 90 Days Qty: 90 1RF atorvastatin 80 mg tablet 80 mg PO DAILY 90 Days Qty: 90 1RF lisinopril 20 mg tablet 20 mg PO DAILY 90 Days Qty: 90 1RF metformin 500 mg tablet 1,000 mg PO BID 90 Days Qty: 360 2RF clobetasol 0.05 % cream 1 appl topical .x2/week 180 Days Qty: 45 1RF Rx Instructions: maintenance therapy for 2-3 times per week benzonatate 100 mg capsule 200 mg PO BID Qty: 60 0RF dextromethorphan polistirex [Delsym 12 hour] 30 mg/5 mL suspension,extended rel 12 hr 10 ml PO Q12H Qty: 89 0RF albuterol sulfate 90 mcg/actuation HFA aerosol inhaler 1 inh inhalation QID PRN (Reason: shortness of breath or wheezing) 30 Days Qty: 8.5 3RF brimonidine 0.2 % drops 1 drp ophthalmic (eye) TID 30 Days Qty: 10 3RF (DME) CPAP Machine/Device Device See Rx Instructions .Route Qty: 1 0RF Rx Instructions: As directed Referrals: [facility] [Provider Group] (Abdominal pain GERD like gastritis) Stand Alone Forms: Work/School Release Interventions: ED Discharge Assessment Last Done: 05/26/24 21:12 Discharge Date/Time: 05/26/24 21:14 Print Language: Ukrainian
--- NOTE | 2024-05-26 15:09 | ECG_ITS ---
Test Reason : chest pain Blood Pressure : */* mmHG Vent. Rate : 83 BPM Atrial Rate : 83 BPM P-R Int : 150 ms QRS Dur : 84 ms QT Int : 374 ms P-R-T Axes : 34 19 55 degrees QTcB Int : 439 ms Normal sinus rhythm Normal ECG When compared with ECG of 03-Aug-2022 08:47, No significant change was found Referred By: Emeterio Samson Electronically Signed By: GREG LOZANO MD
[2024-05-26 15:24] VITALS: BP 166/52; PULSE 88; RESP 18; TEMP 36.9; O2SAT 99; BMI 35.0
[2024-05-26 15:28] LABS: MANUAL DIFF FLAG NO
[2024-05-26 15:29] LABS: Basophils Percent Auto 0.3 % (0-2); Eosinophils Absolute Auto 0.2 X10*3/uL (0.0-0.4); Eosinophils Percent Auto 1.1 % (0-4); Hematocrit 43.9 % (37.0-47.0); Hemoglobin 14.9 g/dl (12.0-16.0); Imm Gran Abs Auto 0.03 X10*3/uL (0.00-0.03); Imm Gran Pct Auto 0.2 % (0.0-0.4); Lymphocytes Absolute Auto 1.7 X10*3/uL (1.2-4.9); Lymphocytes Percent Auto 13.2 % (20-40); Mean Corpuscular HGB Conc 33.9 g/dl (31.0-35.0); Mean Corpuscular Hemoglobin 28.1 pg (27.0-33.0); Mean Corpuscular Volume 82.8 fL (80.0-98.0); Mean Platelet Volume 9.2 fL (9.4-12.3); Monocytes Absolute Auto 0.5 X10*3/uL (0.1-1.2); Monocytes Percent Auto 3.7 % (2-11); Neutrophils Absolute Auto 10.7 x10*3/uL (2.0-8.3); Neutrophils Percent Auto 81.5 % (45-73); Platelet Count 393 X10*3/uL (160-400); Red Cell Distribution Width 12.4 % (11.0-16.0); White Blood Count 13.1 X10*3/uL (4.8-10.8)
[2024-05-26 15:46] LABS: Alanine Aminotransferase 10 U/L (0-31); Albumin Level 4.3 g/dL (3.5-5.0); Anion Gap 13 (12-20); Bilirubin Total 0.5 mg/dL (0.0-1.0); Blood Urea Nitrogen 16 mg/dL (9-16); Calcium 9.9 mg/dL (8.4-10.2); Carbon Dioxide 30 mmol/L (22-29); Chloride 103 mmol/L (96-108); Estimated Glomerular Filt Rate > 60; Glucose Random 110 mg/dL (60-115); Lipase 19 U/L (8-78); Potassium 4.4 mmol/L (3.3-5.1); Sodium 142 mmol/L (135-145)
[2024-05-26 15:52] LABS: B Type Natriuretic Peptide 21 pg/mL (<100)
[2024-05-26 15:53] LABS: Troponin-I High Sensitivity < 2.7 ng/L (<3.5-17.0)
[2024-05-26 15:59] LABS: Aspartate Amino Transferase 22 U/L (5-31)
[2024-05-26 16:06] LABS: Influenza A PCR NEGATIVE (Negative); Influenza B PCR NEGATIVE (Negative); Resp Syncy Virus RNA Qual PCR NEGATIVE (Negative); SARS COV2 PCR INHOUSE NEGATIVE (Negative)
[2024-05-26 16:56] LABS: Alkaline Phosphatase 69 U/L (39-117)
[2024-05-26 18:07] LABS: Appearance Urine Clear; Color Urine Yellow; Glucose Urine UA Negative (Negative); Leukocyte Esterase Urine Negative (Negative); Nitrite Urine Negative (Negative); PH 6.5 (5.0-9.0); Specific Gravity - Urine 1.025 (1.005-1.025); UMIC TRIGGER UACC YES; Urine Blood Trace (Negative); Urine Ketones 40 mg/dL (Negative); Urine Protein Trace mg/dL (Neg-Trace)
[2024-05-26 18:11] LABS: Bacteria Urine None Seen (None Seen); Hyaline Casts Urine 0-2 /LPF (0-2); RBC Urine 0-2 /HPF (0-2); Squamous Epithelial Cell Urine 0-2 /HPF (0-2); WBC Urine 0-5 /HPF (0-5)
[2024-05-26] MEDS: Morphine Sulfate 2 MG/ML CARTRIDGE IVPUSH (18:17)
[2024-05-26] MEDS: ondansetron HCL 4 MG/2 ML VIAL IVPUSH (18:17)
[2024-05-26] MEDS: 0.9 % Sodium Chloride 1,000 ML 999 ML IV (18:19)
[2024-05-26 18:28] LABS: Troponin-I High Sensitivity < 2.7 ng/L (<3.5-17.0)
[2024-05-26] MEDS: Magnesium Hydrox/Alum Hydrox 30 ML ORAL.SUSP PO (18:32)
[2024-05-26] MEDS: Lidocaine HCl Viscous 2 % 15 ML SOLUTION MUCOUS MEM (18:32)
[2024-05-26] MEDS: iohexoL 350 MG/ML 100 ML INFUS..BTL IV (18:56)
[2024-05-26 20:13] VITALS: BP 171/83; PULSE 73; RESP 16; TEMP 36.9; O2SAT 97
[2024-05-26] MEDS: Sucralfate Oral Suspension 1 GM/10 ML ORAL.SUSP PO (21:10)
[2024-05-26 21:12] VITALS: BP 171/83; PULSE 73; RESP 16; TEMP 36.9; O2SAT 97
== END 2024-05-26 21:14 | disposition home or self-care (01) ==
PROVIDERS: Nurse Practitioner Family; Physician Assistant; Emergency Provider Emergency Medicine; PCP Physician Assistant
DX: R10.13 Epigastric pain (principal); Z03.818 Encounter for observation for suspected exposure to other biological agents ruled out; E11.9 Type 2 diabetes mellitus without complications; I10 Essential (primary) hypertension; E78.00 Pure hypercholesterolemia, unspecified; J45.909 Unspecified asthma, uncomplicated; Z79.02 Long term (current) use of antithrombotics/antiplatelets; Z79.899 Other long term (current) drug therapy
CPT/HCPCS: 0241U; 36415; 71046; 74177; 80053; 81001; 83690; 83880; 84484; 85025; 93005; 96361; 96374; 96375; 99284; 99285; J2270; J2405; Q9967

== ENCOUNTER → 2024-05-26 15:09 | Outpatient (BNV) | payer MEDICARE, MEDICAID, SELFPAY | PROVIDERS: PCP Physician Assistant; Visit Provider Internal Medicine Cardiovascular Disease | DX: R07.9 Chest pain, unspecified (principal) | CPT/HCPCS: 93010 ==

== ENCOUNTER → 2024-05-26 17:20 | Outpatient (BNV) | payer MEDICARE, MEDICAID, SELFPAY | PROVIDERS: Emergency Provider Emergency Medicine; PCP Physician Assistant; Visit Provider Radiology Diagnostic Radiology | DX: K42.9 Umbilical hernia without obstruction or gangrene (principal); R07.9 Chest pain, unspecified; R05.9 Cough, unspecified | CPT/HCPCS: 71046; 74177 ==

== ENCOUNTER 2024-06-07 10:23 | Outpatient (AMB) | payer MEDICARE, MEDICAID, SELFPAY ==
--- NOTE | 2024-06-07 10:28 | A.OFFVIS_ITS ---
Vital Signs 06/07/24 10:33 Height 5 ft 5 in Weight 206 lb BMI 34.3 BP 111/72 Blood Pressure Location Lt brachial Position Sitting Pulse 88 Pulse Oximetry (%) 97 Oxygen Delivery Method Room Air Intake Visit Reasons: Gastritis ED follow up/Cleopatra hale 07/2022 Intake Note: Patient complex for Gastritis ED follow up and pre colonoscopy one year recall /Cleopatra hale 08/05/2022. Patient cc: Constipation on and off, patient change her diet and her Gastritis is much better, also she is loosing weight due an injection name Grayson for DM, denies any other GI issues for today visit. In Store Marketing Associate Required: No Accompanied by: Family/Other Allergies No Known Allergies [No Known Allergies*] Allergy (Verified 06/07/24 10:28) Medication List - Last Reconciled 06/07/24 by Cass Moran CNP acetaminophen 500 mg PO Q6H PRN 15 days albuterol sulfate 0.63 mg (3 mL) inhalation Q4-6H PRN 30 days albuterol sulfate 90 mcg/actuation 1 inh inhalation QID PRN 30 days atorvastatin 80 mg PO DAILY 90 days blood sugar diagnostic (FreeStyle Lite Strips) Test Daily blood-glucose meter (FreeStyle Lite Meter kit) test daily brimonidine 0.2% 1 drp ophthalmic (eye) TID 30 days CPAP (CPAP Machine/Device) As directed [CPap mask As directed] cyanocobalamin (vitamin B-12) (Vitamin B-12) 1,000 mcg PO DAILY 90 days diclofenac sodium 1% 4 grams topical QID 30 days ezetimibe (Zetia) 10 mg PO DAILY 90 days famotidine (Pepcid) 40 mg PO DAILY 14 days fluticasone propion-salmeterol 232-14 mcg/actuation (AirDuo RespiClick) 1 inh inhalation BID 30 days ibuprofen 800 mg PO Q8H PRN 15 days lisinopril 20 mg PO DAILY 90 days melatonin 5 mg PO BEDTIME 90 days metformin 1,000 mg (2 x 500 mg) PO BID 90 days montelukast (Singulair) 10 mg PO BEDTIME omeprazole 20 mg PO DAILY 90 days [Rollator walker with seat As directed] sertraline 50 mg PO DAILY 90 days tirzepatide (Mounjaro) 5 mg (0.5 mL) subcut QWEEK 4 weeks tizanidine 2 mg PO Q8H PRN walker (Ultra-Light Rollator misc) As directed HPI HPI Gastritis ED follow up/Cleopatra hale 07/2022: Details: Patient is a 63-year-old female with PMH of obesity, DMII, MDD, KARTHIKEYAN, LEONARDO, asthma and diverticulosis. Patient is accompanied by her daughter who is translating during this visit. She sought ER care 05/26/2024 for epigastric/left upper quadrant abdominal pain. She was discharged home with a prescription for pepcid after unemarkable cardiac and acute gastrointestinal disease workup. Today she reports pain resolved one week after ER visit. She denies any repeat episodes. She attributes improvement in symptoms to diet changes-increase water and vegetables via salad + avoiding greasy foods. She has also decreased her rice portions. She reports BMs 3-4x/week, type 6 with occasional type 1 on [place] stool chart. She denies pain with defecating. She was getting relief from Docusate sodium but has not had a prescription for years and unclear why medication was stopped. States the docusate was effective with a bowel movement daily without difficulty. Patient denies: systemic symptoms, n/v, appetite changes, unintentional wt loss, dysphasia, new pulmonary symptoms, bladder changes, hemorrhoids or melena/hematochezia. Social hx: Denies ETOH use X 3-4 months. Previously consumed 2-3x/week of 6-7 beers. denies recreational drug use non-smoker denies personal hx of CA Family hx: denies CA, liver or kidney disease plan restart docusate sodium higher fiber diet colonscopy with extensive education on PREP PFSH Medical History (Updated 06/07/24 @ 16:37 by Cass Moran CNP) Cough Acute respiratory disease Effusion, left knee History of adenomatous polyp of colon Seasonal allergies Glaucoma Lichen sclerosus Osteoarthritis of right knee COVID-19 vaccine administered Obesity (BMI 30-39.9) Alcohol abuse Pulmonary nodule Hypercholesterolemia Type 2 diabetes mellitus with hyperglycemia Tubular adenoma Diverticulosis Rectal pain Migraine Arthritis Depression Sleep apnea Asthma HTN (hypertension) Surgical History Status post bilateral knee replacements History of total left knee replacement (TKR) (~07/2022) History of total right knee replacement History of colonoscopy H/O rectal polypectomy History of tubal ligation History of tooth extraction History of incisional hernia repair Hx of appendectomy Hx of cataract extraction Hx of cholecystectomy Family History Father History of ETOH abuse Substance use disorder Mother Benign tumor Brother Acute CVA (cerebrovascular accident) Brother CAD (coronary artery disease) Prostate cancer Social History Household Members: Children Housing: Apartment Are you a primary congregational care pastor to a significant other at home: No Do you presently have visiting nurse or other home services: Yes (MACHINERY ENGINEER daughter Fidel) Alcohol intake: former Patient Tobacco Use Status: Never used Tobacco e-Cigarette/Vaping Use: Never Used Second Hand Smoke Exposure: No service: No Current occupational status: unemployed Current occupation: rt handed Cognitive needs: No Hearing needs: No Vision needs: No Female Reproductive History Menstrual Age of Menarche: 12 Physical Exam Vital Signs: Last Vital Signs Pulse 88 06/07/24 10:33 BP 111/72 06/07/24 10:33 Pulse Ox 97 06/07/24 10:33 Oxygen Delivery Method Room Air 06/07/24 10:33 BMI result Body Mass Index 34.3 Const General: healthy appearing, no acute distress and well developed Nutritional Appearance: well nourished Orientation/consciousness: patient oriented x3 HEENT Head: Yes normal to inspection, Yes normocephalic and Yes atraumatic Face and sinus: Yes normal facial exam Eyes General: appearance normal, both eyes and all related structures Neck Neck: Yes normal visual inspection Resp Effort & Inspection: normal respiratory effort, able to speak in complete sentences, no tracheal deviation and symmetric chest movement Auscultation: clear to auscultation bilaterally Cardio Jugular venous distension: no JVD Rate: regular rate Rhythm: regular rhythm Heart sounds: S1 normal heart sound present, S2 normal heart sound present, no gallops and no murmurs GI Inspection: Yes normal to inspection, No distended and Yes obesity Palpation (GI): Soft to palpation, not firm, nontender and No hepatosplenomegaly present Auscultation: normal bowel sounds Neuro General: patient oriented x3 Gait exam (Neuro): Normal gait present Psych Appearance: grossly normal Mental Status: mental status grossly normal Speech and movement: Normal speech and movement present Affect: normal affect Attitude: cooperative Thought process: Normal thought process present Thought content: Normal thought content present Insight: Good insight present (Psych) Judgement: Good judgement present (Psych) Results Reviewed Results Reviewed: Colonoscopy Procedure date 07/31 Findings: Terminal Ileum: Not evaluated Cecum: Partially evaluated due to sub-optimal prep Ascending Colon: Normal Transverse Colon: A 3-4 mm sessile polyp -removed with a cold biopsy Descending Colon: Normal Sigmoid Colon: Moderate diverticulosis Rectum: A 10-12 mm sessile polyp in the distal rectum, just inside the anal verge, removed with a hot snare Ano-rectum: Moderate internal hemorrhoids Colon preparation: Fair and Poor in the cecum and rectum despite copious i rrigation. There was undigested vegetable matter throughout the colon which could not be suctioned Impression and Post Procedure Diagnosis: Colonoscopy Findings: One small and one medium sized polyps were removed Moderate diverticulosis seen in the left colon Moderate hemorrhoids on retroflexed exam. Assessment & Plan Assessment & Plan (1) Obesity (BMI 30-39.9): Code(s): E66.9 - Obesity, unspecified Category: Medical Plan: BMI 34.3 Discussion on lifestyle modifications to promote healthy weight: -Well-balanced diet -Adequate hydration with water -150 minutes of moderate intensity exercise per week (2) Constipation: Code(s): K59.00 - Constipation, unspecified Category: Medical Qualifiers: Constipation type: unspecified constipation type Qualified Code(s): K59.00 - Constipation, unspecified Plan: Previously well managed with docusate 100 mg, will refill today. Reinforced lifestyle modifications to promote regularity and bulking of stool: -higher fiber diet -adequate hydration with water -150 minutes of moderate intensity exercise per week (3) Pre-op evaluation: Comment: 08/27/2023 colonoscopy- complete, with fair to poor prep primarily impacting the cecum and rectum. Code(s): Z01.818 - Encounter for other preprocedural examination Category: Medical Plan: Revisited colonoscopy from 08/27/2023- fair to poor prep. Extensive reviewed on prep and procedure expectations. She understands to hold Mounjaro 1 week before and metformin day procedure. Prep Rx'd to preferred pharmacy. Plan Follow-up after colonoscopy or sooner as needed Time: I spent a total of 45 minutes on the date of encounter which includes: Preparing to see the patient (reviewed previous documentation, test results and medical history) Performing a medically appropriate exam and/or evaluation Ordering medications, tests, and procedures Documenting clinical information in the health record Medications: New docusate sodium 100 mg PO BID 90 caps 1RF polyethylene glycol 3350 (Miralax) pre colonoscopy prep instructions 238 grams PO ONCE 238 grams 0RF bisacodyl 5 mg PO ONCE 0 days 4 tabs 0RF Coding Level of Care Code Established Pt Est Pt Level 3 (78393) Patient Type Established Diagnoses Obesity (BMI 30-39.9) E66.9 Constipation, unspecified constipation type K59.00 Constipation type: unspecified constipation type Pre-op evaluation Z01.818
[2024-06-07 10:33] VITALS: BP 111/72; PULSE 88; O2SAT 97; BMI 34.3
--- OUTSIDE RECORDS SUMMARY | 2024-06-07 11:46 | XMS_ITS | Continuity of Care Document ---
Author Organization [facility] Address [address] [place] [address] Phone Care Team Providers Care Electrical Engineer Name Role Phone Unavailable Unavailable Unavailable Procedures Procedure Date FOCUSED OUT/PT FOCUSED OUT/PT EXPANDED OUT/PT EXPANDED OUT/PT [facility] 4 - [facility] Advance Directives Directive Yes / No Effective Date File Name No Information Encounters Encounter Description Practice Location Reason(s) For Visit Diagnoses Date Provider Providers Copied on Encounter FOCUSED OUT/PT [facility], [address] [place] [address], [facility], tel:[phone] [facility] Adult Medicine No Information 8 8 No Information [facility], [address] [place] [address], [facility], tel:[phone] Conversion EDUCATIONAL CIRCUMSTANCES 8 8 No Information [facility], [address] [place] [address], [facility], tel:[phone] Conversion DIETARY COUNSELINGHYP ERLIPIDEMIA, MIXEDFATIGUE/ MALAISEPAIN IN JOINT INVOLVING MULTIPLE SITES 0 8 No Information FOCUSED OUT/PT [facility], [address] [place] [address], [facility], [place] tel:[phone] [facility] Adult Medicine No Information 0 6 8 No Information EXPANDED OUT/PT [facility], [address] [place] [address], [facility], [place] tel:[phone] [facility] Adult Medicine No Information Oct-2 5200 8 No Information EXPANDED OUT/PT [facility], [address] [place] [address], [facility], [place] tel:[phone] [facility] No Information Oct- 8 No Information [facility], [address] [place], [address], tel:[phone] Conversion UNSPECIFIED SYMPTOM ASSOCIATED WITH FEMALE GENITAL ORGANS Sep-2 8 No Information [facility] Level 4 - Comprehensive [facility], [address] [place], [address], [place] tel:[phone] [facility] Adult Medicine No Information Oct- 8 No Information [facility], [address] [place], [address], [place] tel:[phone] Conversion ASTHMA UNSPECIFIEDRA SH - NONSPECIFIC Oct- [...]
--- OUTSIDE RECORDS SUMMARY | 2024-06-07 11:46 | XMS_ITS | Clinical Summary ---
Author Organization [employer] Address [address] [place] [address] Care Team Providers Care Mine Production Engineer Name Role Phone Unavailable Primary Care Provider [...] Description 04/12/2024 10:00 AM EST Office Visit [facility] [address] [place] [address] Mariana Turner DDS Encounter for dental examination (Primary Dx); Hyperactive gag reflex; Fracture of dental presybeterian; Dental calculus; Bone loss; Gingival and periodontal [...] EDT Office Visit [facility] [address], [place] [phone] Levar Taylor, DDS [address], [place] [phone] Health Maintenance Due Date Last Done Comments [...] examination Hyperactive gag reflex Fracture of dental presybeterian Dental calculus Bone loss Gingival and periodontal disease Teeth missing PANORAMIC RADIOGRAPHIC IMAGE Routine 04/12/2024 10:00 AM EST Encounter for dental examination Hyperactive gag reflex Fracture of dental presybeterian Dental calculus Bone loss Gingival and periodontal disease Teeth missing COMPREHENSIVE ORAL EVALUATION - NEW OR ESTABLISHED PATIENT Routine 04/12/2024 10:00 AM EST Encounter for dental examination Hyperactive gag reflex Fracture of dental presybeterian Dental calculus Bone loss Gingival and periodontal disease Teeth missing from Last 3 Months Insurance [facility] MEDICAID STAND ADULT [place] [id number]
--- OUTSIDE RECORDS SUMMARY | 2024-06-07 11:46 | XMS_ITS | Clinical Summary ---
Author Organization [facility] Address [address] [place] [address] Phone Care Team Providers Care Baseball Player Name Role Phone Ross Marin Primary Care [...] Upcoming Encounters Date Type Department Care Team ([facility] st Contact Info) Description 06/13/2024 10:00 AM EDT Consult Orthopedic Surgery - [place] [address] [address] Denny Ashley, MARIAMA [address] [address] Health Maintenance Due Date Last Done Comments [...] Influencers of Health Screening 02/18/2024 RSV Immunization Adult Patie nts (1 - 1-dose 75+ series) 2036 HIB [...] age to complete this topic Meningococcal B Vaccine Aged Out No l onger eligible based on patient's age to complete [...] Phone Billing Address Personal/Family Self 1960 [address] [place] [address] MEDICARE MEDICAID - [place] Care Teams Baseball Player Relationship Specialty Start Date End Date Ross Marin PA PCP - General Physician Metal Die Finisher 02/18/24
== END 2024-06-07 11:24 | disposition home or self-care (01) ==
LOC: HO.HGI 10:24
PROVIDERS: PCP Physician Assistant; Visit Provider Nurse Practitioner Family
DX: K59.00 Constipation, unspecified (principal); Z12.11 Encounter for screening for malignant neoplasm of colon
CPT/HCPCS: 99213

== ENCOUNTER → 2024-06-07 10:23 | Outpatient (BNVA) | payer MEDICARE, MEDICAID, SELFPAY | PROVIDERS: PCP Physician Assistant; Visit Provider Nurse Practitioner Family | DX: Z01.818 Encounter for other preprocedural examination (principal); K59.00 Constipation, unspecified; E66.9 Obesity, unspecified; Z68.34 Body mass index [BMI] 34.0-34.9, adult | CPT/HCPCS: 99212 ==

== ENCOUNTER 2024-09-27 14:14 | Outpatient (AMB) | payer MEDICARE, MEDICAID, SELFPAY ==
--- OUTSIDE RECORDS SUMMARY | 2007-12-06 20:00 | XMS_ITS | Continuity of Care Document ---
Author Organization [facility] vices Address [address] [place] [address] Phone Care Team Providers Care Evaluation Specialist Name Role Phone Unavailable Unavailable Unavailable Procedures Procedure Date FOCUSED OUT/PT FOCUSED OUT/PT EXPANDED OUT/PT EXPANDED OUT/PT [facility] 4 - [facility] Advance Directives Directive Yes / No Effective Date File Name No Information Encounters Encounter Description Practice Location Reason(s) For Visit Diagnoses Date Provider Providers Copied on Encounter FOCUSED OUT/PT [facility], [address] [place] [address], [facility], tel:[phone] [facility] Adult Medicine No Information 8 8 No Information [facility], [address] [place] [address], [facility], tel:[phone] Conversion EDUCATIONAL CIRCUMSTANCES 8 8 No Information [facility], [address] [place] [address], [facility], tel:[phone] Conversion DIETARY COUNSELINGHYP ERLIPIDEMIA, MIXEDFATIGUE/ MALAISEPAIN IN JOINT INVOLVING MULTIPLE SITES 0 6 8 No Information FOCUSED OUT/PT [facility], [address] [place] [address], [facility], [place] tel:[phone] [facility] Adult Medicine No Information 0 6 8 No Information EXPANDED OUT/PT [facility], [address] [place] [address], [facility], [place] tel:[phone] [facility] Adult Medicine No Information Oct-2 5200 8 No Information EXPANDED OUT/PT [facility], [address] [place] [address], [facility], [place] tel:[phone] [facility] No Information Oct- 8 No Information [facility], [address] [place], [address], tel:[phone] Conversion UNSPECIFIED SYMPTOM ASSOCIATED WITH FEMALE GENITAL ORGANS Sep-2 8 No Information [facility] 4 - Comprehensive [facility], [address] [place], [address], [place] tel:[phone] [facility] Adult Medicine No Information Oct- 8 No Information [facility], [address] [place], [address], [place] tel:[phone] Conversion ASTHMA UNSPECIFIEDRA SH - NONSPECIFIC Oct- 8 No Information Family History Family Member [...]
--- NOTE | 2024-09-27 14:16 | A.OFFVIS_ITS ---
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 No complaints. Last Pap/HPV was negative in 03/21 Last Mammogram was BI-RADS 1 in 08/22 Last Colonoscopy was done in 08/22, the recommendation was to repeat in 1 year The patient is requesting a refill for her clobetasol PFSH Medical History Cough Acute respiratory disease Effusion, left knee History of adenomatous polyp of colon Seasonal allergies Glaucoma Lichen sclerosus Osteoarthritis of right knee COVID-19 vaccine administered Obesity (BMI 30-39.9) Alcohol abuse Pulmonary nodule Hypercholesterolemia Type 2 diabetes mellitus with hyperglycemia Tubular adenoma Diverticulosis Rectal pain Migraine Arthritis Depression Sleep apnea Asthma HTN (hypertension) Surgical History Status post bilateral knee replacements History of total left knee replacement (TKR) (~07/2022) History of total right knee replacement History of colonoscopy H/O rectal polypectomy History of tubal ligation History of tooth extraction History of incisional hernia repair Hx of appendectomy Hx of cataract extraction Hx of cholecystectomy Family History Father History of ETOH abuse Substance use disorder Mother Benign tumor Brother Acute CVA (cerebrovascular accident) Brother CAD (coronary artery disease) Prostate cancer Social History Household Members: Children Housing: Apartment Are you a primary child care assistant to a significant other at home: No Do you presently have visiting nurse or other home services: Yes (TIRE BLADDER MAKER daughter Fidel) Alcohol intake: former Patient Tobacco Use Status: Never used Tobacco e-Cigarette/Vaping Use: Never Used Second Hand Smoke Exposure: No Patient : No service: No Current occupational status: unemployed Current occupation: rt handed Cognitive needs: No Hearing needs: No Vision needs: No Female Reproductive History Menstrual Age of Menarche: 12 control method: none Total pregnancies: 5 Number of Living Children: 4 Date of last pap smear: 03/18/20 History of abnormal pap smear: No Date of Mammogram: 08/17/23 (bi rad 1) Review of Systems Const All systems reviewed & are unremarkable except as noted in HPI and below Card Reports as per HPI Resp Reports as per HPI GI Reports as per HPI and Reports no additional complaints Reports as per HPI Physical Exam Const General: cooperative, healthy appearing and comfortable Chest Chest palpation & inspection: normal inspection of the chest and normal palpation of entire chest wall Breast/axilla inspection: normal inspection of the breasts and normal inspection of the axillae Breast/axilla palpation: normal palpation of the breasts, normal palpation of the axillae and no axillary lymphadenopathy Resp Effort & Inspection: normal respiratory effort Auscultation: clear to auscultation bilaterally Percussion: percussion normal Cardio Palpation: normal PMI Rate: regular rate Rhythm: regular rhythm Heart sounds: no murmurs and no rubs Peripheral pulses: Peripheral pulses 2+ throughout GI Inspection: Yes normal to inspection Palpation (GI): Soft to palpation, nontender, no guarding, not rigid and No hepatosplenomegaly present Percussion: Yes normal to percussion Auscultation: normal bowel sounds Rectal Exam - Female: deferred General: Yes bladder normal to palpation External Female Exam: No normal external appearance (Bilateral leukoplakia no evidence of ulcers or hard areas) and No lesion Speculum Exam - Vagina: normal appearance of the vagina, normal palpation, normal vaginal discharge and not erythematous Speculum Exam - Cervix: normal appearance of the cervix and normal palpation Bimanual exam- vagina & uterus: normal bimanual exam, normal palpation, uterine size normal, bladder normal to palpation, consistency normal and normal palpation Bimanual Exam- Adnexa, other: normal adnexae, no masses and no tenderness Assessment & Plan Assessment & Plan (1) Well woman exam: Code(s): Z01.419 - Encounter for gynecological examination (general) (routine) without abnormal findings Category: Medical Plan: Co testing done. Counseled the patient about the recommended dietary allowance of 1200 mg of Calcium & 600 IU of vitamin D. Mammogram ordered. The patient is in the process to schedule with GI an appointment for for screening colonoscopy . The patient was instructed to perform monthly self-breast exams and schedule annual exam in a year. All questions answered and the patient verbalized understanding. (2) Lichen sclerosus: Code(s): L90.0 - Lichen sclerosus et atrophicus Category: Medical Plan: Explained to the patient that Lichen sclerosus refers to a benign, chronic, progressive dermatologic condition characterized by marked inflammation, epithelial thinning accompanied by pruritus and pain. In addition, discussed with the patient that there is a small increased risk of squamous cell cancer of the vulva in patients with lichen sclerosus. Adequate treatment of the disease seems to be associated with a reduced risk of development of neoplasia. Instructed the patient to schedule an appointment in a year to examine the affected area, with possible biopsy of suspicious lesions, in addition explained to the patient that she should look at the skin of the affected area and touch with fingertips monthly to search for thickened lumps or sores that do not heal & to report such findings for inspection & possible biopsy to rule out vulvar cancer Will prescribe Clobetasol propionate 0.05% ointment to be applied daily at night for to weeks, followed by maintenance therapy two to three times per week . Orders: Orders MM tomosynthesis screening BI Today Z12.31 - Encounter for screening mammogram for malignant neoplasm of breast Medications: New clobetasol 0.05% Then maintenance therapy for 2-3 times per week 1 appl topical BID 45 grams 1RF 2 weeks Coding Level of Care Code Est Pt Prev Care 40-64y(26299) Diagnoses Well woman exam Z01.419 Lichen sclerosus L90.0
--- OUTSIDE RECORDS SUMMARY | 2024-09-27 14:54 | XMS_ITS | Clinical Summary ---
Author Organization [employer] Address [address] [facility] [address] [place] [address] Care Team Providers Care Tag Marker Name Role Phone Unavailable Primary Care Provider [...] SUBCUTANEOUSLY WEEKLY FOR 4 WEEKS 5 Active acetaminophen (Tylenol 8 Hour) 650 MG ER tablet Take 1 tablet (650 mg) by mouth every 8 (eight) hours if needed for mild pain. Do not crush, chew, or split. 30 tablet 5 Active ibuprofen 600 MG tablet Take 1 tablet (600 mg) by mouth 3 times daily. 30 tablet 5 Active Active Problems Problem Noted Date Diagnosed Date Gingival and periodontal disease 06/22/2024 Encounters Date Type Department Care Team Description 07/21/2024 9:30 AM EDT Office Visit [facility] [address] [place], [place] [id number] Wiggins-Owens, Mariana, DDS Fracture of dental mandaeism (Primary Dx) from Last 3 Months Social History Tobacco [...] Sign Reading Time Taken Comments Blood Pressure 128/70 07/21/2024 9:33 AM EDT Pulse 70 06/22/2024 10:52 AM EDT Temperature - - Respiratory Rate - - [...] Panel 1961 SDOH Screening 1960 Sigmoidoscopy 1961 Disability Screening 1961 Alcohol/Substance Use Screening 1973 Hepatitis C Screening 10/17/1979 Pap Smear 1982 Cervical Cancer Screening 10/17/1991 HPV/Cotest 10/17/1991 Mammogram 2001 Zoster Vaccines (1 of 2) 10/17/2011 Pneumococcal Vaccine: 50+ Years (2 of 2 - PCV) 11/30/2018 11/30/2017 COVID-19 Vaccine (1 - 2023-2 5 season) 2023 Dental Oral Exam 10/11/2024 04/12/2024 Influenza Vaccine (#1) 2024 0, 11/30/2017 Tobacco Screening 07/21/2025 07/21/2024 Dental X-Ray: Full Mouth 04/13/2027 04/12/2024 DTaP/Tdap/Td [...] this topic Meningococcal Vaccine Aged Out No acrolina nikki eligible based on patient's age to complete this topic RSV under 20 months Aged Out No longe r eligible based on patient's age to complete this topic Rotavirus Vaccines Aged Out No longer eligible based on patient's age to complete this topic Procedures Procedure Name Priority Date/Time Associated Diagnosis Comments CASE PRESENTATION, DETAILED AND EXTENSIVE TREATMENT PLANNING Routine 07/21/2024 9:30 AM EDT Fracture of dental mandaeism 20 DO RESIN-BASED COMPOSITE - 2 SURF, POSTERIOR Routine 07/21/2024 9:30 AM EDT Fracture of dental mandaeism PANORAMIC RADIOGRAPHIC IMAGE Routine 04/12/2024 10:00 AM EST Encounter for dental examination Hyperactive gag reflex Fracture of dental mandaeism Dental calculus Bone loss Gingival and periodontal disease Teeth missing COMPREHENSIVE ORAL EVALUATION - NEW OR ESTABLISHED PATIENT Routine 04/12/2024 10:00 AM EST Encounter for dental examination Hyperactive gag reflex Fracture of dental mandaeism Dental calculus Bone loss Gingival and periodontal disease Teeth missing from Last 3 Months or Most Recently Relevant to Health Maintenance Insurance [facility] [address] MEDICAID STAND ADULT
== END 2024-09-27 14:49 | disposition home or self-care (01) ==
LOC: HO.HWS 14:14
PROVIDERS: PCP Physician Assistant; Visit Provider Obstetrics & Gynecology
DX: Z01.419 Encounter for gynecological examination (general) (routine) without abnormal findings (principal); L90.0 Lichen sclerosus et atrophicus
CPT/HCPCS: 99396; 99459

== ENCOUNTER 2024-09-27 14:14 | Outpatient (REF) | payer MEDICARE, MEDICAID, SELFPAY | END 2024-09-27 14:15 | disposition home or self-care (01) | LOC: HO.LNP 14:14 | PROVIDERS: PCP Physician Assistant; Visit Provider Obstetrics & Gynecology | DX: Z01.419 Encounter for gynecological examination (general) (routine) without abnormal findings (principal); Z12.31 Encounter for screening mammogram for malignant neoplasm of breast; L90.0 Lichen sclerosus et atrophicus; Z98.51 Tubal ligation status | CPT/HCPCS: 87626; 88175; 99396 ==

== ENCOUNTER 2024-10-26 09:04 | Outpatient (AMB) | payer MEDICARE, MEDICAID, SELFPAY ==
--- OUTSIDE RECORDS SUMMARY | 2007-12-06 20:00 | XMS_ITS | Continuity of Care Document ---
Author Organization [facility] vices Address [address] [place] [address] Phone Care Team Providers Care Stretching Machine Tender Frame Name Role Phone Unavailable Unavailable Unavailable Procedures Procedure Date FOCUSED OUT/PT FOCUSED OUT/PT EXPANDED OUT/PT EXPANDED OUT/PT [facility] 4 - [facility] Advance Directives Directive Yes / No Effective Date File Name No Information Encounters Encounter Description Practice Location Reason(s) For Visit Diagnoses Date Provider Providers Copied on Encounter FOCUSED OUT/PT [facility], [address] [place] [address], [facility], tel:[phone] [facility] Adult Medicine No Information 8 8 No Information [facility], [address] [place] [address], [facility], tel:[phone] Conversion EDUCATIONAL CIRCUMSTANCES 8 8 No Information [facility], [address] [place] [address], [facility], tel:[phone] Conversion DIETARY COUNSELINGHYP ERLIPIDEMIA, MIXEDFATIGUE/ MALAISEPAIN IN JOINT INVOLVING MULTIPLE SITES 0 6 8 No Information FOCUSED OUT/PT [facility], [address] [place] [address], [facility], [place] tel:[phone] [facility] Adult Medicine No Information 0 6 8 No Information EXPANDED OUT/PT [facility], [address] [place] [address], [facility], [place] tel:[phone] [facility] Adult Medicine No Information Oct-2 5200 8 No Information EXPANDED OUT/PT [facility], [address] [place] [address], [facility], [place] tel:[phone] [facility] No Information Sep-2 8 No Information [facility], [address] [place] [address], [address], tel:[phone] Conversion UNSPECIFIED SYMPTOM ASSOCIATED WITH FEMALE GENITAL ORGANS Sep-2 8 No Information [facility], [address] [place], [address], [place] tel:[phone] Conversion ASTHMA UNSPECIFIEDRA SH - NONSPECIFIC Sep-2 8 No Information [facility] 4 - [facility], [address] [place], [address], [place] tel:[phone] [facility] Adult Medicine No Information Oct-2 8 No Information Family History Family Member Type Diagnosis Age At Onset No Information Payers Payer name Insurance type Covered constitution party ID Authoriza tion(s) No Information Social History [...]
[2024-10-26 09:05] VITALS: BP 138/70; PULSE 76; TEMP 36.2; O2SAT 99; BMI 33.4
--- NOTE | 2024-10-26 09:05 | AM.OFFVISMDC ---
Intake Vital Signs 10/26/24 09:05 Height 5 ft 5 in Weight 200 lb 8 oz BMI 33.4 BP 138/70 Blood Pressure Location Lt brachial Position Sitting Pulse 76 Pulse Source Pulse Oximeter Temp 97.1 F Temp Source Temporal Artery Scan Pulse Oximetry (%) 99 Oxygen Delivery Method Room Air Intake Visit Reasons: AWV Home Mission Worker Required: Yes Home Mission Worker Language: Energy Broker Name: Brian([phone]) Allergies No Known Allergies (No Known Allergies*) Allergy (Verified 10/26/24 09:16) HPI AWV HPI Details Patient is a 64 year-old female here today for an annual wellness visit. ?Patient has a past medical history significant for moderate persistent asthma migraines, hyperlipidemia, LEONARDO, hypertension, type 2 diabetes. Today we discussed patient's end of life planning, [place] of care and comprehensive care plan which was scanned into patient's documents .. Colon cancer screening: Colonoscopy done in July of 2023, poor prep needed repeat 1 year. Mammogram: Mammogram done in 08/19/2023 BI-RADS 1- Needs up-to-date mammogram Vaccine: UTD with Tdap. UTD With COVID vaccine. Up-to-date with pneumonia vaccine. Unknown if had Varicella Laboratory Tests 04/08/23 10/18/23 02/15/24 10:19 09:19 11:36 RBC 4.84 Hgb 13.7 Creatinine 0.70 Fasting Glucose 170 H 161 H Hgb A1c (Clinic) 6.4 H Hemoglobin A1c % 6.7 H Cholesterol 219 H 230 H LDL Cholesterol, C alc 136 H 149 H 05/09/24 10:59 RBC Hgb Creatinine Fasting Glucose Hgb A1c (Clinic) 6.3 H Hemoglobin A1c % Cholesterol LDL Cholesterol, C alc HPI Comments History of Present Illness Details reviewed past medical history- yes reviewed surgical / hospitalization history- yes reviewed current medications- yes reviewed family history- yes home safety throw rugs? grab bars? raised toilet seat? working smoke detectors? activities of daily living difficulty bathing or showering? difficulty dressing? difficulty using the toilet? difficulty getting in and out of bed? difficulty walking? receives help from other person's with any of the above tasks? instrumental activities of daily living uses telephone - gets to place out of walking distance- go shopping for groceries- repairs own meals- does own minor home maintenance- does own laundry- does own housework- manages own money- currently takes medication- end of life planning discussed advanced directives- yes advanced directives on file? discussed wishes expressed in advanced directives. fall risk have you had any falls with injuries in the past year? have you had 2 or more falls in the past year? fall risk assessment: [facility] Medical History Cough Acute respiratory disease Effusion, left knee History of adenomatous polyp of colon Seasonal allergies Glaucoma Lichen sclerosus Osteoarthritis of right knee COVID-19 vaccine administered Obesity (BMI 30-39.9) Alcohol abuse Pulmonary nodule Hypercholesterolemia Type 2 diabetes mellitus with hyperglycemia Tubular adenoma Diverticulosis Rectal pain Migraine Arthritis Depression Sleep apnea Asthma HTN (hypertension) Surgical History Status post bilateral knee replacements History of total left knee replacement (TKR) (~07/2022) History of total right knee replacement History of colonoscopy H/O rectal polypectomy History of tubal ligation History of tooth extraction History of incisional hernia repair Hx of appendectomy Hx of cataract extraction Hx of cholecystectomy Family History Father History of ETOH abuse Substance use disorder Mother Benign tumor Brother Acute CVA (cerebrovascular accident) Brother CAD (coronary artery disease) Prostate cancer Social History Household Members: Children Housing: Apartment Are you a primary college and career counselor to a significant other at home: No Do you presently have visiting nurse or other home services: Yes ([employer] daughter Fidel) Alcohol intake: former Patient Tobacco Use Status: Never used Tobacco e-Cigarette/Vaping Use: Never Used Second Hand Smoke Exposure: No service: No Current occupational status: unemployed Current occupation: rt handed Cognitive needs: No Hearing needs: No Vision needs: No Female Reproductive History Menstrual Age of Menarche: 12 Questionnaire Medicare Wellness Checkup What gender do you identify with?: female During the past 4 weeks, how much have you been bothered by emotional problems such as feeling anxious, depressed, irritable, sad or downhearted, and blue?: quite a bit During the past 4 weeks, has your physical & emotional health limited your social activities with family, friends, neighbors, or groups?: slightly During the past 4 weeks, how much bodily pain have you generally had?: mild pain During the past 4 weeks, was someone available to help you if you needed & wanted help?: yes, quite a bit During the past 4 weeks, what was the hardest physical activity you could do for at least 2 minutes?: light Can you get to places out of walking distance without help? (For eg., can you travel alone on buses, taxis or drive your car?): No Can you go shopping for groceries or clothes without someone's help?: No Can you prepare your own meals?: No Can you do your housework without help?: No Because of any health problems, do you need the help of another person with your personal care needs such as eating, bathing, dressing or getting around the house?: Yes Can you handle your own money without help?: No During the past 4 weeks, how would you rate your health in general?: fair During the past 4 weeks how have things been going for you?: pretty well Are you having difficulties driving your car?: not applicable, I don't use a car Do you always fasten your seat belt when you are in a car?: yes, usually During past 4 weeks, have you been bothered by the following: never: Falling or dizzy when standing up, Sexual problems?, Trouble eating well?, Teeth or denture problems?, Problems using the telephone? and Tiredness or fatigue? Have you fallen 2 or more times in the past year?: No Are you afraid of falling?: No Are you a smoker?: no During the past 4 weeks, how many drinks of wine, beer, or other alcoholic beverages did you have?: 1 drink or less per week Do you exercise for about 20 minutes 3 or more times a week?: yes, all the time Have you been given information to help with the following?: yes: Hazards in your house that might hurt you? and yes: Keeping track of your medications? How often do you have trouble taking medicines the way you have been told to take them?: I always take medicine as prescribed How confident are you that you can control & manage most of your health problems?: not very confident What is your race?: or origin or descent Activity of Daily Living Bathing - sponge bath, tub bath or shower: receives no assistance (gets in/out by self, if usual bathing means Dressing - getting clothes from closets & drawers, including inner/outer garments & fasteners.: gets clothes & gets completely dressed without help Toileting - going to the 'toilet room' for urine/bowel elimination & cleaning self/arranging clothes: goes to toilet room, cleans self, arranges clothes without help Transfer: moves in & out of bed and chair without help (may use support object) Continence: controls urination/bowel movements completely by self Feeding: feeds self without help Total Score: 0 Information obtained from: patient Using telephone: independent Traveling: independent Shopping: needs assistance Preparing meals: needs assistance Housework: independent Taking medicine: independent Managing money: independent PHQ-9 Over the last 2 weeks, how often have you been bothered by any of the following problems? 1. Little interest or pleasure in doing things: several days 2. Feeling down, depressed, or hopeless: nearly every day 3. Trouble falling or staying asleep, or sleeping too much: nearly every day 4. Feeling tired or having little energy: nearly every day 5. Poor appetite or overeating: several days 6. Feeling bad about yourself - or that you are a failure or have let yourself or your family down: nearly every day 7. Trouble concentrating on things, such as reading the newspaper or watching television: not at all 8. Moving or speaking so slowly that other people could have noticed. Or the opposite - being so fidgety or restless that you have been moving around a lot more than usual: not at all 9. Thoughts that you would be better off or of hurting yourself in some way: not at all Total score: 14 Depression Screening Interpretation: Positive Depression Screening Follow-up: Existing condition and In treatment Depression Screening Done: Yes 56827 - PHQ-9 Billing: Yes Source: Developed by Drs. Denny Kiran, Sujatha Bernardo, Johny Hill and colleagues, with an educational yonathan from [employer]. Physical Exam Vital Signs: Last Vital Signs Temp 97.1 F 10/26/24 09:05 Pulse 76 10/26/24 09:05 BP 138/70 10/26/24 09:05 Pulse Ox 99 10/26/24 09:05 Oxygen Delivery Method Room Air 10/26/24 09:05 BMI result Body Mass Index 33.4 HEENT Other: hearing screening whisper test- Eyes Other: vision screening- Other: urinary incontinence? Neuro Other: balance Romberg- tandem walk test- walk-in turned test- rise from sit to stand- Results AMB Hemoglobin A1c AMB Hemoglobin A1c 5.7 % Last Edit by Jessica Scales CMA on 10/26/24 09:23 Assessment & Plan Assessment & Plan (1) Annual wellness visit: Code(s): Z00.00 - Encounter for general adult medical examination without abnormal findings (2) Tubular adenoma: Comment: 59-year-old female personal history of colon polyps family history of colon cancer followed up after recent colonoscopy. Colonoscopy and pathology reviewed- small internal hemorrhoids pathology reveals 1 sigmoid adenoma as well 2, transverse colon adenomas and 1 hyperplastic Code(s): D36.9 - Benign neoplasm, unspecified site Plan: need repeat colonoscopy (3) Breast cancer screening: Code(s): Z12.39 - Encounter for other screening for malignant neoplasm of breast Qualifiers: Breast cancer screening modality: mammogram Qualified Code(s): Z12.31 - Encounter for screening mammogram for malignant neoplasm of breast Orders: Orders AMB Hemoglobin A1c Today Z13.9 - Encounter for screening, unspecified Medications: New tirzepatide (Mounjaro) 7.5 mg (0.5 mL) subcut QWEEK 2 mL 2RF 4 weeks E11.65 - Type 2 diabetes mellitus with hyperglycemia, G47.33 - Obstructive sleep apnea (adult) (pediatric) Quality Reporting (2019) Depression/Bipolar (159/160/161/177) PHQ-9: Total score: 14 Coding Diagnoses Annual wellness visit Z00.00 Tubular adenoma D36.9 Encounter for screening mammogram for malignant neoplasm of breast Z12.31 Breast cancer screening modality: mammogram Additional Codes PHQ-9 - 04940 - PHQ-9 Billing: Yes ([id number])
--- OUTSIDE RECORDS SUMMARY | 2024-10-26 09:59 | XMS_ITS | Clinical Summary ---
Author Organization [employer] Address [address] [facility] 7t [place] [address] Care Team Providers Care Rayon Coner Name Role Phone Unavailable Primary Care Provider [...] Diagnosed Date Gingival and periodontal disease 06/22/2024 Social History Tobacco Use Types Packs/Day Years [...] Exam 10/11/2024 04/12/2024 Influenza Vaccine (#1) 2024 , 11/30/2017 Tobacco Screening 07/21/2025 07/21/2024 Dental X-Ray: [...] examination Hyperactive gag reflex Fracture of dental alevism Dental calculus Bone loss Gingival and periodontal disease Teeth missing COMPREHENSIVE ORAL EVALUATION - NEW OR ESTABLISHED PATIENT Routine 04/12/2024 10:00 AM EST Encounter for dental examination Hyperactive gag reflex Fracture of dental alevism Dental calculus Bone loss Gingival and periodontal disease Teeth missing from Last 3 Months or Most Recently Relevant to Health Maintenance Insurance [facility] STAND ADULT * Guarantor: Laquita Mackay Account Type Relation to Patient Date of Phone Billing Address Personal/Family Self [address] [place] [address]
== END 2024-10-26 09:42 | disposition home or self-care (01) ==
PROVIDERS: PCP Physician Assistant; Visit Provider Physician Assistant
DX: Z13.9 Encounter for screening, unspecified (principal)

== ENCOUNTER → 2024-10-26 09:04 | Outpatient (BNVA) | payer MEDICARE, MEDICAID, SELFPAY | PROVIDERS: PCP Physician Assistant; Visit Provider Physician Assistant | DX: Z00.00 Encounter for general adult medical examination without abnormal findings (principal); D36.9 Benign neoplasm, unspecified site; E11.65 Type 2 diabetes mellitus with hyperglycemia; G47.33 Obstructive sleep apnea (adult) (pediatric); E78.00 Pure hypercholesterolemia, unspecified; I10 Essential (primary) hypertension; J45.909 Unspecified asthma, uncomplicated | CPT/HCPCS: 83036; 96127 ==

== ENCOUNTER 2024-12-06 09:55 | Outpatient (REF) | payer MEDICARE, MEDICAID, SELFPAY | END 2024-12-06 09:56 | disposition home or self-care (01) | LOC: HO.MAMMO 09:55 | PROVIDERS: PCP Physician Assistant; Visit Provider Physician Assistant | DX: Z12.31 Encounter for screening mammogram for malignant neoplasm of breast (principal) | CPT/HCPCS: 77063; 77067 ==

== ENCOUNTER → 2024-12-06 10:00 | Outpatient (BNV) | payer MEDICARE, MEDICAID, SELFPAY | PROVIDERS: PCP Physician Assistant; Visit Provider Internal Medicine | DX: Z12.31 Encounter for screening mammogram for malignant neoplasm of breast (principal) | CPT/HCPCS: 77063; 77067 ==

== ENCOUNTER 2025-01-09 10:47 | Outpatient (REF) | payer MEDICARE, MEDICAID, SELFPAY ==
[2025-01-09 11:29] LABS: Hematocrit 42.0 % (37.0-47.0); Hemoglobin 13.9 g/dl (12.0-16.0); Mean Corpuscular HGB Conc 33.1 g/dl (31.0-35.0); Mean Corpuscular Hemoglobin 29.3 pg (27.0-33.0); Mean Corpuscular Volume 88.4 fL (80.0-98.0); NRBC Abs Auto 0.000 X10*3/uL (0.0-0.012); NRBC Pct Auto 0.0 /100WBC (0.0-0.2); Platelet Count 322 X10*3/uL (160-400); Red Blood Count 4.75 X10*6/uL (4.20-5.50); White Blood Count 7.5 X10*3/uL (4.8-10.8)
[2025-01-09 11:57] LABS: Alanine Aminotransferase 14 U/L (0-31); Albumin Level 4.4 g/dL (3.5-5.0); Alkaline Phosphatase 74 U/L (39-117); Anion Gap 11 (12-20); Aspartate Amino Transferase 21 U/L (5-31); Blood Urea Nitrogen 14 mg/dL (9-16); Calcium 9.4 mg/dL (8.4-10.2); Carbon Dioxide 27 mmol/L (22-29); Chloride 105 mmol/L (96-108); Cholesterol 244 mg/dL (<200); Estimated Glomerular Filt Rate > 60; HDL Cholesterol 51 mg/dL (>40); Potassium 4.2 mmol/L (3.3-5.1); Sodium 139 mmol/L (135-145); Total Protein 7.5 g/dL (6.5-8.0); Triglycerides 205 mg/dL (<150)
[2025-01-09 12:15] LABS: Microalbum/Creatinine Ratio Ur 12.0 ug/mg cr (<30)
--- OUTSIDE RECORDS SUMMARY | 2025-01-09 12:56 | XMS_ITS | Clinical Summary ---
Author Organization [employer] Address [address] [facility] 7[address] [place] [address] Care Team Providers Care [employer] Name Role Phone Unavailable Primary Care Provider [...] chew, or split. 30 tablet 5 Active Additional Information Patient not taking.Reported on 12/26/2024 ibuprofen 600 MG tablet Take 1 tablet (600 mg) by mouth 3 times daily. 30 tablet 5 Active clobetasol (Temovate) 0.05 % cream APPLY TO AFFECTED AREA TOPICALLY TWICE A DAY FOR 2 WEEKS THEN MAINTENANCE THERAPY 2-3 TIMES PER WEEK 5 Active dextromethorph an (Delsym) 30 MG/5ML liquid TAKE 10 MLS BY MOUTH EVERY 12 HOURS NEEDED FOR COUGH Active omeprazole (PriLOSEC) [address] capsule TAKE ONE CAPSULE BY MOUTH EVERYDAY FOR 90 DAYS. 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 12/26/2024 Assessment & Plan (12/26/2024 3:40 PM EDT): Orders: BITEWINGS - 3 RADIOGRAPHIC IMAGES; Future INTRAORAL - PERIAPICAL FIRST RADIOGRAPHIC IMAGE; Future INTRAORAL - PERIAPICAL EACH ADDITIONAL RADIOGRAPHIC IMAGE; Future PROPHYLAXIS - ADULT; Future CASE PRESENTATION, DETAILED AND EXTENSIVE TREATMENT PLANNING; Future Dental calculus 12/26/2024 Assessment & Plan (12/26/2024 3:40 PM EDT): Orders: BITEWINGS - 3 RADIOGRAPHIC IMAGES; Future INTRAORAL - PERIAPICAL FIRST RADIOGRAPHIC IMAGE; Future INTRAORAL - PERIAPICAL EACH ADDITIONAL RADIOGRAPHIC IMAGE; Future PROPHYLAXIS - ADULT; Future CASE PRESENTATION, DETAILED AND EXTENSIVE TREATMENT PLANNING; Future Acute gingival inflammation 12/26/2024 Assessment & Plan (12/26/2024 3:40 PM EDT): Orders: BITEWINGS - 3 RADIOGRAPHIC IMAGES; Future INTRAORAL - PERIAPICAL FIRST RADIOGRAPHIC IMAGE; Future INTRAORAL - PERIAPICAL EACH ADDITIONAL RADIOGRAPHIC IMAGE; Future PROPHYLAXIS - ADULT; Future CASE PRESENTATION, DETAILED AND EXTENSIVE TREATMENT PLANNING; Future Gingival bleeding 12/26/2024 Assessment & Plan (12/26/2024 3:40 PM EDT): Orders: BITEWINGS - 3 RADIOGRAPHIC IMAGES; Future INTRAORAL - PERIAPICAL FIRST RADIOGRAPHIC IMAGE; Future INTRAORAL - PERIAPICAL EACH ADDITIONAL RADIOGRAPHIC IMAGE; Future PROPHYLAXIS - ADULT; Future CASE PRESENTATION, DETAILED AND EXTENSIVE TREATMENT PLANNING; Future Teeth missing 12/26/2024 Assessment & Plan (12/26/2024 3:40 PM EDT): Orders: BITEWINGS - 3 RADIOGRAPHIC IMAGES; Future INTRAORAL - PERIAPICAL FIRST RADIOGRAPHIC IMAGE; Future INTRAORAL - PERIAPICAL EACH ADDITIONAL RADIOGRAPHIC IMAGE; Future PROPHYLAXIS - ADULT; Future CASE PRESENTATION, DETAILED AND EXTENSIVE TREATMENT PLANNING; Future Gingival and periodontal disease 06/22/2024 Encounters Date Type Department Care Team Description 12/26/2024 2:00 PM EDT Office Visit [facility] [address] [place] [address] Ya Rm Tipped teeth (Primary Dx); Stage 3 grade B generalized periodontitis per AAP/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; Dental calculus; Acute gingival inflammation; Gingival bleeding; Teeth missing from Last 3 Months Social [...] Sign Reading Time Taken Comments Blood Pressure 142/84 12/26/2024 2:05 PM EDT Pulse 70 06/22/2024 10:52 AM EDT Temperature - - Respiratory Rate - - Oxygen Saturation - - Inhaled Oxygen Concentration - - Weight - - Height - - Body Mass Index - - Plan of Treatment Upcoming Encounters Date Type Department Care Team (Late st Contact Info) Description 01/15/2025 3:30 PM EST Office Visit [facility] [address] [place] [address] Levar Taylor DDS [address] [place] [address] Health Maintenance Due Date Last Done Comments CT Colonography 1961 Colonoscopy 1961 Colorectal Cancer Screening 1961 Depression Screening 1961 FIT DNA/Cologuard 1960 [...] COVID-19 Vaccine (1 - 2023-2 5 season) 2024 Influenza Vaccine (#1) 2024 , 11/30/2017 Dental Oral Exam 06/27/2025 12/26/2024, 04/12/2024 Dental Prophylaxis 06/27/2025 12/26/2024 Tobacco Screening 12/26/2025 12/26/2024 Dental X-Ray: Bitewings 12/27/2025 12/26/2024 Dental X-Ray: Full Mouth 04/13/2027 04/12/2024 DTaP/Tdap/Td [...] PRESENTATION, DETAILED AND EXTENSIVE TREATMENT PLANNING Routine 12/26/2024 2:00 PM EDT Tipped teeth Stage 3 grade B generalized periodontitis per AAP/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 Dental calculus Acute gingival inflammation Gingival bleeding Teeth missing PROPHYLAXIS - ADULT Routine 12/26/2024 2 :00 PM EDT Tipped teeth Stage 3 grade B generalized periodontitis per AAP/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 Dental calculus Acute gingival inflammation Gingival bleeding Teeth missing INTRAORAL - PERIAPICAL EACH ADDITIONAL RADIOGRAPHIC IMAGE Routine 12/26/2024 2:00 PM EDT Tipped teeth Stage 3 grade B generalized periodontitis per AAP/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 Dental calculus Acute gingival inflammation Gingival bleeding Teeth missing INTRAORAL - PERIAPICAL FIRST RADIOGRAPHIC IMAGE Routine 12/26/2024 2:00 PM EDT Tipped teeth Stage 3 grade B generalized periodontitis per AAP/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 Dental calculus Acute gingival inflammation Gingival bleeding Teeth missing BITEWINGS - 3 RADIOGRAPHIC IMAGES Routine 12/26/2024 2:00 PM EDT Tipped teeth Stage 3 grade B generalized periodontitis per AAP/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 Dental calculus Acute gingival inflammation Gingival bleeding Teeth missing COMPREHENSIVE PERIODONTAL EVALUATION - NEW OR ESTABLISHED PATIENT Routine 12/26/2024 2:00 PM EDT PERIODIC ORAL EVALUATION - ESTABLISHED PATIENT Routine 12/26/2024 2:00 PM EDT 15 O AMALGAM FILLING Routine 12/26/2024 12:00 AM EDT 16 O AMALGAM FILLING Routine 12/26/2024 12:00 AM EDT 29 O COMPOSITE FILLING Routine 12:00 AM EDT 5 O COMPOSITE FILLING Routine 12/26/2024 12:00 AM EDT 4 O COMPOSITE FILLING Routine 12/26/2024 12:00 AM EDT PANORAMIC RADIOGRAPHIC IMAGE Routine 04/12/2024 10:00 AM EST Encounter for dental examination Hyperactive gag reflex Fracture of dental religious Dental calculus Bone loss Gingival and periodontal disease Teeth missing from Last 3 Months or Most Recently Relevant to Health Maintenance [facility] ST[facility] * Guarantor: Laquita Mackay Account Type Relation to Patient Date of Phone Billing Address Personal/Family Self 1960 [address] [facility] [address] [place] [address]
== END 2025-01-09 10:48 | disposition home or self-care (01) ==
LOC: HO.LAB 10:47
PROVIDERS: PCP Physician Assistant; Visit Provider Physician Assistant
DX: E11.65 Type 2 diabetes mellitus with hyperglycemia (principal); E78.00 Pure hypercholesterolemia, unspecified
CPT/HCPCS: 36415; 80053; 80061; 82043; 82570; 85027

== ENCOUNTER → 2025-01-11 15:22 | Outpatient (REF) | payer MEDICARE, MEDICAID, SELFPAY ==
--- OUTSIDE RECORDS SUMMARY | 2007-12-06 19:00 | XMS_ITS | Continuity of Care Document ---
Author Organization [facility]ly [facility] vices Address [address] [place] [address] Phone Care Team Providers Care Mechanical Estimator Name Role Phone Unavailable Unavailable Unavailable Procedures Procedure Date FOCUSED OUT/PT FOCUSED OUT/PT EXPANDED OUT/PT EXPANDED OUT/PT [facility] 4 - [facility] Advance Directives Directive Yes / No Effective Date File Name No Information Encounters Encounter Description Practice Location Reason(s) For Visit Diagnoses Date Provider Providers Copied on Encounter FOCUSED OUT/PT [facility]ly [facility], [address] [place] [address], [facility], tel:[phone] [facility] Adult Medicine No Information [address] [facility], [address] [place] [address], [facility], tel:[phone] Conversion EDUCATIONAL CIRCUMSTANCES [address] [facility], [address] [place] [address], [facility], tel:[phone] Conversion DIETARY COUNSELINGHYP ERLIPIDEMIA, MIXEDFATIGUE/ MALAISEPAIN IN JOINT INVOLVING MULTIPLE SITES 0 6 8 No Information FOCUSED OUT/PT [facility]ly [facility], [address] [place] [address], [facility], [place] tel:[phone] [facility] Adult Medicine No Information 0 6 8 No Information EXPANDED OUT/PT [facility]ly [facility], [address] [place] [address], [facility], [place] tel:[phone] [facility] Adult Medicine No Information Oct-2 5200 8 No Information EXPANDED OUT/PT [facility], [address] [place] [address], [facility], [place] tel:[phone] [facility] No Information Sep-[address] [facility], [address] [place] [address], [address], tel:[phone] Conversion UNSPECIFIED SYMPTOM ASSOCIATED WITH FEMALE GENITAL ORGANS Sep-[address] [facility], [address] [place], [address], [place] tel:[phone] Conversion ASTHMA UNSPECIFIEDRA SH - NONSPECIFIC Sep-2 8 No Information [facility] 4 - [facility], [address] [place], [address], [place] tel:[phone] [facility] Adult Medicine No Information Oct-2 8 No Information Family History Family Member Type Diagnosis Age At Onset No Information Payers Payer name Insurance type Covered republican ID Authoriza tion(s) No Information Social History Type Description Quantity Date Captured Comments Sex Female Smoking Status No Information Chief Complaint And Reason For Visit No Information Reason For Referral Reason For Referral No Information History Of Present Illness Encounter Date Complaint History Of Prese nt Illness No Information Functional Status Date Functional Assessmen t No Information Instructions Date Instruction Additional Infor mation No Information Assessments Type Assessment Date No Information Patient Care Teams Name Effective Dates (start - stop) Status Members No Information
--- OUTSIDE RECORDS SUMMARY | 2025-01-11 18:30 | XMS_ITS | Clinical Summary ---
Author Organization [employer] Address [address] [facility] 7[address] [place] [address] Care Team Providers Care Car Porter Name Role Phone Unavailable Primary Care Provider [...] Description 12/26/2024 2:00 PM EDT Office Visit [facility] [address] [place] [address] Ya Rm Tipped teeth (Primary Dx); Stage [...] Care Team (Late st Contact Info) Description 02/07/2025 3:30 PM EST Office Visit [facility] [address] [place] [address] Levar Taylor DDS [address] [place] [address] Health Maintenance Due Date Last Done Comments [...] PCV) 11/30/2018 11/30/2017 COVID-19 Vaccine ( - 2024-2 6 season) 2024 Influenza Vaccine (#1) 2024 , [...] Most Recently Relevant to Health Maintenance [facility] * Guarantor: Laquita Mackay Account Type Relation to Patient Date of Phone Billing Address Personal/Family Self 1960 [address] [facility] [address] [place] [address]
== END ==
LOC: HO.SL 15:22
PROVIDERS: PCP Physician Assistant; Visit Provider Physician Assistant
DX: G47.33 Obstructive sleep apnea (adult) (pediatric) (principal); R06.83 Snoring; R40.0 Somnolence
CPT/HCPCS: 95806

== ENCOUNTER → 2025-01-11 15:32 | Outpatient (BNV) | payer MEDICARE, MEDICAID, SELFPAY | PROVIDERS: PCP Physician Assistant; Visit Provider Internal Medicine | DX: G47.33 Obstructive sleep apnea (adult) (pediatric) (principal) | CPT/HCPCS: 95806 ==

== ENCOUNTER 2025-01-23 13:53 | Outpatient (AMB) | payer MEDICARE, MEDICAID, SELFPAY ==
--- OUTSIDE RECORDS SUMMARY | 2007-12-06 19:00 | XMS_ITS | Continuity of Care Document ---
Author Organization [facility]ices Address [address] [place] [address] Phone Care Team Providers Care Ict Managers Name Role Phone Unavailable Unavailable Unavailable Procedures Procedure Date FOCUSED OUT/PT FOCUSED OUT/PT EXPANDED OUT/PT EXPANDED OUT/PT [facility] 4 - [facility] Advance Directives Directive Yes / No Effective Date File Name No Information Encounters Encounter Description Practice Location Reason(s) For Visit Diagnoses Date Provider Providers Copied on Encounter FOCUSED OUT/PT [facility], [address] [place] [address], [facility], tel:[phone] [facility] Adult Medicine No Information 8 8 No Information [facility], [address] [place] [address], [facility], tel:[phone] Conversion EDUCATIONAL CIRCUMSTANCES 8 8 No Information [facility], [address] [place] [address], [facility], tel:[phone] Conversion DIETARY COUNSELINGHYP ERLIPIDEMIA, MIXEDFATIGUE/ MALAISEPAIN IN JOINT INVOLVING MULTIPLE SITES 0 6 8 No Information FOCUSED OUT/PT [facility], [address] [place] [address], [facility], [place] tel:[phone] [facility] Adult Medicine No Information 0 6 8 No Information EXPANDED OUT/PT [facility], [address] [place] [address], [facility], [place] tel:[phone] [facility] Adult Medicine No Information Oct-2 5200 8 No Information EXPANDED OUT/PT [facility], [address] [place] [address], [facility], [place] tel:[phone] [facility] No Information Sep-2 8 No Information [facility], [address] [place] [address], [address], tel:[phone] Conversion UNSPECIFIED SYMPTOM ASSOCIATED WITH FEMALE GENITAL ORGANS Sep-2 8 No Information [facility], [address] [place], [address], [place] tel:[phone] Conversion ASTHMA UNSPECIFIEDRA SH - NONSPECIFIC Sep-2 8 No Information [facility] 4 - [facility], [address] [place], [address], [place] tel:[phone] [facility] Adult Medicine No Information Oct-2 8 No Information Family History Family Member Type Diagnosis Age At Onset No Information Payers Payer name Insurance type Covered libertarian ID Authoriza tion(s) No Information Social History [...]
--- NOTE | 2025-01-23 14:09 | MHC.PC.OV ---
Vital Signs 01/23/25 14:10 Height 5 ft 5 in Weight 199 lb 8 oz BMI 33.2 BP 130/68 Blood Pressure Location Lt brachial Position Sitting Temp 97.5 F Temp Source Temporal Artery Scan Intake Visit Reasons: f/u DMII Intake Note: Patient is here to follow up on DMII. Refrigeration Technician Required: Yes Refrigeration Technician Language: Waitstaff Name: Caleb (daughter) Information Interpreted: non-clinical & clinical (Pt decline translating service prefer daughter to translate) Automobile Mechanic: Present Accompanied by: Daughter Allergies No Known Allergies (No Known Allergies*) Allergy (Verified 01/23/25 14:41) Medication List - Last Reconciled 01/23/25 by Ross Marin PA-C acetaminophen 500 mg PO Q6H PRN 15 days albuterol sulfate 0.63 mg (3 mL) inhalation Q4-6H PRN 30 days albuterol sulfate 90 mcg/actuation 1 inh inhalation QID PRN 30 days atorvastatin 80 mg PO DAILY 90 days bisacodyl 5 mg PO ONCE 0 days blood sugar diagnostic (FreeStyle Lite Strips) Test Daily blood-glucose meter (FreeStyle Lite Meter kit) test daily brimonidine 0.2% 1 drp ophthalmic (eye) TID 30 days clobetasol 0.05% 1 appl topical BID 2 weeks CPAP (CPAP Machine/Device) As directed [CPap mask As directed] diclofenac sodium 1% 4 grams topical QID 30 days docusate sodium 100 mg PO BID ezetimibe (Zetia) 10 mg PO DAILY 90 days famotidine (Pepcid) 40 mg PO DAILY 14 days fluticasone propion-salmeterol 232-14 mcg/actuation (AirDuo RespiClick) 1 inh inhalation BID 30 days ibuprofen 800 mg PO Q8H PRN 15 days lisinopril 20 mg PO DAILY 90 days melatonin 5 mg PO BEDTIME 90 days metformin 1,000 mg (2 x 500 mg) PO BID 90 days montelukast (Singulair) 10 mg PO BEDTIME omeprazole 20 mg PO DAILY 90 days polyethylene glycol 3350 (Miralax) 238 grams PO ONCE [Rollator walker with seat As directed] sertraline 50 mg PO DAILY 90 days tirzepatide (Mounjaro) 7.5 mg (0.5 mL) subcut QWEEK 4 weeks tizanidine 2 mg PO Q8H PRN walker (Ultra-Light Rollator misc) As directed Tobacco use date assessed: 01/23/25 Dental Screening Dental Screen Date: 05/09/24 HPI f/u DMII HPI Details Patient is a 63 year-old female here today for follow-up visit. Patient has a past medical history significant for moderate persistent asthma migraines, hyperlipidemia, LEONARDO, hypertension, type 2 diabetes. Concern--> has noted dry itchy skin all over her body for quite some time. She is interested in allergy testing to evaluate for a possible environmental allergy. .. Moderate persistent asthma:? Patient reports her asthma has been well controlled on current rescue inhaler and maintenance inhaler dose.? Denies any nighttime awakenings with asthma symptoms or recent exacerbating shins. .. Obstructive sleep apnea: Has not using a CPAP machine as she has lost her CPAP machine due to moving to a new apartment. .. Hypertension:? Patient reports blood pressures acceptable today in office. ? Denies any headaches, chest discomforts or vision issues.? .? She does not have home blood pressure machine.? Continues on current lisinopril 10 mg. .. Type 2 Diabetes:? Has started GLP 1 in his lost significant amount of weight since last visit. Most recent A1c below 6.0. She is interested in up titrating her GLP 1 to help lose more weight. Will decrease her metformin to a 1000 mg daily to help avoid hypoglycemic events. .. HLD: Will recheck lipid panel to ensure normal total cholesterol and LDL. She continues on both statin and Zetia PLAN: Be more consistent with Zetia, LDL goal to be below 100 . Class 1 Obesity; has been able to lose weight since starting Mounjaro. She has been tolerating GLP 1 therapy well. Continue the up titrate for more weight loss. Laboratory Tests 11/25/20 10/08/21 04/08/23 09:18 09:35 10:20 RBC Hgb A1c (Clinic) 7.0 H 6.9 H Cholesterol LDL Cholesterol, C alc Urine Microalbumin 30.0 02/15/24 10/26/24 01/09/25 11:36 09:17 10:53 RBC Hgb A1c (Clinic) 6.4 H 5.7 Cholesterol LDL Cholesterol, C alc Urine Microalbumin 28.0 01/09/25 01/23/25 10:58 14:08 RBC 4.75 Hgb A1c (Clinic) 5.5 Cholesterol 244 H LDL Cholesterol, C alc 152 H Urine Microalbumin PFSH Medical History Cough Acute respiratory disease Effusion, left knee History of adenomatous polyp of colon Seasonal allergies Glaucoma Lichen sclerosus Osteoarthritis of right knee COVID-19 vaccine administered Obesity (BMI 30-39.9) Alcohol abuse Pulmonary nodule Hypercholesterolemia Type 2 diabetes mellitus with hyperglycemia Tubular adenoma Diverticulosis Rectal pain Migraine Arthritis Depression Sleep apnea Asthma HTN (hypertension) Surgical History Status post bilateral knee replacements History of total left knee replacement (TKR) (~07/2022) History of total right knee replacement History of colonoscopy H/O rectal polypectomy History of tubal ligation History of tooth extraction History of incisional hernia repair Hx of appendectomy Hx of cataract extraction Hx of cholecystectomy Family History Father History of ETOH abuse Substance use disorder Mother Benign tumor Brother Acute CVA (cerebrovascular accident) Brother CAD (coronary artery disease) Prostate cancer Social History Household Members: Children Housing: Apartment Are you a primary career development specialist to a significant other at home: No Do you presently have visiting nurse or other home services: Yes ([employer] PAR[employer] daughter Fidel) Alcohol intake: former Patient Tobacco Use Status: Never used Tobacco e-Cigarette/Vaping Use: Never Used Second Hand Smoke Exposure: No service: No Current occupational status: unemployed Current occupation: rt handed Cognitive needs: No Hearing needs: No Vision needs: No Female Reproductive History Menstrual Age of Menarche: 12 Questionnaire PHQ-9 Over the last 2 weeks, how often have you been bothered by any of the following problems? 1. Little interest or pleasure in doing things: not at all 2. Feeling down, depressed, or hopeless: not at all 3. Trouble falling or staying asleep, or sleeping too much: not at all 4. Feeling tired or having little energy: not at all 5. Poor appetite or overeating: not at all 6. Feeling bad about yourself - or that you are a failure or have let yourself or your family down: not at all 7. Trouble concentrating on things, such as reading the newspaper or watching television: not at all 8. Moving or speaking so slowly that other people could have noticed. Or the opposite - being so fidgety or restless that you have been moving around a lot more than usual: not at all 9. Thoughts that you would be better off or of hurting yourself in some way: not at all Total score: 0 Depression Screening Interpretation: Negative Depression Screening Done: Yes 37321 - PHQ-9 Billing: Patient declined-do not bill Source: Developed by Drs. Denny Kiran, Sujatha Bernardo, Johny Hill and colleagues, with an educational yonathan from [employer] Thrive Questionnaire Date Thrive assessed: 05/09/24 I am a: Patient What is your living situation today?: I choose not to answer this question Within the past 12 months, did the food you bought not last and you didn't have the money to get more?: I choose not to answer this question Within the past 12 months, did you worry whether your food would run out before you got money to buy more?: I choose not to answer this question Do you have trouble paying for medicines?: No Do you have trouble getting transportation to medical appointments?: No Do you have trouble paying your heating and electricity bill?: No Do you have trouble taking care of your child, family member or friend?: No Do you have trouble with day-to-day activities such as bathing, preparing meals, shopping, managing finances, etc.?: No Are you currently unemployed and looking for a job?: No Are you interested in more education?: No Please select the resources that you would like help with: None Currently or been in a relationship where the following occur: I choose not to answer THRIVE Score: 0 AUDIT C Alcohol Use Questionnaire (AUDIT-C) 1. How often do you have a drink containing alcohol?: Monthly or less 2. How many drinks containing alcohol do you have on a typical day when you are drinking?: 1 or 2 3. How often do you have six or more drinks on one occasion?: Never Total Score: 1 KARTHIKEYAN-7 AMB Questionnaire KARTHIKEYAN-7 Date KARTHIKEYAN - 7 assessed: 01/23/25 Feeling nervous, anxious, or on edge: 1 = Several days Not being able to stop or control worryin = Several days Worrying too much about different things: 1 = Several days Trouble relaxin = Several days Being so restless that it is hard to sit still: 1 = Several days Becoming easily annoyed or irritable: 1 = Several days Feeling afraid as if something awful might happen: 0 = Not at all Total KARTHIKEYAN-7 score (0-4 normal; 5-9 mild; 10-14 moderate; 15-21 severe): 6 Source: Developed by Drs. Denny Kiran, Sujatha Bernardo, Johny Hill and colleagues, with an educational yonathan from [employer] Review of Systems Const Denies headache(s) Eyes Denies loss of vision ENT Denies vertigo, Denies dizziness, Denies headache(s) and Denies sore throat Card Denies chest pain, Denies leg edema and Denies lightheadedness Resp Denies cough, Denies hemoptysis and Denies wheezing GI Denies abdominal pain, Denies melena, Denies constipation, Denies diarrhea and Denies vomiting Denies urinary frequency, Denies dysuria and Denies urinary urgency Musc Denies arthralgias, Denies joint swelling, Denies numbness and Denies tingling Neuro Denies Abnormal speech present, Denies behavioral changes, Denies vertigo, Denies dizziness, Denies headache(s), Denies loss of vision, Denies memory loss, Denies numbness and Denies tingling Psych Denies anxiety, Denies behavioral changes, Denies depression, Denies memory loss and Denies panic attacks Rodrigo/Lymph Denies easy bleeding and Denies easy bruising Aller/Immun Denies wheezing Physical exam (Primary Care) Vital Signs: Last Vital Signs Temp 97.5 F 01/23/25 14:10 BP 130/68 01/23/25 14:10 BMI result Body Mass Index 33.2 BMI Assessment/Plan discussion: High BMI High, discussed plan: lifestyle, weight reduction, dietary and physical activity Tobacco/Smoking Status: Tobacco use Status Tobacco use date assessed 01/23/25 01/23/25 14:11 Patient Tobacco Use Status Never used Tobacco 01/23/25 14:11 e-Cigarette/Vaping Use Never Used 01/23/25 14:11 PHQ-9: PHQ-9 Score PHQ-9: Total score 0 01/23/25 14:11 Depression Screening Interpretation: Negative Thrive Assessment: Date of Thrive Assessment Date Thrive assessed 05/09/24 01/23/25 14:11 Currently or been in a relationship where the following occur: I choose not to answer Const General: healthy appearing, no acute distress, alert and awake Nutritional Appearance: well nourished Orientation/consciousness: oriented to person, oriented to place and oriented to time HENMT Ears: TM's normal bilaterally General nose exam: Normal nasal mucous membranes and turbinates present Eyes Conjunctivae: conjunctivae normal Sclerae: sclerae normal Pupils: Equal, round and reactive pupils present Neck Neck: Yes no lymphadenopathy and Yes no JVD Thyroid: Thyroid normal Carotids: no bruits Resp Effort & Inspection: normal respiratory effort and not tachypneic Auscultation: no crackles, no rales, no rhonchi and no wheezes Cardio Rate: regular rate Rhythm: regular rhythm Heart sounds: no murmurs and normal S1 and S2 GI Palpation (GI): Soft to palpation, nontender, no hepatomegaly and no splenomegaly Auscultation: normal bowel sounds Skin General skin exam: no rashes or lesions noted and dry skin Neuro General: oriented to person, oriented to place and oriented to time Cranial nerves: Yes Equal, round and reactive pupils present Speech: No Abnormal speech present Gait exam (Neuro): Normal gait present Motor exam (neuro): no tremor noted Extrem Right upper extremity: full ROM Left upper extremity: full ROM Right lower extremity: full ROM; no edema Left lower extremity: full ROM; no edema Psych Mental Status: mental status grossly normal Speech and movement: Normal speech and movement present Affect: normal affect Attitude: cooperative Thought process: Normal thought process present Results AMB Hemoglobin A1c AMB Hemoglobin A1c 5.5 % Last Edit by ISAIAH Painting on 01/23/25 14:33 Results Reviewed Results Reviewed: Laboratory Last Values Hgb A1c (Clinic) 5.5 % (4.0-6.0) 01/23/25 14:08 Coding Level of Care Code Est Pt Level 4 (75423) Diagnoses Type 2 diabetes mellitus with hyperglycemia, without long-term current use of insulin E11.65 Diabetes mellitus detention insulin use: without detention use Diabetes mellitus complication status: with hyperglycemia Moderate persistent asthma without complication J45.40 Asthma severity: moderate Asthma persistence: persistent Asthma complication type: uncomplicated LEONARDO (obstructive sleep apnea) G47.33 Class 1 obesity E66.811 Acute urticaria L50.8 Assessment & Plan Assessment & Plan (1) DMII (diabetes mellitus, type 2): Code(s): E11.9 - Type 2 diabetes mellitus without complications Category: Medical Qualifiers: Diabetes mellitus exterminator termite insulin use: without detention use Diabetes mellitus complication status: with hyperglycemia Qualified Code(s): E11.65 - Type 2 diabetes mellitus with hyperglycemia Plan: Patient's type 2 diabetes well controlled with current regime. Most recent A1c below 6. Will update trait her GLP 1 therapy for additional weight loss. Will decrease her metformin to a 1000 mg daily to help reduce hypoglycemic events. Goal A1c is to be below 7.0 (2) Asthma: Comment: controlled w/daily inhaler Code(s): J45.909 - Unspecified asthma, uncomplicated Category: Medical Qualifiers: Asthma severity: moderate Asthma persistence: persistent Asthma complication type: uncomplicated Qualified Code(s): J45.40 - Moderate persistent asthma, uncomplicated Plan: Patient reports her asthma is fairly well controlled with current asthma med regime. (3) LEONARDO (obstructive sleep apnea): Code(s): G47.33 - Obstructive sleep apnea (adult) (pediatric) Category: Medical Plan: Has a history of obstructive sleep apnea. She continues to use CPAP machine a nightly basis with good effect. (4) Class 1 obesity: Code(s): E66.811 - Obesity, class 1 Category: Medical Plan: Patient does understand her BMI is over 30 and will continue working on being more physically active and adapting to better eating habits to reduce her weight. She has been able to lose significant amount of weight on GLP 1 (5) Acute urticaria: Code(s): L50.8 - Other urticaria Category: Medical Plan: Patient interested in getting allergy testing. Orders: Orders AMB Hemoglobin A1c Today E11.65 - Type 2 diabetes mellitus with hyperglycemia Lipid Panel Today E78.00 - Pure hypercholesterolemia, unspecified Resp Allergy Profile Region I Today L50.8 - Other urticaria Comprehensive [place]. Panel Fast Today E11.65 - Type 2 diabetes mellitus with hyperglycemia Complete Blood Count no Diff Today E11.65 - Type 2 diabetes mellitus with hyperglycemia Microalbumin, Random (w Creat) Today E11.65 - Type 2 diabetes mellitus with hyperglycemia Medications: New tirzepatide (Mounjaro) 10 mg (0.5 mL) subcut QWEEK 2 mL 2RF 4 weeks E11.65 - Type 2 diabetes mellitus with hyperglycemia, E66.811 - Obesity, class 1, G47.33 - Obstructive sleep apnea (adult) (pediatric) Changed From metformin 1,000 mg (2 x 500 mg) PO BID 90 days 360 tabs 2RF E11.65 - Type 2 diabetes mellitus with hyperglycemia To metformin 1,000 mg (2 x 500 mg) PO ONCE 180 tabs 2RF 90 days E11.65 - Type 2 diabetes mellitus with hyperglycemia Refilled docusate sodium 100 mg PO BID 90 caps 1RF On Hold tirzepatide (Mounjaro) Hold Comment: Doctor's Order 7.5 mg (0.5 mL) subcut QWEEK 2 mL 2RF 4 weeks E11.65 - Type 2 diabetes mellitus with hyperglycemia, G47.33 - Obstructive sleep apnea (adult) (pediatric)
[2025-01-23 14:10] VITALS: BP 130/68; TEMP 36.4; BMI 33.2
--- OUTSIDE RECORDS SUMMARY | 2025-01-23 17:47 | XMS_ITS | Clinical Summary ---
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 Name Role Phone Unavailable Primary Care Provider [...] Description 12/26/2024 2:00 PM EDT Office Visit [facility] [address] [place] [address] Ya Rm Tipped teeth (Primary Dx); Stage [...] Description 02/07/2025 3:30 PM EST Office Visit [facility] [address] [place] [address] Levar Taylor DDS [address] [place] [address] Health Maintenance Due Date Last Done Comments [...] examination Hyperactive gag reflex Fracture of dental spiritism Dental calculus Bone loss Gingival and periodontal disease Teeth missing from Last 3 Months or Most Recently Relevant to Health Maintenance Insurance [facility] STAND ADULT * Guarantor: Laquita Mackay Account Type Relation to Patient Date of Phone Billing Address Personal/Family Self 1960 [address] [place] [address]
== END 2025-01-23 14:55 | disposition home or self-care (01) ==
LOC: HO.HMCH 13:54
PROVIDERS: PCP Physician Assistant; Visit Provider Physician Assistant
DX: E11.65 Type 2 diabetes mellitus with hyperglycemia (principal); J45.40 Moderate persistent asthma, uncomplicated; E66.811 Obesity, class 1; Z68.33 Body mass index [BMI] 33.0-33.9, adult; G47.33 Obstructive sleep apnea (adult) (pediatric); L50.8 Other urticaria

== ENCOUNTER → 2025-01-23 13:53 | Outpatient (BNVA) | payer MEDICARE, MEDICAID, SELFPAY | PROVIDERS: PCP Physician Assistant; Visit Provider Physician Assistant | DX: E11.65 Type 2 diabetes mellitus with hyperglycemia (principal); J45.40 Moderate persistent asthma, uncomplicated; G47.33 Obstructive sleep apnea (adult) (pediatric); E66.811 Obesity, class 1; L50.8 Other urticaria | CPT/HCPCS: 83036; 99212 ==